=== PATIENT | male | born 1950 | race Two or more races ===

== ENCOUNTER 2016-10-18 19:26 | Emergency (ER) | payer OTHER ==
[2016-10-18 19:44] VITALS: BP 110/67; PULSE 96; TEMP 97.6; BMI 23.3
--- NOTE | 2016-10-18 19:59 | PDOC ---
History of Present Illness - General Chief Complaint: Alcohol intoxication Stated Complaint: FALL HIP INJURY Time Seen by Provider: 10/18/16 19:59 History Source: Patient, EMS Exam Limitations: Intoxication - History of Present Illness Initial Comments: 10/18/16 20:05 65-year-old male here with complain right hip pain status [place] Patient states that he had right hip replacement five weeks prior. He denies any head trauma, no blurry vision, no neck pain, no tingling, no numbness, no nausea, no vomiting, no fever, no chills , no chest pain, no dyspnea, no dysphagia, no headache, no dizziness. Patient admits to alcohol intake. Per EMS he was seen at another hospital last week with similar complaints and presentation. Patient currently intoxicated. Patient had bottle of Vodka with him which was taken away. 10/19/16 06:51 Occurred: reports: just prior to arrival Pain Location: reports: pelvis Method of Injury: Yes: fall Modifying Factors: improves with: None Loss of Consciousness: no loss of consciousness Past History - Past Medical History Allergies/Adverse Reactions: Allergies Allergy/AdvReac Type Severity Reaction Status Date / Time No Known Allergies Allergy Verified 10/18/16 19:45 Home Medications: Ambulatory Orders NK [No Known Home Medication] 10/18/16 HTN: Yes - Immunization History Immunization Up to Date: Yes - Psycho/Social/Smoking Cessation Hx Suicidal Ideation: No Smoking History: Unknown if ever smoked Have you smoked in the past 12 months: Yes Number of Cigarettes Smoked Daily: 5 Information on smoking cessation initiated: No Hx Alcohol Use: No Drug/Substance Use Hx: No Substance Use Type: Alcohol *Physical Exam - Vital Signs Last Vital Signs Temp Pulse Resp BP Pulse Ox 97.6 F 96 H 18 110/67 93 L 10/18/16 19:39 10/18/16 19:39 10/18/16 19:39 10/18/16 19:39 10/18/16 19:39 - Physical Exam General Appearance: Yes: Appropriately Dressed, Intoxicated. No: Nourished, Apparent Distress HEENT: positive: BRIDGETT, Normal ENT Inspection Neck: positive: Trachea midline, Normal Thyroid Respiratory/Chest: positive: Lungs Clear, Normal Breath Sounds. negative: Chest Tender, Respiratory Distress, Accessory Muscle Use Cardiovascular: positive: Regular Rhythm, Regular Rate, S1, S2 Gastrointestinal/Abdominal: negative: Normal Bowel Sounds, Tender, Flat, Soft, Organomegaly, Pulsatile Mass, Increased Bowel Sounds, Decreased BS, Protuberent , Distended, Guarding, Rebound, Tenderness, Hernia, Mass, Hepatomegaly, Spleenomegaly, Other Musculoskeletal: positive: Normal Inspection Extremity: positive: Normal Capillary Refill, Normal Inspection, Normal Range of Motion, Pelvis Stable. negative: Tender, Coldness, Cyanosis, Delayed Capillary Refill, Pedal Edema, Swelling, Calf Tenderness, Erythema, Inflammation Integumentary: positive: Normal Color, Dry, Warm Neurologic: positive: typist II-XII NML intact Progress Note - Progress Note Progress Note: Patient examined here in ER. Patient sleeping in bed comfortably in bed. Medical Decision Making - Medical Decision Making 10/19/16 06:54 Patient to be discharged home after period of detox/sobriety. *DC/Admit/Observation/Transfer Diagnosis at time of Disposition: Alcohol abuse Arthralgia of hip Qualifiers: Laterality: right Qualified Code(s): M25.551 - Pain in right hip Fall Qualifiers: Encounter type: initial encounter Qualified Code(s): W19.XXXA - Unspecified fall, initial encounter - Discharge Dispostion Disposition: HOME Condition at time of disposition: Stable Admit: No
== END 2016-10-19 07:08 | disposition home or self-care (01) ==
LOC: JER 19:26
DX: F10.10 Alcohol abuse, uncomplicated (principal); M25.551 Pain in right hip; Z96.641 Presence of right artificial hip joint; W18.39XA Other fall on same level, initial encounter; Y93.89 Activity, other specified; Y92.522 Railway station as the place of occurrence of the external cause; Y99.8 Other external cause status
CPT/HCPCS: 73523-TC; 99281-25

== ENCOUNTER 2016-11-30 21:57 | Emergency (ER) | payer OTHER ==
[2016-11-30 22:00] VITALS: TEMP 98.7; BMI 22.6
--- NOTE | 2016-11-30 23:58 | PDOC ---
History of Present Illness - General History Source: Patient, Old Records Exam Limitations: Intoxication - History of Present Illness Initial Comments: 12/01/16 00:17 The patient is a 66 year old male with a significant past medical history of ETOH abuse and hip surgery (07/04), who presents to the emergency department today for further evaluation of intoxication. The patient reports back pain associated with his hip surgery. HPI is limited due to patients inebriation. <Earl Dennis - Last Filed: 12/01/16 00:32> <Kiah Cruz - Last Filed: 12/01/16 22:10> - General Chief Complaint: Alcohol intoxication Stated Complaint: INTOXICATED Time Seen by Provider: 11/30/16 23:00 Past History <Earl Dennis - Last Filed: 12/01/16 00:32> - Past Medical History HTN: Yes - Immunization History Immunization Up to Date: Yes - Psycho/Social/Smoking Cessation Hx Suicidal Ideation: No Smoking History: Former smoker Have you smoked in the past 12 months: No Number of Cigarettes Smoked Daily: 5 Information on smoking cessation initiated: No Hx Alcohol Use: No Drug/Substance Use Hx: No Substance Use Type: Alcohol <Kiah Cruz - Last Filed: 12/01/16 22:10> - Past Medical History Allergies/Adverse Reactions: Allergies Allergy/AdvReac Type Severity Reaction Status Date / Time No Known Allergies Allergy Verified 11/30/16 21:57 Home Medications: Ambulatory Orders NK [No Known Home Medication] 10/18/16 Review of Systems - Review of Systems Able to Perform ROS?: Yes Comments:: 12/01/16 00:17 CONSTITUTIONAL: Absent: fever, no chills, no fatigue EYES: Absent: visual changes ENT: Absent: ear pain, no sore throat CARDIOVASCULAR: Absent: chest pain, no palpitations RESPIRATORY: Absent: cough, no SOB GI: Absent: abdominal pain, no nausea, no vomiting, no constipation, no diarrhea GENITOURINARY: Absent: dysuria, no frequency, no hematuria MUSCULOSKELETAL: Present: back pain Absent: no arthralgia, no myalgia SKIN: Absent: rash NEURO: Absent: headache <Earl Dennis - Last Filed: 12/01/16 00:32> *Physical Exam - Vital Signs Last Vital Signs Temp Pulse Resp BP Pulse Ox 98.7 F 76 14 123/81 98 11/30/16 21:58 11/30/16 21:58 11/30/16 21:58 11/30/16 21:58 11/30/16 21:58 - Physical Exam Comments: 12/01/16 00:18 GENERAL: (+)Alcohol on breath. No apparent distress. HEENT: Normocephalic, atraumatic. PERRL, EOM intact. CARDIOVASCULAR: Normal S1, S2. Regular rate and rhythm. PULMONARY: Clear to auscultation bilaterally. ABDOMEN: Soft, non-distended, non-tender. EXTREMITIES: Normal ROM in all four extremities. No gross deformities. SKIN: Warm, dry. No rash NEUROLOGICAL: No focal neurological deficits. <Earl Dennis - Last Filed: 12/01/16 00:32> - Vital Signs Last Vital Signs Temp Pulse Resp BP Pulse Ox 98.7 F 76 14 123/81 98 11/30/16 21:58 11/30/16 21:58 11/30/16 21:58 11/30/16 21:58 11/30/16 21:58 <Kiah Cruz - Last Filed: 12/01/16 22:10> ED Treatment Course - LABORATORY CBC & Chemistry Diagram: 12/01/16 01:30 12/01/16 01:30 <Kiah Cruz - Last Filed: 12/01/16 22:10> Medical Decision Making - Medical Decision Making 12/01/16 00:18 Documentation prepared by Earl Dennis, acting as biomedical engineering aide for Kiah Cruz MD. <Earl Dennis - Last Filed: 12/01/16 00:32> *DC/Admit/Observation/Transfer <Earl Dennis - Last Filed: 12/01/16 00:32> <Kiah Cruz - Last Filed: 12/01/16 22:10> Diagnosis at time of Disposition: Alcohol abuse - Discharge Dispostion Disposition: HOME Condition at time of disposition: Good
[2016-12-01] MEDS ORDERED: FOLIC ACID INJECTION - 1 MG, THIAMINE HCL 100 MG, MULTIVIT INJECTION ADULT 10 ML in SOD... IVPB ONE (00:31)
[2016-12-01 01:46] LABS: BASOPHIL 1.4 % (0-2.0); MCH 23.7 pg (25.7-33.7); MEAN CELL VOLUME 74.1 fl (80-96); MEAN PLT VOLUME 7.5 fl (7.5-11.1); NEUTROPHILS 72.6 % (42.8-82.8); PLATELET COUNT 362 K/MM3 (134-434); RDW 15.7 % (11.9-15.9); WHITE BLOOD COUNT 7.5 K/mm3 (4.0-10.0)
[2016-12-01 02:04] LABS: ALBUMIN 3.1 g/dl (3.4-5.0); ALK PHOS 73 U/L (45-117); ANION GAP 9 (8-16); BILIRUBIN,TOTAL 0.2 mg/dL (0.2-1.0); CO2 29 mmol/L (21-32); CREATININE 0.8 mg/dL (0.7-1.3); GLUCOSE,RANDOM 88 mg/dL (74-106); SGOT/AST 21 U/L (15-37); SGPT/ALT 17 U/L (12-78); TOT PROT 7.4 g/dl (6.4-8.2)
[2016-12-01] MEDS ORDERED: IBUPROFEN 600 MG TABLET (FP) PO ONE ×2 (07:12→07:26)
[2016-12-01 09:06] VITALS: BP 164/85; PULSE 90
== END 2016-12-01 08:50 | disposition home or self-care (01) ==
LOC: JER 21:57
DX: F10.220 Alcohol dependence with intoxication, uncomplicated (principal); Y90.8 Blood alcohol level of 240 mg/100 ml or more
CPT/HCPCS: 36415; 80053; 80307; 85025; 99281-25; 99284-25

== ENCOUNTER 2017-01-22 15:32 | Inpatient (IN) | payer SELFPAY ==
[2017-01-22] MEDS ORDERED: SODIUM CHLORIDE 1,000 ML IV STA (16:10)
[2017-01-22] MEDS ORDERED: HALOPERIDOL LACTATE 5 MG/ML IVPUSH ONE (16:10)
[2017-01-22] MEDS ORDERED: LORAZEPAM CARPU-JECT 2 MG/ML DISP.SYRIN IVPUSH ONE (16:10)
--- NOTE | 2017-01-22 16:52 | PDOC ---
[id number] is a 66 year old male, with a significant past medical history of ETOH abuse and hip surgery, who presents to the emergency department via ems found on the floor intoxicated complaining of generalized back pain, left shoulder, and right hip pain. The patient states he has been experiencing this pain for a while now but reports increased pain today. He states that he has not been able to obtain pain medications and has since been drinking alcohol to control his pain. The patient admits to having surgery on his right hip at [facility] in 2014. He denies chest pain, shortness of breath, headache and dizziness. He denies fever, chills, nausea, vomit, diarrhea and constipation. He denies dysuria, frequency, urgency and hematuria. Allergies: NKDA Surgical Hx: THR (right hip - 07/04/15) <Marysol Sheffield - Last Filed: 01/22/17 16:52> <Golden Zepeda - Last Filed: 02/22/17 09:31> - General Chief Complaint: Alcohol intoxication Stated Complaint: INTOX FALL Time Seen by Provider: 01/22/17 16:08 Past History <Marysol Sheffield - Last Filed: 01/22/17 16:52> - Past Medical History HTN: Yes - Immunization History Immunization Up to Date: Yes - Psycho/Social/Smoking Cessation Hx Suicidal Ideation: No Smoking History: Former smoker Have you smoked in the past 12 months: No Number of Cigarettes Smoked Daily: 5 Information on smoking cessation initiated: No Hx Alcohol Use: No Drug/Substance Use Hx: No Substance Use Type: Alcohol <Golden Zepeda - Last Filed: 02/22/17 09:31> - Past Medical History Allergies/Adverse Reactions: Allergies Allergy/AdvReac Type Severity Reaction Status Date / Time No Known Allergies Allergy Verified 01/22/17 15:40 Home Medications: Ambulatory Orders Acetaminophen [Tylenol .Regular Strength -] 325 mg PO Q6H PRN #30 tablet Folic Acid - 1 mg PO DAILY #30 tablet 02/03/17 Multivitamins [Multivit ([facility] Formulary)] 1 tab PO DAILY #30 tab 02/03/17 Oxycodone HCl [Roxicodone -] 5 mg PO Q6H PRN #7 tablet MDD 20mg 02/03/17 Review of Systems - Review of Systems Able to Perform ROS?: Yes Comments:: 01/22/17 16:52 GENERAL/CONSTITUTIONAL: No fever or chills. No weakness. HEAD, EYES, EARS, NOSE AND THROAT: No change in vision. No ear pain or discharge. No sore throat. CARDIOVASCULAR: No chest pain or shortness of breath. RESPIRATORY: No cough, wheezing, or hemoptysis. GASTROINTESTINAL: No nausea, vomiting, diarrhea or constipation. GENITOURINARY: No dysuria, frequency, or change in urination. MUSCULOSKELETAL: (+) back pain, right hip pain, left shoulder pain. No muscle swelling or pain. No neck pain. SKIN: No rash NEUROLOGIC: No headache, vertigo, loss of consciousness, or change in strength/ sensation. ENDOCRINE: No increased thirst. No abnormal weight change. HEMATOLOGIC/LYMPHATIC: No anemia, easy bleeding, or history of blood clots. ALLERGIC/IMMUNOLOGIC: No hives or skin allergy. <Marysol Sheffield - Last Filed: 01/22/17 16:52> *Physical Exam - Vital Signs Last Vital Signs Temp Pulse Resp BP Pulse Ox 97.8 F 79 18 138/72 98 01/22/17 15:40 01/22/17 15:40 01/22/17 15:40 01/22/17 15:40 01/22/17 15:40 - Physical Exam Comments: 01/22/17 16:53 GENERAL: (+) argumentative and uncooperative. Demanding immediate care. ETOH on breath. Awake, alert, and fully oriented, in no acute distress HEAD: No signs of trauma EYES: PERRLA, EOMI, sclera anicteric, conjunctiva clear ENT: Auricles normal inspection, hearing grossly normal, nares patent, oropharynx clear without exudates. Moist mucosa NECK: Normal ROM, supple, no lymphadenopathy, JVD, or masses LUNGS: Breath sounds equal, clear to auscultation bilaterally. No wheezes, and no crackles HEART: Regular rate and rhythm, normal S1 and S2, no murmurs, rubs or gallops ABDOMEN: Soft, nontender, normoactive bowel sounds. No guarding, no rebound. No masses EXTREMITIES: Normal range of motion, no edema. No clubbing or cyanosis. No cords, erythema, or tenderness NEUROLOGICAL: Cranial nerves II through XII grossly intact. Normal speech SKIN: Warm, Dry, normal turgor, no rashes or lesions noted. <Marysol Sheffield - Last Filed: 01/22/17 16:52> - Vital Signs Last Vital Signs Temp Pulse Resp BP Pulse Ox 97.8 F 79 18 138/72 98 01/22/17 15:40 01/22/17 15:40 01/22/17 15:40 01/22/17 15:40 01/22/17 15:40 <Golden Zepeda - Last Filed: 02/22/17 09:31> ED Treatment Course - LABORATORY CBC & Chemistry Diagram: 01/22/17 16:30 01/22/17 16:30 - Medications Given in the ED: ED Medications Discontinued Medications Generic Name Dose Route Start Last Admin Trade Name Freq PRN Reason Stop Dose Admin Diphenhydramine HCl 50 mg 01/22/17 16:10 01/22/17 16:46 Benadryl Injection - IVPUSH 01/22/17 16:11 50 mg ONCE ONE Administration Lorazepam 2 mg 01/22/17 16:10 01/22/17 16:39 Ativan Injection - IVPUSH 01/22/17 16:11 2 mg ONCE ONE Administration <Marysol Sheffield - Last Filed: 01/22/17 16:52> - LABORATORY CBC & Chemistry Diagram: 02/01/17 10:40 02/01/17 10:40 - RADIOLOGY Radiology Studies Ordered: Category Date Time Status SHOULDER-LEFT [RAD] Stat Radiology 01/22/17 16:30 Ordered - Medications Given in the ED: ED Medications Discontinued Medications Generic Name Dose Route Start Last Admin Trade Name Freq PRN Reason Stop Dose Admin Diphenhydramine HCl 50 mg 01/22/17 16:10 01/22/17 16:46 Benadryl Injection - IVPUSH 01/22/17 16:11 50 mg ONCE ONE Administration Lorazepam 2 mg 01/22/17 16:10 01/22/17 16:39 Ativan Injection - IVPUSH 01/22/17 16:11 2 mg ONCE ONE Administration <Golden Zepeda - Last Filed: 02/22/17 09:31> *DC/Admit/Observation/Transfer - Attestations Scribe Attestion: 01/22/17 16:54 Documentation prepared by Marysol Sheffield, acting as medical supply technician for Golden Zepeda MD <Marysol Sheffield - Last Filed: 01/22/17 16:52> - Attestations Physician Attestion: 01/22/17 16:52 I, Dr. Golden Zepeda, attest that this document has been prepared under my direction and personally reviewed by me in its entirety. I further attest, that it accurately reflects all work, treatment, procedures and medical decision -making performed by me. <Golden Zepeda - Last Filed: 02/22/17 09:31> Diagnosis at time of Disposition: Alcohol abuse Alcohol withdrawal Qualifiers: Complication of substance-induced condition: uncomplicated Qualified Code(s): F10.230 - Alcohol dependence with withdrawal, uncomplicated - Discharge Dispostion Disposition: HOME Condition at time of disposition: Improved - Prescriptions
[2017-01-22 16:56] LABS: INR 0.91 (0.82-1.09)
[2017-01-22 17:05] LABS: BASOPHIL 0.5 % (0-2.0); EOSINOPHIL 0.5 % (0-4.5); MCHC 32.9 g/dl (32.0-35.9); MEAN PLT VOLUME 7.5 fl (7.5-11.1); PLATELET COUNT 239 K/MM3 (134-434); RDW 19.6 % (11.9-15.9); WHITE BLOOD COUNT 11.6 K/mm3 (4.0-10.0)
[2017-01-22 17:09] LABS: ALBUMIN 3.4 g/dl (3.4-5.0); ANION GAP 12 (8-16); BILIRUBIN,TOTAL 0.7 mg/dL (0.2-1.0); CALCIUM 7.7 mg/dL (8.5-10.1); CO2 29 mmol/L (21-32); COCKROFT - GAULT 63.11; CREATININE 1.1 mg/dL (0.7-1.3); GLUCOSE,RANDOM 135 mg/dL (74-106); SGOT/AST 36 U/L (15-37); SGPT/ALT 21 U/L (12-78); TOT PROT 7.6 g/dl (6.4-8.2)
[2017-01-22 17:11] LABS: ALK PHOS 100 U/L (45-117)
[2017-01-23] MEDS ORDERED: LORAZEPAM CARPU-JECT 2 MG/ML DISP.SYRIN IVPUSH ONE ×3 (05:28→08:05)
--- NOTE | 2017-01-23 05:36 | PDOC ---
*Physical Exam - Vital Signs Last Vital Signs Temp Pulse Resp BP Pulse Ox 97.8 F 83 16 142/88 95 01/22/17 15:40 01/22/17 22:03 01/22/17 22:03 01/22/17 22:03 01/22/17 22:03 <MakHammad guo - Last Filed: 01/23/17 05:39> - Vital Signs Last Vital Signs Temp Pulse Resp BP Pulse Ox 98.7 F 127 H 23 115/84 91 L 01/23/17 06:15 01/23/17 06:15 01/23/17 06:15 01/23/17 06:15 01/23/17 06:15 <Eusebia Schneider - Last Filed: 01/23/17 06:47> ED Treatment Course - LABORATORY CBC & Chemistry Diagram: 01/22/17 16:30 01/22/17 16:30 - ADDITIONAL ORDERS Additional order review: Laboratory Results 01/22/17 16:30 Alcohol, Quantitative 447.8 H* 01/22/17 16:30 RBC 4.77 MCV 76.0 L MCHC 32.9 RDW 19.6 H D MPV 7.5 Neutrophils % 82.0 Lymphocytes % 11.4 D Monocytes % 5.6 Eosinophils % 0.5 Basophils % 0.5 - RADIOLOGY Radiology Studies Ordered: Category Date Time Status HEAD CT WITHOUT CONTRAST [CT] Stat CT Scan 01/23/17 05:32 Ordered CHEST X-RAY PORTABLE* [RAD] Stat Radiology 01/23/17 05:32 Ordered - Medications Given in the ED: ED Medications Discontinued Medications Generic Name Dose Route Start Last Admin Trade Name Elizabeth PRN Reason Stop Dose Admin Diphenhydramine HCl 50 mg 01/22/17 16:10 01/22/17 16:46 Benadryl Injection - IVPUSH 01/22/17 16:11 50 mg ONCE ONE Administration Haloperidol 5 mg 01/22/17 16:10 01/22/17 16:58 Haldol Injection (Fast Acting) - IVPUSH 01/22/17 16:11 5 mg ONCE ONE Administration Sodium Chloride 1,000 mls @ 1,000 mls/hr 01/22/17 16:10 01/22/17 16:46 Normal Saline - IV 01/22/17 17:09 1,000 mls/hr ASDIR STA Administration Lorazepam 2 mg 01/22/17 16:10 01/22/17 16:39 Ativan Injection - IVPUSH 01/22/17 16:11 2 mg ONCE ONE Administration <Hammad Velez - Last Filed: 01/23/17 05:39> - LABORATORY CBC & Chemistry Diagram: 01/23/17 05:44 01/23/17 05:44 - ADDITIONAL ORDERS Additional order review: Laboratory Results 01/23/17 01/23/17 01/23/17 05:44 05:34 05:34 Sodium 137 Potassium 3.7 Chloride 97 L Carbon Dioxide 24 Anion Gap 16 BUN 17 D Creatinine 0.8 D Creat Clearance w eGFR > 60 Random Glucose 91 D Calcium 8.1 L Total Bilirubin 1.3 H D AST 42 H ALT 22 Alkaline Phosphatase 98 Total Protein 7.5 Albumin 3.3 L Urine Color Ltyellow Urine Appearance Clear Urine pH 6.0 Ur Specific Zebulon 1.012 Urine Protein 2+ H Urine Glucose (UA) 1+ H Urine Ketones Trace H Urine Blood 1+ H Urine Nitrite Negative Urine Bilirubin Negative Urine Urobilinogen Negative Ur Leukocyte Esterase Negative Urine RBC <1 Urine WBC <1 Ur Epithelial Cells Rare Hyaline Casts 3 Urine Mucus Rare Opiates Screen Negative Methadone Screen Negative Barbiturate Screen Negative Phencyclidine Screen Negative Ur Amphetamines Screen Negative MDMA (Ecstasy) Screen Negative Benzodiazepines Screen Negative Cocaine Screen Negative U Marijuana (THC) Screen Negative 01/23/17 01/22/17 05:44 16:30 RBC 4.72 4.77 MCV 75.0 L 76.0 L MCHC 32.7 32.9 RDW 18.8 H 19.6 H D MPV 8.5 D 7.5 Neutrophils % Y 82.0 Lymphocytes % Y 11.4 D Monocytes % 5.6 Eosinophils % 0.5 Basophils % 0.5 - RADIOLOGY Radiograph Interpretation: 01/23/17 06:46 EXAM: CT brain without contrast Reviewed by Imaging exhibition carver: FINDINGS: Abnormal serpiginous hyperdensity is noted from the left anterior temporal lobe along the left sylvian fissure extending to the left side of the suprasellar cistern region. 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 CT angiography or MR angiography should be obtained for further evaluation. The hyperdensity is difficult to distinguish from blood but because it is tubular I believe it is vessel and not blood. CT or MR angiographic imaging could help to characterize this as well. Involutional changes. No hydrocephalus shift or herniation. No visible acute infarct. - Medications Given in the ED: ED Medications Discontinued Medications Generic Name Dose Route Start Last Admin Trade Name Freq PRN Reason Stop Dose Admin Chlordiazepoxide HCl 25 mg 01/23/17 06:12 01/23/17 06:39 Librium - PO 01/23/17 06:13 25 mg ONCE ONE Administration Diphenhydramine HCl 50 mg 01/22/17 16:10 01/22/17 16:46 Benadryl Injection - IVPUSH 01/22/17 16:11 50 mg ONCE ONE Administration Haloperidol 5 mg 01/22/17 16:10 01/22/17 16:58 Haldol Injection (Fast Acting) - IVPUSH 01/22/17 16:11 5 mg ONCE ONE Administration Sodium Chloride 1,000 mls @ 1,000 mls/hr 01/22/17 16:10 01/22/17 16:46 Normal Saline - IV 01/22/17 17:09 1,000 mls/hr ASDIR STA Administration Lorazepam 2 mg 01/22/17 16:10 01/22/17 16:39 Ativan Injection - IVPUSH 01/22/17 16:11 2 mg ONCE ONE Administration Lorazepam 1 mg 01/23/17 05:28 01/23/17 05:48 Ativan Injection - IVPUSH 01/23/17 05:29 1 mg ONCE ONE Administration Lorazepam 1 mg 01/23/17 06:12 01/23/17 06:39 Ativan Injection - IVPUSH 01/23/17 06:13 1 mg ONCE ONE Administration <Eusebia Schneider - Last Filed: 01/23/17 06:47> Medical Decision Making - Medical Decision Making 01/23/17 05:39 Dr. Velez: The scribe's documentation has been prepared under my direction and personally reviewed by me in its entirery. I confirm that the note above accurately reflects all work, treatment, procedures, and medical decision making performed by me. patient has been here for several hours. Pt unable to stand despite resting all night. Pt will be admitted to hospitalist service <Hammad Velez - Last Filed: 01/23/17 05:39> *DC/Admit/Observation/Transfer - Discharge Dispostion Admit: Yes <Hammad Velez - Last Filed: 01/23/17 05:39> <Eusebia Schneider - Last Filed: 01/23/17 06:47> Diagnosis at time of Disposition: Alcohol abuse Alcohol withdrawal Qualifiers: Complication of substance-induced condition: uncomplicated Qualified Code(s): F10.230 - Alcohol dependence with withdrawal, uncomplicated
[2017-01-23] MEDS ORDERED: FOLIC ACID INJECTION - 1 MG, THIAMINE HCL 100 MG, MULTIVIT INJECTION ADULT 10 ML in SOD... IVPB ONE (05:38)
[2017-01-23] MEDS ORDERED: LORAZEPAM CARPU-JECT 2 MG/ML DISP.SYRIN ONE ×2 (05:42→06:29)
[2017-01-23 06:04] LABS: URINE APPEARANCE CLEAR; URINE BILIRUBIN NEGATIVE (NEGATIVE); URINE COLOR LTYELLOW; URINE GLUCOSE (UA) 1+ (NEGATIVE); URINE KETONE TRACE (NEGATIVE); URINE LEUK ESTERASE NEGATIVE (NEGATIVE); URINE NITRITE NEGATIVE (NEGATIVE); URINE UROBILINOGEN NEGATIVE E.U./dl (0.2-1.0)
[2017-01-23 06:10] LABS: MCH 24.5 pg (25.7-33.7); MCHC 32.7 g/dl (32.0-35.9); MEAN PLT VOLUME 8.5 fl (7.5-11.1); PLATELET COUNT 223 K/MM3 (134-434); RDW 18.8 % (11.9-15.9); WHITE BLOOD COUNT 20.9 K/mm3 (4.0-10.0)
[2017-01-23] MEDS ORDERED: chlordiazePOXIDE HCL 25 MG CAPSULE PO ONE (06:12)
[2017-01-23 06:14] LABS: URINE BLOOD 1+ (NEGATIVE); URINE PROTEIN 2+ (NEGATIVE)
[2017-01-23 06:22] LABS: URINE MARIJUANA THC NEGATIVE ng/ml (CUTOFF=50)
[2017-01-23 06:26] LABS: URINE HYALINE CAST 3 /lpf; URINE MUCUS RARE; URINE RBC <1 /hpf (0-3); URINE WBC <1 /hpf (3-5)
[2017-01-23] MEDS ORDERED: chlordiazePOXIDE HCL 25 MG CAPSULE ONE (06:28)
[2017-01-23 06:37] LABS: ALBUMIN 3.3 g/dl (3.4-5.0); ALK PHOS 98 U/L (45-117); ANION GAP 16 (8-16); BILIRUBIN,TOTAL 1.3 mg/dL (0.2-1.0); CALCIUM 8.1 mg/dL (8.5-10.1); CO2 24 mmol/L (21-32); COCKROFT - GAULT 86.78; CREATININE 0.8 mg/dL (0.7-1.3); GLUCOSE,RANDOM 91 mg/dL (74-106); SGOT/AST 42 U/L (15-37); SGPT/ALT 22 U/L (12-78); TOT PROT 7.5 g/dl (6.4-8.2)
--- NOTE | 2017-01-23 07:14 | HP ---
CHIEF COMPLAINT: S/p Fall and alcohol intoxication PCP: HISTORY OF PRESENT ILLNESS: Patient is a poor historian and brought in s/p fall with severe intoxication. Patient is a poor historian due to his inebriation and complains of left should pain after fall. On evaluation in ED patient found to have left clavicular fracture and ETOH level of 447. No other complaints. ER course was notable for: (1)CT HEad- AV malformation (2) (3) Recent Travel:None PAST MEDICAL HISTORY:HTN and DLP PAST SURGICAL HISTORY:unknown Social History: Smoking:none Alcohol: Dependent Drugs: none Family History: Allergies No Known Allergies Allergy (Verified 01/22/17 15:40) HOME MEDICATIONS: Home Medications Medication Instructions Recorded NK [No Known Home Medication] 10/18/16 REVIEW OF SYSTEMS Unable to assess PHYSICAL EXAMINATION Vital Signs - 24 hr 01/23/17 06:15 Temperature 98.7 F Pulse Rate [ 127 H Radial] Respiratory 23 Rate Blood Pressure 115/84 [Arm] O2 Sat by Pulse 91 L Oximetry (%) GENERAL: intoxicated oriented to self only, mild acute distress. Poor hygiene HEAD: Normal with no signs of trauma. EYES: Pupils equal, round and reactive to light, extraocular movements intact, sclera anicteric, conjunctiva clear. No lid lag. EARS, NOSE, THROAT: Ears normal, nares patent, oropharynx clear without exudates. Moist mucous membranes. NECK: Normal range of motion, supple without lymphadenopathy, JVD, or masses. LUNGS: Breath sounds equal, clear to auscultation bilaterally. No wheezes, and no crackles. No accessory muscle use. HEART: Regular rate and rhythm, normal S1 and S2 without murmur, rub or gallop. ABDOMEN: Soft, nontender, not distended, normoactive bowel sounds, no guarding, no rebound, no masses. No hepatomegaly or splenomegaly. MUSCULOSKELETAL: limited range of motion left arm secondary to pain . left shoulder step off at lateral clavicle tenderness. No CVA tenderness to palpation and movement. UPPER EXTREMITIES: 2+ pulses, warm, well-perfused. No cyanosis. No clubbing. No peripheral edema. LOWER EXTREMITIES: 2+ pulses, warm, well-perfused. No calf tenderness. No peripheral edema. NEUROLOGICAL: Slurred speech. Gait Not assessed . PSYCHIATRIC: Cooperative. Good eye contact. Appropriate mood and affect. SKIN: Warm, dry, normal turgor, no rashes or lesions noted, normal capillary refill. Laboratory Results - last 24 hr 01/23/17 01/23/17 05:44 05:44 WBC 20.9 H D RBC 4.72 Hgb 11.6 L Hct 35.4 MCV 75.0 L MCHC 32.7 RDW 18.8 H Plt Count 223 MPV 8.5 D Neutrophils % Y Lymphocytes % Y Sodium 137 Potassium 3.7 Chloride 97 L Carbon Dioxide 24 Anion Gap 16 BUN 17 D Creatinine 0.8 D Creat Clearance w eGFR > 60 Random Glucose 91 D Calcium 8.1 L Total Bilirubin 1.3 H D AST 42 H ALT 22 Alkaline Phosphatase 98 Total Protein 7.5 Albumin 3.3 L ASSESSMENT/PLAN: Severe Sepsis- admit to telemetry Blood and urine culture Vancomycin and zosyn 4L NC IVF NS 2 Boluses 2L and then continue Banana bag 125cc/h then NS 150cc/h Thiamine, Folate and MV tylenol prn Low sodium diet Lactic acid, troponin ECHO Alcohol intoxication with withdrawal Librium 25mg q6h protocol and ativan 2 mg IVP prn CIWA protocol AVM malformation Neurology consult- Dr Duong Neuro checks HTN hold home meds and verify when more alert Left clavicular fracture percocet prn q6h Problem List - Problem (1) Alcohol withdrawal Code(s): F10.239 - ALCOHOL DEPENDENCE WITH WITHDRAWAL, UNSPECIFIED Qualifiers : Complication of substance-induced condition: uncomplicated Qualified Code(s): F10.230 - Alcohol dependence with withdrawal, uncomplicated (2) Fall Code(s): W19.XXXA - UNSPECIFIED FALL, INITIAL ENCOUNTER Qualifiers: Encounter type: initial encounter Qualified Code(s): W19.XXXA - Unspecified fall, initial encounter (3) Clavicular fracture Code(s): S42.009A - FRACTURE OF UNSP PART OF UNSP CLAVICLE, INIT FOR CLOS FX (4) Sepsis Code(s): A41.9 - SEPSIS, UNSPECIFIED ORGANISM Visit type - Emergency Visit Emergency Visit: Yes ED Registration Date: 01/23/17 Care time: The patient presented to the Emergency Department on the above date and was hospitalized for further evaluation of their emergent condition. - New Patient This patient is new to me today: Yes Date on this admission: 01/23/17 - Critical Care Critical Care patient: Yes Total Critical Care Time (in minutes): 120 Critical Care Statement: The care of this patient involved high complexity decision making to prevent further life threatening deterioration of the patient 's condition and/or to evalute & treat vital organ system(s) failure or risk of failure.
[2017-01-23] MEDS ORDERED: ACETAMINOPHEN 1000 MG/100 ML VIAL (NON FORMULARY) IVPB ONE (08:00)
[2017-01-23] MEDS ORDERED: SODIUM CHLORIDE 1,000 ML IV STA ×2 (08:07→09:04)
[2017-01-23] MEDS ORDERED: PIPERACILLIN/TAZOBACTAM 4.5 GM VIAL IVPB STA (08:09)
[2017-01-23] MEDS ORDERED: ONDANSETRON 4 MG/2 ML VIAL IVPB PRN (08:15)
[2017-01-23 08:46] LABS: ALLENS TEST POSITIVE; ART PUNCT SITE RIGHT RADIAL; ARTERIAL BLD GAS O2 SATURATION 91.3 % (90-98.9); ARTERIAL BLOOD GAS BASE EXCESS 0.7 meq/l (-2-2); ARTERIAL BLOOD GAS HCO3 22.8 meq/L (22-26); ARTERIAL BLOOD GAS PO2 57.8 mmHg (80-100); LPM/O2% 21%; PT. ON O2? NO; TYPE OF O2 ROOM AIR
[2017-01-23] MEDS ORDERED: SODIUM CHLORIDE 1,000 ML IV ONE (08:54)
--- NOTE | 2017-01-23 08:56 | EKG ---
Test Reason : Blood Pressure : / mmHG Vent. Rate : 127 BPM Atrial Rate : 127 BPM P-R Int : 132 ms QRS Dur : 076 ms QT Int : 300 ms P-R-T Axes : 077 -45 074 degrees QTc Int : 436 ms POOR DATA QUALITY, INTERPRETATION MAY BE ADVERSELY AFFECTED SINUS TACHYCARDIA WITH PREMATURE ATRIAL COMPLEXES WITH ABERRANT CONDUCTION LEFT ANTERIOR FASCICULAR BLOCK CANNOT RULE OUT INFERIOR INFARCT , AGE UNDETERMINED ABNORMAL ECG NO PREVIOUS ECGS AVAILABLE Confirmed by JUDI MEI MD ([id number]) on 01/23/2017 8:56:27 AM Referred By: Confirmed By:JUDI MEI MD
[2017-01-23 09:15] LABS: TROPONIN I < 0.02 ng/ml (0.00-0.05)
[2017-01-23 09:16] LABS: TROPONIN I < 0.02 ng/ml (0.00-0.05)
[2017-01-23] MEDS ORDERED: OXYCODONE/APAP 5/325MG COMBO TABLET PO PRN (09:19)
[2017-01-23] MEDS: PANTOPRAZOLE 40 MG TABLET (FP) PO SCH (10:30)
[2017-01-23] MEDS: DOCUSATE SODIUM 100 MG CAPSULE (FP) PO SCH (10:30)
[2017-01-23] MEDS: chlordiazePOXIDE HCL 25 MG CAPSULE PO SCH ×3 (11:21→23:17)
[2017-01-23 11:58] VITALS: BMI 20.7
[2017-01-23] MEDS: HEPARIN NA (PORCINE) 5,000 UNITS/ML 1ML VIAL SQ SCH ×2 (14:24→21:36)
[2017-01-23] MEDS: oxyCODONE HCL 5 MG TABLET PO PRN ×2 (14:24→21:36)
[2017-01-23] MEDS: ACETAMINOPHEN 325 MG TABLET (FP) PO PRN ×2 (14:27→21:38)
--- NOTE | 2017-01-23 16:20 | CONSULT ---
Consult Consult Specialty:: infectious diseases Reason for Consultation:: fever,leukocytosis - History of Present Illness History of Present Illness: 66 year old male, with a significant past medical history of ETOH abuse and hip surgery, admitted and brought by ems as he was found on the floor intoxicated complaining of generalized back pain, left shoulder, and right hip pain. The patient states he has been experiencing this pain for a while now but reports increased pain today. He states that he has not been able to obtain pain medications and has since been drinking alcohol to control his pain. The patient admits to having surgery on his right hip at [facility] in 2014. patient currently very lethargic and not able to answer any question he does drink 3 times a week - History Source History Provided By: Medical Record Limitations to Obtaining History: Clinical Condition - Alcohol/Substance Use Hx Alcohol Use: Yes - Smoking History Smoking history: Current every day smoker Have you smoked in the past 12 months: No Aproximately how many cigarettes per day: 5 Home Medications - Allergies Allergies/Adverse Reactions: Allergies Allergy/AdvReac Type Severity Reaction Status Date / Time No Known Allergies Allergy Verified 01/22/17 15:40 - Home Medications Home Medications: Ambulatory Orders NK [No Known Home Medication] 10/18/16 Review of Systems Unable to obtain ROS, reason: unable to obtain - Review of Systems Constitutional: reports: Fever (from charts) Physical Exam Vital Signs: Vital Signs Temperature 98 F 01/23/17 11:36 Pulse Rate 108 H 01/23/17 11:36 Respiratory Rate 25 H 01/23/17 11:36 Blood Pressure 169/102 01/23/17 11:36 O2 Sat by Pulse Oximetry (%) 98 01/23/17 11:36 Constitutional: Yes: Poor Hygeine, Thin, Other Eyes: Yes: Conjunctiva Clear Cardiovascular: Yes: Regular Rate and Rhythm Respiratory: Yes: Regular, CTA Bilaterally Gastrointestinal: Yes: Normal Bowel Sounds, Soft Musculoskeletal: Yes: WNL Extremities: Yes: WNL, Other ( left arm pain .) Integumentary: Yes: Other (dermatitis changes on right hand) Neurological: Yes: Lethargy, Other Psychiatric: Yes: Other Labs: CBC, BMP 01/23/17 05:44 01/23/17 05:44 Imaging - Results Chest X-ray: Report Reviewed, Image Reviewed X-ray: Report Reviewed, Image Reviewed Cat Scan: Report Reviewed, Image Reviewed Assessment/Plan - Problem (1) Alcohol withdrawal Code(s): F10.239 - ALCOHOL DEPENDENCE WITH WITHDRAWAL, UNSPECIFIED Qualifiers : Complication of substance-induced condition: uncomplicated Qualified Code(s): F10.230 - Alcohol dependence with withdrawal, uncomplicated (2) Fall Code(s): W19.XXXA - UNSPECIFIED FALL, INITIAL ENCOUNTER Qualifiers: Encounter type: initial encounter Qualified Code(s): W19.XXXA - Unspecified fall, initial encounter (3) Clavicular fracture Code(s): S42.009A - FRACTURE OF UNSP PART OF UNSP CLAVICLE, INIT FOR CLOS FX (4) Sepsis Code(s): A41.9 - SEPSIS, UNSPECIFIED ORGANISM lactic acidosis r/o aspiration pna plan will continue abx for now hydration monitor wbc rest as per primary await for blood and urine cx
[2017-01-23] MEDS: PIPERACILLIN/TAZOB 3.375 GM 50 ML IVPB SCH (17:48)
[2017-01-23] MEDS: morphine CARPU-JECT 2 MG/1 ML DISP.SYRIN IVPUSH PRN (17:57)
[2017-01-24] MEDS: PIPERACILLIN/TAZOB 3.375 GM 50 ML IVPB SCH ×3 (01:00→17:01)
[2017-01-24] MEDS: oxyCODONE HCL 5 MG TABLET PO PRN ×2 (05:30→23:02)
[2017-01-24] MEDS: chlordiazePOXIDE HCL 25 MG CAPSULE PO SCH ×4 (05:30→22:40)
[2017-01-24] MEDS: ACETAMINOPHEN 325 MG TABLET (FP) PO PRN ×2 (05:30→23:02)
[2017-01-24] MEDS: HEPARIN NA (PORCINE) 5,000 UNITS/ML 1ML VIAL SQ SCH ×3 (05:42→22:39)
[2017-01-24 07:44] LABS: MCH 24.7 pg (25.7-33.7); MCHC 32.1 g/dl (32.0-35.9); MEAN PLT VOLUME 8.5 fl (7.5-11.1); PLATELET COUNT 180 K/MM3 (134-434); RDW 19.1 % (11.9-15.9); WHITE BLOOD COUNT 22.3 K/mm3 (4.0-10.0)
[2017-01-24 08:15] LABS: ALK PHOS 89 U/L (45-117); ANION GAP 13 (8-16); BILIRUBIN,TOTAL 1.7 mg/dL (0.2-1.0); CO2 26 mmol/L (21-32); COCKROFT - GAULT 66.49; CREATININE 0.9 mg/dL (0.7-1.3); GLUCOSE,RANDOM 82 mg/dL (74-106); MAGNESIUM 1.5 mg/dL (1.8-2.4); PHOSPHOROUS 1.5 mg/dL (2.5-4.9); SGOT/AST 24 U/L (15-37); SGPT/ALT 18 U/L (12-78); TOT PROT 7.1 g/dl (6.4-8.2)
[2017-01-24] MEDS: chlordiazePOXIDE HCL 25 MG CAPSULE PO PRN (08:41)
--- NOTE | 2017-01-24 08:44 | PN ---
Physical Exam: SUBJECTIVE: Patient seen and examined, asleep while eating his breakfast. C/o left shoulder pain 8/10 and occasional dizziness. reports h/o hip surgery done 4 months prior. Denies chest pain, sob or palpitations. OBJECTIVE: Vital Signs Period Temp Pulse Resp BP Sys/Spicer Pulse Ox Last 24 Hr 98 F-100.5 F 97-108 18-26 141-186/89-109 96-98 GENERAL: The patient is awake, alert, and fully oriented, in no acute distress. Poor hygiene HEAD: Normal with no signs of trauma. EYES: PERRL, extraocular movements intact, sclera anicteric, arcus senilis. No ptosis. ENT: Ears normal, nares patent, oropharynx clear without exudates, moist mucous membranes. NECK: Trachea midline, full range of motion, supple. LUNGS: Breath sounds equal, clear to auscultation bilaterally, no wheezes, right lower lobe crackles, no accessory muscle use. HEART: Regular rate and rhythm, S1, S2 without murmur, rub or gallop. ABDOMEN: Soft, nontender, nondistended, normoactive bowel sounds, no guarding, no rebound, no hepatosplenomegaly, no masses. EXTREMITIES: 2+ pulses, warm, well-perfused, edema left shoulder and pain on ROM. slight tremors NEUROLOGICAL: Cranial nerves II through XII grossly intact. Normal speech, gait not observed. PSYCH: Normal mood, normal affect. SKIN: Warm, dry, normal turgor, no rashes or lesions noted Laboratory Results - last 24 hr 01/23/17 01/23/17 01/23/17 05:44 05:44 08:24 WBC RBC Hgb Hct MCV MCHC RDW Plt Count MPV Neutrophils % Lymphocytes % Puncture Site ABG pH ABG pCO2 at Pt Temp ABG pO2 at Pt Temp ABG HCO3 ABG O2 Sat (Measured) ABG O2 Content ABG Base Excess Hebert Test O2 Delivery Device Oxygen Flow Rate PEEP Sodium 137 Potassium 3.7 Chloride 97 L Carbon Dioxide 24 Anion Gap 16 BUN 17 D Creatinine 0.8 D Creat Clearance w eGFR > 60 POC Glucometer Random Glucose 91 D Lactic Acid 2.071 H* Calcium 8.1 L Phosphorus Magnesium Total Bilirubin 1.3 H D AST 42 H ALT 22 Alkaline Phosphatase 98 Creatine Kinase 354 H Troponin I < 0.02 Total Protein 7.5 Albumin 3.3 L Alcohol, Quantitative 72.2 H* 01/23/17 01/23/17 01/23/17 08:30 11:18 15:56 WBC RBC Hgb Hct MCV MCHC RDW Plt Count MPV Neutrophils % Lymphocytes % Puncture Site Right radial ABG pH 7.50 H ABG pCO2 at Pt Temp 29.2 L ABG pO2 at Pt Temp 57.8 L ABG HCO3 22.8 ABG O2 Sat (Measured) 91.3 ABG O2 Content 13.6 L ABG Base Excess 0.7 Hebert Test Positive O2 Delivery Device Room air Oxygen Flow Rate 21% PEEP 0.0 Sodium Potassium Chloride Carbon Dioxide Anion Gap BUN Creatinine Creat Clearance w eGFR POC Glucometer 90 Random Glucose Lactic Acid 1.160 Calcium Phosphorus Magnesium Total Bilirubin AST ALT Alkaline Phosphatase Creatine Kinase Troponin I Total Protein Albumin Alcohol, Quantitative 01/24/17 01/24/17 05:35 05:35 WBC 22.3 H RBC 4.72 Hgb 11.7 Hct 36.4 MCV 77.0 L MCHC 32.1 RDW 19.1 H Plt Count 180 MPV 8.5 Neutrophils % Y Lymphocytes % Y Puncture Site ABG pH ABG pCO2 at Pt Temp ABG pO2 at Pt Temp ABG HCO3 ABG O2 Sat (Measured) ABG O2 Content ABG Base Excess Hebert Test O2 Delivery Device Oxygen Flow Rate PEEP Sodium 137 Potassium 3.4 L Chloride 98 Carbon Dioxide 26 Anion Gap 13 BUN 14 Creatinine 0.9 Creat Clearance w eGFR > 60 POC Glucometer Random Glucose 82 Lactic Acid Calcium 8.0 L Phosphorus 1.5 L Magnesium 1.5 L Total Bilirubin 1.7 H D AST 24 D ALT 18 Alkaline Phosphatase 89 Creatine Kinase Troponin I Total Protein 7.1 Albumin 3.0 L Alcohol, Quantitative Active Medications Generic Name Dose Route Start Last Admin Trade Name Freq PRN Reason Stop Dose Admin Acetaminophen 325 mg 01/23/17 09:30 01/24/17 05:30 Tylenol - PO 325 mg Q6H PRN Administration PAIN 6-10 Chlordiazepoxide HCl 25 mg 01/23/17 08:15 01/24/17 08:41 Librium - PO 01/26/17 08:14 25 mg Q4H PRN Administration WITHDRAWAL(CONT SUBST) Chlordiazepoxide HCl 25 mg 01/24/17 11:00 Librium - PO 01/25/17 05:01 [id number] EMILY Docusate Sodium 100 mg 01/23/17 10:00 01/23/17 10:30 Colace - PO 100 mg DAILY EMILY Administration Heparin Sodium (Porcine) 5,000 unit 01/23/17 14:00 01/24/17 05:42 Heparin - SQ 5,000 unit TID EMILY Administration Piperacillin Sod/Tazobactam Sod 50 mls @ 100 mls/hr 01/23/17 18:00 01/24/17 01: 00 Zosyn 3.375gm Ivpb (Pre-Docked) IVPB 100 mls/hr Q8H-IV EMILY Administration Protocol Lorazepam 1 mg 01/23/17 08:23 Ativan Injection - IVPUSH Q4H PRN ANXIETY Magnesium Sulfate 2 gm 01/24/17 08:40 Magnesium Sulfate IVPB 01/24/17 08:41 ONCE ONE Morphine Sulfate 1 mg 01/23/17 08:15 01/23/17 17:57 Morphine Injection - IVPUSH 1 mg Q6H PRN Administration PAIN Ondansetron HCl 4 mg 01/23/17 08:15 Zofran Injection IVPB Q6H PRN NAUSEA Oxycodone HCl 5 mg 01/23/17 09:30 01/24/17 05:30 Roxicodone - PO 5 mg Q6H PRN Administration PAIN 6-10 Pantoprazole Sodium 40 mg 01/23/17 10:00 01/23/17 10:30 Protonix - PO 40 mg DAILY EMILY Administration Potassium Phos/Sodium Phos 1 packet 01/24/17 10:00 Phos-Nak Packet - PO BID [facility] ASSESSMENT/PLAN: Hypomagnesemia and hypophosphotemia- supplement 2 G Magnesium and 1 K-Phos BID Repeat Mg and Phos Alcohol W/d continue Folate/Thiamine and multivitamin PO AV malformation- neurology consult pending Problem List - Problems (1) Alcohol withdrawal Code(s): F10.239 - ALCOHOL DEPENDENCE WITH WITHDRAWAL, UNSPECIFIED Qualifiers : Complication of substance-induced condition: uncomplicated Qualified Code(s): F10.230 - Alcohol dependence with withdrawal, uncomplicated (2) Fall Assessment/Plan: Fall precaution. Code(s): W19.XXXA - UNSPECIFIED FALL, INITIAL ENCOUNTER Qualifiers: Encounter type: initial encounter Qualified Code(s): W19.XXXA - Unspecified fall, initial encounter (3) Clavicular fracture Assessment/Plan: Continue percocet prn for severe pain Code(s): S42.009A - FRACTURE OF UNSP PART OF UNSP CLAVICLE, INIT FOR CLOS FX (4) Sepsis Assessment/Plan: Bld and urine cultures no growth Possibly secondary to aspiration pneumonia continue Zosyn Nebs prn ID consult appreciated Code(s): A41.9 - SEPSIS, UNSPECIFIED ORGANISM (5) Electrolyte depletion Assessment/Plan: Hypomagnesemia and hypophophatemia Code(s): E87.8 - OTH DISORDERS OF ELECTROLYTE AND FLUID BALANCE, NEC Visit type - Emergency Visit Emergency Visit: Yes ED Registration Date: 01/23/17 Care time: The patient presented to the Emergency Department on the above date and was hospitalized for further evaluation of their emergent condition. - New Patient This patient is new to me today: No - Critical Care Critical Care patient: No
[2017-01-24] MEDS: PANTOPRAZOLE 40 MG TABLET (FP) PO SCH (09:00)
[2017-01-24] MEDS ORDERED: MAGNESIUM SULF 50% (8.12 MEQ/2 ML-1 GM VIAL) IVPB ONE (09:30)
[2017-01-24] MEDS ORDERED: ALBUTEROL SO4 2.5/IPRATROPIUM 0.5 INH SOL 3 ML VIAL.NEB. NEB PRN (09:50)
[2017-01-24] MEDS ORDERED: THIAMINE HCL 100 MG TABLET (FP) PO SCH (10:00)
[2017-01-24] MEDS: DOCUSATE SODIUM 100 MG CAPSULE (FP) PO SCH (12:13)
[2017-01-24] MEDS ORDERED: MAGNESIUM SULF 50% (8.12 MEQ/2 ML-1 GM VIAL) ONE (12:17)
[2017-01-24] MEDS: MULTIVITAMINS (DAILY MVI) TABLET (FP) PO SCH (12:22)
[2017-01-24] MEDS: FOLIC ACID 1 MG TABLET (FP) PO SCH (12:22)
[2017-01-24] MEDS: NAPH,MB-DB/K PH,MBDB POWDER PACKET PO SCH ×2 (12:22→22:40)
--- NOTE | 2017-01-24 13:45 | PN ---
Progress Note, Physician History of Present Illness: patient little better still lethargic able to answer questions - Current Medication List Current Medications: Active Medications Acetaminophen (Tylenol -) 325 mg PO Q6H PRN PRN Reason: PAIN 6-10 Last Admin: 01/24/17 05:30 Dose: 325 mg Albuterol/Ipratropium (Duoneb -) 1 amp NEB Q6H PRN PRN Reason: SHORTNESS OF BREATH Chlordiazepoxide HCl (Librium -) 25 mg PO Q4H PRN PRN Reason: WITHDRAWAL(CONT SUBST) Stop: 01/26/17 08:14 Last Admin: 01/24/17 08:41 Dose: 25 mg Chlordiazepoxide HCl (Librium -) 25 mg PO Q2R-[facility] EMILY Stop: 01/25/17 05:01 Last Admin: 01/24/17 12:22 Dose: 25 mg Docusate Sodium (Colace -) 100 mg PO DAILY [facility] Last Admin: 01/24/17 12:13 Dose: 100 mg Folic Acid (Folic Acid -) 1 mg PO DAILY [facility] Last Admin: 01/24/17 12:22 Dose: 1 mg Heparin Sodium (Porcine) (Heparin -) 5,000 unit SQ TID EMILY Last Admin: 01/24/17 05:42 Dose: 5,000 unit Piperacillin Sod/Tazobactam Sod (Zosyn 3.375gm Ivpb (Pre-Docked)) 50 mls @ 100 mls/hr IVPB Q8H-IV EMILY PRN Reason: Protocol Last Admin: 01/24/17 09:00 Dose: 100 mls/hr Lorazepam (Ativan Injection -) 1 mg IVPUSH Q4H PRN PRN Reason: ANXIETY Morphine Sulfate (Morphine Injection -) 1 mg IVPUSH Q6H PRN PRN Reason: PAIN Last Admin: 01/23/17 17:57 Dose: 1 mg Multivitamins/Minerals/Vitamin C (Tab-A-Vit -) 1 tab PO DAILY [facility] Last Admin: 01/24/17 12:22 Dose: 1 tab Ondansetron HCl (Zofran Injection) 4 mg IVPB Q6H PRN PRN Reason: NAUSEA Oxycodone HCl (Roxicodone -) 5 mg PO Q6H PRN PRN Reason: PAIN 6-10 Last Admin: 01/24/17 05:30 Dose: 5 mg Pantoprazole Sodium (Protonix -) 40 mg PO DAILY [facility] Last Admin: 01/24/17 09:00 Dose: 40 mg Potassium Phos/Sodium Phos (Phos-Nak Packet -) 1 packet PO BID [facility] Last Admin: 01/24/17 12:22 Dose: 1 packet Thiamine HCl (Vitamin B1 -) 100 mg PO DAILY [facility] Last Admin: 01/24/17 12:22 Dose: 100 mg - Objective Vital Signs: Vital Signs Temperature 98.0 F 01/24/17 08:30 Pulse Rate 104 H 01/24/17 08:30 Respiratory Rate 18 01/24/17 08:32 Blood Pressure 158/92 01/24/17 08:30 O2 Sat by Pulse Oximetry (%) 98 01/24/17 08:32 Constitutional: Yes: No Distress, Calm Cardiovascular: Yes: Regular Rate and Rhythm Respiratory: Yes: Regular, CTA Bilaterally, On Nasal O2 Gastrointestinal: Yes: Normal Bowel Sounds, Soft Neurological: Yes: Lethargy Psychiatric: Yes: Other Labs: CBC, BMP 01/24/17 05:35 01/24/17 05:35 INR, PTT INR 0.91 (0.82-1.09) 01/22/17 16:30 Assessment/Plan - Problem (1) Alcohol withdrawal Code(s): F10.239 - ALCOHOL DEPENDENCE WITH WITHDRAWAL, UNSPECIFIED Qualifiers : Complication of substance-induced condition: uncomplicated Qualified Code(s): F10.230 - Alcohol dependence with withdrawal, uncomplicated (2) Fall Code(s): W19.XXXA - UNSPECIFIED FALL, INITIAL ENCOUNTER Qualifiers: Encounter type: initial encounter Qualified Code(s): W19.XXXA - Unspecified fall, initial encounter (3) Clavicular fracture Code(s): S42.009A - FRACTURE OF UNSP PART OF UNSP CLAVICLE, INIT FOR CLOS FX (4) Sepsis Code(s): A41.9 - SEPSIS, UNSPECIFIED ORGANISM lactic acidosis r/o aspiration pna wbc still on the higher side patient is lehargic and trying to eat--aspiration risk high plan \ continue abx for now hydration monitor wbc rest as per primary cx report noted
--- NOTE | 2017-01-24 17:33 | CONSULT ---
Consult - text type - Consultation Consultation Note: NEUROLOGY CONSULTATION is greatly appreciated: This 66 yo RH man with h/o ETOH is s/p R hip ORIF at [facility] 4 months ago. He presented with Low back pain. Claims he has not walked well since the surgery in spite of rehab. He notes persistent and increased LBP and right leg weakness. Claims he is drinking ( Vodka and beer) to treat the pain. Now admitted after he fell and couldn't get up. Intoxicated with GZD=257 mg% !! Also WBC=20.9K with LLL infiltrate. Now on Vancomicin and Zosyn. Patient denies seizures. CT of head CTAngio (reviewed): Mod. diffuse atrophy. Complex Left frontal, perisylvian AVM. RITU: Unkempt. s/p R hip sx. C/O pain R hip with ROM. No evidence of external head trauma. Dow[place] in situ. NEURO: Still intoxicated? Dysarthric speech. O x [facility] but recalls [facility] at 3 mins. 2016. Trump. - Frontal release. CN II-XII: Conjugate gaze-directed nystagmus. Otherwise normal. Motor: No drift. Sustention tremor L>R. Normal strength including all groups Right leg. Normal Knee jerks. Absent AJ's.Toes downgoing. Coord: No FTN dystaxia Sensory: Normal Gait: Refused by patient. IMP: Mild B/L cerebral dysfunction c/w Toxic-Metabolic encephalopathy. Probably multifactorial est intoxication/ETOH withdrawal, pneumonia. Left frontal AVM. May be asymptomatic but could be contributing to R leg complaints and ataxia. R/O Lumbosacral radiculopathy. SUGGEST: Cont detox protocal, Librium, Thiamine. Consult Dr. Smith. Orthopedics consultation Re: R Hip function. Then mobilize OO bed to chair. MRI of LS spine (C-). PM&R consultation and PT as directed. Continue antibiotics, hydration Neurosurgical consultation Re: AVM but I recommend no specific Rx at this time. Would observe. Thank you very much, Elton Duong MD
[2017-01-24] MEDS: THIAMINE HCL 200 MG/2 ML VIAL IVPB SCH (18:15)
[2017-01-25] MEDS: PIPERACILLIN/TAZOB 3.375 GM 50 ML IVPB SCH ×3 (01:26→17:53)
[2017-01-25] MEDS: THIAMINE HCL 200 MG/2 ML VIAL IVPB SCH ×3 (01:47→17:53)
[2017-01-25] MEDS: morphine CARPU-JECT 2 MG/1 ML DISP.SYRIN IVPUSH PRN (02:08)
[2017-01-25] MEDS: chlordiazePOXIDE HCL 25 MG CAPSULE PO SCH ×3 (04:33→22:04)
[2017-01-25] MEDS: HEPARIN NA (PORCINE) 5,000 UNITS/ML 1ML VIAL SQ SCH ×3 (06:05→22:05)
[2017-01-25] MEDS: MULTIVITAMINS (DAILY MVI) TABLET (FP) PO SCH (09:48)
[2017-01-25] MEDS: DOCUSATE SODIUM 100 MG CAPSULE (FP) PO SCH ×2 (09:48→22:03)
[2017-01-25] MEDS: FOLIC ACID 1 MG TABLET (FP) PO SCH (09:48)
[2017-01-25] MEDS: PANTOPRAZOLE 40 MG TABLET (FP) PO SCH (09:48)
[2017-01-25] MEDS: NAPH,MB-DB/K PH,MBDB POWDER PACKET PO SCH ×2 (09:48→22:04)
[2017-01-25] MEDS: oxyCODONE HCL 5 MG TABLET PO PRN (10:27)
[2017-01-25] MEDS: ACETAMINOPHEN 325 MG TABLET (FP) PO PRN (10:27)
--- NOTE | 2017-01-25 11:54 | PN ---
Physical Exam: SUBJECTIVE: Patient seen and examined at bedside. Complaining of left shoulder pain and right hip pain. Tearful, anxious. OBJECTIVE: Vital Signs Period Temp Pulse Resp BP Sys/Spicer Pulse Ox Last 24 Hr 98.0 F-100.0 F 93-115 18-20 140-165/79-91 96 GENERAL/NEURO: The patient is awake, alert, and fully oriented. Cranial nerves II through XII grossly intact. Normal speech, gait not observed. No tremors, no asterixis. Anxious, tearful. HEAD: Normal with no signs of trauma. EYES: PERRL, extraocular movements intact, sclera anicteric, conjunctiva clear. No ptosis. LUNGS: Breath sounds equal, clear to auscultation bilaterally, no wheezes, no crackles, no accessory muscle use. HEART: Regular rate and rhythm, S1, S2 without murmur, rub or gallop. ABDOMEN: Soft, nontender, nondistended, normoactive bowel sounds, no guarding, no rebound EXTREMITIES: 2+ pulses, warm, well-perfused, no edema. Active Medications Generic Name Dose Route Start Last Admin Trade Name Freq PRN Reason Stop Dose Admin Acetaminophen 325 mg 01/23/17 09:30 01/25/17 10:27 Tylenol - PO 325 mg Q6H PRN Administration PAIN 6-10 Albuterol/Ipratropium 1 amp 01/24/17 09:50 Duoneb - NEB Q6H PRN SHORTNESS OF BREATH Chlordiazepoxide HCl 25 mg 01/23/17 08:15 01/24/17 08:41 Librium - PO 01/26/17 08:14 25 mg Q4H PRN Administration WITHDRAWAL(CONT SUBST) Docusate Sodium 100 mg 01/23/17 10:00 01/25/17 09:48 Colace - PO 100 mg DAILY EMILY Administration Folic Acid 1 mg 01/24/17 10:00 01/25/17 09:48 Folic Acid - PO 1 mg DAILY EMILY Administration Heparin Sodium (Porcine) 5,000 unit 01/23/17 14:00 01/25/17 06:05 Heparin - SQ Not Given TID EMILY Piperacillin Sod/Tazobactam Sod 50 mls @ 100 mls/hr 01/23/17 18:00 01/25/17 09: 48 Zosyn 3.375gm Ivpb (Pre-Docked) IVPB 100 mls/hr Q8H-IV [facility]ILY Administration Protocol Lorazepam 1 mg 01/23/17 08:23 Ativan Injection - IVPUSH Q4H PRN ANXIETY Morphine Sulfate 1 mg 01/23/17 08:15 01/25/17 02:08 Morphine Injection - IVPUSH 1 mg Q6H PRN Administration PAIN Multivitamins/Minerals/Vitamin C 1 tab 01/24/17 10:00 01/25/17 09:48 Tab-A-Vit - PO 1 tab DAILY EMILY Administration Ondansetron HCl 4 mg 01/23/17 08:15 Zofran Injection IVPB Q6H PRN NAUSEA Oxycodone HCl 5 mg 01/23/17 09:30 01/25/17 10:27 Roxicodone - PO 5 mg Q6H PRN Administration PAIN 6-10 Pantoprazole Sodium 40 mg 01/23/17 10:00 01/25/17 09:48 Protonix - PO 40 mg DAILY EMILY Administration Potassium Phos/Sodium Phos 1 packet 01/24/17 10:00 01/25/17 09:48 Phos-Nak Packet - PO 1 packet BID EMILY Administration Thiamine HCl 200 mg 01/24/17 18:00 01/25/17 09:48 Vitamin B1 Injection - IVPB 01/27/17 10:01 200 mg Q8H-IV EMILY Administration Thiamine HCl 100 mg 01/28/17 10:00 Vitamin B1 - PO DAILY [facility] ASSESSMENT/PLAN 66 year-old male with a PMH of polysubtance abuse, admitted for severe alcohol intoxication, left clavicular fracture, and found to have AVM. Severe alcohol intoxication Toxic-metabolic encephalopathy --alert and oriented but anxious --continue librium protocol and Ativan PRN --folic acid, thiamine Left clavicular fracture s/p fall --/ left shoulder xray: slightly displaced fracture --immobilize with sling --oxycodone PRN Sepsis secondary to likely CAP, possible aspiration pneumonia --on admission had fever to 103.4, WBC 11.6; WBC spike 22.3k --01/23 CXR: possible left retrocardiac infiltrate --01/24 CXR: progressive left base infiltrate --continue Zosyn (day #3) --CT chest ordered Left frontal AVM --incidental finding on CT head --seen and evaluated by neuro, per Dr. Duong's recommendation, will get CT surgery consult, Dr. Mccarty Right LE radiculopathy s/p left hip ORIF x 4 months at [facility] --MRI LS pending --neurosurgery consult --PT evaluation Diarrhea --very elevated WBC, concern for c.diff; stools were watery on admission but now formed --if diarrhea returns, send off c.diff Hypokalemia --Kdur BID F/E/N Fluids: PO intake adequate Electrolytes: replete as indicated Nutrition: regular diet DVT prophylaxis: subq heparin Physical therapy Dispo: continues to require inpatient care. Full Code. Visit type - Emergency Visit Emergency Visit: Yes ED Registration Date: 01/23/17 Care time: The patient presented to the Emergency Department on the above date and was hospitalized for further evaluation of their emergent condition. - New Patient This patient is new to me today: Yes Date on this admission: 01/25/17 - Critical Care Critical Care patient: No
[2017-01-25 12:53] LABS: BASOPHIL 0.4 % (0-2.0); EOSINOPHIL 2.7 % (0-4.5); MCH 24.4 pg (25.7-33.7); MCHC 31.2 g/dl (32.0-35.9); MEAN CELL VOLUME 78.3 fl (80-96); MEAN PLT VOLUME 7.9 fl (7.5-11.1); NEUTROPHILS 84.5 % (42.8-82.8); PLATELET COUNT 196 K/MM3 (134-434); RDW 19.1 % (11.9-15.9); WHITE BLOOD COUNT 11.9 K/mm3 (4.0-10.0)
[2017-01-25 13:22] LABS: ALK PHOS 82 U/L (45-117); ANION GAP 13 (8-16); CALCIUM 8.2 mg/dL (8.5-10.1); CO2 27 mmol/L (21-32); COCKROFT - GAULT 59.84; GLUCOSE,RANDOM 91 mg/dL (74-106); MAGNESIUM 1.9 mg/dL (1.8-2.4); PHOSPHOROUS 2.6 mg/dL (2.5-4.9); SGOT/AST 15 U/L (15-37); SGPT/ALT 15 U/L (12-78)
[2017-01-25] MEDS: chlordiazePOXIDE HCL 25 MG CAPSULE PO PRN (16:41)
[2017-01-25] MEDS ORDERED: chlordiazePOXIDE 5 MG CAPSULE PO SCH (17:00)
--- NOTE | 2017-01-25 17:05 | PN ---
Progress Note, Physician History of Present Illness: patient looking more better feels well - Current Medication List Current Medications: Active Medications Acetaminophen (Tylenol -) 325 mg PO Q6H PRN PRN Reason: PAIN 6-10 Last Admin: 01/25/17 10:27 Dose: 325 mg Albuterol/Ipratropium (Duoneb -) 1 amp NEB Q6H PRN PRN Reason: SHORTNESS OF BREATH Chlordiazepoxide HCl (Librium -) 25 mg PO Q4H PRN PRN Reason: WITHDRAWAL(CONT SUBST) Stop: 01/26/17 08:14 Last Admin: 01/25/17 16:41 Dose: 25 mg Chlordiazepoxide HCl (Librium -) 25 mg PO [id number] [facility] Stop: 01/26/17 11:01 Chlordiazepoxide HCl (Librium -) 15 mg PO [id number] [facility] Stop: 01/27/17 11:01 Docusate Sodium (Colace -) 100 mg PO DAILY [facility] Last Admin: 01/25/17 09:48 Dose: 100 mg Docusate Sodium (Colace -) 300 mg PO [facility] Folic Acid (Folic Acid -) 1 mg PO DAILY [facility] Last Admin: 01/25/17 09:48 Dose: 1 mg Heparin Sodium (Porcine) (Heparin -) 5,000 unit SQ TID [facility] Last Admin: 01/25/17 14:35 Dose: 5,000 unit Piperacillin Sod/Tazobactam Sod (Zosyn 3.375gm Ivpb (Pre-Docked)) 50 mls @ 100 mls/hr IVPB Q8H-IV EMILY PRN Reason: Protocol Last Admin: 01/25/17 09:48 Dose: 100 mls/hr Lorazepam (Ativan Injection -) 1 mg IVPUSH Q4H PRN PRN Reason: ANXIETY Multivitamins/Minerals/Vitamin C (Tab-A-Vit -) 1 tab PO DAILY [facility] Last Admin: 01/25/17 09:48 Dose: 1 tab Ondansetron HCl (Zofran Injection) 4 mg IVPB Q6H PRN PRN Reason: NAUSEA Oxycodone HCl (Roxicodone -) 5 mg PO Q4H PRN PRN Reason: PAIN Pantoprazole Sodium (Protonix -) 40 mg PO DAILY [facility] Last Admin: 01/25/17 09:48 Dose: 40 mg Potassium Phos/Sodium Phos (Phos-Nak Packet -) 1 packet PO BID [facility] Last Admin: 01/25/17 09:48 Dose: 1 packet Thiamine HCl (Vitamin B1 Injection -) 200 mg IVPB Q8H-IV [facility] Stop: 01/27/17 10:01 Last Admin: 01/25/17 09:48 Dose: 200 mg Thiamine HCl (Vitamin B1 -) 100 mg PO DAILY [facility] - Objective Vital Signs: Vital Signs Temperature 98.5 F 01/25/17 14:00 Pulse Rate 107 H 01/25/17 14:00 Respiratory Rate 20 01/25/17 14:00 Blood Pressure 124/75 01/25/17 14:00 O2 Sat by Pulse Oximetry (%) 96 01/25/17 09:00 Constitutional: Yes: No Distress, Calm Cardiovascular: Yes: Regular Rate and Rhythm Respiratory: Yes: Regular, Poor Air Entry, Rhonchi Gastrointestinal: Yes: Normal Bowel Sounds, Soft Musculoskeletal: Yes: WNL Extremities: Yes: WNL Neurological: Yes: Alert Psychiatric: Yes: Alert Labs: CBC, BMP 01/25/17 12:30 01/25/17 12:30 INR, PTT INR 0.91 (0.82-1.09) 01/22/17 16:30 Assessment/Plan - Problem (1) Alcohol withdrawal Code(s): F10.239 - ALCOHOL DEPENDENCE WITH WITHDRAWAL, UNSPECIFIED Qualifiers : Complication of substance-induced condition: uncomplicated Qualified Code(s): F10.230 - Alcohol dependence with withdrawal, uncomplicated (2) Fall Code(s): W19.XXXA - UNSPECIFIED FALL, INITIAL ENCOUNTER Qualifiers: Encounter type: initial encounter Qualified Code(s): W19.XXXA - Unspecified fall, initial encounter (3) Clavicular fracture Code(s): S42.009A - FRACTURE OF UNSP PART OF UNSP CLAVICLE, INIT FOR CLOS FX (4) Sepsis Code(s): A41.9 - SEPSIS, UNSPECIFIED ORGANISM lactic acidosis r/o aspiration pna wbc still on the higher side patient is lehargic and trying to eat--aspiration risk high plan \ continue abx wbc trending down hydration monitor wbc rest as per primary cx report noted will deescalate soon
[2017-01-26] MEDS: LORAZEPAM CARPU-JECT 2 MG/ML DISP.SYRIN IVPUSH PRN ×3 (00:58→15:50)
[2017-01-26] MEDS: THIAMINE HCL 200 MG/2 ML VIAL IVPB SCH ×3 (01:09→17:23)
[2017-01-26] MEDS: PIPERACILLIN/TAZOB 3.375 GM 50 ML IVPB SCH ×3 (01:36→17:24)
[2017-01-26] MEDS: chlordiazePOXIDE HCL 25 MG CAPSULE PO SCH ×4 (05:13→23:22)
[2017-01-26] MEDS: HEPARIN NA (PORCINE) 5,000 UNITS/ML 1ML VIAL SQ SCH ×3 (05:33→23:22)
[2017-01-26] MEDS ORDERED: chlordiazePOXIDE HCL 25 MG CAPSULE PO PRN (09:54)
[2017-01-26] MEDS: NAPH,MB-DB/K PH,MBDB POWDER PACKET PO SCH ×2 (10:06→23:22)
[2017-01-26] MEDS: FOLIC ACID 1 MG TABLET (FP) PO SCH (10:06)
[2017-01-26] MEDS: DOCUSATE SODIUM 100 MG CAPSULE (FP) PO SCH ×2 (10:06→23:22)
[2017-01-26] MEDS: PANTOPRAZOLE 40 MG TABLET (FP) PO SCH (10:07)
[2017-01-26] MEDS: MULTIVITAMINS (DAILY MVI) TABLET (FP) PO SCH (10:09)
--- NOTE | 2017-01-26 13:14 | PN ---
Progress Note (short form) - Note Progress Note: Subjective: The patient was seen wheeling himself around the floor in a wheelchair. He reports feeling anxious. Current Medications Generic Name Dose Route Start Last Admin Trade Name Freq PRN Reason Stop Dose Admin Acetaminophen 325 mg 01/23/17 09:30 01/25/17 10:27 Tylenol - PO 325 mg Q6H PRN Administration PAIN 6-10 Albuterol/Ipratropium 1 amp 01/24/17 09:50 Duoneb - NEB Q6H PRN SHORTNESS OF BREATH Chlordiazepoxide HCl 15 mg 01/26/17 17:00 Librium - PO 01/27/17 11:01 [id number]-[id number] EMILY Chlordiazepoxide HCl 25 mg 01/26/17 09:54 01/26/17 10:27 Librium - PO 25 mg Q6H PRN Administration WITHDRAWAL(CONT SUBST) Chlordiazepoxide HCl 25 mg 01/26/17 11:00 01/26/17 10:27 Librium - PO 01/27/17 05:01 25 mg [id number]-GUD EMILY Administration Docusate Sodium 100 mg 01/23/17 10:00 01/26/17 10:06 Colace - PO Not Given DAILY EMILY Docusate Sodium 300 mg 01/25/17 22:00 01/25/17 22:03 Colace - PO Not Given HS EMILY Folic Acid 1 mg 01/24/17 10:00 01/26/17 10:06 Folic Acid - PO 1 mg DAILY EMILY Administration Heparin Sodium (Porcine) 5,000 unit 01/23/17 14:00 01/26/17 05:33 Heparin - SQ 5,000 unit TID EMILY Administration Piperacillin Sod/Tazobactam Sod 50 mls @ 100 mls/hr 01/23/17 18:00 01/26/17 10: 07 Zosyn 3.375gm Ivpb (Pre-Docked) IVPB 100 mls/hr Q8H-IV EMILY Administration Protocol Lorazepam 1 mg 01/23/17 08:23 01/26/17 07:42 Ativan Injection - IVPUSH 1 mg Q4H PRN Administration ANXIETY Multivitamins/Minerals/Vitamin C 1 tab 01/24/17 10:00 01/26/17 10:09 Tab-A-Vit - PO 1 tab DAILY EMILY Administration Ondansetron HCl 4 mg 01/23/17 08:15 Zofran Injection IVPB Q6H PRN NAUSEA Oxycodone HCl 5 mg 01/25/17 16:05 Roxicodone - PO Q4H PRN PAIN Pantoprazole Sodium 40 mg 01/23/17 10:00 01/26/17 10:07 Protonix - PO 40 mg DAILY EMILY Administration Potassium Phos/Sodium Phos 1 packet 01/24/17 10:00 01/26/17 10:06 Phos-Nak Packet - PO 1 packet BID EMILY Administration Thiamine HCl 200 mg 01/24/17 18:00 01/26/17 10:07 Vitamin B1 Injection - IVPB 01/27/17 10:01 200 mg Q8H-IV EMILY Administration Thiamine HCl 100 mg 01/28/17 10:00 Vitamin B1 - PO DAILY EMILY Objective: Vital Signs Period Temp Pulse Resp BP Sys/Spicer Pulse Ox Last 24 Hr 97.8 F-100.2 F 94-107 18-118 124-155/60-99 94-96 Physical Exam: Patient refused CBCD WBC 11.9 K/mm3 (4.0-10.0) H D 01/25/17 12:30 RBC 4.39 M/mm3 (4.00-5.60) 01/25/17 12:30 Hgb 10.7 GM/dL (11.7-16.9) L 01/25/17 12:30 Hct 34.4 % (35.4-49) L 01/25/17 12:30 MCV 78.3 fl (80-96) L 01/25/17 12:30 MCHC 31.2 g/dl (32.0-35.9) L 01/25/17 12:30 RDW 19.1 % (11.9-15.9) H 01/25/17 12:30 Plt Count 196 K/MM3 (134-434) 01/25/17 12:30 MPV 7.9 fl (7.5-11.1) 01/25/17 12:30 CMP Sodium 138 mmol/L (136-145) 01/25/17 12:30 Potassium 3.6 mmol/L (3.5-5.1) 01/25/17 12:30 Chloride 98 mmol/L (98-107) 01/25/17 12:30 Carbon Dioxide 27 mmol/L (21-32) 01/25/17 12:30 Anion Gap 13 (8-16) 01/25/17 12:30 BUN 16 mg/dL (7-18) 01/25/17 12:30 Creatinine 1.0 mg/dL (0.7-1.3) 01/25/17 12:30 Creat Clearance w eGFR > 60 (>60) 01/25/17 12:30 Random Glucose 91 mg/dL (74-106) 01/25/17 12:30 Calcium 8.2 mg/dL (8.5-10.1) L 01/25/17 12:30 Total Bilirubin 1.0 mg/dL (0.2-1.0) D 01/25/17 12:30 AST 15 U/L (15-37) D 01/25/17 12:30 ALT 15 U/L (12-78) 01/25/17 12:30 Alkaline Phosphatase 82 U/L (45-117) 01/25/17 12:30 Total Protein 7.0 g/dl (6.4-8.2) 01/25/17 12:30 Albumin 3.0 g/dl (3.4-5.0) L 01/25/17 12:30 CARDIAC ENZYMES Creatine Kinase 354 IU/L (39-308) H 01/23/17 05:44 Troponin I < 0.02 ng/ml (0.00-0.05) 01/23/17 05:44 Microbiology 01/25/17 19:00 Stool Clostridium difficile Antigen (RIMA) - Final 01/25/17 19:00 Stool Clostridium difficile Toxin Assay - Final 01/23/17 08:24 Blood - Peripheral Venous Blood Culture - Preliminary NO GROWTH OBTAINED AFTER 72 HOURS, INCUBATION TO CONTINUE FOR 2 DAYS. 01/23/17 08:24 Blood - Peripheral Venous Blood Culture - Preliminary NO GROWTH OBTAINED AFTER 72 HOURS, INCUBATION TO CONTINUE FOR 2 DAYS. 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 Plan: 1) ID: Sepsis 2/2 CAP - Aspiration pna vs. Tb - Chest CT with bilateral pulmonary infiltrates with principle involvement of the left base. A small thick walled 1.1 cm cavity is noted within the left pulmonary apex. Mild aneurysmal dilatation of the proximal descending thoracic aorta - Tmax on admission 103.4 - WBC trending down 11.9 today - Continue Zosyn (day 4) - F/u quant gold and AFB x3 to r/o Tb - Isolation precautions - Appreciate ID consult Diarrhea - C.diff negative 2) Psych: Acute alcohol withdrawal - Continue Librium taper - Librium prn - Ativan prn - Continue folic acid - Continue thiamine - Continue multivitamin 3) Ortho: Left clavicular fracture s/p fall - Left shoulder x-ray 01/22: slightly displaced fracture in the lateral shaft of the left clavicle - Continue with sling (patient non-complaint) - F/u ortho consult 4) Neuro: AVM - As evidence on CT head - F/u neuro surgery consult - Appreciate neurology consult 5) F/E/N: - Regular diet - Monitor electrolytes 6) Prophylaxis: - Heparin 5,000u sq tid - OOB with assistance 7) Dispo: - Requires continued inpatient care CODE STATUS: FULL CODE Visit type - Emergency Visit Emergency Visit: Yes ED Registration Date: 01/23/17 Care time: The patient presented to the Emergency Department on the above date and was hospitalized for further evaluation of their emergent condition. - New Patient This patient is new to me today: Yes Date on this admission: 01/26/17 - Critical Care Critical Care patient: No
[2017-01-26] MEDS ORDERED: TUBERCULIN PPD 5 TU/0.1ML SYRINGE (IN PATIENT USE ONLY) ID ONE (15:00)
[2017-01-26] MEDS: chlordiazePOXIDE HCL 25 MG CAPSULE PO PRN (16:03)
[2017-01-26] MEDS ORDERED: chlordiazePOXIDE HCL 25 MG CAPSULE PO SCH (17:00)
--- NOTE | 2017-01-26 21:29 | PN ---
Progress Note, Physician History of Present Illness: patient looking more better feels well findings noted - Current Medication List Current Medications: Active Medications Acetaminophen (Tylenol -) 325 mg PO Q6H PRN PRN Reason: PAIN 6-10 Last Admin: 01/25/17 10:27 Dose: 325 mg Albuterol/Ipratropium (Duoneb -) 1 amp NEB Q6H PRN PRN Reason: SHORTNESS OF BREATH Chlordiazepoxide HCl (Librium -) 15 mg PO [id number] Stop: 01/28/17 05:01 Chlordiazepoxide HCl (Librium -) 25 mg PO [id number] Stop: 01/27/17 05:01 Last Admin: 01/26/17 17:23 Dose: 25 mg Chlordiazepoxide HCl (Librium -) 25 mg PO Q4H PRN PRN Reason: WITHDRAWAL(CONT SUBST) Last Admin: 01/26/17 16:03 Dose: 25 mg Docusate Sodium (Colace -) 100 mg PO DAILY [facility] Last Admin: 01/26/17 10:06 Dose: Not Given Docusate Sodium (Colace -) 300 mg PO HS [facility] Last Admin: 01/25/17 22:03 Dose: Not Given Folic Acid (Folic Acid -) 1 mg PO DAILY [facility] Last Admin: 01/26/17 10:06 Dose: 1 mg Heparin Sodium (Porcine) (Heparin -) 5,000 unit SQ TID [facility] Last Admin: 01/26/17 14:11 Dose: 5,000 unit Piperacillin Sod/Tazobactam Sod (Zosyn 3.375gm Ivpb (Pre-Docked)) 50 mls @ 100 mls/hr IVPB Q8H-IV EMILY PRN Reason: Protocol Last Admin: 01/26/17 17:24 Dose: 100 mls/hr Lorazepam (Ativan Injection -) 1 mg IVPUSH Q4H PRN PRN Reason: ANXIETY Last Admin: 01/26/17 15:50 Dose: 1 mg Multivitamins/Minerals/Vitamin C (Tab-A-Vit -) 1 tab PO DAILY [facility] Last Admin: 01/26/17 10:09 Dose: 1 tab Ondansetron HCl (Zofran Injection) 4 mg IVPB Q6H PRN PRN Reason: NAUSEA Oxycodone HCl (Roxicodone -) 5 mg PO Q4H PRN PRN Reason: PAIN Pantoprazole Sodium (Protonix -) 40 mg PO DAILY [facility] Last Admin: 01/26/17 10:07 Dose: 40 mg Potassium Phos/Sodium Phos (Phos-Nak Packet -) 1 packet PO BID [facility] Last Admin: 01/26/17 10:06 Dose: 1 packet Thiamine HCl (Vitamin B1 Injection -) 200 mg IVPB Q8H-IV EMILY Stop: 01/27/17 10:01 Last Admin: 01/26/17 17:23 Dose: 200 mg Thiamine HCl (Vitamin B1 -) 100 mg PO DAILY [facility] - Objective Vital Signs: Vital Signs Temperature 98.0 F 01/26/17 17:00 Pulse Rate 100 H 01/26/17 17:00 Respiratory Rate 18 01/26/17 17:00 Blood Pressure 150/96 01/26/17 17:00 O2 Sat by Pulse Oximetry (%) 96 01/26/17 09:00 Constitutional: Yes: Calm, Mild Distress Eyes: Yes: Conjunctiva Clear HENT: Yes: Atraumatic Cardiovascular: Yes: Regular Rate and Rhythm Respiratory: Yes: Poor Air Entry, Rhonchi (rt side), Wheezes Gastrointestinal: Yes: Normal Bowel Sounds, Soft Musculoskeletal: Yes: WNL Extremities: Yes: Other Integumentary: Yes: Rash, Other Neurological: Yes: Alert, Other Labs: CBC, BMP 01/25/17 12:30 01/25/17 12:30 INR, PTT INR 0.91 (0.82-1.09) 01/22/17 16:30 - ....Imaging Cat Scan: Report Reviewed, Image Reviewed Assessment/Plan - Problem (1) Alcohol withdrawal Code(s): F10.239 - ALCOHOL DEPENDENCE WITH WITHDRAWAL, UNSPECIFIED Qualifiers : Complication of substance-induced condition: uncomplicated Qualified Code(s): F10.230 - Alcohol dependence with withdrawal, uncomplicated (2) Fall Code(s): W19.XXXA - UNSPECIFIED FALL, INITIAL ENCOUNTER Qualifiers: Encounter type: initial encounter Qualified Code(s): W19.XXXA - Unspecified fall, initial encounter (3) Clavicular fracture Code(s): S42.009A - FRACTURE OF UNSP PART OF UNSP CLAVICLE, INIT FOR CLOS FX (4) Sepsis Code(s): A41.9 - SEPSIS, UNSPECIFIED ORGANISM lactic acidosis r/o aspiration pna wbc still on the higher side still lethargic plan \ continue abx wbc trending down in view of new ct findings now have to r/o tb d/w primary plan to send afb and quantiferon
[2017-01-27] MEDS: THIAMINE HCL 200 MG/2 ML VIAL IVPB SCH ×2 (03:28→10:44)
[2017-01-27] MEDS: PIPERACILLIN/TAZOB 3.375 GM 50 ML IVPB SCH ×3 (03:29→21:32)
[2017-01-27] MEDS: chlordiazePOXIDE HCL 25 MG CAPSULE PO SCH (06:43)
[2017-01-27] MEDS: HEPARIN NA (PORCINE) 5,000 UNITS/ML 1ML VIAL SQ SCH ×3 (06:43→21:31)
[2017-01-27 08:31] LABS: MCH 25.1 pg (25.7-33.7); MCHC 31.8 g/dl (32.0-35.9); MEAN CELL VOLUME 78.7 fl (80-96); MEAN PLT VOLUME 7.7 fl (7.5-11.1); PLATELET COUNT 310 K/MM3 (134-434); RDW 18.7 % (11.9-15.9); WHITE BLOOD COUNT 9.7 K/mm3 (4.0-10.0)
--- NOTE | 2017-01-27 08:50 | CON.ORTH ---
Consult Reason for Consultation:: left clavicle fx - Alcohol/Substance Use Hx Alcohol Use: Yes - Smoking History Smoking history: Current every day smoker Have you smoked in the past 12 months: No Aproximately how many cigarettes per day: 5 Home Medications - Allergies Allergies/Adverse Reactions: Allergies Allergy/AdvReac Type Severity Reaction Status Date / Time No Known Allergies Allergy Verified 01/22/17 15:40 - Home Medications Home Medications: Ambulatory Orders NK [No Known Home Medication] 10/18/16 Physical Exam for Ortho Vital Signs: Vital Signs Temperature 98.2 F 01/27/17 01:00 Pulse Rate 95 H 01/27/17 06:00 Respiratory Rate 20 01/27/17 06:00 Blood Pressure 154/92 01/27/17 06:00 O2 Sat by Pulse Oximetry (%) 95 01/26/17 22:00 Labs: CBC, BMP 01/27/17 06:10 01/25/17 12:30 INR, PTT INR 0.91 (0.82-1.09) 01/22/17 16:30 - Upper Extremity Shoulder: Yes: Left, Ecchymosis, Limited ROM, Pain, Swelling, Tenderness, Other (nvi) Imaging - Results X-ray: Report Reviewed, Image Reviewed Assessment/Plan 66 year old male, with a significant past medical history of ETOH abuse and hip surgery, who presents to the emergency department via ems found on the floor intoxicated complaining of left shoulder and right hip pain. Had right hip cesar. now c/o pain in left shoulder. a/p- left distal clavicle fx no surgical intervention required Pt has been non-compliant with sling gentle rom exercises pain control will follow d/w Dr. Kenney
--- NOTE | 2017-01-27 08:53 | CONS ---
PHYSICAL MEDICINE REHABILITATION CONSULTATION DATE OF CONSULTATION: 01/27/2017 HISTORY OF PRESENT ILLNESS: The patient is a 66-year-old man with past medical history of alcohol abuse and a right hip fracture status post right hip hemiarthroplasty, who was admitted after falling with intoxication and infiltrates on chest x-ray. Patient evidently fell at some point, but he is not a reliable historian, presented to the emergency room late on January 22, 2017. X-ray of the left shoulder revealed a slightly displaced left clavicular fracture. Chest x-ray showed retrocardiac infiltrate. Possible aspiration pneumonia was suspected. He underwent CT of the head due to toxic metabolic encephalopathy, which showed AV malformation. CT angiogram confirmed left AVM in the temporal, frontal lobes and possible right temporal vessel. Patient has undergone echocardiogram which was a poor-quality study, and his left ventricular systolic function was thought to be normal, but there was a mobile echodensity noted, possibly mitral valve vegetation, and a transesophageal echocardiogram has been suggested. His blood work on admission : Slight elevation of WBC, 11.6, which on January 23, increased to 20.9. He had a low sodium, 135, on admission; potassium slightly low, 3.2; BUN 24; creatinine 1.1. Last blood work on January 25, his WBCs have been improving. They were 11.9; hemoglobin stable, 10.7; platelet count 196. Chemistry showed normal sodium, 138; normal potassium of 3.6; BUN 16; creatinine 1.0. Per the nursing staff, he did get out of bed on his own, got out of his chest, and ambulated, but the patient states he does not ambulate much, does not use an assistive device, and lives in some sort of assisted with about 6 steps. Patient also found to have extreme elevation of alcohol level on admission at 447. Repeat on January 23 was 72.2. Patient was placed on Librium and generally has improved. He also underwent a CT of the chest January 25 , bilateral infiltrates, especially at the left base. Patient again is not a reliable historian, could not remember when he underwent hip surgery. He does complain of chronic back pain, and per Dr. Duong has right lower extremity radiculopathy. Per the patient, he has back pain and some discomfort in the right hip but no radiating symptoms past the knee, but again, he is not a reliable historian. REVIEW OF PAST MEDICAL AND SURGICAL HISTORY: As above. Also, history of hypertension. Again, he fractured his hip at some point, undergoing a right hip hemiarthroplasty. A history of alcohol abuse. SOCIAL HISTORY: Again, per the patient, lives in a assisted of some sort. Has about 6 steps. Premorbidly ambulated short distances without device per the patient. CURRENT FUNCTION: He has not been formally evaluated by Physical Therapy, but again, did ambulate short distance without device. REVIEW OF SYSTEMS: No current headache. No lightheadedness, dizziness, blurry vision, double vision that is new. No nausea, vomiting, difficulty swallowing, difficulty chewing. He does complain of left shoulder pain in the area of the clavicular fracture. Also, right-sided low back pain and weakness of the right leg but no numbness, tingling in the upper or lower extremities. No bowel/bladder incontinence. No fever, chills. No significant weight change. No pruritus. He does have diffuse healed lesions in his lower extremities but does not seem to know what these lesions are. PHYSICAL EXAMINATION: General: A thin, elderly man seen lying in bed, looks older than his age. HEENT: Normocephalic and atraumatic. His extraocular muscles appear intact. Neck: Supple, without any palpable spasm. Extremities: Without any pitting edema or calf tenderness. Neuromuscular: He is awake, alert. He is oriented to person and month but not place. He thought he was in a oriental orthodox and did not know the exact date. Cranial nerves 2-12 are grossly intact. Besides his left shoulder, he has good range and strength in the upper extremities, but the left shoulder is limited by pain. Because of the acute fracture, was not ranged fully. He has normal sensation to light touch in the upper and lower extremities. Good dorsiflexion and plantar flexion. At least, antigravity strength in the right hip girdle. Better strength in the left proximal lower extremity. Mild tenderness in the right lumbosacral, paraspinals , right SI area, and right gluteal musculature. Symmetric reflexes. Unable to stand or ambulate him at this time. OVERALL IMPRESSION: 1. Deficits in mobility and activities of daily living. 2. Status post fall. 3. Pneumonia, possibly aspiration pneumonia, and sepsis, improving. 4. Toxic metabolic encephalopathy. 5. History of alcohol intoxication; at risk for alcohol withdrawal. 6. History of right hip fracture status post hemiarthroplasty. 7. Left slightly displaced clavicular fracture. 8. Leukocytosis, improving. 9. Mild anemia, probably chronic. 10. Elevated risk for deep venous thrombosis. 11. Echocardiogram with possible mobile echodensity, mitral valve; recommended per the report transesophageal echocardiogram. PLAN/SUGGESTION: 1. Physical therapy bedside for balance, transfers, gait training, strengthening, and reconditioning. 2. Sling to the left upper extremity for comfort and per orthopedic recommendation. 3. Consider imaging lumbosacral spine. 4. Subcutaneous heparin for DVT prophylaxis. 5. Tylenol for pain. 6. Would limit Roxicodone. 7. IV antibiotics per Infectious Disease. 8. Patient is on folate, B1, and Ativan p.r.n., also Librium for alcohol withdrawal. 9. Probably will need some sort of inpatient rehabilitation but need to clarify his home living situation. Thank you for this referral. ELIZABETH RADER M.D. [id number] MTDD
[2017-01-27] MEDS: DOCUSATE SODIUM 100 MG CAPSULE (FP) PO SCH ×2 (10:28→21:32)
[2017-01-27] MEDS: chlordiazePOXIDE 5 MG CAPSULE PO SCH ×2 (10:42→18:48)
[2017-01-27] MEDS: PANTOPRAZOLE 40 MG TABLET (FP) PO SCH (10:42)
[2017-01-27] MEDS: NAPH,MB-DB/K PH,MBDB POWDER PACKET PO SCH ×2 (10:43→21:32)
[2017-01-27] MEDS: MULTIVITAMINS (DAILY MVI) TABLET (FP) PO SCH (10:43)
[2017-01-27] MEDS: FOLIC ACID 1 MG TABLET (FP) PO SCH (10:43)
--- NOTE | 2017-01-27 10:51 | PN ---
Progress Note (short form) - Note Progress Note: Subjective: The patient was seen at the bedside, he states he is feeling better Current Medications Generic Name Dose Route Start Last Admin Trade Name Freq PRN Reason Stop Dose Admin Acetaminophen 325 mg 01/23/17 09:30 01/25/17 10:27 Tylenol - PO 325 mg Q6H PRN Administration PAIN 6-10 Albuterol/Ipratropium 1 amp 01/24/17 09:50 Duoneb - NEB Q6H PRN SHORTNESS OF BREATH Chlordiazepoxide HCl 15 mg 01/27/17 11:00 01/27/17 10:42 Librium - PO 01/28/17 05:01 15 mg [id number]-CKE EMILY Administration Chlordiazepoxide HCl 25 mg 01/26/17 15:44 01/26/17 16:03 Librium - PO 25 mg Q4H PRN Administration WITHDRAWAL(CONT SUBST) Docusate Sodium 100 mg 01/23/17 10:00 01/27/17 10:28 Colace - PO Not Given DAILY EMILY Docusate Sodium 300 mg 01/25/17 22:00 01/26/17 23:22 Colace - PO 300 mg HS EMILY Administration Folic Acid 1 mg 01/24/17 10:00 01/27/17 10:43 Folic Acid - PO 1 mg DAILY EMILY Administration Heparin Sodium (Porcine) 5,000 unit 01/23/17 14:00 01/27/17 06:43 Heparin - SQ 5,000 unit TID EMILY Administration Piperacillin Sod/Tazobactam Sod 50 mls @ 100 mls/hr 01/23/17 18:00 01/27/17 10: 48 Zosyn 3.375gm Ivpb (Pre-Docked) IVPB 100 mls/hr Q8H-IV EMILY Administration Protocol Lorazepam 1 mg 01/23/17 08:23 01/26/17 15:50 Ativan Injection - IVPUSH 1 mg Q4H PRN Administration ANXIETY Multivitamins/Minerals/Vitamin C 1 tab 01/24/17 10:00 01/27/17 10:43 Tab-A-Vit - PO 1 tab DAILY EMILY Administration Ondansetron HCl 4 mg 01/23/17 08:15 Zofran Injection IVPB Q6H PRN NAUSEA Oxycodone HCl 5 mg 01/25/17 16:05 Roxicodone - PO Q4H PRN PAIN Pantoprazole Sodium 40 mg 01/23/17 10:00 01/27/17 10:42 Protonix - PO 40 mg DAILY EMILY Administration Potassium Phos/Sodium Phos 1 packet 01/24/17 10:00 01/27/17 10:43 Phos-Nak Packet - PO 1 packet BID EMILY Administration Thiamine HCl 100 mg 01/28/17 10:00 Vitamin B1 - PO DAILY EMILY Objective: Vital Signs Period Temp Pulse Resp BP Sys/Spicer Pulse Ox Last 24 Hr 98.0 F-98.2 F 94-100 18-20 150-154/92-96 95 Physical Exam: Patient refused CBCD WBC 9.7 K/mm3 (4.0-10.0) 01/27/17 06:10 RBC 4.29 M/mm3 (4.00-5.60) 01/27/17 06:10 Hgb 10.7 GM/dL (11.7-16.9) L 01/27/17 06:10 Hct 33.7 % (35.4-49) L 01/27/17 06:10 MCV 78.7 fl (80-96) L 01/27/17 06:10 MCHC 31.8 g/dl (32.0-35.9) L 01/27/17 06:10 RDW 18.7 % (11.9-15.9) H 01/27/17 06:10 Plt Count 310 K/MM3 (134-434) D 01/27/17 06:10 MPV 7.7 fl (7.5-11.1) 01/27/17 06:10 CMP Sodium 138 mmol/L (136-145) 01/25/17 12:30 Potassium 3.6 mmol/L (3.5-5.1) 01/25/17 12:30 Chloride 98 mmol/L (98-107) 01/25/17 12:30 Carbon Dioxide 27 mmol/L (21-32) 01/25/17 12:30 Anion Gap 13 (8-16) 01/25/17 12:30 BUN 16 mg/dL (7-18) 01/25/17 12:30 Creatinine 1.0 mg/dL (0.7-1.3) 01/25/17 12:30 Creat Clearance w eGFR > 60 (>60) 01/25/17 12:30 Random Glucose 91 mg/dL (74-106) 01/25/17 12:30 Calcium 8.2 mg/dL (8.5-10.1) L 01/25/17 12:30 Total Bilirubin 1.0 mg/dL (0.2-1.0) D 01/25/17 12:30 AST 15 U/L (15-37) D 01/25/17 12:30 ALT 15 U/L (12-78) 01/25/17 12:30 Alkaline Phosphatase 82 U/L (45-117) 01/25/17 12:30 Total Protein 7.0 g/dl (6.4-8.2) 01/25/17 12:30 Albumin 3.0 g/dl (3.4-5.0) L 01/25/17 12:30 CARDIAC ENZYMES Creatine Kinase 354 IU/L (39-308) H 01/23/17 05:44 Troponin I < 0.02 ng/ml (0.00-0.05) 01/23/17 05:44 Microbiology 01/23/17 08:24 Blood - Peripheral Venous Blood Culture - Preliminary NO GROWTH OBTAINED AFTER 96 HOURS, INCUBATION TO CONTINUE FOR 1 DAYS. 01/23/17 08:24 Blood - Peripheral Venous Blood Culture - Preliminary NO GROWTH OBTAINED AFTER 96 HOURS, INCUBATION TO CONTINUE FOR 1 DAYS. 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 Plan: 1) ID: Sepsis 2/2 CAP - Aspiration pna vs. Tb - Chest CT with bilateral pulmonary infiltrates with principle involvement of the left base. A small thick walled 1.1 cm cavity is noted within the left pulmonary apex. Mild aneurysmal dilatation of the proximal descending thoracic aorta - Tmax on admission 103.4 - WBC wnl - Continue Zosyn (day 4) - F/u quant gold and AFB x3 to r/o Tb - Isolation precautions - Appreciate ID consult Diarrhea - C.diff negative 2) Psych: Acute alcohol withdrawal - Continue Librium taper: complete tomorrow - Librium prn - Ativan prn - Continue folic acid - Continue thiamine - Continue multivitamin 3) Ortho: Left clavicular fracture s/p fall - Left shoulder x-ray 01/22: slightly displaced fracture in the lateral shaft of the left clavicle - Continue with sling (patient non-complaint) - Gentle ROM with PT - Appreciate ortho consult 4) Neuro: AVM - As evidence on CT head - F/u neuro surgery consult - Appreciate neurology consult 5) F/E/N: - Regular diet - Monitor electrolytes 6) Prophylaxis: - Heparin 5,000u sq tid - OOB with assistance 7) Dispo: - Requires continued inpatient care CODE STATUS: FULL CODE Visit type - Emergency Visit Emergency Visit: Yes ED Registration Date: 01/23/17 Care time: The patient presented to the Emergency Department on the above date and was hospitalized for further evaluation of their emergent condition. - New Patient This patient is new to me today: No - Critical Care Critical Care patient: No
[2017-01-27] MEDS: oxyCODONE HCL 5 MG TABLET PO PRN (10:58)
[2017-01-27] MEDS ORDERED: chlordiazePOXIDE 5 MG CAPSULE PO SCH (17:00)
--- NOTE | 2017-01-27 17:37 | PN ---
Progress Note, Physician History of Present Illness: still lethargic ortho note noted for left clavicular fracture patient still not able to comprhend completely - Current Medication List Current Medications: Active Medications Acetaminophen (Tylenol -) 325 mg PO Q6H PRN PRN Reason: PAIN 6-10 Last Admin: 01/25/17 10:27 Dose: 325 mg Albuterol/Ipratropium (Duoneb -) 1 amp NEB Q6H PRN PRN Reason: SHORTNESS OF BREATH Chlordiazepoxide HCl (Librium -) 15 mg PO [id number] EMILY Stop: 01/28/17 05:01 Last Admin: 01/27/17 10:42 Dose: 15 mg Chlordiazepoxide HCl (Librium -) 25 mg PO Q4H PRN PRN Reason: WITHDRAWAL(CONT SUBST) Last Admin: 01/26/17 16:03 Dose: 25 mg Docusate Sodium (Colace -) 100 mg PO DAILY EMILY Last Admin: 01/27/17 10:28 Dose: Not Given Docusate Sodium (Colace -) 300 mg PO HS EMILY Last Admin: 01/26/17 23:22 Dose: 300 mg Folic Acid (Folic Acid -) 1 mg PO DAILY EMILY Last Admin: 01/27/17 10:43 Dose: 1 mg Heparin Sodium (Porcine) (Heparin -) 5,000 unit SQ TID EMILY Last Admin: 01/27/17 14:17 Dose: Not Given Piperacillin Sod/Tazobactam Sod (Zosyn 3.375gm Ivpb (Pre-Docked)) 50 mls @ 100 mls/hr IVPB Q8H-IV EMILY PRN Reason: Protocol Last Admin: 01/27/17 10:48 Dose: 100 mls/hr Lorazepam (Ativan Injection -) 1 mg IVPUSH Q4H PRN PRN Reason: ANXIETY Last Admin: 01/26/17 15:50 Dose: 1 mg Multivitamins/Minerals/Vitamin C (Tab-A-Vit -) 1 tab PO DAILY EMILY Last Admin: 01/27/17 10:43 Dose: 1 tab Ondansetron HCl (Zofran Injection) 4 mg IVPB Q6H PRN PRN Reason: NAUSEA Oxycodone HCl (Roxicodone -) 5 mg PO Q4H PRN PRN Reason: PAIN Last Admin: 01/27/17 10:58 Dose: 5 mg Pantoprazole Sodium (Protonix -) 40 mg PO DAILY [facility] Last Admin: 01/27/17 10:42 Dose: 40 mg Potassium Phos/Sodium Phos (Phos-Nak Packet -) 1 packet PO BID [facility] Last Admin: 01/27/17 10:43 Dose: 1 packet Thiamine HCl (Vitamin B1 -) 100 mg PO DAILY [facility] - Objective Vital Signs: Vital Signs Temperature 98.7 F 01/27/17 13:46 Pulse Rate 111 H 01/27/17 13:46 Respiratory Rate 20 01/27/17 13:46 Blood Pressure 120/79 01/27/17 13:46 O2 Sat by Pulse Oximetry (%) 95 01/26/17 22:00 Constitutional: Yes: No Distress, Calm Cardiovascular: Yes: Regular Rate and Rhythm Respiratory: Yes: Poor Air Entry, Rhonchi Gastrointestinal: Yes: Normal Bowel Sounds, Soft Musculoskeletal: Yes: WNL Extremities: Yes: WNL Neurological: Yes: Alert, Lethargy Psychiatric: Yes: Alert Labs: CBC, BMP 01/27/17 06:10 01/25/17 12:30 INR, PTT INR 0.91 (0.82-1.09) 01/22/17 16:30 Assessment/Plan - Problem (1) Alcohol withdrawal Code(s): F10.239 - ALCOHOL DEPENDENCE WITH WITHDRAWAL, UNSPECIFIED Qualifiers : Complication of substance-induced condition: uncomplicated Qualified Code(s): F10.230 - Alcohol dependence with withdrawal, uncomplicated (2) Fall Code(s): W19.XXXA - UNSPECIFIED FALL, INITIAL ENCOUNTER Qualifiers: Encounter type: initial encounter Qualified Code(s): W19.XXXA - Unspecified fall, initial encounter (3) Clavicular fracture Code(s): S42.009A - FRACTURE OF UNSP PART OF UNSP CLAVICLE, INIT FOR CLOS FX (4) Sepsis Code(s): A41.9 - SEPSIS, UNSPECIFIED ORGANISM lactic acidosis r/o aspiration pna wbc normal still lethargic plan \ continue abx wbc normal await all results await afb results if no sputum get induced sputum
[2017-01-28] MEDS: PIPERACILLIN/TAZOB 3.375 GM 50 ML IVPB SCH ×3 (04:30→17:34)
[2017-01-28] MEDS: chlordiazePOXIDE 5 MG CAPSULE PO SCH ×2 (06:24→06:33)
[2017-01-28] MEDS: HEPARIN NA (PORCINE) 5,000 UNITS/ML 1ML VIAL SQ SCH ×3 (06:27→21:13)
--- NOTE | 2017-01-28 09:44 | PN ---
Progress Note (short form) - Note Progress Note: Subjective: The patient was seen at the bedside, he reports no complaints at this time He is understanding of this need for isolation stating "they are trying to figure out if I have Tb" Sputum sample at the bedside Current Medications Generic Name Dose Route Start Last Admin Trade Name Freq PRN Reason Stop Dose Admin Acetaminophen 325 mg 01/23/17 09:30 01/25/17 10:27 Tylenol - PO 325 mg Q6H PRN Administration PAIN 6-10 Albuterol/Ipratropium 1 amp 01/24/17 09:50 Duoneb - NEB Q6H PRN SHORTNESS OF BREATH Chlordiazepoxide HCl 25 mg 01/26/17 15:44 01/26/17 16:03 Librium - PO 25 mg Q4H PRN Administration WITHDRAWAL(CONT SUBST) Docusate Sodium 100 mg 01/23/17 10:00 01/27/17 10:28 Colace - PO Not Given DAILY EMILY Docusate Sodium 300 mg 01/25/17 22:00 01/27/17 21:32 Colace - PO 300 mg HS EMILY Administration Folic Acid 1 mg 01/24/17 10:00 01/27/17 10:43 Folic Acid - PO 1 mg DAILY EMILY Administration Heparin Sodium (Porcine) 5,000 unit 01/23/17 14:00 01/28/17 06:27 Heparin - SQ 5,000 unit TID EMILY Administration Piperacillin Sod/Tazobactam Sod 50 mls @ 100 mls/hr 01/23/17 18:00 01/28/17 04: 30 Zosyn 3.375gm Ivpb (Pre-Docked) IVPB 100 mls/hr Q8H-IV EMILY Administration Protocol Lorazepam 1 mg 01/23/17 08:23 01/26/17 15:50 Ativan Injection - IVPUSH 1 mg Q4H PRN Administration ANXIETY Multivitamins/Minerals/Vitamin C 1 tab 01/24/17 10:00 01/27/17 10:43 Tab-A-Vit - PO 1 tab DAILY EMLIY Administration Ondansetron HCl 4 mg 01/23/17 08:15 Zofran Injection IVPB Q6H PRN NAUSEA Oxycodone HCl 5 mg 01/25/17 16:05 01/27/17 10:58 Roxicodone - PO 5 mg Q4H PRN Administration PAIN Pantoprazole Sodium 40 mg 01/23/17 10:00 01/27/17 10:42 Protonix - PO 40 mg DAILY EMILY Administration Potassium Phos/Sodium Phos 1 packet 01/24/17 10:00 01/27/17 21:32 Phos-Nak Packet - PO 1 packet BID EMILY Administration Thiamine HCl 100 mg 01/28/17 10:00 Vitamin B1 - PO DAILY EMILY Objective: Vital Signs Period Temp Pulse Resp BP Sys/Spicer Pulse Ox Last 24 Hr 97.8 F-98.9 F 92-111 18-20 115-155/68-86 91-96 Physical Exam: Patient refused No astrixis, no tongue fasiculations CBCD WBC 9.7 K/mm3 (4.0-10.0) 01/27/17 06:10 RBC 4.29 M/mm3 (4.00-5.60) 01/27/17 06:10 Hgb 10.7 GM/dL (11.7-16.9) L 01/27/17 06:10 Hct 33.7 % (35.4-49) L 01/27/17 06:10 MCV 78.7 fl (80-96) L 01/27/17 06:10 MCHC 31.8 g/dl (32.0-35.9) L 01/27/17 06:10 RDW 18.7 % (11.9-15.9) H 01/27/17 06:10 Plt Count 310 K/MM3 (134-434) D 01/27/17 06:10 MPV 7.7 fl (7.5-11.1) 01/27/17 06:10 CMP Sodium 138 mmol/L (136-145) 01/25/17 12:30 Potassium 3.6 mmol/L (3.5-5.1) 01/25/17 12:30 Chloride 98 mmol/L (98-107) 01/25/17 12:30 Carbon Dioxide 27 mmol/L (21-32) 01/25/17 12:30 Anion Gap 13 (8-16) 01/25/17 12:30 BUN 16 mg/dL (7-18) 01/25/17 12:30 Creatinine 1.0 mg/dL (0.7-1.3) 01/25/17 12:30 Creat Clearance w eGFR > 60 (>60) 01/25/17 12:30 Random Glucose 91 mg/dL (74-106) 01/25/17 12:30 Calcium 8.2 mg/dL (8.5-10.1) L 01/25/17 12:30 Total Bilirubin 1.0 mg/dL (0.2-1.0) D 01/25/17 12:30 AST 15 U/L (15-37) D 01/25/17 12:30 ALT 15 U/L (12-78) 01/25/17 12:30 Alkaline Phosphatase 82 U/L (45-117) 01/25/17 12:30 Total Protein 7.0 g/dl (6.4-8.2) 01/25/17 12:30 Albumin 3.0 g/dl (3.4-5.0) L 01/25/17 12:30 CARDIAC ENZYMES Creatine Kinase 354 IU/L (39-308) H 01/23/17 05:44 Troponin I < 0.02 ng/ml (0.00-0.05) 01/23/17 05:44 Microbiology 01/23/17 10:40 Nasopharyngeal Swab Respiratory Virus Panel - Preliminary 01/23/17 08:24 Blood - Peripheral Venous Blood Culture - Final NO GROWTH AFTER 5 DAYS INCUBATION 01/23/17 08:24 Blood - Peripheral Venous Blood Culture - Final NO GROWTH AFTER 5 DAYS INCUBATION 01/26/17 15:30 Blood - Peripheral Venous TB Test (QFT) (RIMA) - Preliminary 01/25/17 19:00 Stool Clostridium difficile Antigen (RIMA) - Final 01/25/17 19:00 Stool Clostridium difficile Toxin Assay - Final 01/23/17 08:24 Urine - Urine - Catheterized Urine Culture - Final NO GROWTH OBTAINED 01/23/17 10:40 Nasopharyngeal Swab Influenza Types A,B Antigen (RIMA) - Final 01/23/17 10:40 Nasopharyngeal Swab - Final Assessment: This is a 66 year old male with PMHx of polysubstance abuse, who presented to the ED with severe alcohol intoxication, left clavicaular fracture and 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 Plan: 1) ID: Sepsis 2/2 CAP - Aspiration pna vs. Tb - Ruling out Tb, f/u quant gold, f/u AFB x3 - Chest CT with bilateral pulmonary infiltrates with principle involvement of the left base. A small thick walled 1.1 cm cavity is noted within the left pulmonary apex. Mild aneurysmal dilatation of the proximal descending thoracic aorta - Continue Zosyn (01/23- ) - Isolation precautions - Appreciate ID consult Diarrhea - C.diff negative - Resolved 2) Psych: Acute alcohol withdrawal - Librium taper completed - Librium prn - Ativan prn - Continue folic acid - Continue thiamine - Continue multivitamin 3) Ortho: Left clavicular fracture s/p fall - Left shoulder x-ray 01/22: slightly displaced fracture in the lateral shaft of the left clavicle - Continue with sling (patient non-complaint) - Gentle ROM with PT - Appreciate ortho consult 4) Neuro: AVM - As evidence on CT head - Spoke to Dr. Mccarty who states will not come to [facility] to see the patient and states he reviewed the chart and that there is no indication for surgical intervention at this time - Appreciate neurology consult 5) F/E/N: - Regular diet - Monitor electrolytes 6) Prophylaxis: - Heparin 5,000u sq tid - OOB with assistance 7) Dispo: - Requires continued inpatient care CODE STATUS: FULL CODE Visit type - Emergency Visit Emergency Visit: Yes ED Registration Date: 01/23/17 Care time: The patient presented to the Emergency Department on the above date and was hospitalized for further evaluation of their emergent condition. - New Patient This patient is new to me today: No - Critical Care Critical Care patient: No
[2017-01-28] MEDS: THIAMINE HCL 100 MG TABLET (FP) PO SCH (10:39)
[2017-01-28] MEDS: PANTOPRAZOLE 40 MG TABLET (FP) PO SCH (10:39)
[2017-01-28] MEDS: MULTIVITAMINS (DAILY MVI) TABLET (FP) PO SCH (10:39)
[2017-01-28] MEDS: FOLIC ACID 1 MG TABLET (FP) PO SCH (10:40)
[2017-01-28] MEDS: DOCUSATE SODIUM 100 MG CAPSULE (FP) PO SCH ×2 (10:40→21:13)
[2017-01-28] MEDS: NAPH,MB-DB/K PH,MBDB POWDER PACKET PO SCH ×2 (10:40→21:13)
--- NOTE | 2017-01-28 13:23 | PN ---
Progress Note, Physician History of Present Illness: still lethargic no issues more awake and alert - Current Medication List Current Medications: Active Medications Acetaminophen (Tylenol -) 325 mg PO Q6H PRN PRN Reason: PAIN 6-10 Last Admin: 01/25/17 10:27 Dose: 325 mg Albuterol/Ipratropium (Duoneb -) 1 amp NEB Q6H PRN PRN Reason: SHORTNESS OF BREATH Chlordiazepoxide HCl (Librium -) 25 mg PO Q4H PRN PRN Reason: WITHDRAWAL(CONT SUBST) Last Admin: 01/26/17 16:03 Dose: 25 mg Docusate Sodium (Colace -) 100 mg PO DAILY [facility] Last Admin: 01/28/17 10:40 Dose: 100 mg Docusate Sodium (Colace -) 300 mg PO HS [facility] Last Admin: 01/27/17 21:32 Dose: 300 mg Folic Acid (Folic Acid -) 1 mg PO DAILY [facility] Last Admin: 01/28/17 10:40 Dose: 1 mg Heparin Sodium (Porcine) (Heparin -) 5,000 unit SQ TID [facility] Last Admin: 01/28/17 06:27 Dose: 5,000 unit Piperacillin Sod/Tazobactam Sod (Zosyn 3.375gm Ivpb (Pre-Docked)) 50 mls @ 100 mls/hr IVPB Q8H-IV EMILY PRN Reason: Protocol Last Admin: 01/28/17 10:39 Dose: 100 mls/hr Multivitamins/Minerals/Vitamin C (Tab-A-Vit -) 1 tab PO DAILY [facility] Last Admin: 01/28/17 10:39 Dose: 1 tab Ondansetron HCl (Zofran Injection) 4 mg IVPB Q6H PRN PRN Reason: NAUSEA Oxycodone HCl (Roxicodone -) 5 mg PO Q4H PRN PRN Reason: PAIN Last Admin: 01/27/17 10:58 Dose: 5 mg Pantoprazole Sodium (Protonix -) 40 mg PO DAILY [facility] Last Admin: 01/28/17 10:39 Dose: 40 mg Potassium Phos/Sodium Phos (Phos-Nak Packet -) 1 packet PO BID [facility] Last Admin: 01/28/17 10:40 Dose: 1 packet Thiamine HCl (Vitamin B1 -) 100 mg PO DAILY [facility] Last Admin: 01/28/17 10:39 Dose: 100 mg - Objective Vital Signs: Vital Signs Temperature 98.0 F 01/28/17 10:00 Pulse Rate 101 H 01/28/17 10:00 Respiratory Rate 22 01/28/17 10:00 Blood Pressure 115/69 01/28/17 10:00 O2 Sat by Pulse Oximetry (%) 94 L 01/28/17 09:52 Constitutional: Yes: No Distress, Calm Cardiovascular: Yes: Regular Rate and Rhythm Respiratory: Yes: Regular, Poor Air Entry, Rhonchi Gastrointestinal: Yes: Normal Bowel Sounds, Soft Musculoskeletal: Yes: WNL Extremities: Yes: WNL Neurological: Yes: Alert, Other Labs: CBC, BMP 01/27/17 06:10 01/25/17 12:30 INR, PTT INR 0.91 (0.82-1.09) 01/22/17 16:30 Assessment/Plan - Problem (1) Alcohol withdrawal Code(s): F10.239 - ALCOHOL DEPENDENCE WITH WITHDRAWAL, UNSPECIFIED Qualifiers : Complication of substance-induced condition: uncomplicated Qualified Code(s): F10.230 - Alcohol dependence with withdrawal, uncomplicated (2) Fall Code(s): W19.XXXA - UNSPECIFIED FALL, INITIAL ENCOUNTER Qualifiers: Encounter type: initial encounter Qualified Code(s): W19.XXXA - Unspecified fall, initial encounter (3) Clavicular fracture Code(s): S42.009A - FRACTURE OF UNSP PART OF UNSP CLAVICLE, INIT FOR CLOS FX (4) Sepsis Code(s): A41.9 - SEPSIS, UNSPECIFIED ORGANISM lactic acidosis r/o aspiration pna wbc normal plan will stop abx tomorrow wbc normal await all results await afb results i
[2017-01-28] MEDS: oxyCODONE HCL 5 MG TABLET PO PRN (14:17)
[2017-01-28] MEDS: ACETAMINOPHEN 325 MG TABLET (FP) PO PRN ×2 (14:22→22:05)
[2017-01-28] MEDS: chlordiazePOXIDE HCL 25 MG CAPSULE PO PRN (15:49)
[2017-01-28] MEDS ORDERED: oxyCODONE HCL 5 MG TABLET PO ONE (21:20)
[2017-01-29] MEDS: PIPERACILLIN/TAZOB 3.375 GM 50 ML IVPB SCH ×2 (01:49→09:35)
[2017-01-29] MEDS: HEPARIN NA (PORCINE) 5,000 UNITS/ML 1ML VIAL SQ SCH ×3 (05:48→22:28)
[2017-01-29] MEDS ORDERED: oxyCODONE HCL 5 MG TABLET PO ONE (05:51)
[2017-01-29] MEDS: ACETAMINOPHEN 325 MG TABLET (FP) PO PRN ×3 (06:07→20:16)
[2017-01-29 08:08] LABS: MCH 25.7 pg (25.7-33.7); MCHC 32.7 g/dl (32.0-35.9); MEAN CELL VOLUME 78.7 fl (80-96); MEAN PLT VOLUME 7.6 fl (7.5-11.1); PLATELET COUNT 423 K/MM3 (134-434); RDW 19.4 % (11.9-15.9); WHITE BLOOD COUNT 10.9 K/mm3 (4.0-10.0)
--- NOTE | 2017-01-29 08:21 | PN ---
Physical Exam: SUBJECTIVE: Patient seen and examined. Loose, productive cough. OBJECTIVE: Vital Signs Period Temp Pulse Resp BP Sys/Spicer Pulse Ox Last 24 Hr 98.0 F-99 F 84-106 18-22 110-151/68-96 94-97 GENERAL: The patient is awake, alert, and fully oriented, in no acute distress. HEAD: Normal with no signs of trauma. EYES: PERRL, extraocular movements intact, sclera anicteric, conjunctiva clear. No ptosis. LUNGS: Breath sounds equal, clear to auscultation bilaterally, no wheezes, no crackles, no accessory muscle use. HEART: Regular rate and rhythm, S1, S2 without murmur, rub or gallop. ABDOMEN: Soft, nontender, nondistended, normoactive bowel sounds, no guarding, no rebound, no hepatosplenomegaly, no masses. EXTREMITIES: 2+ pulses, warm, well-perfused, no edema. NEUROLOGICAL: Cranial nerves II through XII grossly intact. Normal speech, gait not observed. Laboratory Results - last 24 hr 01/29/17 01/29/17 07:00 07:00 WBC 10.9 H RBC 3.90 L Hgb 10.0 L Hct 30.7 L MCV 78.7 L MCHC 32.7 RDW 19.4 H Plt Count 423 D MPV 7.6 Sodium 141 Potassium 3.9 Chloride 106 Carbon Dioxide 27 Anion Gap 8 BUN 23 H D Creatinine 1.0 Creat Clearance w eGFR > 60 Random Glucose 81 Calcium 8.1 L Total Bilirubin 0.3 D AST 12 L ALT 13 Alkaline Phosphatase 64 D Total Protein 6.3 L Albumin 2.5 L Active Medications Generic Name Dose Route Start Last Admin Trade Name Freq PRN Reason Stop Dose Admin Acetaminophen 325 mg 01/23/17 09:30 01/29/17 06:07 Tylenol - PO 325 mg Q6H PRN Administration PAIN 6-10 Albuterol/Ipratropium 1 amp 01/24/17 09:50 Duoneb - NEB Q6H PRN SHORTNESS OF BREATH Chlordiazepoxide HCl 25 mg 01/26/17 15:44 01/28/17 15:49 Librium - PO 25 mg Q4H PRN Administration WITHDRAWAL(CONT SUBST) Docusate Sodium 100 mg 01/23/17 10:00 01/28/17 10:40 Colace - PO 100 mg DAILY EMILY Administration Docusate Sodium 300 mg 01/25/17 22:00 01/28/17 21:13 Colace - PO 300 mg HS EMILY Administration Folic Acid 1 mg 01/24/17 10:00 01/28/17 10:40 Folic Acid - PO 1 mg DAILY EMILY Administration Heparin Sodium (Porcine) 5,000 unit 01/23/17 14:00 01/29/17 05:48 Heparin - SQ 5,000 unit TID EMILY Administration Piperacillin Sod/Tazobactam Sod 50 mls @ 100 mls/hr 01/23/17 18:00 01/29/17 01: 49 Zosyn 3.375gm Ivpb (Pre-Docked) IVPB 100 mls/hr Q8H-IV EMILY Administration Protocol Multivitamins/Minerals/Vitamin C 1 tab 01/24/17 10:00 01/28/17 10:39 Tab-A-Vit - PO 1 tab DAILY EMILY Administration Ondansetron HCl 4 mg 01/23/17 08:15 Zofran Injection IVPB Q6H PRN NAUSEA Pantoprazole Sodium 40 mg 01/23/17 10:00 01/28/17 10:39 Protonix - PO 40 mg DAILY EMILY Administration Potassium Phos/Sodium Phos 1 packet 01/24/17 10:00 01/28/17 21:13 Phos-Nak Packet - PO 1 packet BID EMILY Administration Thiamine HCl 100 mg 01/28/17 10:00 01/28/17 10:39 Vitamin B1 - PO 100 mg DAILY EMILY Administration ASSESSMENT/PLAN: 66 year-old male with a PMH of polysubtance abuse, admitted for severe alcohol intoxication, left clavicular fracture, and found to have AVM. Sepsis likely secondary to pneumonia r/o Tuberculosis --01/25 CT chest: bilateral pulmonary infiltrates and a 1.1cm thick-walled cavity in left apex --two AFBs collected and sent; third to be collected tomorrow --TB gold pending --continue Zosyn (day #7) Severe alcohol intoxication, resolved Toxic-metabolic encephalopathy, resolved --librium protocol complete --continue folic acid, thiamine Left clavicular fracture s/p fall --01/22 left shoulder xray: slightly displaced fracture --immobilize with sling --oxycodone PRN Left frontal AVM --incidental finding on CT head --seen and evaluated by neuro --[facility] Octavio spoke to neurosurgeon Dr. Mccarty who states will NOT come to [facility] to see the patient and states he reviewed the chart and that there is no indication for surgical intervention at this time Right LE radiculopathy s/p left hip ORIF x [address] [facility] --MRI LS shows nerve root impingement right L4 nerve root --will need outpatient followup Diarrhea, resolved --c.diff negative Hypokalemia --Kdur BID F/E/N Fluids: PO intake adequate Electrolytes: replete as indicated Nutrition: regular diet DVT prophylaxis: subq heparin Physical therapy Dispo: continues to require inpatient care. Full Code. Visit type - Emergency Visit Emergency Visit: Yes ED Registration Date: 01/23/17 Care time: The patient presented to the Emergency Department on the above date and was hospitalized for further evaluation of their emergent condition. - New Patient This patient is new to me today: No - Critical Care Critical Care patient: No
[2017-01-29 08:30] LABS: ALBUMIN 2.5 g/dl (3.4-5.0); ANION GAP 8 (8-16); CALCIUM 8.1 mg/dL (8.5-10.1); CO2 27 mmol/L (21-32); COCKROFT - GAULT 59.84; GLUCOSE,RANDOM 81 mg/dL (74-106); SGOT/AST 12 U/L (15-37); SGPT/ALT 13 U/L (12-78)
[2017-01-29 08:32] LABS: ALK PHOS 64 U/L (45-117); BILIRUBIN,TOTAL 0.3 mg/dL (0.2-1.0); TOT PROT 6.3 g/dl (6.4-8.2)
[2017-01-29] MEDS: DOCUSATE SODIUM 100 MG CAPSULE (FP) PO SCH ×2 (09:34→22:27)
[2017-01-29] MEDS: MULTIVITAMINS (DAILY MVI) TABLET (FP) PO SCH (09:34)
[2017-01-29] MEDS: PANTOPRAZOLE 40 MG TABLET (FP) PO SCH (09:34)
[2017-01-29] MEDS: FOLIC ACID 1 MG TABLET (FP) PO SCH (09:35)
[2017-01-29] MEDS: THIAMINE HCL 100 MG TABLET (FP) PO SCH (09:35)
[2017-01-29] MEDS: NAPH,MB-DB/K PH,MBDB POWDER PACKET PO SCH ×2 (09:35→22:28)
[2017-01-29] MEDS: oxyCODONE HCL 5 MG TABLET PO PRN ×2 (13:39→20:16)
--- NOTE | 2017-01-29 14:42 | PN ---
Progress Note, Physician History of Present Illness: continues to be lethargic calm in no distress looks like he is improving more awake - Current Medication List Current Medications: Active Medications Acetaminophen (Tylenol -) 325 mg PO Q6H PRN PRN Reason: PAIN 6-10 Last Admin: 01/29/17 13:39 Dose: 325 mg Docusate Sodium (Colace -) 100 mg PO DAILY [facility] Last Admin: 01/29/17 09:34 Dose: 100 mg Docusate Sodium (Colace -) 300 mg PO HS [facility] Last Admin: 01/28/17 21:13 Dose: 300 mg Folic Acid (Folic Acid -) 1 mg PO DAILY [facility] Last Admin: 01/29/17 09:35 Dose: 1 mg Heparin Sodium (Porcine) (Heparin -) 5,000 unit SQ TID [facility] Last Admin: 01/29/17 13:38 Dose: 5,000 unit Multivitamins/Minerals/Vitamin C (Tab-A-Vit -) 1 tab PO DAILY [facility] Last Admin: 01/29/17 09:34 Dose: 1 tab Oxycodone HCl (Roxicodone -) 5 mg PO Q6H PRN PRN Reason: PAIN Last Admin: 01/29/17 13:39 Dose: 5 mg Pantoprazole Sodium (Protonix -) 40 mg PO DAILY [facility] Last Admin: 01/29/17 09:34 Dose: 40 mg Potassium Phos/Sodium Phos (Phos-Nak Packet -) 1 packet PO BID [facility] Last Admin: 01/29/17 09:35 Dose: 1 packet Thiamine HCl (Vitamin B1 -) 100 mg PO DAILY [facility] Last Admin: 01/29/17 09:35 Dose: 100 mg - Objective Vital Signs: Vital Signs Temperature 98.9 F 01/29/17 14:31 Pulse Rate 94 H 01/29/17 14:31 Respiratory Rate 20 01/29/17 08:00 Blood Pressure 150/90 01/29/17 14:31 O2 Sat by Pulse Oximetry (%) 96 01/29/17 08:00 Constitutional: Yes: No Distress, Calm Cardiovascular: Yes: Regular Rate and Rhythm Respiratory: Yes: Regular, CTA Bilaterally Gastrointestinal: Yes: Normal Bowel Sounds, Soft Musculoskeletal: Yes: WNL Extremities: Yes: WNL Integumentary: Yes: WNL Neurological: Yes: Alert Psychiatric: Yes: Alert Labs: CBC, BMP 01/29/17 07:00 01/29/17 07:00 INR, PTT INR 0.91 (0.82-1.09) 01/22/17 16:30 Assessment/Plan - Problem (1) Alcohol withdrawal Code(s): F10.239 - ALCOHOL DEPENDENCE WITH WITHDRAWAL, UNSPECIFIED Qualifiers : Complication of substance-induced condition: uncomplicated Qualified Code(s): F10.230 - Alcohol dependence with withdrawal, uncomplicated (2) Fall Code(s): W19.XXXA - UNSPECIFIED FALL, INITIAL ENCOUNTER Qualifiers: Encounter type: initial encounter Qualified Code(s): W19.XXXA - Unspecified fall, initial encounter (3) Clavicular fracture Code(s): S42.009A - FRACTURE OF UNSP PART OF UNSP CLAVICLE, INIT FOR CLOS FX (4) Sepsis Code(s): A41.9 - SEPSIS, UNSPECIFIED ORGANISM lactic acidosis r/o aspiration pna wbc normal plan stopped abx will monitor off of abx await all results await afb results await quantiferon result
[2017-01-30] MEDS: oxyCODONE HCL 5 MG TABLET PO PRN ×3 (04:10→21:58)
[2017-01-30] MEDS: ACETAMINOPHEN 325 MG TABLET (FP) PO PRN ×3 (04:10→21:59)
[2017-01-30] MEDS: HEPARIN NA (PORCINE) 5,000 UNITS/ML 1ML VIAL SQ SCH ×3 (06:13→22:00)
[2017-01-30] MEDS: MULTIVITAMINS (DAILY MVI) TABLET (FP) PO SCH (10:53)
[2017-01-30] MEDS: THIAMINE HCL 100 MG TABLET (FP) PO SCH (10:53)
[2017-01-30] MEDS: NAPH,MB-DB/K PH,MBDB POWDER PACKET PO SCH ×2 (10:53→22:00)
[2017-01-30] MEDS: PANTOPRAZOLE 40 MG TABLET (FP) PO SCH (10:53)
[2017-01-30] MEDS: FOLIC ACID 1 MG TABLET (FP) PO SCH (10:53)
[2017-01-30] MEDS: DOCUSATE SODIUM 100 MG CAPSULE (FP) PO SCH ×2 (10:53→22:00)
--- NOTE | 2017-01-30 11:05 | PN ---
Progress Note, Physician History of Present Illness: better more awake alert - Current Medication List Current Medications: Active Medications Acetaminophen (Tylenol -) 325 mg PO Q6H PRN PRN Reason: PAIN 6-10 Last Admin: 01/30/17 04:10 Dose: 325 mg Docusate Sodium (Colace -) 100 mg PO DAILY [facility] Last Admin: 01/30/17 10:53 Dose: 100 mg Docusate Sodium (Colace -) 300 mg PO HS [facility] Last Admin: 01/29/17 22:27 Dose: 300 mg Folic Acid (Folic Acid -) 1 mg PO DAILY [facility] Last Admin: 01/30/17 10:53 Dose: 1 mg Heparin Sodium (Porcine) (Heparin -) 5,000 unit SQ TID [facility] Last Admin: 01/30/17 06:13 Dose: 5,000 unit Multivitamins/Minerals/Vitamin C (Tab-A-Vit -) 1 tab PO DAILY [facility] Last Admin: 01/30/17 10:53 Dose: 1 tab Oxycodone HCl (Roxicodone -) 5 mg PO Q6H PRN PRN Reason: PAIN Last Admin: 01/30/17 04:10 Dose: 5 mg Pantoprazole Sodium (Protonix -) 40 mg PO DAILY [facility] Last Admin: 01/30/17 10:53 Dose: 40 mg Potassium Phos/Sodium Phos (Phos-Nak Packet -) 1 packet PO BID [facility] Last Admin: 01/30/17 10:53 Dose: 1 packet Thiamine HCl (Vitamin B1 -) 100 mg PO DAILY [facility] Last Admin: 01/30/17 10:53 Dose: 100 mg - Objective Vital Signs: Vital Signs Temperature 99.0 F 01/30/17 06:00 Pulse Rate 93 H 01/30/17 06:00 Respiratory Rate 20 01/30/17 06:00 Blood Pressure 149/83 01/30/17 06:00 O2 Sat by Pulse Oximetry (%) 96 01/29/17 22:00 Constitutional: Yes: Calm Cardiovascular: Yes: Regular Rate and Rhythm Respiratory: Yes: Regular, Poor Air Entry, Rhonchi Musculoskeletal: Yes: WNL Extremities: Yes: WNL Neurological: Yes: Alert Psychiatric: Yes: Alert, Other Labs: CBC, BMP 01/29/17 07:00 01/29/17 07:00 INR, PTT INR 0.91 (0.82-1.09) 01/22/17 16:30 Assessment/Plan - Problem (1) Alcohol withdrawal Code(s): F10.239 - ALCOHOL DEPENDENCE WITH WITHDRAWAL, UNSPECIFIED Qualifiers : Complication of substance-induced condition: uncomplicated Qualified Code(s): F10.230 - Alcohol dependence with withdrawal, uncomplicated (2) Fall Code(s): W19.XXXA - UNSPECIFIED FALL, INITIAL ENCOUNTER Qualifiers: Encounter type: initial encounter Qualified Code(s): W19.XXXA - Unspecified fall, initial encounter (3) Clavicular fracture Code(s): S42.009A - FRACTURE OF UNSP PART OF UNSP CLAVICLE, INIT FOR CLOS FX (4) Sepsis Code(s): A41.9 - SEPSIS, UNSPECIFIED ORGANISM lactic acidosis r/o aspiration pna wbc normal plan stable off of abx await all other results continue nutrition
--- NOTE | 2017-01-30 15:13 | PN ---
Physical Exam: SUBJECTIVE: Patient seen and examined. "I feel better every day." OBJECTIVE: Vital Signs Period Temp Pulse Resp BP Sys/Spicer Pulse Ox Last 24 Hr 98.3 F-99.0 F 86-100 20-20 140-153/80-93 96 GENERAL: The patient is awake, alert, and fully oriented, in no acute distress. HEAD: Normal with no signs of trauma. EYES: PERRL, extraocular movements intact, sclera anicteric, conjunctiva clear. No ptosis. LUNGS: Breath sounds equal, clear to auscultation bilaterally, no wheezes, no crackles, no accessory muscle use. Mild cough. HEART: Regular rate and rhythm, S1, S2 without murmur, rub or gallop. ABDOMEN: Soft, nontender, nondistended, normoactive bowel sounds, no guarding, no rebound, no hepatosplenomegaly, no masses. EXTREMITIES: 2+ pulses, warm, well-perfused, no edema. NEUROLOGICAL: Cranial nerves II through XII grossly intact. Normal speech, gait not observed. Active Medications Generic Name Dose Route Start Last Admin Trade Name Freq PRN Reason Stop Dose Admin Acetaminophen 325 mg 01/23/17 09:30 01/30/17 13:47 Tylenol - PO 325 mg Q6H PRN Administration PAIN 6-10 Docusate Sodium 100 mg 01/23/17 10:00 01/30/17 10:53 Colace - PO 100 mg DAILY EMILY Administration Docusate Sodium 300 mg 01/25/17 22:00 01/29/17 22:27 Colace - PO 300 mg HS EMILY Administration Folic Acid 1 mg 01/24/17 10:00 01/30/17 10:53 Folic Acid - PO 1 mg DAILY EMILY Administration Heparin Sodium (Porcine) 5,000 unit 01/23/17 14:00 01/30/17 14:23 Heparin - SQ 5,000 unit TID EMILY Administration Multivitamins/Minerals/Vitamin C 1 tab 01/24/17 10:00 01/30/17 10:53 Tab-A-Vit - PO 1 tab DAILY EMILY Administration Oxycodone HCl 5 mg 01/29/17 12:51 01/30/17 13:48 Roxicodone - PO 5 mg Q6H PRN Administration PAIN Pantoprazole Sodium 40 mg 01/23/17 10:00 01/30/17 10:53 Protonix - PO 40 mg DAILY EMILY Administration Potassium Phos/Sodium Phos 1 packet 01/24/17 10:00 01/30/17 10:53 Phos-Nak Packet - PO 1 packet BID EMILY Administration Thiamine HCl 100 mg 01/28/17 10:00 01/30/17 10:53 Vitamin B1 - PO 100 mg DAILY EMILY Administration ASSESSMENT/PLAN: 66 year-old male with a PMH of polysubtance abuse, admitted for severe alcohol intoxication, left clavicular fracture, and found to have AVM. Sepsis likely secondary to pneumonia r/o Tuberculosis --01/25 CT chest: bilateral pulmonary infiltrates and a 1.1cm thick-walled cavity in left apex --three AFBs collected and sent; one negative, two pending results --TB gold pending --Zoysn 7-day course complete Severe alcohol intoxication, resolved Toxic-metabolic encephalopathy, resolved --librium protocol complete --continue folic acid, thiamine Left clavicular fracture s/p fall --01/22 left shoulder xray: slightly displaced fracture --immobilize with sling --oxycodone PRN Left frontal AVM --incidental finding on CT head --seen and evaluated by neuro --[employer] Priyankaoe spoke to neurosurgeon Dr. Mccarty who states will NOT come to [facility] to see the patient and states he reviewed the chart and that there is no indication for surgical intervention at this time Right LE radiculopathy s/p left hip ORIF x 4 months at [facility] --MRI LS shows nerve root impingement right L4 nerve root --will need outpatient followup Diarrhea, resolved --c.diff negative Hypokalemia --Kdur BID F/E/N Fluids: PO intake adequate Electrolytes: replete as indicated Nutrition: regular diet DVT prophylaxis: subq heparin Physical therapy Dispo: continues to require inpatient care. Full Code. Visit type - Emergency Visit Emergency Visit: Yes ED Registration Date: 01/23/17 Care time: The patient presented to the Emergency Department on the above date and was hospitalized for further evaluation of their emergent condition. - New Patient This patient is new to me today: No - Critical Care Critical Care patient: No
[2017-01-31] MEDS: ACETAMINOPHEN 325 MG TABLET (FP) PO PRN ×3 (06:03→20:16)
[2017-01-31] MEDS: oxyCODONE HCL 5 MG TABLET PO PRN ×3 (06:03→20:17)
[2017-01-31] MEDS: HEPARIN NA (PORCINE) 5,000 UNITS/ML 1ML VIAL SQ SCH ×3 (06:04→21:54)
[2017-01-31] MEDS: FOLIC ACID 1 MG TABLET (FP) PO SCH (09:17)
[2017-01-31] MEDS: MULTIVITAMINS (DAILY MVI) TABLET (FP) PO SCH (09:17)
[2017-01-31] MEDS: NAPH,MB-DB/K PH,MBDB POWDER PACKET PO SCH ×2 (09:17→21:54)
[2017-01-31] MEDS: PANTOPRAZOLE 40 MG TABLET (FP) PO SCH (09:17)
[2017-01-31] MEDS: THIAMINE HCL 100 MG TABLET (FP) PO SCH (09:17)
[2017-01-31] MEDS: DOCUSATE SODIUM 100 MG CAPSULE (FP) PO SCH ×2 (09:17→21:54)
--- NOTE | 2017-01-31 13:20 | PN ---
Progress Note, Physician History of Present Illness: better more awake alert walking around no issues breathing much better - Current Medication List Current Medications: Active Medications Acetaminophen (Tylenol -) 325 mg PO Q6H PRN PRN Reason: PAIN 6-10 Last Admin: 01/31/17 13:10 Dose: 325 mg Docusate Sodium (Colace -) 100 mg PO DAILY [facility] Last Admin: 01/31/17 09:17 Dose: 100 mg Docusate Sodium (Colace -) 300 mg PO HS [facility] Last Admin: 01/30/17 22:00 Dose: 300 mg Folic Acid (Folic Acid -) 1 mg PO DAILY [facility] Last Admin: 01/31/17 09:17 Dose: 1 mg Heparin Sodium (Porcine) (Heparin -) 5,000 unit SQ TID [facility] Last Admin: 01/31/17 13:10 Dose: 5,000 unit Multivitamins/Minerals/Vitamin C (Tab-A-Vit -) 1 tab PO DAILY [facility] Last Admin: 01/31/17 09:17 Dose: 1 tab Oxycodone HCl (Roxicodone -) 5 mg PO Q6H PRN PRN Reason: PAIN Last Admin: 01/31/17 13:10 Dose: 5 mg Pantoprazole Sodium (Protonix -) 40 mg PO DAILY [facility] Last Admin: 01/31/17 09:17 Dose: 40 mg Potassium Phos/Sodium Phos (Phos-Nak Packet -) 1 packet PO BID [facility] Last Admin: 01/31/17 09:17 Dose: 1 packet Thiamine HCl (Vitamin B1 -) 100 mg PO DAILY [facility] Last Admin: 01/31/17 09:17 Dose: 100 mg - Objective Vital Signs: Vital Signs Temperature 98.7 F 01/31/17 10:00 Pulse Rate 93 H 01/31/17 10:00 Respiratory Rate 16 01/31/17 10:00 Blood Pressure 148/84 01/31/17 10:00 O2 Sat by Pulse Oximetry (%) 96 01/29/17 22:00 Constitutional: Yes: No Distress Cardiovascular: Yes: Regular Rate and Rhythm Respiratory: Yes: Regular, Rhonchi Gastrointestinal: Yes: Normal Bowel Sounds, Soft Musculoskeletal: Yes: WNL Extremities: Yes: WNL Neurological: Yes: Alert, Oriented Psychiatric: Yes: Alert Labs: CBC, BMP 01/29/17 07:00 01/29/17 07:00 INR, PTT INR 0.91 (0.82-1.09) 01/22/17 16:30 Assessment/Plan - Problem (1) Alcohol withdrawal Code(s): F10.239 - ALCOHOL DEPENDENCE WITH WITHDRAWAL, UNSPECIFIED Qualifiers : Complication of substance-induced condition: uncomplicated Qualified Code(s): F10.230 - Alcohol dependence with withdrawal, uncomplicated (2) Fall Code(s): W19.XXXA - UNSPECIFIED FALL, INITIAL ENCOUNTER Qualifiers: Encounter type: initial encounter Qualified Code(s): W19.XXXA - Unspecified fall, initial encounter (3) Clavicular fracture Code(s): S42.009A - FRACTURE OF UNSP PART OF UNSP CLAVICLE, INIT FOR CLOS FX (4) Sepsis Code(s): A41.9 - SEPSIS, UNSPECIFIED ORGANISM lactic acidosis r/o aspiration pna wbc normal plan stable off of abx await all other results continue nutrition support await afb results await quanti test result
--- NOTE | 2017-01-31 13:52 | PN ---
Physical Exam: SUBJECTIVE: Patient seen and examined. States he is SOB with rest and having continuous aching 9/10 pain in his left shoulder. Not wearing sling. OBJECTIVE: Vital Signs Period Temp Pulse Resp BP Sys/Spicer Pulse Ox Last 24 Hr 98.2 F-98.7 F 92-100 16-20 142-154/84-93 GENERAL: The patient is awake, alert, and fully oriented, in no acute distress. HEAD: Normal with no signs of trauma. EYES: PERRL, extraocular movements intact, sclera anicteric, conjunctiva clear. No ptosis. ENT: Ears normal, nares patent, oropharynx clear without exudates, moist mucous membranes. NECK: Trachea midline, full range of motion, supple. LUNGS: Breath sounds equal, clear to auscultation bilaterally, no wheezes, no crackles, no accessory muscle use, + loose, wet cough HEART: Regular rate and rhythm, S1, S2 without murmur, rub or gallop. ABDOMEN: Soft, nontender, nondistended, normoactive bowel sounds, no guarding, no rebound, no hepatosplenomegaly, no masses. EXTREMITIES: 2+ pulses, warm, well-perfused, no edema. NEUROLOGICAL: Cranial nerves II through XII grossly intact. Normal speech, gait not observed. PSYCH: Normal mood, normal affect. Active Medications Generic Name Dose Route Start Last Admin Trade Name Freq PRN Reason Stop Dose Admin Acetaminophen 325 mg 01/23/17 09:30 01/31/17 13:10 Tylenol - PO 325 mg Q6H PRN Administration PAIN 6-10 Docusate Sodium 100 mg 01/23/17 10:00 01/31/17 09:17 Colace - PO 100 mg DAILY EMILY Administration Docusate Sodium 300 mg 01/25/17 22:00 01/30/17 22:00 Colace - PO 300 mg HS EMILY Administration Folic Acid 1 mg 01/24/17 10:00 01/31/17 09:17 Folic Acid - PO 1 mg DAILY EMILY Administration Heparin Sodium (Porcine) 5,000 unit 01/23/17 14:00 01/31/17 13:10 Heparin - SQ 5,000 unit TID EMILY Administration Multivitamins/Minerals/Vitamin C 1 tab 01/24/17 10:00 01/31/17 09:17 Tab-A-Vit - PO 1 tab DAILY EMILY Administration Oxycodone HCl 5 mg 01/29/17 12:51 01/31/17 13:10 Roxicodone - PO 5 mg Q6H PRN Administration PAIN Pantoprazole Sodium 40 mg 01/23/17 10:00 01/31/17 09:17 Protonix - PO 40 mg DAILY EMILY Administration Potassium Phos/Sodium Phos 1 packet 01/24/17 10:00 01/31/17 09:17 Phos-Nak Packet - PO 1 packet BID EMILY Administration Thiamine HCl 100 mg 01/28/17 10:00 01/31/17 09:17 Vitamin B1 - PO 100 mg DAILY EMILY Administration ASSESSMENT/PLAN: 66 year-old male with PMH alcohol abuse and right hip ORIF ~ 4 months ago admitted for sepsis, toxic metabolic encephalopathy, and left clavicular fracture s/p fall from intoxication. 1. Sepsis likely secondary to PNA R/O Tuberculosis - Now r/o TB secondary to cavitary lesion on CT 01/25 - Afebrile; mild leukocytosis (peak 20.9k) - Finished 7-day course of Zosyn, observe off antibiotics - AFB cultures x 2 neg, third pending, TB quant gold neg 2. Acute Intoxication, Toxic Metabolic Encephalopathy - resolved - Continue MVI, Thiamine, Folic Acid, PhosNak 3. Left Clavicular Fracture - seen and evaluated by ortho today; needs to wear his sling which he refuses - Oxycodone PRN pain 4. Right Lower Extremity Radiculopathy - MRI 01/27 shows nerve root impingement at L4 - F/u outpatient 6. AVM - Incidental finding on CT head, stable - no neurosurgical intervention 7. DVT Prophylaxis - Heparin 5,000 units SQ TID - PT eval; OOB with assistance F/E/N Fluids: PO intake adequate Electrolytes: monitor and replace as needed Nutrition: sodium-controlled diet Dispo: Still requiring inpatient care. FULL CODE Visit type - Emergency Visit Emergency Visit: Yes ED Registration Date: 01/23/17 Care time: The patient presented to the Emergency Department on the above date and was hospitalized for further evaluation of their emergent condition. - New Patient This patient is new to me today: No - Critical Care Critical Care patient: No
--- NOTE | 2017-01-31 15:12 | PN ---
Progress Note (short form) - Note Progress Note: Pt doing the same, no change. Left clavicle fracture. Rec Sling Light ROM exercises ice PRN No heavy activities
[2017-02-01] MEDS: ACETAMINOPHEN 325 MG TABLET (FP) PO PRN ×3 (03:01→21:09)
[2017-02-01] MEDS: oxyCODONE HCL 5 MG TABLET PO PRN ×3 (03:02→21:08)
[2017-02-01] MEDS: HEPARIN NA (PORCINE) 5,000 UNITS/ML 1ML VIAL SQ SCH ×3 (06:58→21:11)
[2017-02-01] MEDS: NAPH,MB-DB/K PH,MBDB POWDER PACKET PO SCH ×2 (10:35→21:11)
[2017-02-01] MEDS: FOLIC ACID 1 MG TABLET (FP) PO SCH (10:35)
[2017-02-01] MEDS: PANTOPRAZOLE 40 MG TABLET (FP) PO SCH (10:35)
[2017-02-01] MEDS: MULTIVITAMINS (DAILY MVI) TABLET (FP) PO SCH (10:35)
[2017-02-01] MEDS: THIAMINE HCL 100 MG TABLET (FP) PO SCH (10:35)
[2017-02-01] MEDS: DOCUSATE SODIUM 100 MG CAPSULE (FP) PO SCH ×2 (10:35→21:10)
[2017-02-01 10:52] LABS: BASOPHIL 1.9 % (0-2.0); EOSINOPHIL 4.4 % (0-4.5); MCH 24.9 pg (25.7-33.7); MCHC 31.5 g/dl (32.0-35.9); MEAN CELL VOLUME 78.9 fl (80-96); MEAN PLT VOLUME 7.1 fl (7.5-11.1); NEUTROPHILS 64.9 % (42.8-82.8); PLATELET COUNT 601 K/MM3 (134-434); RDW 19.5 % (11.9-15.9); WHITE BLOOD COUNT 8.7 K/mm3 (4.0-10.0)
[2017-02-01 11:19] LABS: ALK PHOS 75 U/L (45-117); ANION GAP 9 (8-16); BILIRUBIN,TOTAL 0.2 mg/dL (0.2-1.0); CALCIUM 8.9 mg/dL (8.5-10.1); CO2 29 mmol/L (21-32); COCKROFT - GAULT 59.51; GLUCOSE,RANDOM 68 mg/dL (74-106); SGOT/AST 14 U/L (15-37); SGPT/ALT 17 U/L (12-78); TOT PROT 7.2 g/dl (6.4-8.2)
--- NOTE | 2017-02-01 13:25 | PN ---
Physical Exam: SUBJECTIVE: Patient seen and examined OBJECTIVE: Vital Signs Period Temp Pulse Resp BP Sys/Spicer Pulse Ox Last 24 Hr 98 F-98.7 F 85-98 20-20 150-159/80-100 GENERAL: The patient is awake, alert, and fully oriented, in no acute distress. HEAD: Normal with no signs of trauma. EYES: PERRL, extraocular movements intact, sclera anicteric, conjunctiva clear. No ptosis. LUNGS: Breath sounds equal, clear to auscultation bilaterally, no wheezes, no crackles, no accessory muscle use. HEART: Regular rate and rhythm, S1, S2 without murmur, rub or gallop. ABDOMEN: Soft, nontender, nondistended, normoactive bowel sounds, no guarding, no rebound, no hepatosplenomegaly, no masses. EXTREMITIES: 2+ pulses, warm, well-perfused, no edema. NEUROLOGICAL: Cranial nerves II through XII grossly intact. Normal speech, gait not observed. PSYCH: Normal mood, normal affect. Laboratory Results - last 24 hr 02/01/17 02/01/17 10:40 10:40 WBC 8.7 RBC 4.19 Hgb 10.4 L Hct 33.1 L MCV 78.9 L MCHC 31.5 L RDW 19.5 H Plt Count 601 H D MPV 7.1 L Neutrophils % 64.9 D Lymphocytes % 17.6 D Monocytes % 11.2 H D Eosinophils % 4.4 Basophils % 1.9 D Sodium 139 Potassium 4.3 Chloride 101 Carbon Dioxide 29 Anion Gap 9 BUN 21 H Creatinine 1.0 Creat Clearance w eGFR > 60 Random Glucose 68 L Calcium 8.9 Magnesium 2.0 Total Bilirubin 0.2 D AST 14 L ALT 17 D Alkaline Phosphatase 75 Total Protein 7.2 Albumin 3.0 L Active Medications Generic Name Dose Route Start Last Admin Trade Name Freq PRN Reason Stop Dose Admin Acetaminophen 325 mg 01/23/17 09:30 02/01/17 03:01 Tylenol - PO 325 mg Q6H PRN Administration PAIN 6-10 Docusate Sodium 100 mg 01/23/17 10:00 02/01/17 10:35 Colace - PO 100 mg DAILY EMILY Administration Docusate Sodium 300 mg 01/25/17 22:00 01/31/17 21:54 Colace - PO 300 mg HS EMILY Administration Folic Acid 1 mg 01/24/17 10:00 02/01/17 10:35 Folic Acid - PO 1 mg DAILY EMILY Administration Heparin Sodium (Porcine) 5,000 unit 01/23/17 14:00 02/01/17 06:58 Heparin - SQ 5,000 unit TID EMILY Administration Multivitamins/Minerals/Vitamin C 1 tab 01/24/17 10:00 02/01/17 10:35 Tab-A-Vit - PO 1 tab DAILY EMILY Administration Oxycodone HCl 5 mg 01/29/17 12:51 02/01/17 03:02 Roxicodone - PO 5 mg Q6H PRN Administration PAIN Pantoprazole Sodium 40 mg 01/23/17 10:00 02/01/17 10:35 Protonix - PO 40 mg DAILY EMILY Administration Potassium Phos/Sodium Phos 1 packet 01/24/17 10:00 02/01/17 10:35 Phos-Nak Packet - PO 1 packet BID EMILY Administration Thiamine HCl 100 mg 01/28/17 10:00 02/01/17 10:35 Vitamin B1 - PO 100 mg DAILY EMILY Administration ASSESSMENT/PLAN: 66 year-old male with PMH alcohol abuse and right hip ORIF ~ 4 months ago admitted for sepsis, toxic metabolic encephalopathy, and left clavicular fracture s/p fall from intoxication. 1. Sepsis likely secondary to PNA R/O Tuberculosis - Now r/o TB secondary to cavitary lesion on CT 01/25 - Afebrile; leukocytosis resolved - Finished 7-day course of Zosyn, observe off antibiotics - AFB smears neg x 1, 2 pending; TB quant gold neg 2. Acute Intoxication, Toxic Metabolic Encephalopathy - resolved - Continue MVI, Thiamine, Folic Acid, PhosNak 3. Left Clavicular Fracture - seen and evaluated by ortho; needs to wear his sling which he refuses - Oxycodone PRN pain 4. Right Lower Extremity Radiculopathy - MRI 01/27 shows nerve root impingement at L4 - F/u outpatient 6. AVM - Incidental finding on CT head, stable - no neurosurgical intervention 7. DVT Prophylaxis - Heparin 5,000 units SQ TID - PT eval; OOB with assistance F/E/N Fluids: PO intake adequate Electrolytes: monitor and replace as needed Nutrition: sodium-controlled diet Dispo: Waiting for final AFB results. Discharge planning. FULL CODE Visit type - Emergency Visit Emergency Visit: Yes ED Registration Date: 01/23/17 Care time: The patient presented to the Emergency Department on the above date and was hospitalized for further evaluation of their emergent condition. - New Patient This patient is new to me today: No - Critical Care Critical Care patient: No
--- NOTE | 2017-02-01 14:41 | PN ---
Progress Note, Physician History of Present Illness: patient comfortable no complaints - Current Medication List Current Medications: Active Medications Acetaminophen (Tylenol -) 325 mg PO Q6H PRN PRN Reason: PAIN 6-10 Last Admin: 02/01/17 03:01 Dose: 325 mg Docusate Sodium (Colace -) 100 mg PO DAILY [facility] Last Admin: 02/01/17 10:35 Dose: 100 mg Docusate Sodium (Colace -) 300 mg PO HS [facility] Last Admin: 01/31/17 21:54 Dose: 300 mg Folic Acid (Folic Acid -) 1 mg PO DAILY [facility] Last Admin: 02/01/17 10:35 Dose: 1 mg Heparin Sodium (Porcine) (Heparin -) 5,000 unit SQ TID [facility] Last Admin: 02/01/17 06:58 Dose: 5,000 unit Multivitamins/Minerals/Vitamin C (Tab-A-Vit -) 1 tab PO DAILY [facility] Last Admin: 02/01/17 10:35 Dose: 1 tab Oxycodone HCl (Roxicodone -) 5 mg PO Q6H PRN PRN Reason: PAIN Last Admin: 02/01/17 03:02 Dose: 5 mg Pantoprazole Sodium (Protonix -) 40 mg PO DAILY [facility] Last Admin: 02/01/17 10:35 Dose: 40 mg Potassium Phos/Sodium Phos (Phos-Nak Packet -) 1 packet PO BID [facility] Last Admin: 02/01/17 10:35 Dose: 1 packet Thiamine HCl (Vitamin B1 -) 100 mg PO DAILY [facility] Last Admin: 02/01/17 10:35 Dose: 100 mg - Objective Vital Signs: Vital Signs Temperature 98 F 02/01/17 06:01 Pulse Rate 88 02/01/17 10:00 Respiratory Rate 20 02/01/17 10:00 Blood Pressure 146/74 02/01/17 10:00 O2 Sat by Pulse Oximetry (%) 96 01/29/17 22:00 Constitutional: Yes: No Distress, Calm Cardiovascular: Yes: Regular Rate and Rhythm Respiratory: Yes: Regular, Rhonchi Gastrointestinal: Yes: Normal Bowel Sounds, Soft Musculoskeletal: Yes: WNL Extremities: Yes: WNL Neurological: Yes: Alert, Oriented Psychiatric: Yes: Alert Labs: CBC, BMP 02/01/17 10:40 02/01/17 10:40 INR, PTT INR 0.91 (0.82-1.09) 01/22/17 16:30 Assessment/Plan - Problem (1) Alcohol withdrawal Code(s): F10.239 - ALCOHOL DEPENDENCE WITH WITHDRAWAL, UNSPECIFIED Qualifiers : Complication of substance-induced condition: uncomplicated Qualified Code(s): F10.230 - Alcohol dependence with withdrawal, uncomplicated (2) Fall Code(s): W19.XXXA - UNSPECIFIED FALL, INITIAL ENCOUNTER Qualifiers: Encounter type: initial encounter Qualified Code(s): W19.XXXA - Unspecified fall, initial encounter (3) Clavicular fracture Code(s): S42.009A - FRACTURE OF UNSP PART OF UNSP CLAVICLE, INIT FOR CLOS FX (4) Sepsis Code(s): A41.9 - SEPSIS, UNSPECIFIED ORGANISM lactic acidosis r/o aspiration pna wbc normal plan stable off of abx await finalization of afb results
[2017-02-02] MEDS: HEPARIN NA (PORCINE) 5,000 UNITS/ML 1ML VIAL SQ SCH ×3 (05:46→21:30)
[2017-02-02] MEDS: PANTOPRAZOLE 40 MG TABLET (FP) PO SCH (09:06)
[2017-02-02] MEDS: THIAMINE HCL 100 MG TABLET (FP) PO SCH (09:06)
[2017-02-02] MEDS: MULTIVITAMINS (DAILY MVI) TABLET (FP) PO SCH (09:06)
[2017-02-02] MEDS: DOCUSATE SODIUM 100 MG CAPSULE (FP) PO SCH ×2 (09:07→21:30)
[2017-02-02] MEDS: NAPH,MB-DB/K PH,MBDB POWDER PACKET PO SCH ×2 (09:07→21:31)
[2017-02-02] MEDS: FOLIC ACID 1 MG TABLET (FP) PO SCH (09:07)
[2017-02-02] MEDS: oxyCODONE HCL 5 MG TABLET PO PRN (12:11)
[2017-02-02] MEDS: ACETAMINOPHEN 325 MG TABLET (FP) PO PRN ×2 (12:12→20:01)
--- NOTE | 2017-02-02 16:58 | PN ---
Progress Note (short form) - Note Progress Note: Subjective: The patient was seen at the bedside, he reports feeling good. He is anxious to leave. Awaiting final AFB report x2 Current Medications Generic Name Dose Route Start Last Admin Trade Name Freq PRN Reason Stop Dose Admin Acetaminophen 325 mg 01/23/17 09:30 02/02/17 12:12 Tylenol - PO 325 mg Q6H PRN Administration PAIN 6-10 Docusate Sodium 100 mg 01/23/17 10:00 02/02/17 09:07 Colace - PO 100 mg DAILY EMILY Administration Docusate Sodium 300 mg 01/25/17 22:00 02/01/17 21:10 Colace - PO 300 mg HS EMILY Administration Folic Acid 1 mg 01/24/17 10:00 02/02/17 09:07 Folic Acid - PO 1 mg DAILY EMILY Administration Heparin Sodium (Porcine) 5,000 unit 01/23/17 14:00 02/02/17 13:53 Heparin - SQ 5,000 unit TID EMILY Administration Multivitamins/Minerals/Vitamin C 1 tab 01/24/17 10:00 02/02/17 09:06 Tab-A-Vit - PO 1 tab DAILY EMILY Administration Oxycodone HCl 5 mg 01/29/17 12:51 02/02/17 12:11 Roxicodone - PO 5 mg Q6H PRN Administration PAIN Pantoprazole Sodium 40 mg 01/23/17 10:00 02/02/17 09:06 Protonix - PO 40 mg DAILY EMILY Administration Potassium Phos/Sodium Phos 1 packet 01/24/17 10:00 02/02/17 09:07 Phos-Nak Packet - PO 1 packet BID EMILY Administration Thiamine HCl 100 mg 01/28/17 10:00 02/02/17 09:06 Vitamin B1 - PO 100 mg DAILY EMILY Administration Objective: Vital Signs Period Temp Pulse Resp BP Sys/Spicer Pulse Ox Last 24 Hr 97.7 F-98.6 F 80-88 17-20 146-153/70-90 97 Physical Exam: General: NAD, A&Ox3 HEENT: No tongue fasiculations Lungs: CTA bilaterally Heart: RRR, S1S2 Abd: Soft, non-tender, non-distended. Normoactive bowel sounds Ext: Warm, well-perfused. 2+ DP/PT bilaterally CBCD WBC 8.7 K/mm3 (4.0-10.0) 02/01/17 10:40 RBC 4.19 M/mm3 (4.00-5.60) 02/01/17 10:40 Hgb 10.4 GM/dL (11.7-16.9) L 02/01/17 10:40 Hct 33.1 % (35.4-49) L 02/01/17 10:40 MCV 78.9 fl (80-96) L 02/01/17 10:40 MCHC 31.5 g/dl (32.0-35.9) L 02/01/17 10:40 RDW 19.5 % (11.9-15.9) H 02/01/17 10:40 Plt Count 601 K/MM3 (134-434) H D 02/01/17 10:40 MPV 7.1 fl (7.5-11.1) L 02/01/17 10:40 CMP Sodium 139 mmol/L (136-145) 02/01/17 10:40 Potassium 4.3 mmol/L (3.5-5.1) 02/01/17 10:40 Chloride 101 mmol/L (98-107) 02/01/17 10:40 Carbon Dioxide 29 mmol/L (21-32) 02/01/17 10:40 Anion Gap 9 (8-16) 02/01/17 10:40 BUN 21 mg/dL (7-18) H 02/01/17 10:40 Creatinine 1.0 mg/dL (0.7-1.3) 02/01/17 10:40 Creat Clearance w eGFR > 60 (>60) 02/01/17 10:40 Random Glucose 68 mg/dL (74-106) L 02/01/17 10:40 Calcium 8.9 mg/dL (8.5-10.1) 02/01/17 10:40 Total Bilirubin 0.2 mg/dL (0.2-1.0) D 02/01/17 10:40 AST 14 U/L (15-37) L 02/01/17 10:40 ALT 17 U/L (12-78) D 02/01/17 10:40 Alkaline Phosphatase 75 U/L (45-117) 02/01/17 10:40 Total Protein 7.2 g/dl (6.4-8.2) 02/01/17 10:40 Albumin 3.0 g/dl (3.4-5.0) L 02/01/17 10:40 CARDIAC ENZYMES Creatine Kinase 354 IU/L (39-308) H 01/23/17 05:44 Troponin I < 0.02 ng/ml (0.00-0.05) 01/23/17 05:44 Microbiology 01/29/17 06:00 Sputum - Expectorated AFB Smear Concentration - Preliminary 01/29/17 06:00 Sputum - Expectorated Mycobacterial Culture - Preliminary 01/30/17 14:30 Sputum - Expectorated Direct Acid Fast Bacilli Smear - Preliminary 01/26/17 15:30 Blood - Peripheral Venous TB Test (QFT) (RIMA) - Final 01/28/17 10:00 Sputum - Expectorated AFB Smear Concentration - Final 01/28/17 10:00 Sputum - Expectorated Direct Acid Fast Bacilli Smear - Final 01/28/17 10:00 Sputum - Expectorated Mycobacterial Culture - Preliminary 01/23/17 10:40 Nasopharyngeal Swab Respiratory Virus Panel - Final 01/23/17 08:24 Blood - Peripheral Venous Blood Culture - Final NO GROWTH AFTER 5 DAYS INCUBATION 01/23/17 08:24 Blood - Peripheral Venous Blood Culture - Final NO GROWTH AFTER 5 DAYS INCUBATION 01/25/17 19:00 Stool Clostridium difficile Antigen (RIMA) - Final 01/25/17 19:00 Stool Clostridium difficile Toxin Assay - Final 01/23/17 08:24 Urine - Urine - Catheterized Urine Culture - Final NO GROWTH OBTAINED 01/23/17 10:40 Nasopharyngeal Swab Influenza Types A,B Antigen (RIMA) - Final 01/23/17 10:40 Nasopharyngeal Swab - Final Assessment: This is a 66 year old male with PMHx of polysubstance abuse, who presented to the ED with severe alcohol intoxication, left clavicaular fracture and 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 Plan: 1) ID: Sepsis 2/2 CAP - Aspiration pna vs. Tb - Chest CT with bilateral pulmonary infiltrates with principle involvement of the left base. A small thick walled 1.1 cm cavity is noted within the left pulmonary apex. Mild aneurysmal dilatation of the proximal descending thoracic aorta - AFB x1 negative, f/u 2nd and 3rd - Quant Gold negative - Completed course of Zosyn - Isolation precautions - Appreciate ID consult Diarrhea - C.diff negative - Resolved 2) Psych: Acute alcohol withdrawal - Librium taper completed - Librium prn - Ativan prn - Continue folic acid - Continue thiamine - Continue multivitamin 3) Ortho: Left clavicular fracture s/p fall - Left shoulder x-ray 01/22: slightly displaced fracture in the lateral shaft of the left clavicle - Continue with sling (patient non-complaint) - Gentle ROM with PT - Appreciate ortho consult 4) Neuro: AVM - As evidence on CT head - Spoke to Dr. Mccarty who states will not come to [facility] to see the patient and states he reviewed the chart and that there is no indication for surgical intervention at this time - Appreciate neurology consult 5) F/E/N: - Regular diet - Monitor electrolytes 6) Prophylaxis: - Heparin 5,000u sq tid - OOB with assistance 7) Dispo: - Requires continued inpatient care CODE STATUS: FULL CODE Visit type - Emergency Visit Emergency Visit: Yes ED Registration Date: 01/23/17 Care time: The patient presented to the Emergency Department on the above date and was hospitalized for further evaluation of their emergent condition. - New Patient This patient is new to me today: No - Critical Care Critical Care patient: No
--- NOTE | 2017-02-02 18:03 | PN ---
Progress Note, Physician History of Present Illness: stable back to baseline wants to go home - Current Medication List Current Medications: Active Medications Acetaminophen (Tylenol -) 325 mg PO Q6H PRN PRN Reason: PAIN 6-10 Last Admin: 02/02/17 12:12 Dose: 325 mg Docusate Sodium (Colace -) 100 mg PO DAILY [facility] Last Admin: 02/02/17 09:07 Dose: 100 mg Docusate Sodium (Colace -) 300 mg PO HS [facility] Last Admin: 02/01/17 21:10 Dose: 300 mg Folic Acid (Folic Acid -) 1 mg PO DAILY [facility] Last Admin: 02/02/17 09:07 Dose: 1 mg Heparin Sodium (Porcine) (Heparin -) 5,000 unit SQ TID [facility] Last Admin: 02/02/17 13:53 Dose: 5,000 unit Multivitamins/Minerals/Vitamin C (Tab-A-Vit -) 1 tab PO DAILY [facility] Last Admin: 02/02/17 09:06 Dose: 1 tab Pantoprazole Sodium (Protonix -) 40 mg PO DAILY [facility] Last Admin: 02/02/17 09:06 Dose: 40 mg Potassium Phos/Sodium Phos (Phos-Nak Packet -) 1 packet PO BID [facility] Last Admin: 02/02/17 09:07 Dose: 1 packet Thiamine HCl (Vitamin B1 -) 100 mg PO DAILY [facility] Last Admin: 02/02/17 09:06 Dose: 100 mg - Objective Vital Signs: Vital Signs Temperature 97.8 F 02/02/17 14:00 Pulse Rate 87 02/02/17 14:00 Respiratory Rate 17 02/02/17 14:00 Blood Pressure 148/88 02/02/17 10:00 O2 Sat by Pulse Oximetry (%) 97 02/02/17 09:00 Constitutional: Yes: No Distress, Calm Neck: Yes: Supple Respiratory: Yes: Regular, Rhonchi Gastrointestinal: Yes: Normal Bowel Sounds, Soft Musculoskeletal: Yes: WNL Extremities: Yes: WNL Neurological: Yes: Alert, Oriented Psychiatric: Yes: Alert Labs: CBC, BMP 02/01/17 10:40 02/01/17 10:40 INR, PTT INR 0.91 (0.82-1.09) 01/22/17 16:30 Assessment/Plan - Problem (1) Alcohol withdrawal Code(s): F10.239 - ALCOHOL DEPENDENCE WITH WITHDRAWAL, UNSPECIFIED Qualifiers : Complication of substance-induced condition: uncomplicated Qualified Code(s): F10.230 - Alcohol dependence with withdrawal, uncomplicated (2) Fall Code(s): W19.XXXA - UNSPECIFIED FALL, INITIAL ENCOUNTER Qualifiers: Encounter type: initial encounter Qualified Code(s): W19.XXXA - Unspecified fall, initial encounter (3) Clavicular fracture Code(s): S42.009A - FRACTURE OF UNSP PART OF UNSP CLAVICLE, INIT FOR CLOS FX (4) Sepsis Code(s): A41.9 - SEPSIS, UNSPECIFIED ORGANISM lactic acidosis r/o aspiration pna wbc normal plan stable off of abx await finalization of afb results rest continue monitoring the patient
[2017-02-02] MEDS ORDERED: oxyCODONE HCL 5 MG TABLET PO ONE (20:00)
[2017-02-02] MEDS ORDERED: oxyCODONE HCL 5 MG TABLET PO PRN (21:28)
[2017-02-03 00:01] VITALS: TEMP 98.2
[2017-02-03] MEDS: HEPARIN NA (PORCINE) 5,000 UNITS/ML 1ML VIAL SQ SCH (06:05)
--- NOTE | 2017-02-03 09:15 | DS ---
[id number] Rate 20 02/03/17 05:58 Blood Pressure 154/87 02/03/17 05:58 O2 Sat by Pulse Oximetry (%) 97 02/02/17 21:00 Findings/Remarks: Physical Exam: General: NAD, A&Ox3 HEENT: No tongue fasiculations Lungs: CTA bilaterally Heart: RRR, S1S2 Abd: Soft, non-tender, non-distended. Normoactive bowel sounds Ext: Warm, well-perfused. 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 Plan: 1) ID: Sepsis 2/2 CAP - Aspiration pna vs. Tb - Chest CT with bilateral pulmonary infiltrates with principle involvement of the left base. A small thick walled 1.1 cm cavity is noted within the left pulmonary apex. 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 Mccarty who states will not come to [facility] to see the patient and states he reviewed the chart and that there is no indication for surgical intervention at this time - Appreciate neurology consult The patient was discharged and instructed to follow-up with pcp, neurology, neurosurgery, and ortho within 1 week Please return to the ED with new, persistent, or worsening symptoms. This discharge took 45 minutes to complete. Condition: Improved - Instructions Diet, Activity, Other Instructions: Please return to the ED with new, persistent, or worsening symptoms. Please follow-up with providers as indicated. Referrals: Tramaine Mccarty MD [Staff Physician] - (Please follow-up with neurosurgery within 1 week for further management of your AVM) Elton Duong MD [Staff Physician] - (Please follow-up with neurology within 1 week for further management of your AVM) Carlos Manuel Barton MD [Staff Physician] - (Please follow-up with primary care provider within 1 week. ) Beto Kenney MD [Staff Physician] - (Please follow-up with orthopedics within 2-3 days for further management of your left clavicular fracture) Disposition: HOME - Home Medications Comprehensive Discharge Medication List: Ambulatory Orders Acetaminophen [Tylenol .Regular Strength -] 325 mg PO Q6H PRN #30 tablet Folic Acid - 1 mg PO DAILY #30 tablet 02/03/17 Multivitamins [Multivit ([facility] Formulary)] 1 tab PO DAILY #30 tab 02/03/17 Oxycodone HCl [Roxicodone -] 5 mg PO Q6H PRN #7 tablet MDD 20mg 02/03/17 This patient is new to me today: No Emergency Visit: Yes ED Registration Date: 01/23/17 Care time: The patient presented to the Emergency Department on the above date and was hospitalized for further evaluation of their emergent condition. Critical Care patient: No - Discharge Referral Referred to [facility] Med [facility].C.: No
[2017-02-03] MEDS: ACETAMINOPHEN 325 MG TABLET (FP) PO PRN (09:28)
[2017-02-03] MEDS: THIAMINE HCL 100 MG TABLET (FP) PO SCH (09:34)
[2017-02-03] MEDS: PANTOPRAZOLE 40 MG TABLET (FP) PO SCH (09:34)
[2017-02-03] MEDS: DOCUSATE SODIUM 100 MG CAPSULE (FP) PO SCH (09:34)
[2017-02-03] MEDS: FOLIC ACID 1 MG TABLET (FP) PO SCH (09:34)
[2017-02-03] MEDS: MULTIVITAMINS (DAILY MVI) TABLET (FP) PO SCH (09:34)
[2017-02-03 11:05] VITALS: BP 150/70; PULSE 98
== END 2017-02-03 13:04 | disposition home or self-care (01) | DRG 720 ==
LOC: JER 15:32 → JERBED 01-23 05:36 → UNDOADMIN 01-23 06:22 → J4W 01-23 13:15 → J6S 01-28 21:33
PROVIDERS: ADMIT Internal Medicine; ATTEND Registered Nurse
PROC: HZ2ZZZZ Detoxification Services for Substance Abuse Treatment (ICD-10-PCS; principal; 2017-01-23)
DX: A41.9 Sepsis, unspecified organism (principal); J69.0 Pneumonitis due to inhalation of food and vomit; G92 Toxic encephalopathy; F10.230 Alcohol dependence with withdrawal, uncomplicated; S42.022A Displaced fracture of shaft of left clavicle, initial encounter for closed fracture; F19.10 Other psychoactive substance abuse, uncomplicated; E83.42 Hypomagnesemia; E83.39 Other disorders of phosphorus metabolism; E87.2 Acidosis; M54.17 Radiculopathy, lumbosacral region; E87.6 Hypokalemia; R19.7 Diarrhea, unspecified; W18.39XA Other fall on same level, initial encounter; Y93.89 Activity, other specified; Y92.89 Other specified places as the place of occurrence of the external cause; Q27.39 Arteriovenous malformation, other site; Z87.891 Personal history of nicotine dependence
CPT/HCPCS: 36415; 36600; 70450-TC; 70496-TC; 71010-TC; 71250-TC; 72148-TC; 73030-TC-LT; 80053; 80307; 81003; 81015; 82550; 82553; 82803; 83605; 83735; 84100; 84484; 85025; 85027; 85610; 86480; 87040; 87086; 87116; 87206; 87254; 87324; 87449; 87804; 93005; 93010; 93306-TC; 97116-GP; 97161-GP; 99285-25; J1644

== ENCOUNTER 2017-02-05 21:54 | Emergency (ER) | payer SELFPAY ==
[2017-02-05] MEDS ORDERED: ACETAMINOPHEN 325 MG TABLET (FP) PO ONE (22:27)
[2017-02-05] MEDS ORDERED: OXYCODONE/APAP 5/325MG COMBO TABLET PO ONE (22:27)
--- NOTE | 2017-02-05 22:27 | PDOC ---
History of Present Illness <Deondre Duggan - Last Filed: 02/06/17 02:35> - General History Source: Patient Exam Limitations: No Limitations, Intoxication - History of Present Illness Initial Comments: 02/06/17 02:38 The patient is a 66 year old male with significant past medical history of hypertension and etoh abuse who presents to the ED BIBA for intoxication. Patient reports he injured his left arm last week and now has pain. States he was unable to receive his medications. Patient is currently intoxicated. The patient denies fever, chills, cough, SOB, chest pain, and palpitations. The patient denies abdominal pain, nausea, vomiting, and diarrhea. <Eusebia Schneider - Last Filed: 02/06/17 02:39> - General Stated Complaint: Alcohol intoxication Past History - Past Medical History HTN: Yes - Surgical History Orthopedic Surgery: Yes (HIP SURGERY) - Immunization History Immunization Up to Date: Yes - Psycho/Social/Smoking Cessation Hx Suicidal Ideation: No Smoking History: Current every day smoker Have you smoked in the past 12 months: No Number of Cigarettes Smoked Daily: 5 Hx Alcohol Use: Yes Drug/Substance Use Hx: Yes Substance Use Type: Alcohol Hx Substance Use Treatment: Yes (OUTPT) <Deondre Duggan - Last Filed: 02/06/17 02:35> <Eusebia Schneider - Last Filed: 02/06/17 02:39> - Past Medical History Allergies/Adverse Reactions: Allergies Allergy/AdvReac Type Severity Reaction Status Date / Time No Known Allergies Allergy Verified 02/05/17 22:55 Home Medications: Ambulatory Orders Acetaminophen [Tylenol .Regular Strength -] 325 mg PO Q6H PRN #30 tablet Folic Acid - 1 mg PO DAILY #30 tablet 02/03/17 Multivitamins [Multivit ([facility] Formulary)] 1 tab PO DAILY #30 tab 02/03/17 Oxycodone HCl [Roxicodone -] 5 mg PO Q6H PRN #7 tablet MDD 20mg 02/03/17 Review of Systems - Review of Systems Able to Perform ROS?: Yes Comments:: 02/06/17 02:38 GENERAL/CONSTITUTIONAL: No fever or chills. No weakness. HEAD, EYES, EARS, NOSE AND THROAT: No change in vision. No ear pain or discharge. No sore throat. CARDIOVASCULAR: No chest pain or shortness of breath. RESPIRATORY: No cough, wheezing, or hemoptysis. GASTROINTESTINAL: No nausea, vomiting, diarrhea or constipation. GENITOURINARY: No dysuria, frequency, or change in urination. MUSCULOSKELETAL: +left arm pain No joint or muscle swelling. No neck or back pain. SKIN: No rash NEUROLOGIC: No headache, vertigo, loss of consciousness, or change in strength/ sensation. ENDOCRINE: No increased thirst. No abnormal weight change. HEMATOLOGIC/LYMPHATIC: No anemia, easy bleeding, or history of blood clots. ALLERGIC/IMMUNOLOGIC: No hives or skin allergy. <Eusebia Schneider - Last Filed: 02/06/17 02:39> *Physical Exam - Vital Signs Last Vital Signs Temp Pulse Resp BP Pulse Ox 98.1 F 87 14 119/79 94 L 02/05/17 22:55 02/05/17 22:55 02/05/17 22:55 02/05/17 22:55 02/05/17 22:55 - Physical Exam Comments: 02/06/17 02:38 GENERAL: +AOB. Malodorous, unkempt. Awake, alert, and fully oriented, in no acute distress HEAD: No signs of trauma EYES: PERRLA, EOMI, sclera anicteric, conjunctiva clear ENT: Auricles normal inspection, hearing grossly normal, nares patent, oropharynx clear without exudates. Moist mucosa NECK: Normal ROM, supple, no lymphadenopathy, JVD, or masses LUNGS: Breath sounds equal, clear to auscultation bilaterally. No wheezes, and no crackles HEART: Regular rate and rhythm, normal S1 and S2, no murmurs, rubs or gallops ABDOMEN: Soft, nontender, normoactive bowel sounds. No guarding, no rebound. No masses EXTREMITIES: Normal range of motion, no edema. No clubbing or cyanosis. No cords or erythema. Left arm tenderness. NEUROLOGICAL: Cranial nerves II through XII grossly intact. Normal speech, normal gait SKIN: Warm, Dry, normal turgor, no rashes or lesions noted. <Eusebia Schneider - Last Filed: 02/06/17 02:39> ED Treatment Course - Medications Given in the ED: ED Medications Discontinued Medications Generic Name Dose Route Start Last Admin Trade Name Freq PRN Reason Stop Dose Admin Acetaminophen 650 mg 02/05/17 22:27 02/05/17 23:06 Tylenol - PO 02/05/17 22:28 650 mg ONCE ONE Administration Oxycodone/Acetaminophen 1 combo 02/05/17 22:27 02/05/17 23:06 Percocet 5/325 - PO 02/05/17 22:28 1 combo ONCE ONE Administration <Eusebia Schneider - Last Filed: 02/06/17 02:39> Medical Decision Making - Medical Decision Making 02/06/17 02:32 This is a 66yo m with recent injury of LEFT arm; he is brought to the ED for public intoxication and alleges pain of the shoulder. He has been given analgesia and is now walking around the ED without any indication of intoxication, asking "where my sandwich at already?" He is now discharged. I have encouraged the patient to refrain from excessive alcohol use. <Deondre Duggan - Last Filed: 02/06/17 02:35> *DC/Admit/Observation/Transfer - Attestations Physician Attestion: 02/06/17 02:35 I, Dr. Deondre Duggan MD, attest that this document has been prepared under my direction and personally reviewed by me in its entirety. I further attest, that it accurately reflects all work, treatment, procedures and medical decision -making performed by me. <Deondre Duggan - Last Filed: 02/06/17 02:35> - Attestations Scribe Attestion: 02/06/17 02:39 Documentation prepared by Eusebia Schneider, acting as medical coding instructor for Deondre Duggan MD, MD <Eusebia Schneider - Last Filed: 02/06/17 02:39> Diagnosis at time of Disposition: Alcohol intoxication Qualifiers: Complication of substance-induced condition: uncomplicated Qualified Code(s): F10.120 - Alcohol abuse with intoxication, uncomplicated Shoulder pain Qualifiers: Laterality: unspecified laterality Chronicity: chronic Qualified Code(s): M25.519 - Pain in unspecified shoulder - Patient Instructions Additional Instructions: Please follow up with your PMD within the next 48 hours. Please curtail the use of alcohol.
[2017-02-05 22:57] VITALS: BP 119/79; PULSE 87; TEMP 98.1; BMI 23.3
== END 2017-02-06 03:51 | disposition home or self-care (01) ==
LOC: JER 21:54
DX: F10.120 Alcohol abuse with intoxication, uncomplicated (principal); M25.512 Pain in left shoulder
CPT/HCPCS: 99281-25

== ENCOUNTER 2018-04-15 22:17 | Emergency (ER) | payer OTHER ==
--- NOTE | 2018-04-15 22:48 | PDOC ---
History of Present Illness - General Stated Complaint: FALL/INTOX Time Seen by Provider: 04/15/18 22:28 History Source: Patient, EMS Exam Limitations: Intoxication - History of Present Illness Initial Comments: 04/15/18 22:43 67-year-old male past medical history of chronic alcoholism, ORIF of the right shoulder presents emergency Department with right shoulder pain status post trip and fall. Patient states was walking on a sidewalk with a cane when his cane hit some uneven pavement causing him to lose his balance and fall onto his right shoulder continuing to strike the back of his head. He denies LOC. Patient admits to having multiple alcohol drinks tonight but does not remember how many. Patient denies fevers, chills, loss of consciousness, blurry vision, headaches, nausea, vomiting. Past History - Past Medical History Allergies/Adverse Reactions: Allergies Allergy/AdvReac Type Severity Reaction Status Date / Time No Known Allergies Allergy Verified 04/15/18 23:37 Home Medications: Ambulatory Orders Acetaminophen [Tylenol .Regular Strength -] 325 mg PO Q6H PRN #30 tablet Folic Acid - 1 mg PO DAILY #30 tablet 02/03/17 Multivitamins [Multivit ([facility] Formulary)] 1 tab PO DAILY #30 tab 02/03/17 Amlodipine Besylate 10 mg PO DAILY 03/22/18 Gabapentin [Neurontin] 100 mg PO TID 03/22/18 Metoprolol Tartrate 25 mg PO BID 03/22/18 Polyvinyl Alcohol [Artificial Tears] 1 drop OD BID 03/22/18 CVA: No COPD: No Dementia: No Diabetes: No GI Disorders: No Disorders: No HTN: Yes Hypercholesterolemia: No Liver Disease: No Seizures: No Thyroid Disease: No - Surgical History Abdominal Surgery: No Appendectomy: No Cardiac Surgery: No Cholecystectomy: No Lung Surgery: No Neurologic Surgery: No Orthopedic Surgery: Yes (HIP SURGERY) - Immunization History Immunization Up to Date: Yes - Suicide/Smoking/Psychosocial Hx Smoking History: Current every day smoker Have you smoked in the past 12 months: No Number of Cigarettes Smoked Daily: 20 Hx Alcohol Use: No Drug/Substance Use Hx: No Substance Use Type: Alcohol Hx Substance Use Treatment: Yes (OUTPT) Review of Systems - Review of Systems Able to Perform ROS?: Yes Is the patient limited Bahamian proficient: No Constitutional: Yes: See HPI HEENTM: Yes: See HPI Respiratory: No: Symptoms reported Cardiac (ROS): No: Symptoms Reported ABD/GI: No: Symptoms Reported : No: Symptoms Reported Musculoskeletal: Yes: See HPI Integumentary: No: Symptoms Reported Neurological: No: Symptoms reported Endocrine: No: Symptoms Reported *Physical Exam - Physical Exam General Appearance: Yes: Appropriately Dressed. No: Apparent Distress HEENT: positive: Normal ENT Inspection, Other (No bony deformities of the skull noted. No septal hematomas. No hemotympanum present) Neck: positive: Trachea midline, Supple. negative: Tender Respiratory/Chest: positive: Lungs Clear, Normal Breath Sounds. negative: Respiratory Distress, Accessory Muscle Use Cardiovascular: positive: Regular Rhythm, Regular Rate. negative: Murmur Gastrointestinal/Abdominal: positive: Normal Bowel Sounds, Soft. negative: Tender Musculoskeletal: positive: Normal Inspection. negative: Vertebral Tenderness Extremity: positive: Normal Inspection Integumentary: positive: Normal Color, Dry, Warm Neurologic: positive: Alert, Normal Response ED Treatment Course - RADIOLOGY Radiology Studies Ordered: Category Date Time Status CERVICAL SPINE CT W/O CONTR [CT] Stat CT Scan 04/15/18 22:[address] WITHOUT CONTRAST [CT] Stat CT Scan 04/15/18 22:41 Ordered SHOULDER-RIGHT [RAD] Stat Radiology 04/15/18 22:41 Ordered Medical Decision Making - Medical Decision Making 04/15/18 22:45 A/P: 67-year-old male with right shoulder pain status post trip and fall 2+ radial pulses noted bilaterally Decreased active range of motion of right shoulder. 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 After alcohol ingestion tonight he is unreliable therefore I will perform CAT scans of his head and neck to rule out ICH and or fractures. I will perform x-ray of the right shoulder to rule out any fractures or disruption of previous surgical devices. 04/16/18 00:07 Right shoulder x-rays read by me: No acute fracture dislocation is noted. Surgical plate with screws presents. No disruption of implanted surgical device. 04/16/18 01:[address] as read by imaging crowd controller: Mild chronic microvascular ischemic changes. The study is otherwise unremarkable. No calvarial, facial or skull basal fractures imaged on the current exam. No intracranial hemorrhages or brain parenchymal contusion injuries. CT of the cervical spine as read by imaging crowd controller: There are no cervical spine fractures or dislocations. There is no evidence of prevertebral soft tissue swelling. The bones exhibit diffuse osteopenia. The craniocervical junction appears normal. The vertebral body height and alignments are well-maintained. There is straightening of the cervical spine. The epiphyseal joints appear normal. Chronic advanced into her vertebral osteochondrosis is noted at the C4-C5, C5-6 , C6-7 and C7-T1 levels. Given radiographic examination, I will monitor the patient until he achieved clinical sobriety prior to discharge. 04/16/18 05:54 Patient was easily arousable. No slurred speech noted. Patient is in no 3. Patient is able to ambulate with cane without difficulty. I will discharge the patient home as he has achieved clinical sobriety. *DC/Admit/Observation/Transfer Diagnosis at time of Disposition: Alcohol abuse Shoulder pain Qualifiers: Chronicity: acute Laterality: right Qualified Code(s): M25.511 - Pain in right shoulder - Discharge Dispostion Disposition: HOME Condition at time of disposition: Fair Decision to Admit order: No - Referrals - Patient Instructions Printed Discharge Instructions: How to Prevent Falls Additional Instructions: Take Tylenol or Motrin as needed for pain. Follow manufacture's instructions for appropriate dosage. Avoid alcohol. Drink plenty of nonalcoholic fluids. Eat a well-balanced diet. Return to the emergency room for any concerns. - Post Discharge Activity
[2018-04-15 23:36] VITALS: BP 136/81; PULSE 94; TEMP 98; BMI 24.8
[2018-04-15] MEDS ORDERED: ACETAMINOPHEN 500 MG TABLET (FP) PO ONE (23:43)
[2018-04-15] MEDS ORDERED: ACETAMINOPHEN 325 MG TABLET (FP) ONE (23:49)
--- NOTE | 2018-04-16 08:58 | PDOC ---
Patient Follow-up (Call Back) - Post ED Follow - Up Condition at time of discharge: Fair Disposition at time of original discharge: HOME Reason for Call Back: Radiology (Call received from Dr. Kincaid regarding pt shoulder x-ray. Possible new fracture superimposed over the old fracture. Left message for patient to call back the Ed to inform of results.)
== END 2018-04-16 05:59 | disposition home or self-care (01) ==
LOC: JER 22:17
DX: S49.81XA Other specified injuries of right shoulder and upper arm, initial encounter (principal); F10.10 Alcohol abuse, uncomplicated; R26.89 Other abnormalities of gait and mobility; Z99.89 Dependence on other enabling machines and devices; W18.39XA Other fall on same level, initial encounter; Y93.01 Activity, walking, marching and hiking; Y92.480 Sidewalk as the place of occurrence of the external cause; Y99.8 Other external cause status
CPT/HCPCS: 70450-TC; 72125-TC; 73030-TC-RT-FY; 99281-25

== ENCOUNTER 2018-07-01 19:17 | Emergency (ER) | payer OTHER ==
[2018-07-01 19:23] VITALS: BP 129/79; PULSE 100; BMI 24.9
[2018-07-01] MEDS ORDERED: ACETAMINOPHEN 325 MG TABLET (FP) PO ONE (19:44)
--- NOTE | 2018-07-01 19:44 | PDOC ---
History of Present Illness - General Chief Complaint: Alcohol intoxication Stated Complaint: FALL Time Seen by Provider: 07/01/18 19:29 History Source: Patient Exam Limitations: No Limitations - History of Present Illness Initial Comments: 07/01/18 19:50 HISTORY OF PRESENT ILLNESS: This is a 67-year-old male past medical history of multiple orthopedic surgeries in October 2017, chronic EtOH abuse who presents emergency Department with headache status post fall. Patient states she was walking today with his cane when he place down on a grate which is slipped causing him to fall down striking the back of his head on the ground. He denies loss of consciousness. Patient reports a pint of vodka ingestion earlier today which is his usual amount of alcohol. Currently he denies blurry vision, chest pain, shortness of breath, abdominal pain, nausea, vomiting. No recent travel or sick contacts. PAST MEDICAL HISTORY: chronic EtOH SURGICAL HISTORY: multiple ortho surgeries 11/05 ALLERGIES: No known drug allergies REVIEW OF SYSTEMS- unreliable due to EtOH ingestion General/Constitutional: Denies fever or chills. Denies weakness, weight change. HEENT: Denies change in vision. Denies ear pain or discharge. Denies sore throat. Cardiovascular: Denies chest pain or shortness of breath. Respiratory: Denies cough, wheezing, or hemoptysis. Gastrointestinal: Denies nausea, vomiting, diarrhea or constipation. Denies rectal bleeding. Genitourinary: Denies dysuria, frequency, or change in urination. Musculoskeletal: Denies joint or muscle swelling or pain. Denies neck or back pain. Skin and breasts: Denies rash or easy bruising. Neurologic: Occipital headache. Denies vertigo, loss of consciousness, or loss of sensation. Psychiatric: Denies depression or anxiety. Endocrine: Denies increased thirst. Denies abnormal weight change. Hematologic/Lymphatic: Denies anemia, easy bleeding, or history of blood clots. Allergic/Immunologic: Denies hives or skin allergy. Denies latex allergy. PHYSICAL EXAM General Appearance: Well-appearing, appropriately dressed. No apparent distress , no intoxication. HEENT: EOMI, PERRLA, normal ENT inspection, normal voice, TMs normal, pharynx normal. No conjunctival pallor. No photophobia, scleral icterus. Neck: Supple. Trachea midline. No tenderness, rigidity, carotid bruit, stridor , lymphadenopathy, or thyromegaly. Respiratory/Chest: Lungs CTAB. No shortness of breath, chest tenderness, respiratory distress, accessory muscle use. No crackles, rales, rhonchi, stridor , wheezing, dullness Cardiovascular: RRR. S1, S2. No JVD, murmur, bradycardia, tachycardia. Vascular Pulses: Dorsalis-Pedis (R): 2+, Dorsalis-Pedis (L): 2+ Gastrointestinal/Abdominal: Normal bowel sounds. Abdomen soft, non-distended. No tenderness or rebound tenderness. No organomegaly, pulsatile mass, guarding, hernia, hepatomegaly, splenomegaly. Lymphatic: No adenopathy, tenderness. Musculoskeletal/Extremities: Normal inspection. FROM of all extremities, normal capillary refill. Pelvis Stable. No CVA tenderness. No tenderness to extremities, pedal edema, swelling, erythema or deformity. Integumentary: Appropriate color, dry, warm. 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 Fully oriented, alert. Appropriate mood/affect. Motor strength 5/5. No appreciable EOM palsy, facial droop or sensory deficit. Past History - Past Medical History Allergies/Adverse Reactions: Allergies Allergy/AdvReac Type Severity Reaction Status Date / Time No Known Allergies Allergy Verified 07/01/18 19:23 Home Medications: Ambulatory Orders Amlodipine Besylate [Norvasc -] 10 mg PO DAILY #30 tablet 06/28/18 Gabapentin [Neurontin -] 100 mg PO TID #90 capsule 06/28/18 Metoprolol Tartrate [Lopressor -] 25 mg PO BID #60 tablet 06/28/18 CVA: No COPD: No DVT: No Dementia: No Diabetes: No GI Disorders: No Disorders: No HTN: Yes Hypercholesterolemia: Yes Liver Disease: No Seizures: No Thyroid Disease: No - Surgical History Abdominal Surgery: No Appendectomy: No Cardiac Surgery: No Cholecystectomy: No Lung Surgery: No Neurologic Surgery: No Orthopedic Surgery: Yes (HIP SURGERY) - Immunization History Immunization Up to Date: Yes - Suicide/Smoking/Psychosocial Hx Smoking History: Current some day smoker Have you smoked in the past 12 months: Yes Number of Cigarettes Smoked Daily: 20 Information on smoking cessation initiated: No 'Breaking Loose' booklet given: 06/21/18 Hx Alcohol Use: Yes Drug/Substance Use Hx: No Substance Use Type: Alcohol Hx Substance Use Treatment: Yes (OUTPT) *Physical Exam - Vital Signs Last Vital Signs Temp Pulse Resp BP Pulse Ox 100 H 18 129/79 96 07/01/18 19:19 07/01/18 19:19 07/01/18 19:19 07/01/18 19:19 Medical Decision Making - Medical Decision Making 07/01/18 19:58 A/P: 67-year-old male with chronic alcohol abuse who today for evaluation of headache status post fall and alcohol intoxication PERRLA EOMI Cranial nerves II through XII grossly intact Finger to nose testing is within normal limits Lungs clear to auscultation bilaterally Abdomen soft nontender nondistended Review of old records reveals normal liver function testing. I Will give the patient Tylenol 650 mg orally now for his headache. As patient is 67 years old and has a history of chronic EtOH abuse I will obtain a head CT to rule out intracranial pathology. If CAT scan is normal I will observe the patient until he reaches clinical sobriety. 07/01/18 20:59 CT of the head as read by Dr. Brothers: No CT evidence of acute intracranial pathology. There has been no definite interval change in comparison to prior CT studies including 06/21/2018 and 01/23/2017. Right inferior frontal cortical/subcortical encephalomalacia laterally as on prior studies which may be the basis of chronic infarction versus previous injury. 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 07/02/18 00:25 Patient has not achieved clinical sobriety at this time. 07/02/18 04:13 Patient has achieved clinical sobriety. I will discharge the patient home. *DC/Admit/Observation/Transfer Diagnosis at time of Disposition: Alcohol intoxication Qualifiers: Complication of substance-induced condition: uncomplicated Qualified Code(s): F10.920 - Alcohol use, unspecified with intoxication, uncomplicated - Discharge Dispostion Disposition: HOME Condition at time of disposition: Stable Decision to Admit order: No - Referrals - Patient Instructions Printed Discharge Instructions: DI for Alcohol Abuse Additional Instructions: Do not drink alcohol. Drink plenty of nonalcoholic fluids. Eat a well-balanced diet. Should you change your mind on rehabilitation go to [address] [place] [address] for detox. Return to the emergency department for any concerns. - Post Discharge Activity
[2018-07-01] MEDS ORDERED: THIAMINE HCL 100 MG TABLET (FP) PO ONE (19:53)
[2018-07-01] MEDS ORDERED: MULTIVITAMINS (DAILY MVI) TABLET (FP) PO ONE (19:53)
[2018-07-01] MEDS ORDERED: FOLIC ACID 1 MG TABLET (FP) PO ONE (19:53)
[2018-07-01] MEDS ORDERED: ACETAMINOPHEN 325 MG TABLET (FP) ONE (19:54)
[2018-07-01] MEDS ORDERED: FOLIC ACID 1 MG TABLET (FP) ONE (20:01)
== END 2018-07-02 04:47 | disposition home or self-care (01) ==
LOC: JER 19:17
DX: S09.8XXA Other specified injuries of head, initial encounter (principal); W18.39XA Other fall on same level, initial encounter; Y93.01 Activity, walking, marching and hiking; Y92.480 Sidewalk as the place of occurrence of the external cause; Y99.8 Other external cause status; F10.120 Alcohol abuse with intoxication, uncomplicated; Y90.9 Presence of alcohol in blood, level not specified; I10 Essential (primary) hypertension; F17.210 Nicotine dependence, cigarettes, uncomplicated; R26.89 Other abnormalities of gait and mobility; Z99.89 Dependence on other enabling machines and devices
CPT/HCPCS: 70450-TC; 99282-25

== ENCOUNTER 2018-07-12 20:33 | Emergency (ER) | payer OTHER ==
--- NOTE | 2018-07-12 20:49 | PDOC ---
History of Present Illness - General Stated Complaint: FALL Time Seen by Provider: 07/12/18 20:49 Past History - Past Medical History Allergies/Adverse Reactions: Allergies Allergy/AdvReac Type Severity Reaction Status Date / Time No Known Allergies Allergy Verified 07/01/18 19:23 Home Medications: Ambulatory Orders Amlodipine Besylate [Norvasc -] 10 mg PO DAILY #30 tablet 06/28/18 Gabapentin [Neurontin -] 100 mg PO TID #90 capsule 06/28/18 Metoprolol Tartrate [Lopressor -] 25 mg PO BID #60 tablet 06/28/18 CVA: No COPD: No DVT: No Dementia: No Diabetes: No GI Disorders: No Disorders: No HTN: Yes Hypercholesterolemia: Yes Liver Disease: No Seizures: No Thyroid Disease: No - Surgical History Abdominal Surgery: No Appendectomy: No Cardiac Surgery: No Cholecystectomy: No Lung Surgery: No Neurologic Surgery: No Orthopedic Surgery: Yes (HIP SURGERY) - Immunization History Immunization Up to Date: Yes - Suicide/Smoking/Psychosocial Hx Smoking History: Current some day smoker Have you smoked in the past 12 months: Yes Number of Cigarettes Smoked Daily: 20 'Breaking Loose' booklet given: 06/21/18 Hx Alcohol Use: Yes Drug/Substance Use Hx: No Substance Use Type: Alcohol Hx Substance Use Treatment: Yes (OUTPT)
--- NOTE | 2018-07-12 20:51 | PDOC ---
Attending Attestation - HPI HPI: 07/12/18 20:53 The patient is a 67 year old male, with a significant past medical history of alcohol abuse, who presents to the emergency department s/p slip and fall this evening. He reportedly hit the back of his head but denies LOC. He reports pain to the back of his head. He reports new onset of increased chronic back pain since his fall. He denies any other complaints of pain. He reportedly drank two beers today. The patient denies chest pain, shortness of breath, and dizziness. The patient denies fever, chills, nausea, vomit, diarrhea and constipation. The patient denies dysuria, frequency, urgency and hematuria. Allergies: NKDA Past surgical history: multiple orthopedic surgeries - Physicial Exam PE: 07/12/18 21:00 GENERAL: (+) ETOH on breath. Awake, alert, and fully oriented, in no acute distress HEAD: No signs of trauma EYES: PERRLA, EOMI, sclera anicteric, conjunctiva clear ENT: Auricles normal inspection, hearing grossly normal, nares patent, oropharynx clear without exudates. Moist mucosa NECK: Normal ROM, supple, no lymphadenopathy, JVD, or masses LUNGS: Breath sounds equal, clear to auscultation bilaterally. No wheezes, and no crackles HEART: Regular rate and rhythm, normal S1 and S2, no murmurs, rubs or gallops ABDOMEN: Soft, nontender, normoactive bowel sounds. No guarding, no rebound. No masses EXTREMITIES: Normal range of motion, no edema. No clubbing or cyanosis. No cords, erythema, or tenderness MUSCULOSKELETAL: (+)right paraspinal lumbar muscle tenderness with a spasm NEUROLOGICAL: Cranial nerves II through XII grossly intact. Normal speech, gait not tested due to intoxication SKIN: Warm, Dry, normal turgor, no rashes or lesions noted. - Medical Decision Making 07/12/18 20:53 Documentation prepared by Marysol Sheffield, acting as medical claims assistant for Itzel Patel MD, <Marysol Sheffield - Last Filed: 07/12/18 21:00> - Resident Resident Name: Lam Olivier - ED Attending Attestation I have performed the following: I have examined & evaluated the patient, The case was reviewed & discussed with the resident, I agree w/resident's findings & plan, Exceptions are as noted - Medical Decision Making Pt presents intoxicated, no significant findings on exam, however, he is alcoholic and reports head trauma and back pain. Will obtain CTH. <Itzel Patel - Last Filed: 07/12/18 22:26>
[2018-07-12] MEDS ORDERED: FOLIC ACID 1 MG TABLET (FP) PO ONE (20:57)
[2018-07-12] MEDS ORDERED: THIAMINE HCL 100 MG TABLET (FP) PO ONE (20:57)
[2018-07-12] MEDS ORDERED: KETOROLAC TROMETHAMINE 30 MG/1 ML VIAL IM ONE (21:00)
--- NOTE | 2018-07-12 21:01 | PDOC ---
History of Present Illness - General Chief Complaint: Alcohol intoxication Stated Complaint: FALL Time Seen by Provider: 07/12/18 20:49 - History of Present Illness Initial Comments: The patient is a 67M w/ Hx of chronic back pain, BLE and R shoulder 'plating', who presents s/p fall from standing with +LOC. The patient states that he was ambulating w/ his cane outside, slipped on a wet surface, and fell backwards hitting his head. The patient endorses occipital HERRERA and low back pain the is different from his chronic back pain. The patient denies recent fevers, illness, changes in vision, chest pain, SOB, N /V/C/D, dysuria, or acute changes in sensation 07/12/18 22:17 Past History - Past Medical History Allergies/Adverse Reactions: Allergies Allergy/AdvReac Type Severity Reaction Status Date / Time No Known Allergies Allergy Verified 07/12/18 20:50 Home Medications: Ambulatory Orders Amlodipine Besylate [Norvasc -] 10 mg PO DAILY #30 tablet 06/28/18 Gabapentin [Neurontin -] 100 mg PO TID #90 capsule 06/28/18 Metoprolol Tartrate [Lopressor -] 25 mg PO BID #60 tablet 06/28/18 CVA: No COPD: No DVT: No Dementia: No Diabetes: No GI Disorders: No Disorders: No HTN: Yes Hypercholesterolemia: Yes Liver Disease: No Seizures: No Thyroid Disease: No - Surgical History Abdominal Surgery: No Appendectomy: No Cardiac Surgery: No Cholecystectomy: No Lung Surgery: No Neurologic Surgery: No Orthopedic Surgery: Yes (HIP SURGERY) - Immunization History Immunization Up to Date: Yes - Suicide/Smoking/Psychosocial Hx Smoking History: Current every day smoker Have you smoked in the past 12 months: Yes Number of Cigarettes Smoked Daily: 10 Information on smoking cessation initiated: No 'Breaking Loose' booklet given: 06/21/18 Hx Alcohol Use: Yes (VODKA, BEER) Drug/Substance Use Hx: No Substance Use Type: Alcohol Hx Substance Use Treatment: Yes (OUTPT) Review of Systems - Review of Systems Able to Perform ROS?: Yes Comments:: GENERAL/CONSTITUTIONAL: No fever or chills. No weakness HEAD, EYES, EARS, NOSE AND THROAT: No change in vision. No ear pain or discharge. No sore throat CARDIOVASCULAR: No chest pain or shortness of breath RESPIRATORY: No cough, wheezing, or hemoptysis GASTROINTESTINAL: No nausea, vomiting, diarrhea or constipation GENITOURINARY: No dysuria, frequency, or change in urination MUSCULOSKELETAL: Endorses chronic back pain and chronic polyarthritis SKIN: No rash NEUROLOGIC: No vertigo, loss of consciousness, or change in strength/sensation HEMATOLOGIC/LYMPHATIC: No anemia, easy bleeding, or history of blood clots 07/12/18 22:19 Is the patient limited Korean proficient: No *Physical Exam - Vital Signs Last Vital Signs Temp Pulse Resp BP Pulse Ox 98 F 94 H 18 151/97 100 07/12/18 20:47 07/12/18 20:47 07/12/18 20:47 07/12/18 20:47 07/12/18 20:47 - Physical Exam Comments: GENERAL: Awake, alert, ortiented to person, place, and situation, not oriented to time, in no acute distress HEAD: No abrasion, hematoma or laceration. TTP over L occiput EYES: PERRL, EOMI, sclera anicteric, conjunctiva clear ENT: Hearing grossly normal, nares patent, oropharynx clear without exudates NECK: Normal ROM, supple, no lymphadenopathy LUNGS: No distress, speaks full sentences, clear to auscultation bilaterally HEART: Regular rate and rhythm, normal S1 and S2, no murmurs appreciated, peripheral pulses normal and equal bilaterally ABDOMEN: Soft, nontender, normoactive bowel sounds. No guarding, no rebound EXTREMITIES: Generalized TTP over FRANK/BLL extremities to even light touch despite patient with full AROM without obvious pain or limitation while in bed. Strength 5/5 in FRANK/BLL NEUROLOGICAL: Cranial nerves II through XII grossly intact. Slurred speech. Follows 2 step commands. Conversation re-directable. SKIN: Warm, Dry 07/12/18 22:19 ED Treatment Course - LABORATORY CBC & Chemistry Diagram: 07/12/18 21:20 07/12/18 21:20 Medical Decision Making - Medical Decision Making The patient is a 67M w/ Hx of chronic back pain, BLE and R shoulder 'plating', who presents s/p fall from standing with +LOC. ED Course Patient initially with slurred speech and unsteady gait CT head 07/12/18 21:01 CT head w/o acute bleed Patient following two step commands, speaking coherently, and ambulating stably in the ED Dispo: Home w/ PCP f/u 07/13/18 06:02 *DC/Admit/Observation/Transfer Diagnosis at time of Disposition: Alcohol intoxication Qualifiers: Complication of substance-induced condition: with unspecified complication Qualified Code(s): F10.929 - Alcohol use, unspecified with intoxication, unspecified Fall from standing Qualifiers: Encounter type: initial encounter Qualified Code(s): W19.XXXA - Unspecified fall, initial encounter - Discharge Dispostion Condition at time of disposition: Stable Decision to Admit order: No - Referrals Referrals: [facility] [place] [facility] [place] [Provider Group] - Patient Instructions Printed Discharge Instructions: DI for Alcohol Abuse, DI for Acute Pain -- Adult Additional Instructions: You were seen in the Emergency Department today for evaluation after fall from standing. Please review the handouts provided at discharge. Please follow up w/ your primary care physician within the next 1-3 days. Return to the Emergency Department if you develops fevers, worsening headaches, nausea/vomiting, changes in sensation, dizziness, increased lethargy, or any new/concerning symptoms. - Post Discharge Activity
[2018-07-12 21:04] VITALS: BP 151/97; PULSE 94; TEMP 98; BMI 23.3
[2018-07-12] MEDS ORDERED: FOLIC ACID 1 MG TABLET (FP) ONE (21:07)
[2018-07-12] MEDS ORDERED: KETOROLAC TROMETHAMINE 30 MG/1 ML VIAL ONE (21:07)
[2018-07-12 21:27] LABS: HEMATOCRIT 33.2 % (35.4-49); MCH 25.6 pg (25.7-33.7); MCHC 33.1 g/dl (32.0-35.9); MEAN CELL VOLUME 77.2 fl (80-96); MEAN PLT VOLUME 7.5 fl (7.5-11.1); PLATELET COUNT 262 K/MM3 (134-434); WHITE BLOOD COUNT 4.8 K/mm3 (4.0-10.0)
[2018-07-12 22:08] LABS: ALBUMIN 3.7 g/dl (3.4-5.0); ALK PHOS 74 U/L (45-117); ANION GAP 10 MMOL/L (8-16); BILIRUBIN,TOTAL 0.5 mg/dL (0.2-1); BLOOD UREA NITROGEN 17 mg/dL (7-18); CALCIUM 8.4 mg/dL (8.5-10.1); CHLORIDE 108 mmol/L (98-107); CO2 24 mmol/L (21-32); CREATININE 0.9 mg/dL (0.55-1.3); GLUCOSE,RANDOM 72 mg/dL (74-106); LIPASE 297 U/L (73-393); POTASSIUM 3.9 mmol/L (3.5-5.1); SGOT/AST 27 U/L (15-37); SGPT/ALT 25 U/L (13-61); SODIUM 141 mmol/L (136-145); TOT PROT 7.4 g/dl (6.4-8.2)
== END 2018-07-13 06:19 | disposition home or self-care (01) ==
LOC: JER 20:33
PROC: 3E0233Z Introduction of Anti-inflammatory into Muscle, Percutaneous Approach (ICD-10-PCS; principal; 2018-07-12)
DX: F17.210 Nicotine dependence, cigarettes, uncomplicated (principal); I10 Essential (primary) hypertension; E78.00 Pure hypercholesterolemia, unspecified
CPT/HCPCS: 36415; 70450-TC; 71045-TC-FY; 80053; 83690; 84484; 85027; 96372; 99283-25

== ENCOUNTER 2018-07-17 17:01 | Inpatient (IN) | payer OTHER ==
--- NOTE | 2018-07-17 17:49 | PDOC ---
Attending Attestation - Medical Decision Making 07/17/18 21:03 I received pt on signout. We are awaiting him to wake up and sober up a bit. Head CT normal: Patient Name: JANN HERRERA THIS IS A PRELIMINARY REPORT FROM [facility] DATE OF SERVICE: 2018-07-17 19:18:34 IMAGES: 138 EXAM: HEAD CT WITHOUT CONTRAST HISTORY: Headache COMPARISON: Head CT 06/21/18 FINDINGS: There is no intra-or extra-axial hemorrhage or collection. Area of encephalomalacia in the inferior right frontal lobe is again noted compatible with an old infarct No mass lesion or midline shift. There is stable mild cortical atrophy. The ventricles are normal in size, symmetric and midline in position Normal burgess-white matter differentiation. Areas of low attenuation in the periventricular white matter are again noted and compatible with chronic microvascular ischemic changes. The calvarium is intact. The visualized paranasal sinuses and mastoid air cells are clear. Individualized dose optimization techniques were used for this CT. THIS DOCUMENT HAS BEEN ELECTRONICALLY SIGNED 07/17/18 22:03Pt is aleeping comfortably and he wants to go to detox. I am unable to get in touch with them. 07/17/18 22:18 Pt will go to [facility] 07/17/18 22:44 [employer] [employer] at [facility] alcohol detox accepted the patient. <Jaquelin Almanzar - Last Filed: 07/17/18 22:44> - Resident Resident Name: Jake Puente - ED Attending Attestation I have performed the following: I have examined & evaluated the patient, The case was reviewed & discussed with the resident, I agree w/resident's findings & plan, Exceptions are as noted - HPI HPI: 07/17/18 17:49 Mr Herrera is a 67 yo M with a h/o alcohol abuse, HTN, non compliant with ALL medications Pt reports that he fell while intoxicated - no preceding chest pain, shortness of breath, palpitations Pt slipped on the metal grate in the street No LOC, No Amnesia He reports having a headache from the back of his head to the Left voodoo He also reports left knee pain, no limitations in range of motion Denies fevers, chills, chest pain Denies nausea, vomiting,diarrhea 07/17/18 18:28 - Physicial Exam PE: 07/17/18 18:30 Pt is malodorous, discheveled He is awake and alert Answers all questions appropriately No tongue fasciculation RRR CTA no abd tenderness Moves all extremities normally, no tremor 07/17/18 18:33 - Medical Decision Making 07/17/18 18:32 Pt presents to the ER intoxicated s/p mechanical fall Will do CT head Xray knee Tylenol for pain ReAssess for sobriety Pt signed out to Dr Almanzar <Patsy Euceda - Last Filed: 07/19/18 08:50>
[2018-07-17 18:03] VITALS: BMI 23.3
--- NOTE | 2018-07-17 18:06 | PDOC ---
History of Present Illness <Jaquelin Almanzar - Last Filed: 07/17/18 22:45> - History of Present Illness Initial Comments: 07/17/18 18:00 67M w/ Hx of chronic back pain, etoh abuse, BLE and R shoulder 'plating', recent visit (5 days ago) to our ED for fall from standing with +LOC w/ etoh intoxication, presents again s/p fall from standing with +LOC w/ etoh intoxication. The patient states that he was ambulating w/ his cane outside and slipped and fell backwards hitting his head. The patient endorses occipital HERRERA that radiates to temples and b/l leg pain and blurry vision and numbness/ tingling in toes b/l The patient denies recent fevers, illness, chest pain, SOB, diaphoresis, hallucinations, tremors, palpitations, N/V/C/D, dysuria, incontinence, or acute changes in sensation last drink was 4 hr ago <Jake Puente - Last Filed: 07/17/18 23:02> - General Chief Complaint: Alcohol intoxication Stated Complaint: INTOX Time Seen by Provider: 07/17/18 17:48 Past History <Jaquelin Almanzar - Last Filed: 07/17/18 22:45> - Past Medical History CVA: No COPD: No DVT: No Dementia: No Diabetes: No GI Disorders: No Disorders: No HTN: Yes Hypercholesterolemia: Yes Liver Disease: No Seizures: No Thyroid Disease: No - Surgical History Abdominal Surgery: No Appendectomy: No Cardiac Surgery: No Cholecystectomy: No Lung Surgery: No Neurologic Surgery: No Orthopedic Surgery: Yes (HIP SURGERY) - Immunization History Immunization Up to Date: Yes - Suicide/Smoking/Psychosocial Hx Smoking History: Current every day smoker Have you smoked in the past 12 months: Yes Number of Cigarettes Smoked Daily: 10 'Breaking Loose' booklet given: 06/21/18 Hx Alcohol Use: Yes (VODKA, BEER) Drug/Substance Use Hx: No Substance Use Type: Alcohol Hx Substance Use Treatment: Yes (OUTPT) <Jake Puente - Last Filed: 07/17/18 23:02> - Past Medical History Allergies/Adverse Reactions: Allergies Allergy/AdvReac Type Severity Reaction Status Date / Time No Known Allergies Allergy Verified 07/17/18 18:08 Home Medications: Ambulatory Orders NK [No Known Home Medication] 07/17/18 Review of Systems - Review of Systems Constitutional: Yes: See HPI HEENTM: Yes: See HPI Respiratory: Yes: See HPI Cardiac (ROS): Yes: See HPI ABD/GI: Yes: See HPI : Yes: See HPI Musculoskeletal: Yes: See HPI Integumentary: Yes: See HPI Neurological: Yes: See HPI Endocrine: Yes: See HPI Hematologic/Lymphatic: Yes: See HPI <Jake Puente - Last Filed: 07/17/18 23:02> *Physical Exam - Vital Signs Last Vital Signs Temp Pulse Resp BP Pulse Ox 97.2 F L 100 H 16 124/79 100 07/17/18 17:01 07/17/18 17:01 07/17/18 17:01 07/17/18 17:01 07/17/18 17:01 <Jaquelin Almanzar - Last Filed: 07/17/18 22:45> - Physical Exam Comments: 07/17/18 18:06 ENERAL: AOx3 in no acute distress HEAD: No abrasion, hematoma or laceration. TTP over occiput EYES: PERRL, EOMI, sclera anicteric, conjunctival injection ENT: Hearing grossly normal, nares patent, oropharynx clear without exudates NECK: Normal ROM, supple, no lymphadenopathy LUNGS: No distress, speaks full sentences, clear to auscultation bilaterally HEART: Regular rate and rhythm, normal S1 and S2, no murmurs appreciated, peripheral pulses normal and equal bilaterally ABDOMEN: Soft, diffuse tenderness, exam exaggerated, normoactive bowel sounds. No guarding, no rebound EXTREMITIES: Generalized TTP over BLL extremities to even light touch despite patient with full AROM without obvious pain or limitation while in bed. Strength 5/5 in FRANK/BLL NEUROLOGICAL: Cranial nerves II through XII grossly intact. Slurred speech. Follows 2 step commands. Conversation re-directable. SKIN: Warm, Dry, no bruising or abrasions noted <Jake Puente - Last Filed: 07/17/18 23:02> ED Treatment Course - Medications Given in the ED: ED Medications Discontinued Medications Generic Name Dose Route Start Last Admin Trade Name Freq PRN Reason Stop Dose Admin Acetaminophen 650 mg 07/17/18 19:06 07/17/18 19:50 Tylenol - PO 07/17/18 19:07 650 mg ONCE ONE Administration <Jaquelin Almanzar - Last Filed: 07/17/18 22:45> - RADIOLOGY Radiology Studies Ordered: Category Date Time Status HEAD CT WITHOUT CONTRAST [CT] Stat CT Scan 07/17/18 17:43 Ordered LEG TIB/FIB-RIGHT [RAD] Stat Radiology 07/17/18 17:59 Ordered <Jake Puente - Last Filed: 07/17/18 23:02> Medical Decision Making - Medical Decision Making 07/17/18 18:09 67M w/ Hx of chronic back pain, etoh abuse, BLE and R shoulder 'plating', recent visit (5 days ago) to our ED for fall from standing with +LOC w/ etoh intoxication, presents again s/p fall from standing with +LOC w/ etoh intoxication (last drink 4 hours ago) recent lab work from previous visit was normal Will monitor CT head to r/o bleed RLE xr to r/o fracture tylenol for pain 07/17/18 22:[address] shows no acute pathology Pt is sleeping comfortably and he wants to go to detox. will try to get in touch w/ [facility] 07/17/18 23:01 SIEVE MAKER at [facility] alcohol detox accepted the patient <KwameJake - Last Filed: 07/17/18 23:02> *DC/Admit/Observation/Transfer <Jaquelin Almanzar - Last Filed: 07/17/18 22:45> <Jake Puente - Last Filed: 07/17/18 23:02> Diagnosis at time of Disposition: Alcohol abuse - Discharge Dispostion Disposition: HOME Condition at time of disposition: Improved - Patient Instructions Printed Discharge Instructions: DI for Alcohol Abuse Additional Instructions: you came to ER for a fall while intoxicated with alcohol your CT of the head was normal and showed no bleed. You requested to go to a detox center. We will transfer you to [facility] If you experience any tremors, palpitations, sweating, shortness of breath, chest pain ,nausea, vomitting, limb weakness or numbness please let the staff at [facility] know
[2018-07-17] MEDS ORDERED: ACETAMINOPHEN 325 MG TABLET (FP) PO ONE (19:06)
[2018-07-17] MEDS ORDERED: ACETAMINOPHEN 325 MG TABLET (FP) ONE (19:46)
[2018-07-18] MEDS ORDERED: MAGNESIUM CITRATE 300 ML BOTTLE PO PRN (04:50)
[2018-07-18] MEDS ORDERED: NICOTINE POLACRILEX 2 MG GUM BC PRN (04:50)
[2018-07-18] MEDS ORDERED: guaiFENesin/D-METHORPHAN HB 10 ML UNIT-DOSE CUPS PO PRN (04:50)
[2018-07-18] MEDS ORDERED: LOPERAMIDE HCL 2 MG CAPSULE PO PRN (04:50)
[2018-07-18] MEDS ORDERED: chlordiazePOXIDE HCL 25 MG CAPSULE PO PRN (04:50)
[2018-07-18] MEDS ORDERED: MAG HYDROX/AL HYDROX/SIMETH 30 ML UNIT-DOSE CUP PO PRN (04:50)
[2018-07-18] MEDS ORDERED: MAGNESIUM HYDROX 2400MG/30ML ORAL SUSPENSION 30 ML CUP PO PRN (04:50)
[2018-07-18] MEDS ORDERED: P-EPHED 60MG/TRIPROLIDI 2.5MG TABLET PO PRN (04:50)
[2018-07-18] MEDS ORDERED: MENTHOL/PHENOL 1 EACH UD MM PRN (04:50)
[2018-07-18] MEDS: chlordiazePOXIDE HCL 25 MG CAPSULE PO SCH ×4 (05:31→22:37)
[2018-07-18] MEDS: ACETAMINOPHEN 325 MG TABLET (FP) PO PRN ×3 (10:52→22:41)
--- NOTE | 2018-07-18 11:18 | PN ---
Becky Progress Note Note: Patient was not seen he was transferred to [facility] due to nosebleeds, increased heart rate and extremities tremors
--- NOTE | 2018-07-18 12:16 | PN ---
S CIWA - CIWA Score Nausea/Vomitin-No Nausea/No Vomiting Muscle Tremors: 4-Moderate,w/Arms Extend Anxiety: 4-Mod. Anxious/Guarded Agitation: 4-Moderately Restless Paroxysmal Sweats: 3 Orientation: 0-Oriented Tacttile Disturbances: 0-None Auditory Disturbances: 0-None Visual Disturbances: 0-None Headache: 3-Moderate CIWA-Ar Total Score: 18 BHS Progress Note (SOAP) Subjective: Tremor, headache, sweating, interrupted sleep; patient c/o nosebleed started this morning, never had nose bleed in his life. Patient reports headache 05/28 and this is the worse headache he ever experienced. Patient with pmhx of HTN ( nc with medication) and he reports chronic nicotine dependence (cigarettes). Objective: 07/18/18 12:10 Last Vital Signs Temp Pulse Resp BP Pulse Ox 96.3 F L 132 H 20 180/89 H 94 L 07/18/18 11:06 07/18/18 11:06 07/18/18 11:07/18/18 11:06 07/17/18 23:32 PE: HEENT: AT/NC, PERRL, EOMI, right nare with bright red blood (moderate amount of blood on towel, patient's hospital gown, on linen and in garbage), no pharyngeal erythema or blood in mouth. Patient noted to be spitting up bright red blood in garbage (small amount) Resp: lungs ctab/l, no added breath sounds CV: s1s2+, apical rate 140 bpm Skin: warm to touch, dry Neuro: A/A/Ox3, in nad, ambulatory (gait unsteady) Labs from 07/12/18 noted: CBC and CMP UA on 06/20/18: abnormal (proteinuria, glycosuria and microscopic hematuria) Assessment: 07/18/18 12:20 Withdrawal symptoms Noted with Epistaxis, headache and tachycardia Plan: ETOH dependence with withdrawal symptoms: had librium 50mg PO at 05:30 this morning, continue to monitor for withdrawal symptoms and continue detox protocol as tolerated Epistaxis: pressure applied, bleeding decreased, patient instructed to apply pressure prn and to notify staff Headache: tylenol prn Tachycardia: could be related partially to withdrawal, monitor EKG (unable to do at this time as patient uncooperative S/P fall post alcohol intoxication as per MD note from Willa Carrera on : ct scan brain without contrast negative on 07/17/18 Patient to be transferred to [facility] ER STAT for further evaluation. Report given to Otoniel Altman MD.
[2018-07-18] MEDS: NICOTINE 14 MG/24 HOURS TOPICAL PATCH TD SCH (12:41)
[2018-07-18] MEDS: PRENATAL VITAMINS W/ FOLIC ACID TABLET (FP) PO SCH (12:41)
[2018-07-18] MEDS ORDERED: MELATONIN 5 MG TABLETS PO PRN (22:00)
[2018-07-18] MEDS: THIAMINE HCL 100 MG TABLET (FP) PO SCH (22:37)
--- NOTE | 2018-07-19 06:09 | EKG ---
Test Reason : Blood Pressure : / mmHG Vent. Rate : 096 BPM Atrial Rate : 096 BPM P-R Int : 148 ms QRS Dur : 080 ms QT Int : 354 ms P-R-T Axes : 027 -35 061 degrees QTc Int : 447 ms NORMAL SINUS RHYTHM LEFT AXIS DEVIATION ABNORMAL ECG WHEN COMPARED WITH ECG OF 12-JUL-2018 21:29, NO SIGNIFICANT CHANGE WAS FOUND Confirmed by JUANA DURBIN MD ([id number]) on 07/19/2018 6:09:03 AM Referred By: Confirmed By:JUANA DURBIN MD
[2018-07-19] MEDS: chlordiazePOXIDE HCL 25 MG CAPSULE PO SCH ×4 (06:23→22:05)
[2018-07-19] MEDS: ACETAMINOPHEN 325 MG TABLET (FP) PO PRN ×2 (09:16→20:05)
[2018-07-19] MEDS: PRENATAL VITAMINS W/ FOLIC ACID TABLET (FP) PO SCH (10:30)
[2018-07-19] MEDS: NICOTINE 14 MG/24 HOURS TOPICAL PATCH TD SCH (10:31)
--- NOTE | 2018-07-19 13:01 | PN ---
S CIWA - CIWA Score Nausea/Vomitin Muscle Tremors: 3 Anxiety: 3 Agitation: 2 Paroxysmal Sweats: 2 Orientation: 0-Oriented Tacttile Disturbances: 0-None Auditory Disturbances: 0-None Visual Disturbances: 0-None Headache: 1-Very Mild CIWA-Ar Total Score: 13 BHS Progress Note (SOAP) Subjective: Tremor, chills, diarrhea; denies nosebleed or spitting up blood. Patient was sent to [facility] ER yesterday for evaluation due to epistaxis, headache and spitting up blood. He presently denies any bleeding since he returned from ER yesterday. Objective: 07/19/18 13:01 Last Vital Signs Temp Pulse Resp BP Pulse Ox 97.9 F 104 H 19 118/83 94 L 07/19/18 09:46 07/19/18 09:46 07/19/18 09:46 07/19/18 09:46 07/17/18 23:32 Labs reviewed from 07/16/18: bun 27, abnormal UA Assessment: 07/19/18 13:05 Withdrawal sx Noted with azotemia and abnormal UA Plan: Continue detox Azotemia: encouraged PO water hydration Abnormal UA: repeat UA
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
[2018-07-19] MEDS: IBUPROFEN 400 MG TABLET (FP) PO PRN (16:22)
[2018-07-19 18:54] LABS: URINE APPEARANCE CLEAR; URINE BILIRUBIN NEGATIVE (<2.0 mg/dL); URINE COLOR LTYELLOW; URINE GLUCOSE (UA) NEGATIVE (NEGATIVE); URINE KETONE NEGATIVE (NEGATIVE); URINE LEUK ESTERASE NEGATIVE (NEGATIVE); URINE NITRITE NEGATIVE (NEGATIVE); URINE PROTEIN NEGATIVE (NEGATIVE); URINE UROBILINOGEN NEGATIVE mg/dL (0.2-1.0)
[2018-07-19] MEDS: THIAMINE HCL 100 MG TABLET (FP) PO SCH (22:05)
[2018-07-20] MEDS: ACETAMINOPHEN 325 MG TABLET (FP) PO PRN ×4 (02:35→19:02)
[2018-07-20] MEDS: chlordiazePOXIDE 5 MG CAPSULE PO SCH ×4 (06:58→22:06)
--- NOTE | 2018-07-20 07:25 | PN ---
[facility] Progress Note (SOAP) Subjective: ASKED TO SEE CLIENT FOR OVERNIGHT NOSE BLEED. CLIENT REPORTS 2 EPISODES OF NOSE BLEEDS SINCE YESTERDAY WITH MODERATE AMOUNT OF BLOOD CLOTS FROM THE RIGHT NOSTRIL. HE DENIES HX/O NOSE BLEEDS OR PICKING HIS NOSE.HE REPORTS ASSOCIATED DIZZINESS, SOB, HEADACHE AND PALPITATIONS. DENIES C.P. FEVER CHILLS. Objective: 07/20/18 07:21 SEEN LYING IN BED NAD A/O X3 HEENT: CRUSTED DRY BLOOD NOTED TO UPPER LIP NOSTRILS. RIGHT NOSTRIL WITH SWOLLEN /LARGE TURBINATES UNABLE TO VISUALIZE. LEFT NOSTRIL PATENT NO INJURIES OR ACTIVE BLEED. CV- REG/IRREG P-78 LUNGS- CTAB NO WHEEZING/RONCHI EXTREMITIES- SLIGHT TREMOR Vital Signs - 8 hr 07/20/18 07/20/18 03:30 06:11 Temperature 97.4 F L Pulse Rate 46 L Respiratory 18 18 Rate Blood Pressure 150/82 Laboratory Tests 07/19/18 15:30 Urine Color Ltyellow Urine Appearance Clear Urine pH 7.0 Ur Specific [place] 1.010 Urine Protein Negative Urine Glucose (UA) Negative Urine Ketones Negative Urine Blood Negative Urine Nitrite Negative Urine Bilirubin Negative Urine Urobilinogen Negative Ur Leukocyte Esterase Negative H/H- 10.9/33.8 EKG - SINUS RHYTHM WITH PREMATURE ATRIAL COMPLEXES- HR 93 PREVIOUS EKG NSR/LEFT AXIS DEVIATION/SEPTAL INFARCT AGE DETERMINED CLIENT WAS EVALUATED IN E.D. 1 DAY AGO FOR SAME COMPLAINTS SEE BELOW ED Treatment Course Medical Decision Making - Medical Decision Making 07/18/18 13:53 Pt seen by me in our ER yesterday for etoh intoxication and +LOC w/ fall, now sent from [facility] to our ER for possible withdrawl sxs and excessive epistaxis. Pt experiencing HERRERA, lightheadedness, tremors, tachycardia (130), hypertensive (180/90) and epistaxis. Pt received librium 50 mg at 5:30am yesterday CT head was neg. Vitals have improved to 100s and 150/90 Will monitor for withdrawal sxs and w/u potential causes of bleed and diarrhea ( melana?) -CBC, CMP, mag, lipase, PT/INR -IVF NS bolus -EKG -IV pepcid -FOBT 07/18/18 14:34 FOBT collected and sent no obvious bleeding noted in rectal vault 07/18/18 14:55 pt reassessed, abd is soft and NT, pt requesting PO. FOBT pos labs unremarkable for acute bleed, H/H stable, PT/INR nl lipase nl EKG NSR w/ no ST, T wave changes Will see if pt tolerates PO and dc back to [facility] pt can f/u w/ PCP and GI outpt 07/18/18 15:05 pt is tolerating PO, stable, and will be transferred to [facility]. *DC/Admit/Observation/Transfer Diagnosis at time of Disposition: Epistaxis Alcohol withdrawal Qualifiers: Complication of substance-induced condition: uncomplicated Qualified Code(s): F10.230 - Alcohol dependence with withdrawal, uncomplicated - Discharge Dispostion Disposition: HOME Condition at time of disposition: Improved Decision to Admit order: No - Referrals - Patient Instructions Printed Discharge Instructions: DI for Delirium Tremens, Drug and Alcohol Withdrawal, DI for Drug or Alcohol Withdrawal, Gastrointestinal Bleeding Additional Instructions: You were sent to the ER from [facility] for alcohol withdrawal and nose bleed. We gave you fluids and antacids which helped your symptoms. Your blood levels (hemoglobin) showed no significant changes since your last visit. You were found to have some blood in your stool and your bilirubin levels were somewhat elevated. Please follow up with your primary care physician or/and a GI doctor within 1 week. We will send you back now to [facility] to complete detox If you experience tremors, palpitations, chest pain, shortness of breath, fevers , worsening diarrhea, abdominal pain, hallucinations, severe sweating, worsening headache, please come back to the ER - 07/20/18 07:32 07/20/18 07:48 Assessment: 07/20/18 07:31 WITHDRAWAL SX'S EPISTAXIS PALPITATIONS Plan: EKG CASE D/W DR. ANDRE STEINER/[facility] WILL CONT TO MONITOR CLINICALLY MAY NEED TO TRANSFER TO [facility] FOR FURTHER EVAL BY ENT IF EPISTAXIS REPEATS/CONT C/W DETOX FALL SAFETY PRECAUTION
[2018-07-20] MEDS: IBUPROFEN 400 MG TABLET (FP) PO PRN (07:42)
[2018-07-20] MEDS: PRENATAL VITAMINS W/ FOLIC ACID TABLET (FP) PO SCH (10:25)
[2018-07-20] MEDS: NICOTINE 14 MG/24 HOURS TOPICAL PATCH TD SCH (10:26)
--- NOTE | 2018-07-20 11:06 | EKG ---
Test Reason : Blood Pressure : / mmHG Vent. Rate : 093 BPM Atrial Rate : 093 BPM P-R Int : 134 ms QRS Dur : 084 ms QT Int : 358 ms P-R-T Axes : 034 -30 040 degrees QTc Int : 445 ms POOR DATA QUALITY, INTERPRETATION MAY BE ADVERSELY AFFECTED NORMAL SINUS RHYTHM WITH SINUS ARRHYTHMIA LEFT AXIS DEVIATION SEPTAL INFARCT , AGE UNDETERMINED ABNORMAL ECG WHEN COMPARED WITH ECG OF 18-JUL-2018 13:25, NO SIGNIFICANT CHANGE WAS FOUND Confirmed by Chaitanya Burns MD ([id number]) on 07/20/2018 11:06:16 AM Referred By: Confirmed By:Chaitanya Burns MD
--- NOTE | 2018-07-20 12:42 | PN ---
[facility] Progress Note (SOAP) Subjective: Chills, headache (7/10 pain scale), interrupted sleep Objective: 07/20/18 12:40 Last Vital Signs Temp Pulse Resp BP Pulse Ox 95.9 F L 93 H 18 120/79 94 L 07/20/18 09:25 07/20/18 09:25 07/20/18 09:25 07/20/18 09:25 07/17/18 23:32 Laboratory Tests 07/19/18 15:30 Urine Color Ltyellow Urine Appearance Clear Urine pH 7.0 Ur Specific [place] 1.010 Urine Protein Negative Urine Glucose (UA) Negative Urine Ketones Negative Urine Blood Negative Urine Nitrite Negative Urine Bilirubin Negative Urine Urobilinogen Negative Ur Leukocyte Esterase Negative CBC, CMP, UA noted Assessment: 07/20/18 12:41 Withdrawal sxs Plan: Continue detox
[2018-07-20] MEDS: THIAMINE HCL 100 MG TABLET (FP) PO SCH (22:06)
[2018-07-21] MEDS: chlordiazePOXIDE HCL 10 MG CAPSULE PO SCH ×2 (05:37→10:26)
[2018-07-21 09:06] VITALS: BP 148/99; PULSE 94; TEMP 97.8
--- NOTE | 2018-07-21 10:05 | DS ---
[facility] Detox Discharge Summary Admission Date: 07/18/18 Discharge Date: 07/21/18 - History Present History: Alcohol Dependence Additional Comments: Patient noted with HTN. He denies any h/o HTN. Patient educated on low sodium diet, started on norvasc 5mg PO daily, first dose today, eRx sent (patient made aware). Patient instructed to F/U with his PCP in 1 week and for referral to ENT due to intermittent epistaxis; patient verbalized understanding. - Physical Exam Results Vital Signs: Vital Signs Temperature 97.8 F 07/21/18 09:05 Pulse Rate 94 H 07/21/18 09:05 Respiratory Rate 18 07/21/18 09:05 Blood Pressure 148/99 07/21/18 09:05 O2 Sat by Pulse Oximetry (%) 94 L 07/17/18 23:32 Withdrawal sxs Laboratory Tests 07/19/18 15:30 Urine Color Ltyellow Urine Appearance Clear Urine pH 7.0 Ur Specific [place] 1.010 Urine Protein Negative Urine Glucose (UA) Negative Urine Ketones Negative Urine Blood Negative Urine Nitrite Negative Urine Bilirubin Negative Urine Urobilinogen Negative Ur Leukocyte Esterase Negative Labs reviewed - Treatment Hospital Course: Detox Protocol Followed, Detoxed Safely, Responded well, Discharged Condition Good - Medication Discharge Medications: Ambulatory Orders Amlodipine Besylate [Norvasc -] 5 mg PO DAILY #30 tablet 07/21/18 - Diagnosis (1) Headache Current Visit: Yes Status: Acute (2) Tachycardia Current Visit: Yes Status: Resolved (3) Alcohol dependence with uncomplicated withdrawal Current Visit: Yes Status: Acute (4) HTN (hypertension) Current Visit: Yes Status: Chronic (5) Azotemia Current Visit: Yes Status: Acute (6) Abnormal finding on urinalysis Current Visit: Yes Status: Resolved - AMA Did Patient Leave Against Medical Advice: No (F/U with your PCP in 1 week and for ENT referral due to epistaxis)
[2018-07-21] MEDS: PRENATAL VITAMINS W/ FOLIC ACID TABLET (FP) PO SCH (10:26)
[2018-07-21] MEDS: NICOTINE 14 MG/24 HOURS TOPICAL PATCH TD SCH (10:26)
[2018-07-21] MEDS ORDERED: amLODIPine BESYLATE 5 MG TABLET (FP) PO SCH (10:40)
[2018-07-21] MEDS: ACETAMINOPHEN 325 MG TABLET (FP) PO PRN (11:08)
== END 2018-07-21 12:26 | disposition home or self-care (01) | DRG 897 ==
LOC: JER 17:01 → Y3N 07-18 02:33
PROC: HZ2ZZZZ Detoxification Services for Substance Abuse Treatment (ICD-10-PCS; principal; 2018-07-18)
DX: F10.230 Alcohol dependence with withdrawal, uncomplicated (principal); F17.210 Nicotine dependence, cigarettes, uncomplicated; I10 Essential (primary) hypertension; R00.0 Tachycardia, unspecified; R51 Headache; R79.89 Other specified abnormal findings of blood chemistry; R82.90 Unspecified abnormal findings in urine; R04.0 Epistaxis
CPT/HCPCS: 36415; 70450-TC; 73590-TC-RT-FY; 80053; 81003; 82272; 83690; 83735; 85025; 85610; 93005; 93010; 99282-25; 99283-25; J7030

== ENCOUNTER 2018-07-18 12:14 | Emergency (ER) | payer OTHER ==
[2018-07-18 12:29] VITALS: BMI 23.3
[2018-07-18] MEDS ORDERED: SODIUM CHLORIDE 1,000 ML IV STA (12:54)
--- NOTE | 2018-07-18 12:56 | PDOC ---
Attending Attestation - Resident Resident Name: Jake Puente - ED Attending Attestation I have performed the following: I have examined & evaluated the patient, The case was reviewed & discussed with the resident, I agree w/resident's findings & plan, Exceptions are as noted - HPI HPI: 07/18/18 13:02 67y M hx of chronic back pain, etoh abuse, recent ED visit for head injury, had a negative CT and was d/c to [facility] for management of pt noted he had a bloody nose this morning for approx 1 hr but stopped spontnaeusly. he was alittle shaky so was sent to the ED for evaluation. Pt was given librium earlier today and was noted to be tachy/hypertensive to 130 with sbp 180. on exam pt abd slightly diffuse tenderness no active epistaxis, dried blood near nares card: rrr, no mrg pulm: cta bl atremulous will ck basic labs tor /o abnormal inr (due to etoh abuse), anemia will observe for withdrawal symptoms, currently atremulous, benzos prn - Physicial Exam PE: 07/19/18 09:32 see above - Medical Decision Making 07/18/18 15:45 pt atremulous, normal vitals, no signs of active withdrawal labs reviewed will d/c back to [facility] to continue his detox ent fu as outpatient
[2018-07-18] MEDS ORDERED: FAMOTIDINE 20 MG/50 ML IVPB 20 MG in PREMIX 50 IVPB ONE (13:25)
--- NOTE | 2018-07-18 13:29 | PDOC ---
History of Present Illness - General Chief Complaint: Lightheaded Stated Complaint: NOSEBLEED Time Seen by Provider: 07/18/18 12:33 - History of Present Illness Initial Comments: 07/18/18 13:19 Pt was seen by me in our ER yesterday for etoh intoxication and +LOC w/ fall. CT head was neg and pt was transferred to [facility] detox. Pt says at [facility] he noticed bleeding from his R nostril. bleeding lasted for 2 hours and was stopped w/ pressure. Pt also endorses frontal HERRERA, lightheadedness, chills, diarrhea (dark brown stools, has had in the past) and tremors. (last drink 24 hrs ago). Denies fever, cp, sob, n/v, numbness, tingling, palpitations, trauma to nose. Pt was given librium 50 mg at 5:30am Past History - Past Medical History Allergies/Adverse Reactions: Allergies Allergy/AdvReac Type Severity Reaction Status Date / Time No Known Allergies Allergy Verified 07/17/18 18:08 Home Medications: Ambulatory Orders NK [No Known Home Medication] 07/17/18 Asthma: No CVA: No COPD: No DVT: No Dementia: No Diabetes: No GI Disorders: No Disorders: No HTN: Yes Hypercholesterolemia: Yes Liver Disease: No Seizures: No Thyroid Disease: No - Surgical History Abdominal Surgery: No Appendectomy: No Cardiac Surgery: No Cholecystectomy: No Lung Surgery: No Neurologic Surgery: No Orthopedic Surgery: Yes (HIP SURGERY) - Reproductive History Testicular Surgery: No - Immunization History Immunization Up to Date: Yes - Suicide/Smoking/Psychosocial Hx Smoking History: Current every day smoker Have you smoked in the past 12 months: Yes Number of Cigarettes Smoked Daily: 4 Information on smoking cessation initiated: No 'Breaking Loose' booklet given: 06/21/18 Hx Alcohol Use: No Drug/Substance Use Hx: No Substance Use Type: Alcohol Hx Substance Use Treatment: Yes (OUTPT) Review of Systems - Review of Systems Constitutional: Yes: See HPI HEENTM: Yes: See HPI Respiratory: Yes: See HPI Cardiac (ROS): Yes: See HPI ABD/GI: Yes: See HPI : Yes: See HPI Musculoskeletal: Yes: See HPI Integumentary: Yes: See HPI Neurological: Yes: See HPI Endocrine: Yes: See HPI Hematologic/Lymphatic: Yes: See HPI *Physical Exam - Vital Signs Last Vital Signs Temp Pulse Resp BP Pulse Ox 98.7 F 105 H 20 154/94 97 07/18/18 12:26 07/18/18 12:07/18/18 12:07/18/18 12:07/18/18 12:26 - Physical Exam Comments: 07/18/18 13:30 GENERAL: AOx3 in no acute distress HEAD: No abrasion, hematoma or laceration. EYES: PERRL, EOMI, sclera anicteric, conjunctival injection ENT: Hearing grossly normal, dried blood at R nostril, no active bleeding, oropharynx clear without exudates NECK: Normal ROM, supple, no lymphadenopathy LUNGS: No distress, speaks full sentences, mildd crackles b/l HEART: tachycardia. normal rhythm, normal S1 and S2, no murmurs appreciated, peripheral pulses normal and equal bilaterally ABDOMEN: Soft, TTP LLQ and epigastrum, normoactive bowel sounds. no rebound EXTREMITIES: Generalized TTP over BLL extremities to even light touch despite patient with full AROM without obvious pain or limitation while in bed. Strength 5/5 in FRANK/BLL NEUROLOGICAL: Cranial nerves II through XII grossly intact. Slurred speech. Follows 2 step commands. Conversation re-directable. SKIN: Warm, Dry ED Treatment Course - LABORATORY CBC & Chemistry Diagram: 07/18/18 13:34 07/18/18 13:34 Medical Decision Making - Medical Decision Making 07/18/18 13:53 Pt seen by me in our ER yesterday for etoh intoxication and +LOC w/ fall, now sent from [facility] to our ER for possible withdrawl sxs and excessive epistaxis. Pt experiencing HERRERA, lightheadedness, tremors, tachycardia (130), hypertensive (180/90) and epistaxis. Pt received librium 50 mg at 5:30am yesterday CT head was neg. Vitals have improved to 100s and 150/90 Will monitor for withdrawal sxs and w/u potential causes of bleed and diarrhea ( melana?) -CBC, CMP, mag, lipase, PT/INR -IVF NS bolus -EKG -IV pepcid -FOBT 07/18/18 14:34 FOBT collected and sent no obvious bleeding noted in rectal vault 07/18/18 14:55 pt reassessed, abd is soft and NT, pt requesting PO. FOBT pos labs unremarkable for acute bleed, H/H stable, PT/INR nl lipase nl EKG NSR w/ no ST, T wave changes Will see if pt tolerates PO and dc back to [facility] pt can f/u w/ PCP and GI outpt 07/18/18 15:05 pt is tolerating PO, stable, and will be transferred to [facility]. *DC/Admit/Observation/Transfer Diagnosis at time of Disposition: Epistaxis Alcohol withdrawal Qualifiers: Complication of substance-induced condition: uncomplicated Qualified Code(s): F10.230 - Alcohol dependence with withdrawal, uncomplicated - Discharge Dispostion Disposition: HOME Condition at time of disposition: Improved Decision to Admit order: No - Referrals - Patient Instructions Printed Discharge Instructions: DI for Delirium Tremens, Drug and Alcohol Withdrawal, DI for Drug or Alcohol Withdrawal, Gastrointestinal Bleeding Additional Instructions: You were sent to the ER from [facility] for alcohol withdrawal and nose bleed. We gave you fluids and antacids which helped your symptoms. Your blood levels (hemoglobin) showed no significant changes since your last visit. You were found to have some blood in your stool and your bilirubin levels were somewhat elevated. Please follow up with your primary care physician or/and a GI doctor within 1 week. We will send you back now to [facility] to complete detox If you experience tremors, palpitations, chest pain, shortness of breath, fevers , worsening diarrhea, abdominal pain, hallucinations, severe sweating, worsening headache, please come back to the ER - Post Discharge Activity
[2018-07-18] MEDS ORDERED: FAMOTIDINE 20 MG/50 ML IVPB 20 MG/50 ML MG IVPB ONE (13:38)
[2018-07-18 13:39] LABS: BASO % 0.7 % (0-2.0); EOS % 0.6 % (0-4.5); HEMATOCRIT 33.8 % (35.4-49); HEMOGLOBIN 10.9 GM/dL (11.7-16.9); LYMPH % 25.3 % (8-40); MCH 24.7 pg (25.7-33.7); MCHC 32.1 g/dl (32.0-35.9); MEAN PLT VOLUME 8.1 fl (7.5-11.1); MONO % 4.6 % (3.8-10.2); NEUT % 68.8 % (42.8-82.8); PLATELET COUNT 176 K/MM3 (134-434); RBC 4.39 M/mm3 (4.00-5.60); RDW 18.1 % (11.9-15.9); WHITE BLOOD COUNT 8.8 K/mm3 (4.0-10.0)
[2018-07-18 13:51] LABS: INR 0.94 (0.83-1.09); PROTHROMBIN TIME (PATIENT) 11.1 SEC (9.7-13.0)
[2018-07-18 14:22] LABS: ALBUMIN 3.5 g/dl (3.4-5.0); ALK PHOS 74 U/L (45-117); ANION GAP 9 MMOL/L (8-16); BLOOD UREA NITROGEN 27 mg/dL (7-18); CALCIUM 8.4 mg/dL (8.5-10.1); CHLORIDE 98 mmol/L (98-107); CO2 26 mmol/L (21-32); CREATININE 0.9 mg/dL (0.55-1.3); GLUCOSE,RANDOM 81 mg/dL (74-106); LIPASE 163 U/L (73-393); MAGNESIUM 1.6 mg/dL (1.8-2.4); POTASSIUM 4.8 mmol/L (3.5-5.1); SGOT/AST 92 U/L (15-37); SGPT/ALT 50 U/L (13-61); SODIUM 133 mmol/L (136-145); TOT PROT 7.2 g/dl (6.4-8.2)
[2018-07-18 15:15] VITALS: BP 164/100; PULSE 89; TEMP 98.1
[2018-07-18] MEDS ORDERED: LOPERAMIDE HCL 2 MG CAPSULE PO ONE (16:47)
[2018-07-18] MEDS ORDERED: LOPERAMIDE HCL 2 MG CAPSULE ONE (16:54)
== END 2018-07-18 17:23 | disposition home or self-care (01) ==
LOC: JER 12:14
DX: F10.230 Alcohol dependence with withdrawal, uncomplicated (principal); R04.0 Epistaxis; I10 Essential (primary) hypertension; R19.7 Diarrhea, unspecified; Z91.81 History of falling
CPT/HCPCS: 36415; 80053; 82272; 83690; 83735; 85025; 85610; 99283-25; J7030

== ENCOUNTER 2018-08-02 19:15 | Emergency (ER) | payer OTHER ==
--- NOTE | 2018-08-02 20:00 | PDOC ---
Rapid Medical Evaluation Chief Complaint: Alcohol intoxication Time Seen by Provider: 08/02/18 19:59 Medical Evaluation: Allergies Allergy/AdvReac Type Severity Reaction Status Date / Time No Known Allergies Allergy Verified 07/17/18 18:08 08/02/18 19:59 I have performed a brief in person evaluation of this patient. The patient presents with a chief complaint of: ETOH Pertinent PE: Skin: Clear Lungs: Clear Heart: RRR MS: Moves all extremities without difficulty. Neuro: Alert and oriented Psych: Appropriate affect The patient will proceed to: pt will go to the main ED for further evaluation. Discharge Disposition - Diagnosis Alcohol intoxication Qualifiers: Complication of substance-induced condition: uncomplicated Qualified Code(s): F10.920 - Alcohol use, unspecified with intoxication, uncomplicated - Referrals - Patient Instructions - Post Discharge Activity
[2018-08-02 20:01] VITALS: BP 102/52; PULSE 74; TEMP 98.1; BMI 28.2
== END 2018-08-02 21:30 | disposition left against medical advice (07) ==
LOC: JER 19:15
DX: Z53.21 Procedure and treatment not carried out due to patient leaving prior to being seen by health care provider (principal)
CPT/HCPCS: 99281-25

== ENCOUNTER 2018-08-04 21:27 | Inpatient (IN) | payer OTHER ==
[2018-08-04 21:32] VITALS: BMI 23.3
--- NOTE | 2018-08-04 21:32 | PDOC ---
Rapid Medical Evaluation Time Seen by Provider: 08/04/18 21:29 Medical Evaluation: Allergies Allergy/AdvReac Type Severity Reaction Status Date / Time No Known Allergies Allergy Verified 08/02/18 20:03 08/04/18 21:29 Pt c/o: brought in by ems for dizziness and woke up on the floor, bystanders called ems pt on brief exam: intoxicated, vss Pt ordered for: cardiac w/u Pt to proceed to the ED Discharge Disposition - Diagnosis Dizziness - Referrals - Patient Instructions - Post Discharge Activity
--- NOTE | 2018-08-04 22:22 | PDOC ---
Attending Attestation - Resident Resident Name: Wilder Miranda - ED Attending Attestation I have performed the following: I have examined & evaluated the patient, The case was reviewed & discussed with the resident, I agree w/resident's findings & plan, Exceptions are as noted - HPI HPI: 08/05/18 08:50 Mr Herrera is a 67 yo M w/ pmhx of HTN, COPD, alcohol dependence presented today with complaints of a syncopal episode. He is s/p fall on the sidewalk, struck the back of his head, no LOC No vision changes, chest pain, sob, vomiting, abd pain. - Physicial Exam PE: 08/05/18 08:52 GENERAL: AAOx3. NAD. Resting comfortably. Discheveled HEENT: AT/NC. EOMI. LY. Dry mucus membranes. LUNGS: Bibasilar crackles. Symmetric chest rise. No accessory muscle use. HEART: Normal S1, S2. No murmurs noted. ABDOMEN: Soft, ND. L sided abdominal tenderness to deep palpation. +BS in all 4 Q's. No masses or bruits noted. MUSCULOSKELETAL: No pedal edema. 5/5 muscle strength in b/l u/l extremities. NEUROLOGICAL: Normal speech. CN II-XII intact. - Medical Decision Making 08/05/18 08:53 Laboratory Tests 08/04/18 08/05/18 08/05/18 23:33 01:06 01:06 WBC 6.9 Hgb 9.7 L Hct 30.0 L Plt Count 367 D BUN Creatinine Creatine Kinase 96 Troponin I < 0.02 Urine Blood Negative Urine Nitrite Negative Ur Leukocyte Esterase Negative 08/05/18 01:06 WBC Hgb Hct Plt Count BUN 19 H Creatinine 1.1 Creatine Kinase Troponin I Urine Blood Urine Nitrite Ur Leukocyte Esterase EKG: Sinus rhythm, rate of 85 bpm, left axis deviation, no ST elevations or depressions, T waves upright. Will plan to place on observation to hospitalist
--- NOTE | 2018-08-04 22:32 | PDOC ---
History of Present Illness - General Chief Complaint: Syncope/Near Syncope Stated Complaint: INTOX Time Seen by Provider: 08/04/18 21:29 - History of Present Illness Initial Comments: 08/04/18 22:30 67 yo M with h/o HTN, COPD, nicotine, and Etoh dependence BIBA with syncope. Patient reports standing in street and feeling lightheaded at around 8 PM this evening. He reports falling onto BL knees and then onto his hands, rolling over onto the pavement and hitting the back of his head. Reports LOC for 15 minutes. Now with posterior, dull HERRERA. No alleviators. Has not ambulated following event. Witnessed by pedestrians on streets, who endorsed to patient LOC, and absent convulsive status. Patient in normal state of health prior to syncopal event. + chronic cough, non productive. Patient denies vision change, tinnitus, hearing loss, palpitations, N/V, F,C, CP , orthopnea, SOB, urinary complaints, abdominal pain, diarrhea, constipation, weakness, sensory changes. PMHx: as noted above ROS: as noted SHx: Tobacco use 1 ppd for 40 years. Denies IVDA Allergies: NKDA Past History - Past Medical History Allergies/Adverse Reactions: Allergies Allergy/AdvReac Type Severity Reaction Status Date / Time No Known Allergies Allergy Verified 08/04/18 21:32 Home Medications: Ambulatory Orders Amlodipine Besylate [Norvasc -] 5 mg PO DAILY #30 tablet 07/21/18 Asthma: No CVA: No COPD: No DVT: No Dementia: No Diabetes: No GI Disorders: No Disorders: No HTN: Yes Hypercholesterolemia: Yes Liver Disease: No Seizures: No Thyroid Disease: No - Surgical History Abdominal Surgery: No Appendectomy: No Cardiac Surgery: No Cholecystectomy: No Lung Surgery: No Neurologic Surgery: No Orthopedic Surgery: Yes (HIP SURGERY) - Reproductive History Testicular Surgery: No - Immunization History Immunization Up to Date: Yes - Suicide/Smoking/Psychosocial Hx Smoking History: Unknown if ever smoked Have you smoked in the past 12 months: Yes Number of Cigarettes Smoked Daily: 4 'Breaking Loose' booklet given: 06/21/18 Hx Alcohol Use: No Drug/Substance Use Hx: No Substance Use Type: Alcohol Hx Substance Use Treatment: Yes (OUTPT) Review of Systems - Review of Systems Comments:: 08/04/18 22:30 GENERAL/CONSTITUTIONAL: No fever or chills. No weakness. HEAD, EYES, EARS, NOSE AND THROAT: No change in vision. No ear pain or discharge. No sore throat. CARDIOVASCULAR: No chest pain or shortness of breath RESPIRATORY: No cough, wheezing, or hemoptysis. GASTROINTESTINAL: No nausea, vomiting, diarrhea or constipation. GENITOURINARY: No dysuria, frequency, or change in urination. MUSCULOSKELETAL: No joint or muscle swelling or pain. No neck or back pain. SKIN: No rash NEUROLOGIC: + Lightheadedness. No headache, vertigo, loss of consciousness, or change in strength/sensation. ENDOCRINE: No increased thirst. No abnormal weight change HEMATOLOGIC/LYMPHATIC: No anemia, easy bleeding, or history of blood clots. ALLERGIC/IMMUNOLOGIC: No hives or skin allergy. *Physical Exam - Vital Signs Last Vital Signs Temp Pulse Resp BP Pulse Ox 98.0 F 86 18 154/79 94 L 08/04/18 21:31 08/04/18 21:31 08/04/18 21:31 08/04/18 21:31 08/04/18 21:31 - Physical Exam Comments: 08/04/18 22:30 GENERAL: Awake, alert, and fully oriented, in no acute distress HEAD: No signs of trauma, normocephalic, atraumatic EYES: PERRLA, EOMI, sclera anicteric, conjunctiva clear ENT: Auricles normal inspection, hearing grossly normal, nares patent, oropharynx clear without exudates. Moist mucosa NECK: Normal ROM, supple, no lymphadenopathy, JVD, or masses LUNGS: No distress, speaks full sentences, clear to auscultation bilaterally HEART: Regular rate and rhythm, normal S1 and S2, no murmurs, rubs or gallops, peripheral pulses normal and equal bilaterally. ABDOMEN: Soft, nontender, normoactive bowel sounds. No guarding, no rebound. No masses EXTREMITIES : Normal inspection, Normal range of motion, no edema. No clubbing or cyanosis. NEUROLOGICAL: Cranial nerves II through XII grossly intact. Normal speech, no focal sensorimotor deficits. Neg dysmetria on FTN. SKIN: Warm, Dry, normal turgor, no rashes or lesions noted Heart Score/ECG Review - History History: Slightly suspicious - Age Age: >/= 65 - Risk Factors Risk Factors Heart Score: Yes Hx Hypertension, Yes Hx Diabetes, Yes Smoking History, Yes Positive family hx of cardiac disease Based on the list above the patient has:: >/=3 risk factors or Hx atherosclerotic disease - Troponin Troponin: </= normal limit ED Treatment Course - LABORATORY CBC & Chemistry Diagram: 08/05/18 01:06 08/05/18 01:06 Medical Decision Making - Medical Decision Making 08/04/18 22:31 67 yo M with h/o HTN, and Etoh dependence BIBA with syncope. VSS, AF. Phsyical exam unremarkable. CTH r/o hemmohage, hematoma, fracture. No evidence maxillofacial trauma, or basilar skull frx. C-SPINE NEG NEXUS CRITERIA. Will attempt to identify hypoglycemia, hypovolemia, VBI/TIA, cardiac dysarrythmias, electrolyte abnml, metabolic or toxic derangements, acid-base disturbances, infection ED Course: CBC, CMP, MG Cardiac Pr. EKG, CXR, CTH 08/05/18 01:07 EKG: NSR with nml interval duration and axis.+LAD. Absent acute MONTRELL, STD. 08/05/18 01:49 CBC: Unremarkable 08/05/18 02:27 CMP: Unremarkable Trop: Neg 08/05/18 02:34 CTH: No acute pathology 08/05/18 02:39 Plan to admit tele. 08/05/18 02:53 Admitted to [facility]. *DC/Admit/Observation/Transfer Diagnosis at time of Disposition: Dizziness, Syncope and collapse - Discharge Dispostion Condition at time of disposition: Stable Decision to Admit order: Yes - Referrals - Patient Instructions Printed Discharge Instructions: DI for Syncope in Adults (Fainting) Additional Instructions: Please return to the emergency department with any new or worsening symptoms or concerns. Please follow up with your primary care physician within 72 hours. - Post Discharge Activity - Attestations Physician Attestion: 08/04/18 22:31 I attest to the information provided in this note.
[2018-08-04] MEDS ORDERED: ACETAMINOPHEN 325 MG TABLET (FP) PO ONE (23:41)
[2018-08-04 23:55] LABS: URINE APPEARANCE CLEAR; URINE BILIRUBIN NEGATIVE (<2.0 mg/dL); URINE COLOR STRAW; URINE GLUCOSE (UA) NEGATIVE (NEGATIVE); URINE KETONE NEGATIVE (NEGATIVE); URINE LEUK ESTERASE NEGATIVE (NEGATIVE); URINE NITRITE NEGATIVE (NEGATIVE); URINE PROTEIN NEGATIVE (NEGATIVE); URINE UROBILINOGEN NEGATIVE mg/dL (0.2-1.0)
[2018-08-05] MEDS ORDERED: ACETAMINOPHEN 325 MG TABLET (FP) ONE (00:08)
[2018-08-05 01:36] LABS: HEMOGLOBIN 9.7 GM/dL (11.7-16.9); MCH 25.5 pg (25.7-33.7); MEAN CELL VOLUME 78.8 fl (80-96); RBC 3.81 M/mm3 (4.00-5.60); WHITE BLOOD COUNT 6.9 K/mm3 (4.0-10.0)
[2018-08-05 01:37] LABS: EOS % 0.7 % (0-4.5); LYMPH % 22.7 % (8-40); MCHC 32.4 g/dl (32.0-35.9); MEAN PLT VOLUME 7.8 fl (7.5-11.1); NEUT % 68.6 % (42.8-82.8); PLATELET COUNT 367 K/MM3 (134-434); RDW 18.1 % (11.9-15.9)
[2018-08-05 01:46] LABS: INR 0.93 (0.83-1.09)
[2018-08-05 01:55] LABS: ALK PHOS 81 U/L (45-117); ANION GAP 12 MMOL/L (8-16); BILIRUBIN,TOTAL 0.3 mg/dL (0.2-1); BLOOD UREA NITROGEN 19 mg/dL (7-18); CALCIUM 8.4 mg/dL (8.5-10.1); CHLORIDE 103 mmol/L (98-107); CO2 25 mmol/L (21-32); CREATININE 1.1 mg/dL (0.55-1.3); GLUCOSE,RANDOM 129 mg/dL (74-106); POTASSIUM 3.6 mmol/L (3.5-5.1); SGOT/AST 24 U/L (15-37); SGPT/ALT 23 U/L (13-61); SODIUM 141 mmol/L (136-145)
[2018-08-05 01:57] LABS: MAGNESIUM 1.6 mg/dL (1.8-2.4)
[2018-08-05] MEDS ORDERED: LORazepam 2 MG/ML SDV VIAL IVPUSH PRN (06:44)
[2018-08-05] MEDS ORDERED: FOLIC ACID INJECTION - 1 MG, THIAMINE HCL 100 MG, MULTIVIT INJECTION ADULT 10 ML in SOD... IVPB ONE (07:00)
--- NOTE | 2018-08-05 07:06 | PN ---
Teaching Attending Note Name of Resident: Sravanthi Rodarte ATTENDING PHYSICIAN STATEMENT I saw and evaluated the patient. Chart, data, imaging reviewed. I reviewed the resident's note and discussed the case with the resident. I agree with the resident's findings and plan as documented. SUBJECTIVE: 67 yo M with h/o HTN, COPD, nicotine, and Etoh dependence BIBA with syncope. Patient reports standing in street and feeling lightheaded and tripping, subsequently hitting head against ground. Fall was witnessed by bystanders. No seizure like activity noted. Head CT performed and showed no acute insults. No chest pain or shortness of breath. Patient with etoh abuse- says he drinks half a pint of liquor a day. OBJECTIVE: Last Vital Signs Temp Pulse Resp BP Pulse Ox 98.0 F 86 18 154/79 94 L 08/04/18 21:31 08/04/18 21:31 08/04/18 21:31 08/04/18 21:31 08/04/18 21:31 general- nad, nontoxic appearing, disheveled heent- atraumatic, no bruising or bleeding noted neck -supple cv - s1+s2+rrr chest - bibasilar crackles abd-soft, nt ext- no tremor noted Abnormal Lab Results 08/04/18 08/05/18 08/05/18 23:33 01:06 01:06 RBC 3.81 L Hgb 9.7 L Hct 30.0 L MCV 78.8 L MCH 25.5 L RDW 18.1 H BUN Random Glucose Calcium Magnesium 1.6 L Albumin Ur Specific [place] 1.008 L 08/05/18 01:06 RBC Hgb Hct MCV MCH RDW BUN 19 H Random Glucose 129 H Calcium 8.4 L Magnesium Albumin 3.0 L Ur Specific [place] Chest CT, cxr, head CT reviewed. EKG reviewed- NSR, no acute ischemic changes ASSESSMENT AND PLAN: 67yo man s/p mechanical fall vs syncopal episode. May have been orthostatic hypotension vs vasovagal vs mechanical fall related to intoxication. Head CT neg for acute bleed. Patient had transthoracic echo performed in 2016 which showed normal AV. -tele-obs -trend troponin -bed rest -fall precautions -check orthostatics #Etoh abuse -CIWA protocol -librium -ativan prn if withdrawal -thiamine, folate, IV fluid hydration -supplement Mg -etoh abuse cessation counseling -heparin sc for dvt ppx
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
[2018-08-05] MEDS ORDERED: MAGNESIUM OXIDE 400 MG TABLET (FP) PO ONE (09:18)
--- NOTE | 2018-08-05 09:21 | EKG ---
Test Reason : Blood Pressure : / mmHG Vent. Rate : 085 BPM Atrial Rate : 085 BPM P-R Int : 146 ms QRS Dur : 088 ms QT Int : 378 ms P-R-T Axes : 037 -39 063 degrees QTc Int : 449 ms NORMAL SINUS RHYTHM LEFT AXIS DEVIATION ANTERIOR INFARCT (CITED ON OR BEFORE 20-JUL-2018) ABNORMAL ECG WHEN COMPARED WITH ECG OF 20-JUL-2018 07:30, QUESTIONABLE CHANGE IN INITIAL FORCES OF SEPTAL LEADS Confirmed by OLIVERIO SOTO MD ([id number]) on 08/05/2018 9:21:05 AM Referred By: Confirmed By:OLIVERIO SOTO MD
[2018-08-05] MEDS: SODIUM CHLORIDE 1,000 ML IV SCH (10:11)
[2018-08-05] MEDS: amLODIPine BESYLATE 5 MG TABLET (FP) PO SCH (10:12)
[2018-08-05] MEDS ORDERED: amLODIPine BESYLATE 5 MG TABLET (FP) ONE (11:13)
[2018-08-05] MEDS ORDERED: MAGNESIUM OXIDE 400 MG TABLET (FP) ONE (11:13)
--- NOTE | 2018-08-05 11:20 | PN ---
Progress Note (short form) - Note Progress Note: Patient admitted after midnight; is new to me this AM. S: In summation the patient is here for syncope. Denies seizure activity, denies LOC (tells me this morning he didn't hit his head but he was intoxicated at the time of presentation). Denies SOB, CP. Admits to weeks of faintness and dizziness when he goes from sitting/lying to standing. Lives in a [facility], varried nutritional status, and daily EtOH consumption. Furthermore, he Denies stereotyped vertiginous sx. He has been having nosebleeds through the night and he has one this morning. No further dizziness, etc. No cardiac or neuro complaints. I did pack his R-nostril (the one that has been bleeding for some time) with a rhino rocket (appeared to be anterior bleed) O: VSS, no issues reported on tele, labs reviewed, 2017 echo reviewed, imaging reviewed NAD, AAO, nosebleed witnessed RRR, S1,2 no mgr Clear lungs with sym exp NT ND +BS Anxious affect, normal mood, appropriate behavior CN2-12 grossly intact, moves all 4 limbs, no changes in sensorium. Trachea midline, no JVD A/P: 1) Syncopal episode -Ddx most suspicious for ETOH related, especially when combined wiht his nosebleed that has been going on several days. No further sx. No high degree AV blocks. CTA negative and furthermore had a low WELLS score to begin with. Able to be DCd from this standpoint 2) Nosebleed -Given the exam appeared to be an anterior R-nostril bleed. Packed and deferring ppx abx, etc. to ENT. I called Dr. Salinas's practice for consult. Given his fall, will obtain a maxilofacial CT to ensue no underlying facial bony trauma. Likely DC once cleared by ENT 3) EtOH abuse -On CIWA protocol; no s/s WD at this juncture. Monitor and counseled to stop drinking. 4) Lung Nodule -Anterior RUL; 3mm unchanged from 2017. Followup outpatient. FENA NS@50 Monitor and replace PRN Regular diet As tolerated Visit type - Emergency Visit Emergency Visit: No - New Patient This patient is new to me today: Yes Date on this admission: 08/05/18 - Critical Care Critical Care patient: No
[2018-08-05 11:34] LABS: HEMATOCRIT 30.3 % (35.4-49); HEMOGLOBIN 9.6 GM/dL (11.7-16.9); MCH 24.8 pg (25.7-33.7); MCHC 31.6 g/dl (32.0-35.9); MEAN CELL VOLUME 78.6 fl (80-96); MEAN PLT VOLUME 7.9 fl (7.5-11.1); PLATELET COUNT 347 K/MM3 (134-434); RBC 3.86 M/mm3 (4.00-5.60); RDW 17.8 % (11.9-15.9)
[2018-08-05 11:46] LABS: ANION GAP 7 MMOL/L (8-16); BLOOD UREA NITROGEN 19 mg/dL (7-18); CALCIUM 8.5 mg/dL (8.5-10.1); CHLORIDE 101 mmol/L (98-107); CO2 27 mmol/L (21-32); CREATININE 0.7 mg/dL (0.55-1.3); GLUCOSE,RANDOM 74 mg/dL (74-106); POTASSIUM 4.1 mmol/L (3.5-5.1); SODIUM 135 mmol/L (136-145)
[2018-08-05] MEDS ORDERED: cloNIDine HCL 0.1 MG TABLET PO ONE ×2 (17:00→22:15)
[2018-08-05] MEDS: ACETAMINOPHEN 500 MG TABLET (FP) PO PRN (17:28)
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
[2018-08-05 18:55] LABS: COCAINE, UR NEGATIVE ng/ml (CUTOFF=300); METHADONE, UR NEGATIVE ng/ml (CUTOFF=300); OPIATES, URI NEGATIVE ng/ml (CUTOFF=300); PHENCYCLIDINE,URINE NEGATIVE ng/ml (CUTOFF=25); URINE AMPHETAMINES NEGATIVE ng/ml (CUTOFF=500); URINE BARBITURATES NEGATIVE ng/ml (CUTOFF=200)
[2018-08-05 19:07] LABS: URINE BENZODIAZEPINES POSITIVE ng/ml (CUTOFF=200)
[2018-08-06] MEDS ORDERED: LABETALOL HCL 5 MG/1 ML (100MG/20 ML VIAL) IVPUSH ONE (00:30)
[2018-08-06] MEDS: ACETAMINOPHEN 500 MG TABLET (FP) PO PRN ×3 (01:08→17:10)
[2018-08-06 07:13] LABS: BASO % 0.8 % (0-2.0); EOS % 0.7 % (0-4.5); HEMATOCRIT 31.7 % (35.4-49); HEMOGLOBIN 10.1 GM/dL (11.7-16.9); LYMPH % 13.1 % (8-40); MCHC 31.8 g/dl (32.0-35.9); MEAN CELL VOLUME 78.8 fl (80-96); MEAN PLT VOLUME 7.8 fl (7.5-11.1); MONO % 9.4 % (3.8-10.2); PLATELET COUNT 314 K/MM3 (134-434); RBC 4.03 M/mm3 (4.00-5.60); RDW 17.9 % (11.9-15.9)
[2018-08-06 07:50] LABS: ANION GAP 11 MMOL/L (8-16); BLOOD UREA NITROGEN 14 mg/dL (7-18); CALCIUM 8.6 mg/dL (8.5-10.1); CHLORIDE 98 mmol/L (98-107); CO2 26 mmol/L (21-32); CREATININE 0.8 mg/dL (0.55-1.3); GLUCOSE,RANDOM 77 mg/dL (74-106); MAGNESIUM 1.7 mg/dL (1.8-2.4); POTASSIUM 3.4 mmol/L (3.5-5.1); SODIUM 135 mmol/L (136-145)
[2018-08-06] MEDS: amLODIPine BESYLATE 5 MG TABLET (FP) PO SCH (09:00)
[2018-08-06] MEDS: SODIUM CHLORIDE 1,000 ML IV SCH (09:05)
--- NOTE | 2018-08-06 16:25 | PN ---
Physical Exam: SUBJECTIVE: Patient seen and examined. He feels weak. He thinks he still has epistaxis from the right side. OBJECTIVE: Vital Signs Period Temp Pulse Resp BP Sys/Spicer Pulse Ox Last 24 Hr 97.8 F-98.2 F 95-107 16-20 130-176/94-124 94-94 GENERAL: The patient is awake, alert, and fully oriented, in no acute distress. HEENT: Packing in right nostril. No blood noted in pharynx. LUNGS: Breath sounds equal, clear to auscultation bilaterally, no wheezes, no crackles, no accessory muscle use. HEART: Regular rate and rhythm, S1, S2 without murmur, rub or gallop. ABDOMEN: Soft, nontender, nondistended, normoactive bowel sounds, no guarding, no rebound, no hepatosplenomegaly, no masses. EXTREMITIES: 2+ pulses, warm, well-perfused, no edema. Laboratory Results - last 24 hr 08/05/18 08/06/18 08/06/18 17:31 00:50 05:55 WBC 10.0 RBC 4.03 Hgb 10.1 L Hct 31.7 L MCV 78.8 L MCH 25.0 L MCHC 31.8 L RDW 17.9 H Plt Count 314 MPV 7.8 Absolute Neuts (auto) 7.6 Neutrophils % 76.0 Lymphocytes % 13.1 D Monocytes % 9.4 Eosinophils % 0.7 Basophils % 0.8 Nucleated RBC % 0 Sodium Potassium Chloride Carbon Dioxide Anion Gap BUN Creatinine Creat Clearance w eGFR Random Glucose Calcium Magnesium Opiates Screen Negative Methadone Screen Negative Barbiturate Screen Negative Phencyclidine Screen Negative Ur Amphetamines Screen Negative MDMA (Ecstasy) Screen Negative Benzodiazepines Screen Positive A* Cocaine Screen Negative U Marijuana (THC) Screen Negative Alcohol, Quantitative < 3.0 08/06/18 05:55 WBC RBC Hgb Hct MCV MCH MCHC RDW Plt Count MPV Absolute Neuts (auto) Neutrophils % Lymphocytes % Monocytes % Eosinophils % Basophils % Nucleated RBC % Sodium 135 L Potassium 3.4 L Chloride 98 Carbon Dioxide 26 Anion Gap 11 BUN 14 Creatinine 0.8 Creat Clearance w eGFR > 60 Random Glucose 77 Calcium 8.6 Magnesium 1.7 L Opiates Screen Methadone Screen Barbiturate Screen Phencyclidine Screen Ur Amphetamines Screen MDMA (Ecstasy) Screen Benzodiazepines Screen Cocaine Screen U Marijuana (THC) Screen Alcohol, Quantitative Active Medications Generic Name Dose Route Start Last Admin Trade Name Freq PRN Reason Stop Dose Admin Acetaminophen 1,000 mg 08/05/18 16:28 08/06/18 09:00 Tylenol - PO 1,000 mg Q8H PRN Administration PAIN LEVEL 8-10 Amlodipine Besylate 5 mg 08/05/18 10:00 08/06/18 09:00 Norvasc - PO 5 mg DAILY EMILY Administration Sodium Chloride 1,000 mls @ 50 mls/hr 08/05/18 07:00 08/06/18 09:05 Normal Saline - IV 50 mls/hr ASDIR EMILY Administration Lorazepam 2 mg 08/05/18 06:44 08/06/18 02:57 Ativan Injection - IVPUSH 2 mg Q4H PRN Administration ANXIETY ASSESSMENT/PLAN: 1. Syncope - No arrhythmias on tele - Likely vasovagal from dehydration - BUN/creatinine improving - Continue IV fluid - Check orthostatics 2. Epistaxis - No evidence of continued bleeding - Hemoglobin stable - Right nostril packed - Start Amoxicillin prophylactically - Follow up with ENT next week 3. HTN - Increase Norvasc - Was on Lopressor in past - can restart if BP not improved with increased Norvasc 4. Continuous alcohol dependence - No signs of withdrawal 5. RUL lung nodule - Outpatient follow up 6. Anemia, microcytic - Hemoglobin stable - Check iron studies 7. Hypokalemia - Replete potassium 8. Hypomagnesemia - Supplement magnesium 9. Hyperlipidemia 10. Disposition - Expect discharge tomorrow Visit type - Emergency Visit Emergency Visit: Yes ED Registration Date: 08/05/18 Care time: The patient presented to the Emergency Department on the above date and was hospitalized for further evaluation of their emergent condition. - New Patient This patient is new to me today: Yes Date on this admission: 08/06/18 - Critical Care Critical Care patient: No - Discharge Referral Referred to [facility] Med P.C.: No
[2018-08-06] MEDS ORDERED: amLODIPine BESYLATE 5 MG TABLET (FP) PO ONE (16:44)
[2018-08-06] MEDS ORDERED: MAGNESIUM OXIDE 400 MG TABLET (FP) PO ONE (18:25)
[2018-08-06] MEDS ORDERED: POTASSIUM CHLORIDE TABS 20 MEQ TABLET.ER (FP) PO ONE (18:25)
[2018-08-06] MEDS ORDERED: PT OWN MED DRAWER 7, Y5N ONE (21:12)
[2018-08-06] MEDS: AMOXICILLIN 500 MG CAPSULE (FP) PO SCH (21:14)
[2018-08-07] MEDS: ACETAMINOPHEN 500 MG TABLET (FP) PO PRN ×3 (00:54→16:33)
[2018-08-07] MEDS: SODIUM CHLORIDE 1,000 ML IV SCH (06:44)
[2018-08-07 08:14] LABS: ANION GAP 7 MMOL/L (8-16); BLOOD UREA NITROGEN 14 mg/dL (7-18); CALCIUM 8.6 mg/dL (8.5-10.1); CHLORIDE 103 mmol/L (98-107); CO2 25 mmol/L (21-32); CREATININE 0.9 mg/dL (0.55-1.3); GLUCOSE,RANDOM 84 mg/dL (74-106); MAGNESIUM 1.8 mg/dL (1.8-2.4); PHOSPHOROUS 2.9 mg/dL (2.5-4.9); POTASSIUM 4.2 mmol/L (3.5-5.1); SODIUM 136 mmol/L (136-145)
[2018-08-07 08:29] LABS: HEMATOCRIT 32.7 % (35.4-49); HEMOGLOBIN 10.6 GM/dL (11.7-16.9); MCH 25.8 pg (25.7-33.7); MCHC 32.4 g/dl (32.0-35.9); MEAN PLT VOLUME 8.2 fl (7.5-11.1); PLATELET COUNT 340 K/MM3 (134-434); RBC 4.11 M/mm3 (4.00-5.60); RDW 17.8 % (11.9-15.9); WHITE BLOOD COUNT 8.9 K/mm3 (4.0-10.0)
[2018-08-07] MEDS: amLODIPine BESYLATE 10 MG TABLET (FP) PO SCH (09:03)
[2018-08-07] MEDS: AMOXICILLIN 500 MG CAPSULE (FP) PO SCH (09:03)
[2018-08-07 09:44] LABS: MEAN CELL VOLUME 79.5 fl (80-96)
--- NOTE | 2018-08-07 13:16 | PN ---
Physical Exam: SUBJECTIVE: Patient seen and examined at bed side this morning. Complaining of dizziness and abdominal pain. Abdominal pain is located diffusely, non radiation 5/10 in intensity, cramping in nature. Denies chest pain, sob, cough, palpitation, headache, tingling, numbness or any focal neurological deficits. OBJECTIVE: Vital Signs Period Temp Pulse Resp BP Sys/Spicer Pulse Ox Last 24 Hr 97.9 F-99.0 F 92-113 16-20 126-160/80-106 94-97 GENERAL: Middle aged male, lying comfortably in bed, patient is awake, alert, and fully oriented, in no acute distress. HEAD: Normal with no signs of trauma. EYES: EOM intact, no pallor or icterus. ENT: Ears normal, moist mucous membranes. NECK: Supple. LUNGS: B/L Breath sounds equal, clear to auscultation bilaterally, no wheezes, no crackles, no accessory muscle use. HEART: Regular rate and rhythm, S1, S2 without murmur. ABDOMEN: Soft, tender to palpation diffusely, no organomegaly. EXTREMITIES: 2+ pulses, warm, well-perfused, no edema. NEUROLOGICAL: No facial droop. Cranial nerves II through XII grossly intact. Normal speech, gait not observed. PSYCH: Normal mood, normal affect. SKIN: Warm, dry, normal turgor, no rashes or lesions noted Laboratory Results - last 24 hr 08/07/18 08/07/18 06:30 06:30 WBC 8.9 RBC 4.11 Hgb 10.6 L Hct 32.7 L MCV 79.5 L MCH 25.8 MCHC 32.4 RDW 17.8 H Plt Count 340 MPV 8.2 Sodium 136 Potassium 4.2 Chloride 103 Carbon Dioxide 25 Anion Gap 7 L BUN 14 Creatinine 0.9 Creat Clearance w eGFR > 60 Random Glucose 84 Calcium 8.6 Phosphorus 2.9 Magnesium 1.8 Ferritin 101.3 Active Medications Generic Name Dose Route Start Last Admin Trade Name Freq PRN Reason Stop Dose Admin Acetaminophen 1,000 mg 08/05/18 16:28 08/07/18 09:03 Tylenol - PO 1,000 mg Q8H PRN Administration PAIN LEVEL 8-10 Amlodipine Besylate 10 mg 08/07/18 10:00 08/07/18 09:03 Norvasc - PO 10 mg DAILY EMILY Administration Amoxicillin 500 mg 10/19/18 22:00 08/07/18 09:03 Amoxicillin - PO 500 mg BID EMILY Administration Sodium Chloride 1,000 mls @ 50 mls/hr 08/05/18 07:00 08/07/18 06:44 Normal Saline - IV Not Given ASDIR EMILY ASSESSMENT/PLAN: Patient is a 67 year old Male with PMHx of HTN, COPD, alcohol dependence presented s/p fall after alcohol intoxication. # Dizziness likely secondary to orthostatic hypotension Orthostatics Positive, repeat orthostatics in the evening Fall precaution # Abdominal tenderness Has a h/o colitis. Abdominal CT with contrast ordered. # Epistaxis-improved ENT consult appreciated, continue Amoxicillin 500mg PO BID and f/up with ENT upon discharge. H/H stable. # Hypertension- has orthostatic hypotension Continue Amlodipine 10mg PO Daily # Continuous alcohol dependence No signs of withdrawal # RUL lung nodule Outpatient follow up # Microcytic Anemia H/H 10.6/32.7 Iron studies pending Needs outpatient colonoscopy. Last admission, couldn't complete colonoscopy due to inadequate bowel prep # FEN Not on IV fluids, can tolerate PO Electrolytes WNL Sodium controlled diet # Prophylaxis For DVT: Heparin 5000 IU sq TID For GI: Not indicated # Code Status: Full Code # Dispo: Admitted in Tele. Plan was to discharge today but due to orthostatics and abdominal tenderness, d/c on hold. Illness, Investigation and Plan of care explained to the patient. He verbalized understanding. Case discussed with Dr. Barron Visit type - Emergency Visit Emergency Visit: Yes ED Registration Date: 08/07/18 Care time: The patient presented to the Emergency Department on the above date and was hospitalized for further evaluation of their emergent condition. - New Patient This patient is new to me today: Yes Date on this admission: 08/09/18 - Critical Care Critical Care patient: No - Discharge Referral Referred to [facility] Med P.C.: No
[2018-08-07] MEDS ORDERED: SODIUM CHLORIDE 1,000 ML IV SCH (16:15)
--- NOTE | 2018-08-07 16:15 | PN ---
Teaching Attending Note Name of Resident: Jagruti Newell ATTENDING PHYSICIAN STATEMENT I saw and evaluated the patient. I reviewed the resident's note and discussed the case with the resident. I agree with the resident's findings and plan as documented. SUBJECTIVE: Patient complains of abdominal pain and diarrhea. He also reports dizziness when he stands. He removed the packing from his right nostril yesterday. There has been no epistaxis. OBJECTIVE: Vital Signs Period Temp Pulse Resp BP Sys/Spicer Pulse Ox Last 24 Hr 97.9 F-99.0 F 92-113 16-20 126-160/80-106 94-97 HEART: S1S2, RRR LUNGS: Clear ABDOMEN: Soft, non-distended, (+) LLQ/suprapubic tenderness, normal BS EXTREMITIES: No edema Laboratory Results - last 24 hr 08/07/18 08/07/18 06:30 06:30 WBC 8.9 RBC 4.11 Hgb 10.6 L Hct 32.7 L MCV 79.5 L MCH 25.8 MCHC 32.4 RDW 17.8 H Plt Count 340 MPV 8.2 Sodium 136 Potassium 4.2 Chloride 103 Carbon Dioxide 25 Anion Gap 7 L BUN 14 Creatinine 0.9 Creat Clearance w eGFR > 60 Random Glucose 84 Calcium 8.6 Phosphorus 2.9 Magnesium 1.8 Ferritin 101.3 Current Medications Generic Name Dose Route Start Last Admin Trade Name Freq PRN Reason Stop Dose Admin Acetaminophen 1,000 mg 08/05/18 16:28 08/07/18 09:03 Tylenol - PO 1,000 mg Q8H PRN Administration PAIN LEVEL 8-10 Amlodipine Besylate 10 mg 08/07/18 10:00 08/07/18 09:03 Norvasc - PO 10 mg DAILY EMILY Administration Amoxicillin 500 mg 08/06/18 22:00 08/07/18 09:03 Amoxicillin - PO 500 mg BID EMILY Administration Heparin Sodium (Porcine) 5,000 unit 08/07/18 14:00 Heparin - SQ TID EMILY Sodium Chloride 1,000 mls @ 50 mls/hr 08/05/18 07:00 08/07/18 06:44 Normal Saline - IV Not Given ASDIR EMILY ASSESSMENT AND PLAN: This is a 67 year old man with a history of HTN, hyperlipidemia, alcohol abuse who presented to the ED after he felt lightheaded followed by a fall with loss of consciousness. 1. Syncope - No arrhythmias on tele - Likely vasovagal from dehydration - Patient feels dizzy when he stands and has mild orthostasis - Increase IV fluid - Continue to monitor orthostatics 2. Epistaxis - No evidence of bleeding - Hemoglobin stable - Can discontinue amoxicillin as patient has removed packing - Follow up with ENT next week 3. Possible acute colitis, acute diverticulitis - CT shows mild circumferential thickening of the distal left colon and sigmoid colon with scattered diverticula - CT 03/2018 showed diffuse mucosal thickening throughout the colon sparing the sigmoid and rectum - CT 06/2018 showed marked thickening and irregularity of the colon, predominantly involving right and transverse colon - Colonoscopy was attempted 06/2018 but prep was poor - Symptoms improved with Rocephin and Flagyl in 06/2018 and patient has not followed up - Patient is afebrile, has normal WBC, and is tolerating PO - will change amoxicillin to Augmentin 4. HTN - Continue Norvasc 5. Continuous alcohol dependence - No signs of withdrawal 6. RUL lung nodule - Outpatient follow up 7. Anemia, microcytic - Hemoglobin is stable - Ferritin is normal. Iron, TIBC, iron sat pending 8. Hypokalemia - Improved 9. Hypomagnesemia - Continue to supplement magnesium 10. Hyperlipidemia
[2018-08-07] MEDS ORDERED: MAGNESIUM OXIDE 400 MG TABLET (FP) PO ONE (16:16)
[2018-08-07] MEDS: HEPARIN NA (PORCINE) 5,000 UNITS/ML 1ML VIAL SQ SCH ×2 (16:28→21:47)
[2018-08-07] MEDS: AMOX TR/POT CLAV 875MG/125MG TABLETS (FP) PO SCH (17:16)
[2018-08-08] MEDS: ACETAMINOPHEN 500 MG TABLET (FP) PO PRN ×3 (00:50→17:54)
[2018-08-08] MEDS: HEPARIN NA (PORCINE) 5,000 UNITS/ML 1ML VIAL SQ SCH ×3 (05:13→21:33)
[2018-08-08 07:17] LABS: BASO % 1.2 % (0-2.0); EOS % 3.4 % (0-4.5); HEMATOCRIT 30.5 % (35.4-49); HEMOGLOBIN 9.6 GM/dL (11.7-16.9); LYMPH % 14.4 % (8-40); MCHC 31.4 g/dl (32.0-35.9); MEAN CELL VOLUME 79.6 fl (80-96); MEAN PLT VOLUME 7.7 fl (7.5-11.1); MONO % 10.9 % (3.8-10.2); NEUT % 70.1 % (42.8-82.8); PLATELET COUNT 278 K/MM3 (134-434); RBC 3.83 M/mm3 (4.00-5.60); RDW 17.8 % (11.9-15.9); WHITE BLOOD COUNT 6.9 K/mm3 (4.0-10.0)
[2018-08-08 07:54] LABS: ANION GAP 7 MMOL/L (8-16); BLOOD UREA NITROGEN 14 mg/dL (7-18); CALCIUM 8.7 mg/dL (8.5-10.1); CHLORIDE 99 mmol/L (98-107); CO2 27 mmol/L (21-32); GLUCOSE,RANDOM 79 mg/dL (74-106); POTASSIUM 4.4 mmol/L (3.5-5.1); SODIUM 133 mmol/L (136-145)
[2018-08-08 08:06] LABS: SERUM IRON SATURATION 12 % (15-55); TOTAL IRON BINDING CAPACITY 267 ug/dL (250-450); UIBC 234 ug/dL (111-343)
--- NOTE | 2018-08-08 09:46 | PN ---
Physical Exam: SUBJECTIVE: Patient seen and examined. Nursing reports nosebleed at 5am today. Patient seen in afternoon, states he blew his nose and there was blood. He has a piece of tissue in his right nare which he does not allow to be removed. He refuses replacement of the rhinorocket he self dc'd yesterday because it is " too painful." States he had diarrhea for a week prior to this admission. Denies recent antibiotic use and recent travel. Lives in a correction so assume sick contacts. Two diarrheal movements yesterday, none last night, two today: liquid but with some small bits of formed stool. OBJECTIVE: Vital Signs Period Temp Pulse Resp BP Sys/Spicer Pulse Ox Last 24 Hr 98.1 F-98.8 F 84-104 18-20 138-154/78-90 95-97 GENERAL/NERUO: A&Ox3, normal speech, steady gait HEART: S1S2, RRR LUNGS: CTA ABDOMEN: Soft, non-distended, mild diffuse tenderness EXTREMITIES: 2+ pulses, warm, well-perfused, no edema Laboratory Results - last 24 hr 08/07/18 08/07/18 08/08/18 06:30 06:30 06:00 WBC 6.9 RBC 3.83 L Hgb 9.6 L Hct 30.5 L MCV 79.5 L 79.6 L MCH 25.0 L MCHC 31.4 L RDW 17.8 H Plt Count 278 MPV 7.7 Absolute Neuts (auto) 4.8 Neutrophils % 70.1 Lymphocytes % 14.4 Monocytes % 10.9 H Eosinophils % 3.4 D Basophils % 1.2 Nucleated RBC % 0 Sodium Potassium Chloride Carbon Dioxide Anion Gap BUN Creatinine Creat Clearance w eGFR Random Glucose Calcium Magnesium Iron 33 L TIBC 267 Iron Saturation 12 L 08/08/18 06:00 WBC RBC Hgb Hct MCV MCH MCHC RDW Plt Count MPV Absolute Neuts (auto) Neutrophils % Lymphocytes % Monocytes % Eosinophils % Basophils % Nucleated RBC % Sodium 133 L Potassium 4.4 Chloride 99 Carbon Dioxide 27 Anion Gap 7 L BUN 14 Creatinine 1.0 Creat Clearance w eGFR > 60 Random Glucose 79 Calcium 8.7 Magnesium 2.0 Iron TIBC Iron Saturation Active Medications Generic Name Dose Route Start Last Admin Trade Name Freq PRN Reason Stop Dose Admin Acetaminophen 1,000 mg 08/05/18 16:28 08/08/18 00:50 Tylenol - PO 1,000 mg Q8H PRN Administration PAIN LEVEL 8-10 Amlodipine Besylate 10 mg 08/07/18 10:00 08/07/18 09:03 Norvasc - PO 10 mg DAILY EMILY Administration Amoxicillin/Clavulanate Potassium 1 tab 08/07/18 17:30 08/07/18 17:16 Augmentin - 875mg Tablet PO 1 tab BID@0800,1730 EMILY Administration Heparin Sodium (Porcine) 5,000 unit 08/07/18 14:00 08/08/18 05:13 Heparin - SQ Not Given TID [facility] Sodium Chloride 1,000 mls @ 75 mls/hr 08/07/18 16:15 08/07/18 16:32 Normal Saline - IV 75 mls/hr ASDIR EMILY Administration ASSESSMENT/PLAN: 67 year-old male with a PMH significant for HTN, HLD, and long history of alcohol abuse who presented to the ED after he felt lightheaded followed by a fall with loss of consciousness. 1. Syncope - No arrhythmias on tele - Likely vasovagal from dehydration - continue IV fluids 2. Epistaxis - two minor, self-limiting episodes in past 12 hours - refuses replacement of rhino rocket - h/h stable - continue augmentin for now - Follow up with ENT as outpatient 3. Possible c.diff colitis --has had diarrhea for a week prior to admission, lives in a correction --08/07 C.diff: antigen (+), toxin (-); previous c.diff testing in 01/2017 and 03/2018 were negative for both antigen and toxin - CT shows mild circumferential thickening of the distal left colon and sigmoid colon with scattered diverticula - CT 03/2018 showed diffuse mucosal thickening throughout the colon sparing the sigmoid and rectum - CT 06/2018 showed marked thickening and irregularity of the colon, predominantly involving right and transverse colon - Colonoscopy was attempted 06/2018 but prep was poor; symptoms improved with ceftriaxone and metronidazole in 06/2018 and patient did not follow up - Patient is afebrile, has normal WBC, and is tolerating PO --start PO flagyl 4. Hypertension - Continue Norvasc 5. Continuous alcohol dependence - last drink 3 weeks ago, no signs of withdrawal 6. RUL lung nodule - Outpatient follow up 7. Anemia, microcytic - Hemoglobin is stable - Ferritin is normal. Iron, TIBC, iron sat pending 8. Hypokalemia -resolved 9. Hypomagnesemia --resolved 10. Hyperlipidemia --not on statin therapy FEN Fluids: PO intake adequate Electrolytes: replete as indicated Nutrition: low sodium DVT prophylaxis: subq heparin Dispo: continues to require inpatient care. Full code. Visit type - Emergency Visit Emergency Visit: Yes ED Registration Date: 08/07/18 Care time: The patient presented to the Emergency Department on the above date and was hospitalized for further evaluation of their emergent condition. - New Patient This patient is new to me today: Yes Date on this admission: 08/08/18 - Critical Care Critical Care patient: No
[2018-08-08] MEDS: AMOX TR/POT CLAV 875MG/125MG TABLETS (FP) PO SCH ×2 (09:59→17:54)
[2018-08-08] MEDS: amLODIPine BESYLATE 10 MG TABLET (FP) PO SCH (10:12)
[2018-08-08] MEDS: metoPROLOL SUCCINATE 25 MG TAB.SR.24H (FP) PO SCH (10:12)
[2018-08-08] MEDS: metroNIDAZOLE 250 MG TABLET PO SCH ×2 (16:36→21:26)
[2018-08-08] MEDS ORDERED: VANCOMYCIN 250 MG/5 ML ORAL SOLUTION PO SCH (18:00)
[2018-08-09] MEDS: ACETAMINOPHEN 500 MG TABLET (FP) PO PRN ×3 (01:35→16:17)
[2018-08-09] MEDS: HEPARIN NA (PORCINE) 5,000 UNITS/ML 1ML VIAL SQ SCH ×3 (05:25→21:06)
[2018-08-09] MEDS: metroNIDAZOLE 250 MG TABLET PO SCH ×3 (05:28→21:06)
[2018-08-09 07:44] LABS: BASO % 1.4 % (0-2.0); EOS % 3.6 % (0-4.5); HEMATOCRIT 30.4 % (35.4-49); HEMOGLOBIN 9.8 GM/dL (11.7-16.9); LYMPH % 13.9 % (8-40); MCH 25.6 pg (25.7-33.7); MCHC 32.4 g/dl (32.0-35.9); MEAN CELL VOLUME 79.1 fl (80-96); MEAN PLT VOLUME 7.8 fl (7.5-11.1); MONO % 10.7 % (3.8-10.2); NEUT % 70.4 % (42.8-82.8); PLATELET COUNT 287 K/MM3 (134-434); RBC 3.84 M/mm3 (4.00-5.60); RDW 17.7 % (11.9-15.9); WHITE BLOOD COUNT 6.7 K/mm3 (4.0-10.0)
[2018-08-09 08:14] LABS: ALBUMIN 3.4 g/dl (3.4-5.0); ALK PHOS 73 U/L (45-117); ANION GAP 7 MMOL/L (8-16); BILIRUBIN,TOTAL 0.5 mg/dL (0.2-1); BLOOD UREA NITROGEN 14 mg/dL (7-18); CALCIUM 8.6 mg/dL (8.5-10.1); CHLORIDE 102 mmol/L (98-107); CO2 25 mmol/L (21-32); CREATININE 0.9 mg/dL (0.55-1.3); GLUCOSE,RANDOM 80 mg/dL (74-106); MAGNESIUM 2.2 mg/dL (1.8-2.4); SGOT/AST 25 U/L (15-37); SGPT/ALT 20 U/L (13-61); SODIUM 134 mmol/L (136-145); TOT PROT 7.3 g/dl (6.4-8.2)
[2018-08-09] MEDS: AMOX TR/POT CLAV 875MG/125MG TABLETS (FP) PO SCH ×2 (08:14→17:41)
[2018-08-09] MEDS: metoPROLOL SUCCINATE 25 MG TAB.SR.24H (FP) PO SCH (09:42)
[2018-08-09] MEDS: amLODIPine BESYLATE 10 MG TABLET (FP) PO SCH (09:42)
--- NOTE | 2018-08-09 21:27 | PN ---
Physical Exam: SUBJECTIVE: Patient seen and examined. Diarrhea has resolved, has had BMs with formed stools. OBJECTIVE: Vital Signs Period Temp Pulse Resp BP Sys/Spicer Pulse Ox Last 24 Hr 97.6 F-98.3 F 87-106 18-20 120-158/78-96 96-100 GENERAL/NERUO: A&Ox3, normal speech, steady gait HEART: S1S2, RRR LUNGS: CTA ABDOMEN: Soft, non-distended, mild diffuse tenderness EXTREMITIES: 2+ pulses, warm, well-perfused, no edema Laboratory Results - last 24 hr 08/09/18 08/09/18 08/09/18 06:25 06:25 08:30 WBC 6.7 RBC 3.84 L Hgb 9.8 L Hct 30.4 L MCV 79.1 L MCH 25.6 L MCHC 32.4 RDW 17.7 H Plt Count 287 MPV 7.8 Absolute Neuts (auto) 4.7 Neutrophils % 70.4 Lymphocytes % 13.9 Monocytes % 10.7 H Eosinophils % 3.6 Basophils % 1.4 Nucleated RBC % 0 Sodium 134 L Potassium 4.0 Chloride 102 Carbon Dioxide 25 Anion Gap 7 L BUN 14 Creatinine 0.9 Creat Clearance w eGFR > 60 Random Glucose 80 Calcium 8.6 Magnesium 2.2 Total Bilirubin 0.5 AST 25 ALT 20 Alkaline Phosphatase 73 Total Protein 7.3 Albumin 3.4 Stool Occult Blood Negative Active Medications Generic Name Dose Route Start Last Admin Trade Name Freq PRN Reason Stop Dose Admin Acetaminophen 1,000 mg 08/05/18 16:28 08/09/18 16:17 Tylenol - PO 1,000 mg Q8H PRN Administration PAIN LEVEL 8-10 Amlodipine Besylate 10 mg 08/07/18 10:00 08/09/18 09:42 Norvasc - PO 10 mg DAILY EMILY Administration Amoxicillin/Clavulanate Potassium 1 tab 08/07/18 17:30 08/09/18 17:41 Augmentin - 875mg Tablet PO 1 tab BID@0800,1730 [facility] Administration Heparin Sodium (Porcine) 5,000 unit 08/07/18 14:00 08/09/18 21:06 Heparin - SQ Not Given TID [facility] Metoprolol Succinate 25 mg 08/08/18 10:00 08/09/18 09:42 Toprol Xl - PO 25 mg DAILY EMILY Administration Metronidazole 500 mg 08/08/18 15:45 08/09/18 21:06 Flagyl - PO 500 mg TID EMILY Administration ASSESSMENT/PLAN 67 year-old male with a PMH significant for HTN, HLD, and long history of alcohol abuse who presented to the ED after he felt lightheaded followed by a fall with loss of consciousness. 1. Syncope - no further episodes - no events on telemetry 2. Epistaxis - two minor, self-limiting episodes in past 36 hours - refuses replacement of rhino rocket - h/h stable - continue augmentin for now - Follow up with ENT as outpatient 3. Possible c.diff colitis --has had diarrhea for a week prior to admission, lives in a correction --08/07 C.diff: antigen (+), toxin (-); previous c.diff testing in 01/2017 and 03/2018 were negative for both antigen and toxin - CT shows mild circumferential thickening of the distal left colon and sigmoid colon with scattered diverticula - CT 03/2018 showed diffuse mucosal thickening throughout the colon sparing the sigmoid and rectum - CT 06/2018 showed marked thickening and irregularity of the colon, predominantly involving right and transverse colon - Colonoscopy was attempted 06/2018 but prep was poor; symptoms improved with ceftriaxone and metronidazole in 06/2018 and patient did not follow up - Patient is afebrile, has normal WBC, and is tolerating PO --continue PO flagyl 4. Hypertension - Continue Norvasc 5. Continuous alcohol dependence -no signs of withdrawal 6. RUL lung nodule - Outpatient follow up 7. Iron deficiency anemia - Hemoglobin is stable - Iron and Iron saturation is low - start iron supplementation 8. Hyperlipidemia --not on statin therapy FEN Fluids: PO intake adequate Electrolytes: replete as indicated Nutrition: low sodium DVT prophylaxis: subq heparin Dispo: continues to require inpatient care. Full code. Visit type - Emergency Visit Emergency Visit: Yes ED Registration Date: 08/07/18 Care time: The patient presented to the Emergency Department on the above date and was hospitalized for further evaluation of their emergent condition. - New Patient This patient is new to me today: No - Critical Care Critical Care patient: No
[2018-08-10] MEDS: ACETAMINOPHEN 500 MG TABLET (FP) PO PRN ×2 (00:09→08:49)
[2018-08-10] MEDS: metroNIDAZOLE 250 MG TABLET PO SCH (06:05)
[2018-08-10] MEDS: HEPARIN NA (PORCINE) 5,000 UNITS/ML 1ML VIAL SQ SCH (06:05)
--- NOTE | 2018-08-10 07:51 | DS ---
Physical Exam: SUBJECTIVE: Patient seen and examined OBJECTIVE: Patient seen and examined. Diarrhea has resolved, has had BMs with formed stools. Vital Signs Period Temp Pulse Resp BP Sys/Spicer Pulse Ox Last 24 Hr 97.4 F-98.3 F 71-106 18-20 120-158/78-97 96-100 PHYSICAL EXAM GENERAL/NERUO: A&Ox3, normal speech, steady gait HEART: S1S2, RRR LUNGS: CTA ABDOMEN: Soft, non-distended, mild diffuse tenderness EXTREMITIES: 2+ pulses, warm, well-perfused, no edema LABS Laboratory Results - last 24 hr 08/09/18 08/09/18 06:25 08:30 Sodium 134 L Potassium 4.0 Chloride 102 Carbon Dioxide 25 Anion Gap 7 L BUN 14 Creatinine 0.9 Creat Clearance w eGFR > 60 Random Glucose 80 Calcium 8.6 Magnesium 2.2 Total Bilirubin 0.5 AST 25 ALT 20 Alkaline Phosphatase 73 Total Protein 7.3 Albumin 3.4 Stool Occult Blood Negative HOSPITAL COURSE: Date of Admission:08/07/18 Date of Discharge: 08/10/18 67 year-old male with a PMH significant for HTN, HLD, and long history of alcohol abuse who presented to the ED after he felt lightheaded followed by a fall with loss of consciousness. 1. Syncope - no further episodes - no events on telemetry 2. Epistaxis - two minor, self-limiting episodes in past 48 hours - pulled out rhinorocket 2 days ago and refused replacement - h/h remained stable 3. Possible c.diff colitis --08/07 C.diff: antigen (+), toxin (-); previous c.diff testing in 01/2017 and 03/2018 were negative for both antigen and toxin --afebrile with no leukocytosis during hospital stay --treated with PO flagyl, discharged on augmentin 4. Hypertension - Continued Norvasc 5. Continuous alcohol dependence -no signs of withdrawal 6. RUL lung nodule - Outpatient follow up 7. Iron deficiency anemia - Hemoglobin is stable - Iron and Iron saturation is low - started iron supplementation 8. Hyperlipidemia --not on statin therapy Minutes to complete discharge: 35 Discharge Summary Reason For Visit: SYNCOPE AND COLLAPSE Current Active Problems Dizziness (Acute) Syncope and collapse (Acute) Condition: Improved - Instructions Diet, Activity, Other Instructions: Three prescriptions have been sent to your pharmacy. One is for augmentin ( antibiotic), one is for iron supplements, and one is for amlodipine which is for your blood pressure. Take these medications as directed. We recommend you start to seek regular medical care with a primary care provider. Contact information for Dr. De Guzman at the [facility] is enclosed in this discharge packet. You can call them for an appointment. Return to the emergency department with any new or worsening symptoms or concerns. Referrals: Edmundo De Guzman MD [Staff Physician] - 1 Week Disposition: HOME - Home Medications Comprehensive Discharge Medication List: Ambulatory Orders Amlodipine Besylate [Norvasc -] 5 mg PO DAILY #30 tablet 08/10/18 Amox-Tr/K Cl [Augmentin 875-125mg Tablet -] 1 tab PO BID@0800,1730 #4 tablet Ferrous Sulfate [Feosol] 325 mg PO BID #60 ud 08/10/18 This patient is new to me today: No Emergency Visit: Yes ED Registration Date: 08/07/18 Care time: The patient presented to the Emergency Department on the above date and was hospitalized for further evaluation of their emergent condition. Critical Care patient: No - Discharge Referral Referred to [facility] No
[2018-08-10] MEDS: AMOX TR/POT CLAV 875MG/125MG TABLETS (FP) PO SCH (08:55)
[2018-08-10] MEDS: metoPROLOL SUCCINATE 25 MG TAB.SR.24H (FP) PO SCH (09:39)
[2018-08-10] MEDS: amLODIPine BESYLATE 10 MG TABLET (FP) PO SCH (09:39)
[2018-08-10] MEDS ORDERED: FERROUS SO4 325 MG TABLET (FP) PO SCH (10:00)
[2018-08-10 11:37] VITALS: BP 139/93; PULSE 92; TEMP 98
== END 2018-08-10 13:19 | disposition home or self-care (01) | DRG 372 ==
LOC: JER 21:27 → JERBED 08-05 02:38 → J4S 08-05 15:38 → OBSVTOIN 08-07 11:17
PROVIDERS: ADMIT Internal Medicine; ATTEND Nurse Practitioner Acute Care
PROC: 09JK8ZZ Inspection of Nasal Mucosa and Soft Tissue, Via Natural or Artificial Opening Endoscopic (ICD-10-PCS; principal; 2018-08-05)
PROC: 2Y41X5Z Packing of Nasal Region using Packing Material (ICD-10-PCS; 2018-08-05)
DX: A04.72 Enterocolitis due to Clostridium difficile, not specified as recurrent (principal); K57.92 Diverticulitis of intestine, part unspecified, without perforation or abscess without bleeding; F10.220 Alcohol dependence with intoxication, uncomplicated; I95.1 Orthostatic hypotension; I10 Essential (primary) hypertension; J44.9 Chronic obstructive pulmonary disease, unspecified; E83.42 Hypomagnesemia; R91.1 Solitary pulmonary nodule; R04.0 Epistaxis; D50.9 Iron deficiency anemia, unspecified; E87.6 Hypokalemia; E78.5 Hyperlipidemia, unspecified
CPT/HCPCS: 36415; 70450-TC; 71046-TC-FY; 71275-TC; 74177-TC; 80048; 80053; 80307; 81003; 82272; 82550; 82728; 83540; 83550; 83735; 84100; 84484; 85025; 85027; 85610; 87177; 87209; 87324; 87449; 93005; 93010; 99283-25; G0378; J0735; J1644; J7030

== ENCOUNTER 2018-08-31 20:47 | Emergency (ER) | payer OTHER ==
--- NOTE | 2018-08-31 21:12 | PDOC ---
History of Present Illness - General Chief Complaint: Injury Stated Complaint: INTOX/FALL Time Seen by Provider: 08/31/18 21:12 - History of Present Illness Initial Comments: 08/31/18 23:52 67 year old undomiciled male h/o HTN, COPD, nicotine, and Etoh dependence c/o fall backwards hit the back of head c/o b/l lower leg pain. denies trauma or injury to legs. reports that he has rods in both of his legs and causes chronic pain. patient is with slurred speech and alcohol on breath. 09/01/18 00:03 Past History - Past Medical History Allergies/Adverse Reactions: Allergies Allergy/AdvReac Type Severity Reaction Status Date / Time No Known Allergies Allergy Verified 08/31/18 21:16 Home Medications: Ambulatory Orders Amlodipine Besylate [Norvasc -] 5 mg PO DAILY #30 tablet 08/10/18 Asthma: No CVA: No COPD: No DVT: No Dementia: No Diabetes: Yes GI Disorders: No Disorders: No HTN: Yes Hypercholesterolemia: Yes Liver Disease: No Seizures: No Thyroid Disease: No - Surgical History Abdominal Surgery: No Appendectomy: No Cardiac Surgery: No Cholecystectomy: No Lung Surgery: No Neurologic Surgery: No Orthopedic Surgery: Yes (HIP SURGERY) - Reproductive History Testicular Surgery: No - Immunization History Immunization Up to Date: Yes - Suicide/Smoking/Psychosocial Hx Smoking History: Unknown if ever smoked Have you smoked in the past 12 months: Yes Number of Cigarettes Smoked Daily: 4 'Breaking Loose' booklet given: 06/21/18 Hx Alcohol Use: No Drug/Substance Use Hx: No Substance Use Type: None Hx Substance Use Treatment: No Review of Systems - Review of Systems Able to Perform ROS?: Yes Is the patient limited Frisian proficient: No Constitutional: No: Symptoms Reported, See HPI, Chills, Diaphoresis, Fever, Loss of Appetite, Malaise, Night Sweats, Weakness, Weight Stable, Unintentional Wgt. Loss, Unexplained wgt Loss, Other Musculoskeletal: Yes: Joint Pain (leg pain) *Physical Exam - Vital Signs 09/01/18 00:04 Last Vital Signs Temp Pulse Resp BP Pulse Ox 98.1 F 77 18 141/78 98 08/31/18 20:50 08/31/18 20:50 08/31/18 20:50 08/31/18 20:50 08/31/18 20:50 - Physical Exam General Appearance: Yes: Disheveled, Alcohol on Breath HEENT: positive: Other (normocephalic) Integumentary: positive: Normal Color, Dry, Warm Neurologic: positive: Alert, Other (slurred speech, alcohol on breath) Medical Decision Making - Medical Decision Making 09/01/18 00:04 A: ETOH intoxication; head injury P: ct head: negative. chronic findings noted. will await sobriety 09/01/18 05:37 patient is now awake. patient walked to the bathroom without assistance. will d/ c home *DC/Admit/Observation/Transfer Diagnosis at time of Disposition: Alcohol abuse Head injury Qualifiers: Encounter type: initial encounter Qualified Code(s): S09.90XA - Unspecified injury of head, initial encounter - Discharge Dispostion Disposition: HOME Condition at time of disposition: Improved - Referrals - Patient Instructions Printed Discharge Instructions: DI for Alcohol Abuse Additional Instructions: avoid drinking alcohol - Post Discharge Activity
[2018-08-31 21:19] VITALS: BMI 22.7
--- NOTE | 2018-08-31 21:43 | PDOC ---
*Physical Exam - Vital Signs Last Vital Signs Temp Pulse Resp BP Pulse Ox 98.1 F 77 18 141/78 98 08/31/18 20:50 08/31/18 20:50 08/31/18 20:50 08/31/18 20:50 08/31/18 20:50 Medical Decision Making - Medical Decision Making 08/31/18 21:43 Mr Herrera is a 67 yo M who presents to the ER via EMS intoxicated Pt states that he fell and struck he head He is in general a difficult historian on account of his intoxication 08/31/18 23:56 Pt is intoxicated and very malodorous He awakens with verbal stimulation but is incoherent He is pending CT of the head Pt seen by Midlevel Provider under my direct supervision Pt interviewed and examined Ancillary studies reviewed I agree with plan as outlined by Midlevel Provider *DC/Admit/Observation/Transfer - Discharge Dispostion Condition at time of disposition: Fair - Referrals - Patient Instructions - Post Discharge Activity
[2018-09-01 05:53] VITALS: BP 131/76; PULSE 76; TEMP 98.8
== END 2018-09-01 06:40 | disposition home or self-care (01) ==
LOC: JER 20:47
DX: S09.8XXA Other specified injuries of head, initial encounter (principal); F10.220 Alcohol dependence with intoxication, uncomplicated; W01.10XA Fall on same level from slipping, tripping and stumbling with subsequent striking against unspecified object, initial encounter; Y93.89 Activity, other specified; Y92.89 Other specified places as the place of occurrence of the external cause; Y99.8 Other external cause status; I10 Essential (primary) hypertension; J44.9 Chronic obstructive pulmonary disease, unspecified; E78.00 Pure hypercholesterolemia, unspecified; E11.9 Type 2 diabetes mellitus without complications; F17.210 Nicotine dependence, cigarettes, uncomplicated
CPT/HCPCS: 70450-TC; 99281-25

== ENCOUNTER 2018-09-27 21:01 | Emergency (ER) | payer OTHER ==
[2018-09-27 21:09] VITALS: TEMP 98.6; BMI 32.3
--- NOTE | 2018-09-27 21:11 | PDOC ---
Rapid Medical Evaluation Chief Complaint: Alcohol intoxication Time Seen by Provider: 09/27/18 21:06 Medical Evaluation: Allergies Allergy/AdvReac Type Severity Reaction Status Date / Time No Known Allergies Allergy Verified 08/31/18 21:16 09/27/18 21:08 I have performed a brief in-person evaluation of this patient. The patient presents with a chief complaint of: head injury s/p fall in setting of ETOH use tonight. H/o ETOH abuse w/ numerous ER visits for same, undomiciled , HTN, COPD Pertinent physical exam findings:appears intoxicated, alert and cursing at staff in waiting room I have ordered the following:CT head The patient will proceed to the ED for further evaluation Discharge Disposition - Diagnosis Head injury Qualifiers: Encounter type: initial encounter Qualified Code(s): S09.90XA - Unspecified injury of head, initial encounter Alcohol intoxication Qualifiers: Complication of substance-induced condition: uncomplicated Qualified Code(s): F10.920 - Alcohol use, unspecified with intoxication, uncomplicated - Referrals - Patient Instructions - Post Discharge Activity
--- NOTE | 2018-09-27 22:47 | PDOC ---
History of Present Illness - General Chief Complaint: Alcohol intoxication Stated Complaint: Alcohol intoxication/FOOT PAIN Time Seen by Provider: 09/27/18 21:06 - History of Present Illness Initial Comments: Torey Herrera is a 67yo man with a PMH of COPD, HTN and alcohol abuse who presents following a mechanical call while intoxicated this evening. He reports that he tripped while walking, and he states that he hit the back of his head and feels "dizzy." He reports neck pain as well. Mr Herrera denies any other symptoms currently. Past History - Past Medical History Allergies/Adverse Reactions: Allergies Allergy/AdvReac Type Severity Reaction Status Date / Time No Known Allergies Allergy Verified 09/27/18 21:09 Home Medications: Ambulatory Orders Amlodipine Besylate [Norvasc -] 5 mg PO DAILY #30 tablet 08/10/18 Asthma: No CVA: No COPD: No DVT: No Dementia: No Diabetes: Yes GI Disorders: No Disorders: No HTN: Yes Hypercholesterolemia: Yes Liver Disease: No Seizures: No Thyroid Disease: No - Surgical History Abdominal Surgery: No Appendectomy: No Cardiac Surgery: No Cholecystectomy: No Lung Surgery: No Neurologic Surgery: No Orthopedic Surgery: Yes (HIP SURGERY) - Reproductive History Testicular Surgery: No - Immunization History Immunization Up to Date: Yes - Suicide/Smoking/Psychosocial Hx Smoking History: Current some day smoker Have you smoked in the past 12 months: Yes Number of Cigarettes Smoked Daily: 3 Information on smoking cessation initiated: No 'Breaking Loose' booklet given: 06/21/18 Hx Alcohol Use: Yes Drug/Substance Use Hx: No Substance Use Type: None Hx Substance Use Treatment: No Review of Systems - Review of Systems Comments:: 09/27/18 22:51 Could not obtain due to intoxication *Physical Exam - Vital Signs Last Vital Signs Temp Pulse Resp BP Pulse Ox 98.6 F 63 17 147/69 100 09/27/18 21:06 09/27/18 21:06 09/27/18 21:06 09/27/18 21:06 09/27/18 21:06 - Physical Exam Comments: General: Intoxicated, malodorous, no acute distress HEENT: PERRL, EOMI, MMM. Refused exam of neck Cards: RRR Pulm: Comfortable on room air Abd: Soft, nontender, nondistended Ext: Atraumatic. ROM intact. Dry, scaling skin on b/l hands Vasc: Extremities WWP Neuro: Alert, CN grossly intact, slurred speech, motor grossly intact and symmetric Psych: Mood appropriate to situation Moderate Sedation - Procedure Monitoring Vital Signs: Procedure Monitoring Vital Signs Temperature 98.6 F 09/27/18 21:06 Pulse Rate 63 09/27/18 21:06 Respiratory Rate 17 09/27/18 21:06 Blood Pressure 147/69 09/27/18 21:06 O2 Sat by Pulse Oximetry (%) 100 09/27/18 21:06 ED Treatment Course - RADIOLOGY Radiology Studies Ordered: Category Date Time Status CERVICAL SPINE CT W/O CONTR [CT] Stat CT Scan 09/27/18 21:31 Ordered Medical Decision Making - Medical Decision Making 09/27/18 22:48 Torey Herrera is a 67yo man with a PMH of COPD, HTN and alcohol abuse who presents following a mechanical call while intoxicated this evening. He endorses head trauma and neck pain. - CT head and c-spine to r/o injury - Pt now sleeping comfortably - Monitor in ED until safe for discharge 09/28/18 01:30 - Pt continues to sleep comfortably - CT's completed. C-spine w/o abnormalies. Head scan reviewed, no pathology noted, but read pending 09/28/18 05:53 - Patient now awake. Observed walking with cane. No longer slurring speech - Plan to d/c home Discussed with Dr Wheat. Sun Hobson PGY1 *DC/Admit/Observation/Transfer Diagnosis at time of Disposition: Head injury Qualifiers: Encounter type: initial encounter Qualified Code(s): S09.90XA - Unspecified injury of head, initial encounter Alcohol intoxication Qualifiers: Complication of substance-induced condition: uncomplicated Qualified Code(s): F10.920 - Alcohol use, unspecified with intoxication, uncomplicated - Discharge Dispostion Disposition: HOME Condition at time of disposition: Stable Decision to Admit order: No - Referrals - Patient Instructions Printed Discharge Instructions: DI for Alcohol Abuse Additional Instructions: Discharge Instructions: You were seen in the emergency department for alcohol intoxication and a head injury. You had a CT scan showing that there is no serious injury to your head or neck. It is strongly recommended that you seek rehab or detox for your alcohol use. Do not drink more than two drinks per day. A drink is 1.5oz of liquor (one shot) , 5oz wine (one regular wine glass) or 12oz been (one regular can). Follow Up: Follow up with your primary doctor within the next week. Recommend that [facility] go to [facility] for rehab or detox Seek immediate medical care for any medical emergency including shortness of breath, chest pain, or sudden neurological changes. - Post Discharge Activity
--- NOTE | 2018-09-27 22:56 | PDOC ---
Attending Attestation - HPI HPI: 09/27/18 23:26 The patient is a 67 year old male, with a significant past medical history of HTN, COPD, nicotine, and Etoh dependence, who presents to the emergency department s/p fall with alcohol intoxication. Patient is well-known to the department and notes he fell. He is unaware if he hit his head or lossed consciousness. History limited due to intoxicated state. Allergies: NKDA Past surgical history: multiple orthopedic surgeries. Social History: Tobacco use 1 ppd for 40 years. Alcohol abuse. Homeless. - Physicial Exam PE: 09/27/18 23:26 Intoxicated, sleeping; +malodorous, disheveled neck supple. lungs clear, RRR, abdomen soft nontender. THOMAS x4. No peripheral edema. normal color for ethnicity , WWP. <Jeremy Bo - Last Filed: 09/27/18 23:25> - Resident Resident Name: Sun Hobson - ED Attending Attestation I have performed the following: I have examined & evaluated the patient, The case was reviewed & discussed with the resident, I agree w/resident's findings & plan - Medical Decision Making 09/27/18 22:56 I, Estela Wheat MD, attest that this document has been prepared under my direction and personally reviewed by me in its entirety. I further attest, that it accurately reflects all work, treatment, procedures and medical decision -making performed by me. see HPI for details. VS wnl. DDx. alcohol intoxication, alcohol withdrawal. drug intoxication, head injury/ SDH/ICH, c spine injury CT head_neg for injuries/bleed CT C spine_neg for fx, degenerative disc disease present no utox indicated, as pt with clear history of cannibis use and will not warp changer. pt monitored closely in the ED x 8 hours, sobriety hold. remained comfortable, no acute events, VS remain stable. at time of discharge, clinically improved, sober, speech clear, gait stable. no acute neuro changes, normal mental status. no evidence of SI or HI or psychosis. discharge in stable condition. offered detox and resources for ETOH abuse. prompt follow up encouraged. 09/28/18 05:54 09/28/18 05:55 <Estela Wheat - Last Filed: 09/28/18 05:55> Attestations - Attestations 09/27/18 23:26 Documentation prepared by Jeremy Bo, acting as emergency medical services coordinator for Estela Wheat MD. <Jeremy Bo - Last Filed: 09/27/18 23:25>
[2018-09-28 00:01] VITALS: BP 129/83; PULSE 104
== END 2018-09-28 06:18 | disposition home or self-care (01) ==
LOC: JER 21:01
DX: S09.90XA Unspecified injury of head, initial encounter (principal); F10.920 Alcohol use, unspecified with intoxication, uncomplicated; J44.9 Chronic obstructive pulmonary disease, unspecified; I10 Essential (primary) hypertension; W18.39XA Other fall on same level, initial encounter; Y93.89 Activity, other specified; Y92.89 Other specified places as the place of occurrence of the external cause
CPT/HCPCS: 70450-TC; 72125-TC; 99282-25

== ENCOUNTER 2018-11-13 15:08 | Inpatient (IN) | payer OTHER ==
--- NOTE | 2018-11-13 16:06 | PDOC ---
History of Present Illness - General Chief Complaint: Cold Symptoms Stated Complaint: FALL/CHEST PAIN Time Seen by Provider: 11/13/18 15:40 - History of Present Illness Initial Comments: 11/13/18 16:14 68 yo M with h/o Etoh dependence, COPD, HTN who p/w syncopal event. Patient reports he was walking in street, felt rapid heart rate, lightheaded, and lost consciousness for unknown amount of time. Denies h/o similar presentation. Reports 1 week of SOB, Roman. Patient now with left sided chest discomfort/ tightness, aggravated with movement. + dry non productive cough, and wheezing. Does not recall hitting head. Patient denies HERRERA, vision change, orthopnea, PND, leg pain/leg swelling, N/V, F, C, urinary complaints, abdominal pain, diarrhea, constipation, lightheadedness , weakness, sensory changes. PMHx: as noted above. Denies ACS/IN, stent placement, CABG, DVT/PE, stress testing. ROS: as noted SHx: Tobacco use 1ppd, Daily Etoh. Denies IVDA Allergies: NKDA Past History - Past Medical History Allergies/Adverse Reactions: Allergies Allergy/AdvReac Type Severity Reaction Status Date / Time No Known Allergies Allergy Verified 09/27/18 21:09 Home Medications: Ambulatory Orders Amlodipine Besylate [Norvasc -] 5 mg PO DAILY #30 tablet 08/10/18 Asthma: No CVA: No COPD: No DVT: No Dementia: No Diabetes: Yes GI Disorders: No Disorders: No HTN: Yes Hypercholesterolemia: Yes Liver Disease: No Seizures: No Thyroid Disease: No - Surgical History Abdominal Surgery: No Appendectomy: No Cardiac Surgery: No Cholecystectomy: No Lung Surgery: No Neurologic Surgery: No Orthopedic Surgery: Yes (HIP SURGERY) - Reproductive History Testicular Surgery: No - Immunization History Immunization Up to Date: Yes - Suicide/Smoking/Psychosocial Hx Smoking History: Current every day smoker Have you smoked in the past 12 months: Yes Number of Cigarettes Smoked Daily: 2 Information on smoking cessation initiated: No 'Breaking Loose' booklet given: 06/21/18 Hx Alcohol Use: Yes Drug/Substance Use Hx: No Substance Use Type: None Hx Substance Use Treatment: No Review of Systems - Review of Systems Comments:: 11/13/18 16:29 GENERAL/CONSTITUTIONAL: No fever or chills. No weakness. HEAD, EYES, EARS, NOSE AND THROAT: No change in vision. No ear pain or discharge. No sore throat. CARDIOVASCULAR: No chest pain or shortness of breath RESPIRATORY: No cough, wheezing, or hemoptysis. GASTROINTESTINAL: No nausea, vomiting, diarrhea or constipation. GENITOURINARY: No dysuria, frequency, or change in urination. MUSCULOSKELETAL: No joint or muscle swelling or pain. No neck or back pain. SKIN: No rash NEUROLOGIC: + Lightheadedness. No headache, vertigo, or change in strength/ sensation. ENDOCRINE: No increased thirst. No abnormal weight change HEMATOLOGIC/LYMPHATIC: No anemia, easy bleeding, or history of blood clots. ALLERGIC/IMMUNOLOGIC: No hives or skin allergy. *Physical Exam - Vital Signs Last Vital Signs Temp Pulse Resp BP Pulse Ox 97.4 F L 76 22 H 134/88 98 11/13/18 15:14 11/13/18 15:14 11/13/18 15:14 11/13/18 15:14 11/13/18 15:14 - Physical Exam Comments: 11/13/18 16:28 GENERAL: Awake, alert, and fully oriented, in no acute distress HEAD: No signs of trauma, normocephalic, atraumatic EYES: PERRLA, EOMI, sclera anicteric, conjunctiva clear ENT: Neg postaruicular, periorbital ecchymosis. Auricles normal inspection, hearing grossly normal, nares patent, oropharynx clear without exudates. Moist mucosa NECK: Normal ROM, supple, no lymphadenopathy, JVD, or masses LUNGS: Diminished lung sounds BL lung bases, Diffuse exp rhonci. No distress, speaks full sentences. HEART: Regular rate and rhythm, normal S1 and S2, no murmurs, rubs or gallops, peripheral pulses normal and equal bilaterally. ABDOMEN: Soft, nontender, normoactive bowel sounds. No guarding, no rebound. No masses EXTREMITIES : Normal inspection, Normal range of motion, no edema. No clubbing or cyanosis. NEUROLOGICAL: Cranial nerves II through XII grossly intact. Normal speech, normal gait, no focal sensorimotor deficits. Nml JOSE, HTS. Neg dysmetria FTN. SKIN: Warm, Dry, normal turgor, no rashes or lesions noted Moderate Sedation - Procedure Monitoring Vital Signs: Procedure Monitoring Vital Signs Temperature 97.4 F L 11/13/18 15:14 Pulse Rate 76 11/13/18 15:14 Respiratory Rate 22 H 11/13/18 15:14 Blood Pressure 134/88 11/13/18 15:14 O2 Sat by Pulse Oximetry (%) 98 11/13/18 15:14 Heart Score/ECG Review - History History: Slightly suspicious - Electrocardiogram EKG: Non specific repolarization disturbance - Age Age: >/= 65 - Risk Factors Risk Factors Heart Score: Yes Hx Hypercholesterolemia, Yes Hx Hypertension, Yes Hx Diabetes, Yes Smoking History, Yes Positive family hx of cardiac disease Based on the list above the patient has:: >/=3 risk factors or Hx atherosclerotic disease - Troponin Troponin: </= normal limit - Score Heart Score - Total: 5 ED Treatment Course - LABORATORY CBC & Chemistry Diagram: 11/13/18 16:33 11/13/18 16:33 Medical Decision Making - Medical Decision Making 11/13/18 16:25 68 yo M with h/o Etoh dependence, COPD, HTN who p/w syncopal event. Vitals wnl, AF, A&Ox3, GCS 15. No evidence of basilar skull fracture. C-SPINE Neg per nexus. CTH r/o skull fracture hemorrhage, hematoma. ACS/IN r/o. R/o PNA. Low risk PE based on Weils criteria. Will asses for cardiac dysarrtyhmia, hypoglycemia, electrolyte abnml, metabolic derangements, acid-base disturbances , infection. ED Course: Nitro, NS, Ranitidine, Carafate, Duonebs 11/13/18 16:30 EKG: NSR with absent MONTRELL, STD. Q wave V3,V4. Nml interval duration, axis, R wave progression. 11/13/18 17:17 WBC: 10.7 Trop: Neg Etoh: 234 BNP: 2644 CXR: Unremarkable Bedside Cardiac/pulm U/S: No pericardial or pleural effusion. 11/13/18 18:02 Patient endorsed to [facility]. Admitted to Dr. Faith. *DC/Admit/Observation/Transfer Diagnosis at time of Disposition: Chest pain at rest, Shortness of breath - Discharge Dispostion Condition at time of disposition: Stable Decision to Admit order: Yes - Referrals - Patient Instructions - Post Discharge Activity
[2018-11-13] MEDS ORDERED: ASPIRIN 81 MG CHEWABLE TABLETS PO ONE (16:13)
[2018-11-13] MEDS ORDERED: predniSONE 20 MG TABLET (UD) PO ONE (16:13)
[2018-11-13] MEDS ORDERED: ALBUTEROL SO4 2.5/IPRATROPIUM 0.5 INH SOL 3 ML VIAL.NEB. NEB ONE ×3 (16:13→16:21)
[2018-11-13] MEDS ORDERED: predniSONE 20 MG TABLET (UD) ONE (16:21)
--- NOTE | 2018-11-13 16:36 | PDOC ---
Attending Attestation - HPI HPI: 11/13/18 16:53 The patient is a 68 year old male with past medical history significant to HTN, COPD, alcohol dependence presents to the emergency department s/p a syncopal episode. The patient states he was walking when an acute onset of rapid heart rate and lightheadedness presented, followed by a syncopal episode. The patient reports associated symptoms of L. sided chest pain, wheezing and a week hx of SOB and HEATH. The patient reports a chronic history of dry, nonproductive cough. Denies alcohol use today. Denies cardiac stents or recent stress test. Allergies: NKDA Social history: tobacco use, alcohol use. No drug use reported. Surgical history: Chris in B/l legs, R hip sx, R shoulder sx PCP: None reported. <Amanda Quigley - Last Filed: 11/13/18 16:53> - Resident Resident Name: Wilder Miranda - ED Attending Attestation I have performed the following: I have examined & evaluated the patient, The case was reviewed & discussed with the resident, I agree w/resident's findings & plan, Exceptions are as noted - Physicial Exam PE: 11/13/18 16:48 awake alert head atraumatic. lungs with bilaterally crackles at bases. heart rrr no mrg abd soft nd nt. ext wwp bilt nonpitting edema. neuro alert oriented x 3. skin warm and dry. - Medical Decision Making 11/13/18 17:30 focused ED TTE , indication sob, syncope four views of heart obtained ( parasternal long, and short, apical and subxiphoid) no pericardial effusion. hyperdynamic. no rv dilation or strain. bilat lungs scanned four views ( bilat ant lung flannery and lung bases) normal lung sliding. a line predominant bilaterally no pleural effusions. impression: normal contractility, no pericardial effusion, lungs a line predominant no edema or pleural effusions. 11/13/18 18:09 11/13/18 18:29 pt with intox, cxr wtih nodularity to rib vs old fx, plan lateral view. labs otherwise unremarkable. will admit for syncope. dw dr newton will admit to telemtry. <Alison Sandoval - Last Filed: 11/13/18 18:29> - Medical Decision Making 11/14/18 04:30 Patient Name: JANN SÁNCHEZ THIS IS A PRELIMINARY REPORT FROM [facility] DATE OF SERVICE: 2018-11-14 02:26:45 IMAGES: 1055 EXAM: CTA HEAD Large AVM left in anterior portion of left Sylvian fissure and in frontal lobe, corresponding to region of calcifications seen on 11/13/[address] Arterial feeder vessel probably arises from a left MCA branch. Main nidus of vessels measures approximately 3.8 x 2.6 x 2.9 cm. Large draining vein up to 9 mm diameter eventually communicates with straight sinus and also drains across midline into middle cranial fossa and right cavernous sinus region. No obvious acute hemorrhage, but exam limited by noncontrast technique. Small chronic infarct right frontal lobe. Age-related involutional changes and chronic small vessel ischemic changes. Mucoperiosteal thickening paranasal sinuses. Mastoid air cells clear <Jaquelin Almanzar - Last Filed: 11/14/18 04:30> Heart Score/ECG Review #1 General ECG Interpretation: Sinus Rhythm, Normal Rate (80), Normal Intervals, No acute ischemic changes Compared to previous ECG there are: No significant change (comparison 08/05/18 q wave III< AVF) <Alison Sandoval - Last Filed: 11/13/18 18:29>
[2018-11-13 16:39] LABS: BASO % 0.8 % (0-2.0); EOS % 3.2 % (0-4.5); HEMATOCRIT 34.8 % (35.4-49); HEMOGLOBIN 11.7 GM/dL (11.7-16.9); LYMPH % 10.2 % (8-40); MCH 25.4 pg (25.7-33.7); MCHC 33.7 g/dl (32.0-35.9); MEAN CELL VOLUME 75.6 fl (80-96); MEAN PLT VOLUME 7.4 fl (7.5-11.1); MONO % 8.4 % (3.8-10.2); NEUT % 77.4 % (42.8-82.8); PLATELET COUNT 257 K/MM3 (134-434); RDW 15.8 % (11.9-15.9); WHITE BLOOD COUNT 10.7 K/mm3 (4.0-10.0)
[2018-11-13] MEDS ORDERED: ASPIRIN 81 MG CHEWABLE TABLETS ONE (16:39)
[2018-11-13] MEDS ORDERED: NITROGLYCERIN SUBLINGUAL 1/150 0.4 MG TAB SL ONE (16:40)
[2018-11-13 17:03] LABS: ALBUMIN 3.6 g/dl (3.4-5.0); ALK PHOS 70 U/L (45-117); ANION GAP 7 MMOL/L (8-16); BILIRUBIN,TOTAL 0.4 mg/dL (0.2-1); BLOOD UREA NITROGEN 22 mg/dL (7-18); CALCIUM 8.1 mg/dL (8.5-10.1); CHLORIDE 100 mmol/L (98-107); CO2 27 mmol/L (21-32); CREATININE 1.1 mg/dL (0.55-1.3); GLUCOSE,RANDOM 87 mg/dL (74-106); SGOT/AST 29 U/L (15-37); SGPT/ALT 25 U/L (13-61); SODIUM 134 mmol/L (136-145); TOT PROT 7.1 g/dl (6.4-8.2)
[2018-11-13 17:05] LABS: INR 0.95 (0.83-1.09); PROTHROMBIN TIME (PATIENT) 11.2 SEC (9.7-13.0)
[2018-11-13] MEDS ORDERED: SUCRALFATE 1 GM TABLET (FP) PO ONE (17:16)
[2018-11-13] MEDS ORDERED: FAMOTIDINE 20 MG/50 ML IVPB 20 MG/50 ML MG IVPB ONE ×2 (17:16→17:50)
[2018-11-13] MEDS ORDERED: SODIUM CHLORIDE 1,000 ML IV STA (17:19)
[2018-11-13] MEDS ORDERED: SUCRALFATE 1 GM TABLET (FP) ONE (17:49)
[2018-11-13] MEDS ORDERED: NITROGLYCERIN SUBLINGUAL 1/150 0.4 MG TAB ONE (19:13)
[2018-11-13] MEDS ORDERED: ALBUTEROL SO4 0.083% IH SOL 2.5 MG/3 ML VIAL.NEB. NEB PRN (19:23)
--- NOTE | 2018-11-13 19:28 | HP ---
CHIEF COMPLAINT:dizziness, chest pressure, PCP: HISTORY OF PRESENT ILLNESS: Torey Herrera is a 68 yo M with h/o Etoh dependence, COPD, HTN who p/w syncopal event. patient reports that he was walking outside, felt dizzy and tripped over crack on street and fell. pt also c/o SOB on exertion, and left sided chest pressure for 1 1/2 months, productive cough with yellow phlem. pt current smoker but has cut down to 3 cigarettes/ day. pt denies drinking alcohol today, last drink 3-4 weeks ago. ER course was notable for: (1)BNP 2644 (2)Alcohol 234 (3)Trop 0.02 Recent Travel: PAST MEDICAL HISTORY:HTN, COPD, ETOH dependence PAST SURGICAL HISTORY:Chris in B/l legs, R hip sx, R shoulder sx Social History: Smoking:current smoker Alcohol:current use of alcohol Drugs: denies Family History: Allergies No Known Allergies Allergy (Verified 09/27/18 21:09) HOME MEDICATIONS: Home Medications Medication Instructions Recorded Amlodipine Besylate [Norvasc -] 5 mg PO DAILY #30 tablet 08/10/18 REVIEW OF SYSTEMS CONSTITUTIONAL: Absent: fever, chills, diaphoresis, generalized weakness, malaise, loss of appetite, weight change HEENT: Absent: rhinorrhea, nasal congestion, throat pain, throat swelling, difficulty swallowing, mouth swelling, ear pain, eye pain, visual changes CARDIOVASCULAR: +Chest pain, dizziness, Absent: palpitations, irregular heart rate, lightheadedness, peripheral edema RESPIRATORY: +SOB on exertion, productive cough with yellow phlem, Absent: orthopnea, wheezing, stridor, hemoptysis GASTROINTESTINAL: Absent: abdominal pain, abdominal distension, nausea, vomiting, diarrhea, constipation, melena, hematochezia GENITOURINARY: Absent: dysuria, frequency, urgency, hesitancy, hematuria, flank pain, genital pain MUSCULOSKELETAL: Absent: myalgia, arthralgia, joint swelling, back pain, neck pain SKIN: Absent: rash, itching, pallor HEMATOLOGIC/IMMUNOLOGIC: Absent: easy bleeding, easy bruising, lymphadenopathy, frequent infections ENDOCRINE: Absent: unexplained weight gain, unexplained weight loss, heat intolerance, cold intolerance NEUROLOGIC: Absent: headache, focal weakness or paresthesias, dizziness, unsteady gait, seizure, mental status changes, bladder or bowel incontinence PSYCHIATRIC: Absent: anxiety, depression, suicidal or homicidal ideation, hallucinations. PHYSICAL EXAMINATION Vital Signs - 24 hr 11/13/18 11/13/18 11/13/18 15:14 16:43 17:57 Temperature 97.4 F L Pulse Rate 76 Pulse Rate [ 85 88 Apical] Respiratory 22 H 20 20 Rate Blood Pressure 134/88 Blood Pressure 126/78 122/75 [Right Arm] O2 Sat by Pulse 98 94 L 95 Oximetry (%) GENERAL: Awake, alert, and fully oriented, in no acute distress. HEAD: Normal with no signs of trauma. EYES: Pupils equal, round and reactive to light, extraocular movements intact, sclera anicteric, conjunctiva clear. No lid lag. EARS, NOSE, THROAT: Ears normal, nares patent, oropharynx clear without exudates. Moist mucous membranes. NECK: Normal range of motion, supple without lymphadenopathy, JVD, or masses. LUNGS: +rhonchi, wheezing bilaterally, No accessory muscle use. HEART: Regular rate and rhythm, normal S1 and S2 without murmur, rub or gallop. ABDOMEN: Soft, nontender, not distended, normoactive bowel sounds, no guarding, no rebound, no masses. No hepatomegaly or splenomegaly. MUSCULOSKELETAL: Normal range of motion at all joints. No bony deformities or tenderness. No CVA tenderness. UPPER EXTREMITIES: 2+ pulses, warm, well-perfused. No cyanosis. No clubbing. No peripheral edema. LOWER EXTREMITIES: 2+ pulses, warm, well-perfused. No calf tenderness. b/l non- pitting edema. NEUROLOGICAL: Cranial nerves II-XII intact. Normal speech. Normal gait. PSYCHIATRIC: Cooperative. Good eye contact. Appropriate mood and affect. SKIN: Warm, dry, normal turgor, no rashes or lesions noted, normal capillary refill. Laboratory Results - last 24 hr 11/13/18 11/13/18 11/13/18 16:33 16:33 16:33 WBC 10.7 H RBC 4.60 Hgb 11.7 Hct 34.8 L MCV 75.6 L MCH 25.4 L MCHC 33.7 RDW 15.8 D Plt Count 257 MPV 7.4 L Absolute Neuts (auto) 8.3 H Neutrophils % 77.4 Lymphocytes % 10.2 D Monocytes % 8.4 Eosinophils % 3.2 Basophils % 0.8 Nucleated RBC % 0 PT with INR INR Sodium 134 L Potassium 4.0 Chloride 100 Carbon Dioxide 27 Anion Gap 7 L BUN 22 H Creatinine 1.1 Creat Clearance w eGFR > 60 Random Glucose 87 Calcium 8.1 L Total Bilirubin 0.4 AST 29 ALT 25 Alkaline Phosphatase 70 Creatine Kinase 168 Creatine Kinase Index 0.5 CK-MB (CK-2) < 1.0 Troponin I < 0.02 B-Natriuretic Peptide 2644.0 H Total Protein 7.1 Albumin 3.6 Alcohol, Quantitative 234.5 H 11/13/18 16:33 WBC RBC Hgb Hct MCV MCH MCHC RDW Plt Count MPV Absolute Neuts (auto) Neutrophils % Lymphocytes % Monocytes % Eosinophils % Basophils % Nucleated RBC % PT with INR 11.20 INR 0.95 Sodium Potassium Chloride Carbon Dioxide Anion Gap BUN Creatinine Creat Clearance w eGFR Random Glucose Calcium Total Bilirubin AST ALT Alkaline Phosphatase Creatine Kinase Creatine Kinase Index CK-MB (CK-2) Troponin I B-Natriuretic Peptide Total Protein Albumin Alcohol, Quantitative ASSESSMENT/PLAN: Torey Herrera is a 68 yo M with h/o Etoh dependence, COPD, HTN admitted under observation Admitting Diagnosis Syncope Chest pain Chronic problems HTN COPD A//P: #Syncope #Chest pain -admit to tele -serial trops, first neg -cardio consult -Echo ordered for AM -CT head pending report -given asa, -lipid panel in am #Elevated BNP, no prior hx of CHF -repeat in AM -echo ordered #ETOH dependence -alcohol 234.5 -monitor for withdrawl -librium prn -drug utox pending #HTN -pt has not taken med, norvasc for 3 months -will restart #COPD -not on meds -oxygen PRN -duonebs prn FEN: IV hydration monitor electrolytes Cardiac diet Visit type - Emergency Visit Emergency Visit: Yes ED Registration Date: 11/13/18 Care time: The patient presented to the Emergency Department on the above date and was hospitalized for further evaluation of their emergent condition. - New Patient This patient is new to me today: Yes Date on this admission: 11/13/18 - Critical Care Critical Care patient: No
[2018-11-13] MEDS ORDERED: chlordiazePOXIDE HCL 25 MG CAPSULE PO PRN (19:38)
[2018-11-13 19:47] LABS: URINE APPEARANCE SLCLOUDY; URINE BILIRUBIN NEGATIVE (<2.0 mg/dL); URINE COLOR YELLOW; URINE GLUCOSE (UA) NEGATIVE (NEGATIVE); URINE KETONE NEGATIVE (NEGATIVE); URINE LEUK ESTERASE 2+ (NEGATIVE); URINE NITRITE NEGATIVE (NEGATIVE); URINE PROTEIN 1+ (NEGATIVE); URINE UROBILINOGEN NEGATIVE mg/dL (0.2-1.0)
[2018-11-13 19:48] LABS: COCAINE, UR NEGATIVE ng/ml (CUTOFF=300); METHADONE, UR NEGATIVE ng/ml (CUTOFF=300); OPIATES, URI NEGATIVE ng/ml (CUTOFF=300); PHENCYCLIDINE,URINE NEGATIVE ng/ml (CUTOFF=25); URINE AMPHETAMINES NEGATIVE ng/ml (CUTOFF=500); URINE BARBITURATES NEGATIVE ng/ml (CUTOFF=200); URINE BENZODIAZEPINES NEGATIVE ng/ml (CUTOFF=200)
[2018-11-13 19:49] LABS: EPI CELLS RARE /HPF (FEW); URINE HYALINE CAST 12 /lpf; URINE MUCUS RARE
[2018-11-13] MEDS ORDERED: HEPARIN NA (PORCINE) 5,000 UNITS/ML 1ML VIAL SQ SCH (22:00)
[2018-11-14] MEDS: ACETAMINOPHEN 325 MG TABLET (FP) PO PRN ×4 (01:33→20:09)
[2018-11-14] MEDS ORDERED: ACETAMINOPHEN 325 MG TABLET (FP) ONE ×4 (01:33→20:05)
[2018-11-14 06:28] LABS: BASO % 0.3 % (0-2.0); HEMATOCRIT 32.6 % (35.4-49); HEMOGLOBIN 10.9 GM/dL (11.7-16.9); LYMPH % 5.4 % (8-40); MCHC 33.5 g/dl (32.0-35.9); MEAN CELL VOLUME 74.6 fl (80-96); MEAN PLT VOLUME 8.2 fl (7.5-11.1); MONO % 4.9 % (3.8-10.2); NEUT % 89.4 % (42.8-82.8); PLATELET COUNT 273 K/MM3 (134-434); RBC 4.37 M/mm3 (4.00-5.60); RDW 15.9 % (11.9-15.9); WHITE BLOOD COUNT 8.1 K/mm3 (4.0-10.0)
[2018-11-14 07:00] LABS: ALBUMIN 3.4 g/dl (3.4-5.0); ALK PHOS 65 U/L (45-117); ANION GAP 6 MMOL/L (8-16); BILIRUBIN,TOTAL 0.4 mg/dL (0.2-1); BLOOD UREA NITROGEN 19 mg/dL (7-18); CHLORIDE 103 mmol/L (98-107); CO2 28 mmol/L (21-32); GLUCOSE,RANDOM 124 mg/dL (74-106); MAGNESIUM 2.1 mg/dL (1.8-2.4); POTASSIUM 4.3 mmol/L (3.5-5.1); SGOT/AST 16 U/L (15-37); SGPT/ALT 22 U/L (13-61); SODIUM 137 mmol/L (136-145); TOT PROT 6.8 g/dl (6.4-8.2)
[2018-11-14 07:04] LABS: N-TERMINAL BNP 1421.6 pg/ml (5-125)
[2018-11-14] MEDS ORDERED: amLODIPine BESYLATE 5 MG TABLET (FP) ONE (08:24)
[2018-11-14] MEDS ORDERED: ALBUTEROL SO4 0.083% IH SOL 2.5 MG/3 ML VIAL.NEB. NEB ONE (08:28)
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
[2018-11-14] MEDS ORDERED: predniSONE 20 MG TABLET (UD) PO ONE (08:45)
[2018-11-14] MEDS: amLODIPine BESYLATE 5 MG TABLET (FP) PO SCH (09:44)
[2018-11-14] MEDS: MUPIROCIN 2% TOPICAL OINTMENT FOR DECOLONIZATION NS SCH (09:45)
--- NOTE | 2018-11-14 10:25 | PN ---
Progress Note (short form) - Note Progress Note: NEUROSURGERY CONSULT DICTATED Pt is a poor historian. Pt s/p syncopal episode, minimal H/A, no N/V, no visual changes, no speech issues, + dizziness and lightheadedness LH male with h/o Etoh dependence, COPD, HTN, B LE fx s/p ORIF and cerebral contusion. Patient reports he was walking in street, felt rapid heart rate, lightheaded, and lost consciousness. Denies h/o similar presentation. Reports 1 week of SOB, Roman. C/o left sided chest discomfort/tightness, aggravated with movement. + dry non productive cough, and wheezing. No F/C. Had Had CT last July and August. 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
[2018-11-14] MEDS ORDERED: levETIRAcetam 500 MG/5 ML INJECTION VIAL IVPB ONE ×2 (10:32→14:33)
--- NOTE | 2018-11-14 11:15 | EKG ---
Test Reason : Blood Pressure : / mmHG Vent. Rate : 080 BPM Atrial Rate : 080 BPM P-R Int : 136 ms QRS Dur : 092 ms QT Int : 400 ms P-R-T Axes : 024 -48 060 degrees QTc Int : 461 ms NORMAL SINUS RHYTHM LEFT ANTERIOR FASCICULAR BLOCK SEPTAL INFARCT (CITED ON OR BEFORE 20-JUL-2018) ABNORMAL ECG Confirmed by JUDI MEI MD ([id number]) on 11/14/2018 11:14:56 AM Referred By: Confirmed By:JUDI MEI MD
--- NOTE | 2018-11-14 11:19 | CONS ---
DATE OF CONSULTATION: 11/14/2018 CHIEF COMPLAINT: Dizziness with syncopal episode, likely seizure. HISTORY OF PRESENT ILLNESS: The patient is a 68-year-old left-handed male with a history of EtOH dependence, COPD, and hypertension, who had complained of intermittent dizziness in the past. Yesterday, he was walking in the street and felt a rapid heart rate and lightheadedness and lost consciousness. He does not recall how long he lost consciousness. He has no significant headache at this time. He does report a 1-week history of dyspnea, dyspnea on exertion, and left-sided chest discomfort and tightness. This is worse with movement. He also had a dry, nonproductive cough, but no fever or chills. He also has wheezing. He has been a 1-viub-x-day smoker for the past 50 years. He also drinks alcohol almost daily, about 1/2 pint of vodka a day. PAST MEDICAL HISTORY: Significant for: 1. Hypertension. 2. EtOH dependence. 3. COPD. CURRENT MEDICATIONS: Albuterol; Norvasc; Librium; and Tylenol. There are no known drug allergies. FAMILY HISTORY: Noncontributory. SOCIAL HISTORY: He is retired, does not work. He lives alone. He smokes a pack a day and drinks alcohol every other day, by his report. REVIEW OF SYSTEMS: Otherwise negative for major constitutional, head, neck, cardiovascular, pulmonary, gastrointestinal, genitourinary, endocrinological, neurological, and psychological problems. The patient had had multiple CT scans done at this institution alone over the past 2 years. He does not recall why he had these CT scan done. PHYSICAL EXAMINATION: Vital Signs: Temperature is 98.2, blood pressure is 152/95 with a pulse rate of 81, O2 saturation is 95% on room air. HEENT: Normocephalic, atraumatic, anicteric. Neck: Supple with no lymphadenopathy, no carotid bruit. Coronary: Regular rhythm. Lungs: Bilateral wheezes. Abdomen: Benign. Extremities: No signs of DVT. Distal pulses are 1+. Neurologic: He is awake, alert, and oriented x3. Cranial nerve examination is intact II through XII. Motor examination shows 4+/5/5 strength in bilateral upper and lower extremities. Sensory examination is intact to light touch, except for decreased distal upper and lower extremity vibratory sensation. Deep tendon reflexes are hyporeflexic throughout. There is no pathologic long track sign. LABORATORY EXAMINATION: White blood cell count of 8.1, hemoglobin is 10.9 and hematocrit is 32.6, platelet count 273,000. INR is 0.95. BUN is 19, creatinine is 1.0, sodium is 137. Troponin was less than 0.[address] scan of the head demonstrated right orbital frontal encephalomalacia, likely related to potential prior right-sided head trauma. There is calcification in the left inferolateral frontal lobe near the anterior Sylvian fissure. There is mild to moderate cerebral atrophy. CT of the head demonstrated a 2 x 2.5 x 3 cm left inferolateral frontal AVM with a dominant feeder from the left M2 segment. There is a small amount of subarachnoid hemorrhage, as noted earlier, in the anterior Sylvian fissure. IMPRESSION: 1. 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 2. Hypertension. 3. Chronic obstructive pulmonary disease/chronic heavy smoking. 4. History of prior trauma of bilateral lower extremities with open reduction/internal fixation. RECOMMENDATIONS: The patient presents with a syncopal episode. This is most likely related to the left frontal AVM, which has likely caused a seizure. It is common for an AVM to cause seizure activity. Additionally, there is evidence of associated subarachnoid hemorrhage at this time. This is, therefore, considered a symptomatic AVM. The risk of re-hemorrhage is approximately 8% per year for the first 2 years, then it will revert back to the natural history of 4% per year hemorrhage. Given the fact that he had hemorrhage and he is symptomatic, the AVM should be considered for treatment after the patient's cardiac and pulmonary statuses have been stabilized. Anticoagulation should be avoided, if at all possible. The treatment choices would include possible open microsurgery for AVM excision, endovascular treatment, or Gamma Knife stereotactic radiosurgery. It could also include a combination of the above 3 treatment modalities. We will defer treatment until the cardiac and pulmonary statuses have been stabilized. The above was discussed with the patient's admitting team. The patient is also made aware of the above. All questions were answered at the bedside. The patient was urged strongly to quit smoking and drinking. In the meanwhile, he will be put on Keppra one 1 g load and then 500 mg b.i.d. BECKA YARBROUGH M.D. [id number] MTDD
[2018-11-14 12:07] LABS: LIPASE 576 U/L (73-393)
--- NOTE | 2018-11-14 15:08 | CON.NEURO ---
Consult Consult Specialty:: NEUROLOGY-MARIBEL PARSON - History of Present Illness History of Present Illness: 68 yo M with h/o Etoh dependence, COPD, HTN who p/w syncopal event. Patient reports he was walking in street, felt rapid heart rate, lightheaded, and lost consciousness for unknown amount of time. Denies h/o similar presentation. Reports 1 week of SOB, Roman. Patient now with left sided chest discomfort/ tightness, aggravated with movement. + dry non productive cough, and wheezing. Does not recall hitting head. Patient denies HERRERA, vision change, orthopnea, PND, leg pain/leg swelling, N/V, F, C, urinary complaints, abdominal pain, diarrhea, constipation, lightheadedness , weakness, sensory changes. PMHx: as noted above. Denies ACS/PA, stent placement, CABG, DVT/PE, stress testing. ROS: as noted SHx: Tobacco use 1ppd, Daily Etoh. 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 - Past Medical History Cardio/Vascular: Yes: HTN Pulmonary: Yes: COPD - Alcohol/Substance Use Hx Alcohol Use: Yes - Smoking History Smoking history: Current every day smoker Have you smoked in the past 12 months: Yes Aproximately how many cigarettes per day: 2 Home Medications - Allergies Allergies/Adverse Reactions: Allergies Allergy/AdvReac Type Severity Reaction Status Date / Time No Known Allergies Allergy Verified 09/27/18 21:09 - Home Medications Home Medications: Ambulatory Orders NK [No Known Home Medication] 11/13/18 Physical Exam-Neuro Vital Signs: Vital Signs Temperature 98.2 F 11/14/18 07:21 Pulse Rate 96 H 11/14/18 11:00 Respiratory Rate 18 11/14/18 11:00 Blood Pressure 154/92 11/14/18 11:00 O2 Sat by Pulse Oximetry (%) 96 11/14/18 11:00 Labs: CBC, BMP 11/14/18 05:00 11/14/18 05:00 INR, PTT INR 0.95 (0.83-1.09) 11/13/18 16:33 - Neuro Exam Level Of Consciousness: Yes: Alert, Oriented to Person, Oriented to Place, Oriented to Time Eyes: Yes: PERRL Speech: WNL Dominant Hand: Right Mini Mental Exam: Logorrheic otherwise nl Cranial Nerves II-XII Intact: No (slight diminished right NLF?? old) DTR's: 0 Left Achilles, 0 Right Achilles, 1+ Left Bicep, 1+ Right Bicep, 1+ Left Tricep, 1+ Right Tricep, 1+ Left Brachioradialis, 1+ Right Brachioradialis Motor Strength: 4/5: Left Arm, Right Arm (has difficulty elevating arms due to' rods in arms"), 5/5: Left Leg, Right Leg Gait: Deferred Imaging - Results Other: Report Reviewed (CTA- L lateral-inf frontal [id number] mm AVM with feeders off L MCA mostly (prelim)) Assessment/Plan Pt. with syncope, likely cardiogenic and CT head-new L anterior Sylvian SAH?? blood in perisulcal brain,CTA- L lateral-inf frontal [id number] mm AVM with feeders off L MCA mostly (prelim). Would cont. Keppra at 750mg po bid, management of AVM as outpt./as per n/s. Thank you, Pat Thibodeaux MD
[2018-11-14] MEDS ORDERED: METOPROLOL TARTRATE 5 MG/5 ML VIAL ONE (15:41)
[2018-11-14] MEDS ORDERED: METOPROLOL TARTRATE 25 MG TABLET (FP) ONE (15:41)
--- NOTE | 2018-11-14 15:42 | CON.PULM ---
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 No: Asthma, O2 Dependent, Previously Intubated Gastrointestinal: No: GI Bleed Renal/: No: Renal Failure Heme/Onc: No: Anemia Infectious Disease: No: AIDS Psych: Yes: Addictions Musculoskeletal: No: Bursitis Rheumatology: No: Fibromyalgia Endocrine: No: Diabetes Mellitus - Past Surgical History Additional Surgical History: MULTIPLE ORTHOPEDIC SURGERIES - Alcohol/Substance Use Hx Alcohol Use: Yes - Smoking History Smoking history: Current every day smoker Have you smoked in the past 12 months: Yes Aproximately how many cigarettes per day: 4 - Social History Usual Living Arrangement: Intermediate ADL: Independent Place of : [facility] History of Recent Travel: No Home Medications - Allergies Allergies/Adverse Reactions: Allergies Allergy/AdvReac Type Severity Reaction Status Date / Time No Known Allergies Allergy Verified 09/27/18 21:09 - Home Medications Home Medications: Ambulatory Orders NK [No Known Home Medication] 11/13/18 Family Disease History - Family Disease History Family History: Unable to Obtain Review of Systems - Review of Systems Constitutional: reports: Lethargy. denies: Fever Eyes: reports: Blurred Vision. denies: Blind Spots HENT: denies: Difficult Swallowing Neck: denies: Decreased ROM Cardiovascular: reports: Chest Pain, Palpitations, Shortness of Breath Respiratory: reports: Cough, Exercise Intolerance, SOB, SOB on Exertion. denies : Hemoptysis, Wheezing Gastrointestinal: denies: Abdominal Pain Genitourinary: denies: Burning Breasts: reports: No Symptoms Reported Musculoskeletal: reports: No Symptoms Integumentary: reports: No Symptoms Physical Exam Vital Sings: Vital Signs Temperature 98.2 F 11/14/18 07:21 Pulse Rate 96 H 11/14/18 11:00 Respiratory Rate 18 11/14/18 11:00 Blood Pressure 154/92 11/14/18 11:00 O2 Sat by Pulse Oximetry (%) 96 11/14/18 11:00 Constitutional: Yes: Anxious Eyes: Yes: EOM Intact HENT: Yes: Normocephalic Neck: Yes: Trachea Midline Cardiovascular: Yes: Tachycardia, Pulse Irregular, S1, S2 Respiratory: Yes: Diminished, Rhonchi (RIGHT BASE) Gastrointestinal: Yes: Soft Edema: No Neurological: Yes: Alert Psychiatric: Yes: Alert Labs: CBC, BMP 11/14/18 05:00 11/14/18 05:00 REST REVIEWED Imaging - Results Chest X-ray: Report Reviewed, Image Reviewed EKG: Report Reviewed Problem List - Problems (1) Atrial fibrillation with rapid ventricular response Code(s): I48.91 - UNSPECIFIED ATRIAL FIBRILLATION (2) Alcohol abuse Code(s): F10.10 - ALCOHOL ABUSE, UNCOMPLICATED (3) Fall Code(s): W19.XXXA - UNSPECIFIED FALL, INITIAL ENCOUNTER Qualifiers: Encounter type: initial encounter Qualified Code(s): W19.XXXA - Unspecified fall, initial encounter (4) Head injury Code(s): S09.90XA - UNSPECIFIED INJURY OF HEAD, INITIAL ENCOUNTER Qualifiers: Encounter type: initial encounter Qualified Code(s): S09.90XA - Unspecified injury of head, initial encounter (5) Nicotine dependence Code(s): F17.200 - NICOTINE DEPENDENCE, UNSPECIFIED, UNCOMPLICATED (6) Tachycardia Code(s): R00.0 - TACHYCARDIA, UNSPECIFIED (7) COPD (chronic obstructive pulmonary disease) Code(s): J44.9 - CHRONIC OBSTRUCTIVE PULMONARY DISEASE, UNSPECIFIED Assessment/Plan AF WITH RAPID VENTRICULAR RESPONSE LIKELY CAUSED LIGHT-HEADEDNESS AND SUBSEQUENT FALL AVM WITH SUBARACHNOID HEMORRHAGE OUTLINED BY NEURO-SURG UNDERLYING COPD DUE TO CIGARETTE SMOKING H/O HTN V2-V3 Q-S SEEMS TO HAVE BEEN PRESENT ON PREVIOUS EKG'S PATIENT COMPLAINING OF VAGUE PAINS LEFT ANTERIOR CHEST RATE CONTROL PER CARDIOLOGY ECHO WOULD CYCLE TROPS WILL NEED EITHER CATH OR NUCLEAR STRESS TO R/O UNDERLYING CAD WILL REPEAT CT CHEST WITH CONTRAST TO R/O PE O2 SUPPLEMENTATION AND EVENTUAL PRE/POST AMB O2 SAT PRIOR TO DISCHARGE ATROVENT VIA NEB ALONG WITH ICS/LABA OUTPATIENT PFT'S WILL FOLLOW THANK YOU Stephanie MATHEWS MD
[2018-11-14] MEDS ORDERED: METOPROLOL TARTRATE 5 MG/5 ML VIAL IVPUSH ONE (16:02)
--- NOTE | 2018-11-14 16:08 | CON.CARD ---
Consult Consult Specialty:: Cardiology - History of Present Illness Chief Complaint: syncope History of Present Illness: 68 [facility] with prior ho ETOH abuse, ho cranial AVMs was admitted after syncope. Pt is feeling few days of chest pressure and palpitations. While walking, felt chest pressure then fell to the ground. He does not think he passed out until hitting the floor. He hit his head then lost consciousness. CT showed a small SAH. Initial ECG showed NSR. Later on he was found to be in rapid Afib with recurrence of his palpitations symptoms but no chest pain. There is no known history of CAD. 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 No: Asthma, O2 Dependent, Previously Intubated Gastrointestinal: No: GI Bleed Renal/: No: Renal Failure Infectious Disease: No: AIDS Psych: Yes: Addictions Musculoskeletal: No: Bursitis Rheumatology: No: Fibromyalgia Endocrine: No: Diabetes Mellitus - Past Surgical History Additional Surgical History: MULTIPLE ORTHOPEDIC SURGERIES - Alcohol/Substance Use Hx Alcohol Use: Yes - Smoking History Smoking history: Current every day smoker Have you smoked in the past 12 months: Yes Aproximately how many cigarettes per day: 4 - Social History Usual Living Arrangement: Senior Living ADL: Independent History of Recent Travel: No Home Medications - Allergies Allergies/Adverse Reactions: Allergies Allergy/AdvReac Type Severity Reaction Status Date / Time No Known Allergies Allergy Verified 09/27/18 21:09 - Home Medications Home Medications: Ambulatory Orders NK [No Known Home Medication] 11/13/18 Review of Systems - Review of Systems Constitutional: reports: No Symptoms Eyes: reports: No Symptoms Neck: reports: No Symptoms Cardiovascular: reports: Chest Pain, Palpitations, Shortness of Breath Respiratory: reports: Exercise Intolerance Gastrointestinal: reports: No Symptoms Genitourinary: reports: No Symptoms Breasts: reports: No Symptoms Reported Vital Signs: Vital Signs Temperature 98.1 F 11/14/18 15:45 Pulse Rate 146 H 11/14/18 15:45 Respiratory Rate 18 11/14/18 15:45 Blood Pressure 136/100 11/14/18 15:45 O2 Sat by Pulse Oximetry (%) 98 11/14/18 15:45 Constitutional: Yes: Well Nourished, No Distress, Calm Eyes: Yes: Conjunctiva Clear, EOM Intact HENT: Yes: Atraumatic, Normocephalic Neck: Yes: Supple, Trachea Midline Respiratory: Yes: Regular, Rhonchi, Wheezes Gastrointestinal: Yes: Normal Bowel Sounds, Soft Cardiovascular: Yes: Tachycardia. No: Gallop, Rub JVD: No Carotid Bruit: No Heart Sounds: Yes: S1, S2 Murmur: No: Systolic Murmur, Diastolic Murmur Edema: No - Other Data Labs, Other Data: CBC, BMP 11/14/18 05:00 11/14/18 05:00 INR, PTT INR 0.95 (0.83-1.09) 11/13/18 16:33 Troponin, BNP 11/13/18 11/13/18 11/14/18 16:33 19:39 05:00 Troponin I < 0.02 < 0.02 B-Natriuretic Peptide 2644.0 H 1421.6 H 11/14/18 11:06 Troponin I < 0.02 B-Natriuretic Peptide Troponin, BNP 11/13/18 11/13/18 11/14/18 16:33 19:39 05:00 Troponin I < 0.02 < 0.02 B-Natriuretic Peptide 2644.0 H 1421.6 H 11/14/18 11:06 Troponin I < 0.02 B-Natriuretic Peptide Rapid Afib HR 130 BPM. No ischemic changes. Imaging - Results Chest X-ray: Report Reviewed Problem List - Problems (1) Atrial fibrillation with rapid ventricular response Code(s): I48.91 - UNSPECIFIED ATRIAL FIBRILLATION (2) Chest pain at rest Code(s): R07.9 - CHEST PAIN, UNSPECIFIED (3) Syncope and collapse Code(s): R55 - SYNCOPE AND COLLAPSE Assessment/Plan 68 M with recent palpitations and admitted after syncope. History suggests weakness and chest pain/palpitaitons followed by LOC after he his his head. He has AVMs and after falling hit his head sustained small SAH New onset of rapid Afib. fall and symptoms likely due to rapid AF. * Given Metoprolol IV 5mg. * Start Metoprolol 25mg BID and uptitrate as tolerated. * Check TFT * Echo * Cannot get AC due to SAH/AVM. * Telemetry.
[2018-11-14] MEDS ORDERED: METOPROLOL TARTRATE 5 MG/5 ML VIAL IVPUSH PRN (17:27)
[2018-11-14] MEDS: methylPREDNISolone NA SUCC 40 MG/1 ML VIAL IVPUSH SCH ×2 (18:32→19:14)
[2018-11-14] MEDS: IPRATROPIUM BR 0.02% 0.5 MG/2.5 ML VIAL.NEB. NEB SCH ×2 (18:32→20:09)
[2018-11-14] MEDS ORDERED: IPRATROPIUM BR 0.02% 0.5 MG/2.5 ML VIAL.NEB. NEB ONE ×2 (18:35→20:05)
[2018-11-14] MEDS ORDERED: methylPREDNISolone NA SUCC 40 MG/1 ML VIAL ONE (18:35)
[2018-11-14] MEDS: levETIRAcetam 500 MG/5 ML INJECTION VIAL IVPB SCH (22:00)
[2018-11-14] MEDS ORDERED: CHLORHEXIDINE GLUCONATE 4% CLEANSER FOR DECOLONIZATION TP SCH (22:00)
[2018-11-14] MEDS: METOPROLOL TARTRATE 25 MG TABLET (FP) PO SCH (22:02)
[2018-11-14] MEDS: BUDESONIDE/FORMETEROL FUMARATE 80/4.5 mcg INHALER IH SCH (22:32)
[2018-11-14 23:38] VITALS: BMI 22.6
[2018-11-15] MEDS: methylPREDNISolone NA SUCC 40 MG/1 ML VIAL IVPUSH SCH ×4 (02:08→20:04)
[2018-11-15] MEDS: ACETAMINOPHEN 325 MG TABLET (FP) PO PRN ×3 (02:13→20:08)
[2018-11-15] MEDS: IPRATROPIUM BR 0.02% 0.5 MG/2.5 ML VIAL.NEB. NEB SCH ×4 (07:20→20:52)
--- NOTE | 2018-11-15 08:50 | PN ---
Progress Note (short form) - Note Progress Note: NEUROSURGERY No /A, N/C, Sz + coughs and chest discomfort PE: Tmax 98.3, 153/84, VSS HEENT- NC/AT; Neck- supple; Cor- RR; Lungs- wheezing B; Abd- benign; Ext- no sign of DVT A/A/Ox3 CN- intact II-XII; Motor- 4+-5 B UE/LE without drift; Sensation- intact LT; DTR - 1+; toes downgoing Troponin- negative CT Head (c/w 07/2018 and 08/2018 scans)- R orbital-frontal hypodensity c/w chronic encephalomalacia; L inferior/lateral frontal anterior Sylvian calcifications; new L anterior Sylvian SAH CTA- L lateral-inf frontal [id number] mm AVM with feeders off L MCA M2 branches mostly 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
[2018-11-15] MEDS: METOPROLOL TARTRATE 25 MG TABLET (FP) PO SCH ×2 (08:56→21:50)
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
[2018-11-15] MEDS: amLODIPine BESYLATE 5 MG TABLET (FP) PO SCH (10:08)
[2018-11-15] MEDS: PANTOPRAZOLE 40 MG TABLET (FP) PO SCH (10:09)
[2018-11-15 10:30] LABS: BASO % 0.1 % (0-2.0); HEMATOCRIT 33.6 % (35.4-49); HEMOGLOBIN 11.1 GM/dL (11.7-16.9); LYMPH % 3.7 % (8-40); MCH 24.8 pg (25.7-33.7); MEAN CELL VOLUME 75.1 fl (80-96); MEAN PLT VOLUME 8.2 fl (7.5-11.1); MONO % 3.9 % (3.8-10.2); NEUT % 92.3 % (42.8-82.8); PLATELET COUNT 312 K/MM3 (134-434); RBC 4.48 M/mm3 (4.00-5.60); RDW 15.7 % (11.9-15.9); WHITE BLOOD COUNT 13.1 K/mm3 (4.0-10.0)
[2018-11-15] MEDS: levETIRAcetam 500 MG/5 ML INJECTION VIAL IVPB SCH ×2 (10:44→21:45)
[2018-11-15] MEDS: BUDESONIDE/FORMETEROL FUMARATE 80/4.5 mcg INHALER IH SCH ×2 (10:44→21:45)
--- NOTE | 2018-11-15 10:45 | EKG ---
Test Reason : Blood Pressure : / mmHG Vent. Rate : 085 BPM Atrial Rate : 085 BPM P-R Int : 136 ms QRS Dur : 092 ms QT Int : 418 ms P-R-T Axes : 000 -30 035 degrees QTc Int : 497 ms SINUS RHYTHM WITH FREQUENT PREMATURE VENTRICULAR COMPLEXES AND PREMATURE ATRIAL COMPLEXES LEFT AXIS DEVIATION PROLONGED QT ABNORMAL ECG WHEN COMPARED WITH ECG OF 14-NOV-2018 15:40, SINUS RHYTHM HAS REPLACED ATRIAL FIBRILLATION VENT. RATE HAS DECREASED BY 44 BPM Confirmed by ADONIS JONES MD ([id number]) on 11/15/2018 10:45:17 AM Referred By: Confirmed By:ADONIS JONES MD
--- NOTE | 2018-11-15 10:49 | EKG ---
Test Reason : Blood Pressure : / mmHG Vent. Rate : 129 BPM Atrial Rate : 120 BPM P-R Int : 000 ms QRS Dur : 078 ms QT Int : 264 ms P-R-T Axes : 000 -40 058 degrees QTc Int : 386 ms ATRIAL FIBRILLATION WITH RAPID VENTRICULAR RESPONSE LEFT AXIS DEVIATION SEPTAL INFARCT (CITED ON OR BEFORE 20-JUL-2018) ABNORMAL ECG WHEN COMPARED WITH ECG OF 14-NOV-2018 13:28, ATRIAL FIBRILLATION HAS REPLACED SINUS RHYTHM VENT. RATE HAS INCREASED Confirmed by ADONIS JONES MD ([id number]) on 11/15/2018 10:49:32 AM Referred By: Confirmed By:ADONIS JONES MD
--- NOTE | 2018-11-15 10:58 | EKG ---
Test Reason : Blood Pressure : / mmHG Vent. Rate : 091 BPM Atrial Rate : 091 BPM P-R Int : 148 ms QRS Dur : 082 ms QT Int : 358 ms P-R-T Axes : 015 -30 056 degrees QTc Int : 440 ms NORMAL SINUS RHYTHM LEFT AXIS DEVIATION SEPTAL INFARCT (CITED ON OR BEFORE 20-JUL-2018) ABNORMAL ECG WHEN COMPARED WITH ECG OF 13-NOV-2018 16:28, NO SIGNIFICANT CHANGE WAS FOUND Confirmed by KAREN PARSON, ADONIS ([id number]) on 11/15/2018 10:57:58 AM Referred By: Confirmed By:ADONIS JONES MD
[2018-11-15 11:18] LABS: ALBUMIN 3.4 g/dl (3.4-5.0); ALK PHOS 60 U/L (45-117); ANION GAP 11 MMOL/L (8-16); BILIRUBIN,TOTAL 0.4 mg/dL (0.2-1); BLOOD UREA NITROGEN 23 mg/dL (7-18); CALCIUM 8.8 mg/dL (8.5-10.1); CHLORIDE 99 mmol/L (98-107); CO2 27 mmol/L (21-32); CREATININE 1.1 mg/dL (0.55-1.3); GLUCOSE,RANDOM 175 mg/dL (74-106); MAGNESIUM 1.8 mg/dL (1.8-2.4); SGOT/AST 7 U/L (15-37); SGPT/ALT 18 U/L (13-61); SODIUM 137 mmol/L (136-145); TOT PROT 6.8 g/dl (6.4-8.2)
[2018-11-15] MEDS ORDERED: oxyCODONE HCL 5 MG TABLET PO ONE (11:34)
--- NOTE | 2018-11-15 12:00 | ECHO ---
Name: JANN SÁNCHEZ Exam:Adult Echocardiogram Study Date: 11/15/2018 08:36 AM Age: 68 yrs Reason For Study: SOB Height: 66 in Weight: 145 lb BSA: 1.7 m2 MMode/2D Measurements & Calculations IVSd: 1.3 cm Ao root diam: 2.8 cm LVIDd: 4.2 cm LA dimension: 3.6 cm LVIDs: 2.9 cm LVPWd: 1.1 cm EDV(Teich): 79.9 ml LAV (MOD-bp): 56.0 ml ESV(Teich): 32.2 ml Doppler Measurements & Calculations MV E max randy: 66.0 cm/sec TR max randy: 276.9 cm/sec MV A max randy: 64.0 cm/sec TR max P.7 mmHg MV E/A: 1.0 MV dec time: 0.20 sec Med Peak E' Randy: 8.5 cm/sec PI Vmax: 84.2 cm/sec Med E/e': 7.8 Lat Peak E' Randy: 10.3 cm/sec Lat E/e': 6.4 Procedure A complete two-dimensional transthoracic echocardiogram was performed (2D, M-mode, Doppler and color flow Doppler). Left Ventricle The left ventricle is normal in size. Left ventricular systolic function is normal. Ejection Fraction = 60- 65%. No regional wall motion abnormalities noted. Right Ventricle The right ventricle is normal size. The right ventricular systolic function is normal. Atria The left atrial size is normal. LA volume index is 32 ml/m2. Right atrial size is normal. Mitral Valve The mitral valve is normal in structure and function. There is no mitral regurgitation noted. Tricuspid Valve The tricuspid valve is normal in structure and function. No tricuspid regurgitation. Aortic Valve The aortic valve is normal in structure and function. No aortic regurgitation is present. Pulmonic Valve The pulmonic valve is not well visualized. Great Vessels The aortic root is normal size. Pericardium/Pleura There is no pericardial effusion. Interpretation Summary The left ventricle is normal in size. Left ventricular systolic function is normal. No regional wall motion abnormalities noted. Ejection Fraction = 60-65%. The right ventricular systolic function is normal. The left atrial size is normal. Right atrial size is normal. No significant valvular regurgitations There is no pericardial effusion. Previous study is not available for comparison Sang H Camille, MD 11/15/2018 11:59 AM
--- NOTE | 2018-11-15 12:18 | PN ---
Progress Note, Physician - Current Medication List Current Medications: Active Medications Acetaminophen (Tylenol -) 650 mg PO Q6H PRN PRN Reason: PAIN LEVEL 1 - 3 Last Admin: 11/15/18 08:56 Dose: 650 mg Albuterol Sulfate (Ventolin 0.083% Nebulizer Soln -) 1 amp NEB Q6H PRN PRN Reason: SHORT OF BREATH/WHEEZING Amlodipine Besylate (Norvasc -) 5 mg PO DAILY [facility] Last Admin: 11/15/18 10:08 Dose: 5 mg Budesonide/Formoterol Fumarate (Symbicort 80/4.5mcg -) 2 puff IH BID [facility] Last Admin: 11/14/18 22:32 Dose: 2 puff Chlordiazepoxide HCl (Librium -) 25 mg PO Q6H PRN PRN Reason: WITHDRAWAL(CONT SUBST) Chlorhexidine Gluconate (Hibiclens For Decolonization -) 1 applic TP HS [facility] Ipratropium [place] (Atrovent 0.02% Nebulizer -) 1 amp NEB RQID [facility] Last Admin: 11/15/18 11:15 Dose: 1 amp Levetiracetam (Keppra Injection -) 500 mg IVPB BID [facility] Last Admin: 11/14/18 22:00 Dose: 500 mg Methylprednisolone Sodium Succinate (Solu-Medrol -) 20 mg IVPUSH Q8H-IV [facility] Last Admin: 11/15/18 08:57 Dose: 20 mg Metoprolol Tartrate (Lopressor -) 25 mg PO BID [facility] Last Admin: 11/15/18 08:56 Dose: 25 mg Metoprolol Tartrate (Lopressor Injection -) 5 mg IVPUSH Q4H PRN PRN Reason: TACHYCARDIA Mupirocin (Bactroban Ointment (For Decolonization) -) 1 applic NS BID [facility] Stop: 11/19/18 09:59 Last Admin: 11/14/18 09:45 Dose: Not Given Pantoprazole Sodium (Protonix -) 40 mg PO DAILY [facility] Last Admin: 11/15/18 10:09 Dose: 40 mg - Objective Vital Signs: Vital Signs Temperature 98.2 F 11/15/18 09:00 Pulse Rate 91 H 11/15/18 09:00 Respiratory Rate 20 11/15/18 09:00 Blood Pressure 130/65 11/15/18 09:00 O2 Sat by Pulse Oximetry (%) 99 11/14/18 20:01 Labs: CBC, BMP 11/15/18 09:31 11/15/18 09:31 INR, PTT INR 0.95 (0.83-1.09) 11/13/18 16:33 Assessment/Plan Problem List - Problems (1) Atrial fibrillation with rapid ventricular response Code(s): I48.91 - UNSPECIFIED ATRIAL FIBRILLATION (2) Alcohol abuse Code(s): F10.10 - ALCOHOL ABUSE, UNCOMPLICATED (3) Fall Code(s): W19.XXXA - UNSPECIFIED FALL, INITIAL ENCOUNTER Qualifiers: Encounter type: initial encounter Qualified Code(s): W19.XXXA - Unspecified fall, initial encounter (4) Head injury Code(s): S09.90XA - UNSPECIFIED INJURY OF HEAD, INITIAL ENCOUNTER Qualifiers: Encounter type: initial encounter Qualified Code(s): S09.90XA - Unspecified injury of head, initial encounter (5) Nicotine dependence Code(s): F17.200 - NICOTINE DEPENDENCE, UNSPECIFIED, UNCOMPLICATED (6) Tachycardia Code(s): R00.0 - TACHYCARDIA, UNSPECIFIED (7) COPD (chronic obstructive pulmonary disease) Code(s): J44.9 - CHRONIC OBSTRUCTIVE PULMONARY DISEASE, UNSPECIFIED Assessment/Plan DYSPNEA AF WITH RVR AVM WITH SUBARACHNOID HEMORRHAGE COPD HTN CP SMOKER PLAN RATE CONTROL PER CARDIOLOGY ECHO CARDIOLOGY W/U IN PROGRESS CT CHEST WITH CONTRAST TO R/O PE O2 SUPPLEMENTATION AND EVENTUAL PRE/POST AMB O2 SAT PRIOR TO DISCHARGE ATROVENT VIA NEB ALONG WITH ICS/LABA OUTPATIENT PFT'S SMOKING CESSATION COUNSELED DR BLANCO
[2018-11-15 12:39] LABS: ANISOCYTOSIS 1+; MACROCYTOSIS 0; PLATELET ESTIMATE NORMAL; TARGET CELLS 2+
--- NOTE | 2018-11-15 15:25 | PN ---
Progress Note, Physician History of Present Illness: seen and examined today in nad. still feeling chest tightness. no overnight events. - Current Medication List Current Medications: Active Medications Acetaminophen (Tylenol -) 650 mg PO Q6H PRN PRN Reason: PAIN LEVEL 1 - 3 Last Admin: 11/15/18 08:56 Dose: 650 mg Albuterol Sulfate (Ventolin 0.083% Nebulizer Soln -) 1 amp NEB Q6H PRN PRN Reason: SHORT OF BREATH/WHEEZING Amlodipine Besylate (Norvasc -) [address] [facility] Last Admin: 11/15/18 10:08 Dose: 5 mg Budesonide/Formoterol Fumarate (Symbicort 80/4.5mcg -) [address] [facility] Last Admin: 11/14/18 22:32 Dose: 2 puff Ipratropium [place] (Atrovent 0.02% Nebulizer -) [address] [facility] Last Admin: 11/15/18 11:15 Dose: 1 amp Levetiracetam (Keppra Injection -) [address] [facility] Last Admin: 11/14/18 22:00 Dose: 500 mg Methylprednisolone Sodium Succinate (Solu-Medrol -) 20 mg IVPUSH Q8H-IV [facility] Last Admin: 11/15/18 08:57 Dose: 20 mg Metoprolol Tartrate (Lopressor -) [address] [facility] Last Admin: 11/15/18 08:56 Dose: 25 mg Metoprolol Tartrate (Lopressor Injection -) 5 mg IVPUSH Q4H PRN PRN Reason: TACHYCARDIA Mupirocin (Bactroban Ointment (For Decolonization) -) [address] [facility] Stop: 11/19/18 09:59 Last Admin: 11/14/18 09:45 Dose: Not Given Pantoprazole Sodium (Protonix -) [address] [facility] Last Admin: 11/15/18 10:09 Dose: 40 mg - Objective Vital Signs: Vital Signs Temperature 97.6 F 11/15/18 14:28 Pulse Rate 84 11/15/18 14:28 Respiratory Rate 18 11/15/18 14:28 Blood Pressure 146/81 11/15/18 14:28 O2 Sat by Pulse Oximetry (%) 99 11/14/18 20:01 Constitutional: Yes: No Distress, Calm Eyes: Yes: Conjunctiva Clear, EOM Intact, PERRL HENT: Yes: Atraumatic, Normocephalic Neck: Yes: Supple, Trachea Midline Cardiovascular: Yes: Regular Rate and Rhythm, S1, S2. No: Bradycardia, Tachycardia, Pulse Irregular, Bruit, JVD, Gallop, Murmur, Rub, S3, S4, Varicosities Respiratory: Yes: Regular, Diminished. No: Rales, Rhonchi, SOB, Wheezes Gastrointestinal: Yes: Normal Bowel Sounds, Soft. No: Distention, Tenderness Musculoskeletal: Yes: WNL Extremities: Yes: WNL Edema: No Peripheral Pulses WNL: Yes Peripheral Pulses: Left Doralis Pedis: 2+, Right Dorsalis Pedis: 2+ Neurological: Yes: Alert, Oriented Psychiatric: Yes: Alert, Oriented Labs: CBC, BMP 11/15/18 09:31 11/15/18 09:31 INR, PTT INR 0.95 (0.83-1.09) 11/13/18 16:33 - ....Imaging Chest X-ray: Report Reviewed, Image Reviewed EKG: Report Reviewed, Image Reviewed Other: Report Reviewed, Image Reviewed (tele-NSR with frequent apcs, pvcs) Assessment/Plan 68 M with recent palpitations and admitted after syncope. History suggests weakness and chest pain/palpitations followed by LOC after he his his head. He has AVMs and after falling hit his head sustained small SAH New onset of rapid Afib diagnosed on admission. Syncope-uncertain etiology but may be related to newly diagnosed AFib -has been NSR with apcs, pvcs since 24hours -Echo 11/15/18 showed normal LVEF, normal RV, normal valves -cont Metoprolol 25mg po bid with IV metoprolol prn if further Afib with RVR -check TFTs -not on AC due to SAH/AVM -CTA chest was TDS but showed no definitive evidence of pulmonary embolism -cont tele for now, if no further arrhythmias in next 24 hours can likely be discontinued
[2018-11-16] MEDS: methylPREDNISolone NA SUCC 40 MG/1 ML VIAL IVPUSH SCH ×3 (01:53→17:22)
[2018-11-16] MEDS: ACETAMINOPHEN 325 MG TABLET (FP) PO PRN ×3 (01:54→19:08)
[2018-11-16] MEDS ORDERED: diphenhydrAMINE HCL 25 MG CAPSULE (FP) PO ONE ×2 (06:44→20:45)
[2018-11-16] MEDS ORDERED: ACETAMINOPHEN 325 MG TABLET (FP) PO ONE (06:47)
[2018-11-16 07:48] LABS: BASO % 0.1 % (0-2.0); HEMOGLOBIN 11.2 GM/dL (11.7-16.9); LYMPH % 3.3 % (8-40); MCH 24.7 pg (25.7-33.7); MEAN CELL VOLUME 74.8 fl (80-96); MEAN PLT VOLUME 8.3 fl (7.5-11.1); MONO % 4.1 % (3.8-10.2); NEUT % 92.5 % (42.8-82.8); PLATELET COUNT 319 K/MM3 (134-434); RBC 4.55 M/mm3 (4.00-5.60); RDW 16.3 % (11.9-15.9); WHITE BLOOD COUNT 15.6 K/mm3 (4.0-10.0)
[2018-11-16] MEDS: IPRATROPIUM BR 0.02% 0.5 MG/2.5 ML VIAL.NEB. NEB SCH ×4 (08:30→20:35)
--- NOTE | 2018-11-16 08:58 | PN ---
Progress Note (short form) - Note Progress Note: S/P syncopal episode, most likely cardiogenic in nature with AVM noted on CT scan and small amount of subarachnoid blood, possibly from fall. Dr. Ellington wants to intervene on AVM, but currently patient is complaining of dysnea and chest pain and needs to have his cardiopulmonary status stabilized before this can occur. Neurologically, he is currently stable.
[2018-11-16] MEDS: METOPROLOL TARTRATE 25 MG TABLET (FP) PO SCH ×2 (10:19→21:47)
[2018-11-16] MEDS: PANTOPRAZOLE 40 MG TABLET (FP) PO SCH (10:20)
[2018-11-16] MEDS: BUDESONIDE/FORMETEROL FUMARATE 80/4.5 mcg INHALER IH SCH ×2 (10:20→21:46)
[2018-11-16] MEDS: levETIRAcetam 500 MG/5 ML INJECTION VIAL IVPB SCH ×2 (10:20→21:46)
[2018-11-16] MEDS: amLODIPine BESYLATE 5 MG TABLET (FP) PO SCH (10:20)
--- NOTE | 2018-11-16 10:42 | PN ---
Progress Note, Physician History of Present Illness: seen and examined today. continues to have constant L sided chest discomfort which he states has not resolved since admission. also c/o sob. no palpitations. - Current Medication List Current Medications: Active Medications Acetaminophen (Tylenol -) 650 mg PO Q6H PRN PRN Reason: PAIN LEVEL 1 - 3 Last Admin: 11/16/18 10:21 Dose: 650 mg Albuterol Sulfate (Ventolin 0.083% Nebulizer Soln -) 1 amp NEB Q6H PRN PRN Reason: SHORT OF BREATH/WHEEZING Amlodipine Besylate (Norvasc -) 5 mg PO DAILY [facility] Last Admin: 11/16/18 10:20 Dose: 5 mg Budesonide/Formoterol Fumarate (Symbicort 80/4.5mcg -) 2 puff IH BID [facility] Last Admin: 11/16/18 10:20 Dose: 2 puff Ipratropium [place] (Atrovent 0.02% Nebulizer -) 1 amp NEB RQID [facility] Last Admin: 11/16/18 08:30 Dose: 1 amp Levetiracetam (Keppra Injection -) 500 mg IVPB BID [facility] Last Admin: 11/16/18 10:20 Dose: 500 mg Methylprednisolone Sodium Succinate (Solu-Medrol -) 20 mg IVPUSH Q8H-IV [facility] Last Admin: 11/16/18 10:20 Dose: 20 mg Metoprolol Tartrate (Lopressor -) 25 mg PO BID [facility] Last Admin: 11/16/18 10:19 Dose: 25 mg Metoprolol Tartrate (Lopressor Injection -) 5 mg IVPUSH Q4H PRN PRN Reason: TACHYCARDIA Pantoprazole Sodium (Protonix -) 40 mg PO DAILY [facility] Last Admin: 11/16/18 10:20 Dose: 40 mg - Objective Vital Signs: Vital Signs Temperature 98 F 11/16/18 05:58 Pulse Rate 96 H 11/16/18 05:58 Respiratory Rate 20 11/16/18 05:58 Blood Pressure 143/71 11/16/18 05:58 O2 Sat by Pulse Oximetry (%) 99 11/14/18 20:01 Constitutional: Yes: No Distress, Calm Eyes: Yes: Conjunctiva Clear, EOM Intact HENT: Yes: Atraumatic, Normocephalic Neck: Yes: Supple, Trachea Midline Cardiovascular: Yes: Regular Rate and Rhythm, S1, S2. No: Bradycardia, Tachycardia, Pulse Irregular, Bruit, JVD, Gallop, Murmur, Rub, S3, S4, Varicosities Respiratory: Yes: Regular. No: Rales, Rhonchi, Wheezes Gastrointestinal: Yes: Normal Bowel Sounds, Soft. No: Distention, Tenderness Musculoskeletal: Yes: WNL Extremities: Yes: WNL Edema: No Peripheral Pulses WNL: Yes Peripheral Pulses: Left Doralis Pedis: 2+, Right Dorsalis Pedis: 2+ Neurological: Yes: Alert, Oriented Psychiatric: Yes: Alert, Oriented Labs: CBC, BMP 11/16/18 06:15 INR, PTT INR 0.95 (0.83-1.09) 11/13/18 16:33 - ....Imaging Chest X-ray: Report Reviewed, Image Reviewed EKG: Report Reviewed, Image Reviewed Other: Report Reviewed, Image Reviewed (tele-nsr, sinus tach, frequent apcs, pafib) Assessment/Plan 68 M with recent palpitations and admitted after syncope. History suggests weakness and chest pain/palpitations followed by LOC after he his his head. He has AVMs and after falling hit his head sustained small SAH New onset of rapid Afib diagnosed on admission. Syncope-uncertain etiology but may be related to newly diagnosed AFib -tele mostly NSR with apcs, pvcs -Echo 11/15/18 showed normal LVEF, normal RV, normal valves -cont Metoprolol 25mg po bid with IV metoprolol prn if further Afib with RVR -check TFTs -not on AC due to SAH/AVM -CTA chest was TDS but showed no definitive evidence of pulmonary embolism -cont tele for now Chest pain/SOB -constant pain -unlikely ACS, atypical pain, cardiac enzymes wnl -unrelated to Afib as pain/sob continuous and not currently in afib -echo as above showed normal LVEF -pulmonary following -WBC trending up, possibly steroid induced -may benefit from an ischemic evaluation at some point however in the setting of AVMs and SAH would hold off for now. -cont metoprolol
[2018-11-16] MEDS ORDERED: IPRATROPIUM BR 0.02% 0.5 MG/2.5 ML VIAL.NEB. NEB ONE (11:14)
[2018-11-16 11:35] LABS: ANISOCYTOSIS 0; MACROCYTOSIS 0; PLATELET ESTIMATE NORMAL
[2018-11-16 12:44] LABS: BLOOD UREA NITROGEN 27 mg/dL (7-18); CREATININE 0.9 mg/dL (0.55-1.3); GLUCOSE,RANDOM 127 mg/dL (74-106)
[2018-11-16 12:45] LABS: ALBUMIN 3.5 g/dl (3.4-5.0); ANION GAP 8 MMOL/L (8-16); BILIRUBIN,TOTAL 0.3 mg/dL (0.2-1); CALCIUM 8.4 mg/dL (8.5-10.1); CHLORIDE 100 mmol/L (98-107); CO2 27 mmol/L (21-32); MAGNESIUM 1.9 mg/dL (1.8-2.4); POTASSIUM 3.8 mmol/L (3.5-5.1); SGOT/AST 9 U/L (15-37); SODIUM 135 mmol/L (136-145); TOT PROT 6.9 g/dl (6.4-8.2)
[2018-11-16 12:46] LABS: ALK PHOS 56 U/L (45-117); SGPT/ALT 18 U/L (13-61)
--- NOTE | 2018-11-16 13:19 | PN ---
Physical Exam: SUBJECTIVE: Patient seen and examined. Complains of persistent left sided chest tightness and sob. OBJECTIVE: Vital Signs Period Temp Pulse Resp BP Sys/Spicer Pulse Ox Last 24 Hr 97.4 F-98.2 F 47-96 18-20 125-149/71-88 PE Neuro: alert, awake, cn 2-12intact Pulm: b/l rhonchi + NC no wheezing CV: s1 s2 rrr Abd: s nt nd + bs Ext: no le edema, tenderness d/t rods Laboratory Results - last 24 hr 11/16/18 11/16/18 06:15 06:15 WBC 15.6 H RBC 4.55 Hgb 11.2 L Hct 34.0 L MCV 74.8 L MCH 24.7 L MCHC 33.0 RDW 16.3 H Plt Count 319 MPV 8.3 Absolute Neuts (auto) 14.4 H Neutrophils % 92.5 H Neutrophils % (Manual) 94.0 H Band Neutrophils % 0.0 Lymphocytes % 3.3 L Lymphocytes % (Manual) 3.0 L D Monocytes % 4.1 Monocytes % (Manual) 2 L Eosinophils % 0.0 Eosinophils % (Manual) 1.0 D Basophils % 0.1 Basophils % (Manual) 0.0 Myelocytes % (Man) 0 Promyelocytes % (Man) 0 Blast Cells % (Manual) 0 Nucleated RBC % 0 Metamyelocytes 0 Hypochromia 0 Platelet Estimate Normal Platelet Comment Present Polychromasia 0 Poikilocytosis 0 Anisocytosis 0 Microcytosis 0 Macrocytosis 0 Sodium 135 L Potassium 3.8 Chloride 100 Carbon Dioxide 27 Anion Gap 8 BUN 27 H Creatinine 0.9 Creat Clearance w eGFR > 60 Random Glucose 127 H Calcium 8.4 L Magnesium 1.9 Total Bilirubin 0.3 AST 9 L ALT 18 Alkaline Phosphatase 56 Total Protein 6.9 Albumin 3.5 Active Medications Generic Name Dose Route Start Last Admin Trade Name Freq PRN Reason Stop Dose Admin Acetaminophen 650 mg 11/13/18 23:20 11/16/18 10:21 Tylenol - PO 650 mg Q6H PRN Administration PAIN LEVEL 1 - 3 Albuterol Sulfate 1 amp 11/13/18 19:23 Ventolin 0.083% Nebulizer Soln - NEB Q6H PRN SHORT OF BREATH/WHEEZING Amlodipine Besylate 5 mg 11/14/18 10:00 11/16/18 10:20 Norvasc - PO 5 mg DAILY EMILY Administration Budesonide/Formoterol Fumarate 2 puff 11/14/18 22:00 11/16/18 10:20 Symbicort 80/4.5mcg - IH 2 puff BID EMILY Administration Ipratropium [place] 1 amp 11/14/18 16:00 11/16/18 11:38 Atrovent 0.02% Nebulizer - NEB 1 amp RQID EMILY Administration Levetiracetam 500 mg 11/14/18 22:00 11/16/18 10:20 Keppra Injection - IVPB 500 mg BID EMILY Administration Methylprednisolone Sodium Succinate 20 mg 11/14/18 16:00 11/16/18 10:20 Solu-Medrol - IVPUSH 20 mg Q8H-IV EMILY Administration Metoprolol Tartrate 25 mg 11/14/18 22:00 11/16/18 10:19 Lopressor - PO 25 mg BID EMILY Administration Metoprolol Tartrate 5 mg 11/14/18 17:27 Lopressor Injection - IVPUSH Q4H PRN TACHYCARDIA Pantoprazole Sodium 40 mg 11/15/18 10:00 11/16/18 10:20 Protonix - PO 40 mg DAILY EMILY Administration Imaging: - Head CTA: left lateral inf frontal [id number] mm AVM with feeders off L MCA Assessment: 68 year old male with pmhx of ETOH abuse/dependence, COPD and HTN presented with syncopal event, hitting head, while ambulating along shortness of breath and chest tightness with a productive cough and yellow phlegm. Plan: 1. Syncope with collapse - Possible d/t new A fib vs AVMs - No AC d/t SAH 2. Symptomatic AVM/Left lateral frontal AVM with SAH - Found on Head CT - Intervention warranted per Dr. Ellington, however pulmonary status to stabilize 3. Chest tightness, SOB - Persistent, less likely cardiac in nature - IV medrol 20mg q8hr - Transition per Pulm - Negative for PE - Cont nebs 4. Possible Seizure disorder - Keppra IV 500mg BID 5. A fib - In sinus - Metoprolol 25mg BID - ECHO nml LVEF, RV normal 6. Leukocytosis - Likely steroid induced Visit type - Emergency Visit Emergency Visit: Yes ED Registration Date: 11/14/18 Care time: The patient presented to the Emergency Department on the above date and was hospitalized for further evaluation of their emergent condition. - New Patient This patient is new to me today: Yes Date on this admission: 11/16/18 - Critical Care Critical Care patient: No
--- NOTE | 2018-11-16 14:14 | PN ---
Progress Note (short form) - Note Progress Note: PULMONARY Still with shortness of breath, chest tightness. Improves temporarily with nebulizer treatments. Vital Signs Period Temp Pulse Resp BP Sys/Spicer Pulse Ox Last 24 Hr 97.4 F-98.2 F 47-96 18-20 125-149/71-88 Gen: mildly tachypneic at rest Heart: RRR Lung: scattered rhonchi, wheezes Abd: soft, nontender Ext: no edema CBC, BMP 11/16/18 06:15 11/16/18 06:15 Active Medications Acetaminophen (Tylenol -) 650 mg PO Q6H PRN PRN Reason: PAIN LEVEL 1 - 3 Last Admin: 11/16/18 10:21 Dose: 650 mg Albuterol Sulfate (Ventolin 0.083% Nebulizer Soln -) 1 amp NEB Q6H PRN PRN Reason: SHORT OF BREATH/WHEEZING Amlodipine Besylate (Norvasc -) 5 mg PO DAILY [facility] Last Admin: 11/16/18 10:20 Dose: 5 mg Budesonide/Formoterol Fumarate (Symbicort 80/4.5mcg -) 2 puff IH BID [facility] Last Admin: 11/16/18 10:20 Dose: 2 puff Ipratropium [place] (Atrovent 0.02% Nebulizer -) 1 amp NEB RQID [facility] Last Admin: 11/16/18 11:38 Dose: 1 amp Levetiracetam (Keppra Injection -) 500 mg IVPB BID [facility] Last Admin: 11/16/18 10:20 Dose: 500 mg Methylprednisolone Sodium Succinate (Solu-Medrol -) 20 mg IVPUSH Q8H-IV [facility] Last Admin: 11/16/18 10:20 Dose: 20 mg Metoprolol Tartrate (Lopressor -) 25 mg PO BID [facility] Last Admin: 11/16/18 10:19 Dose: 25 mg Metoprolol Tartrate (Lopressor Injection -) 5 mg IVPUSH Q4H PRN PRN Reason: TACHYCARDIA Pantoprazole Sodium (Protonix -) 40 mg PO DAILY [facility] Last Admin: 11/16/18 10:20 Dose: 40 mg A/P Acute COPD Exacerbation Syncope Atrial Fibrillation Acute Subarachnoid Hemmorhage Alcohol Abuse - will increase medrol to 40mg q8h - inhaled bronchodilators standing and PRN - O2 to keep SpO2 >90% - rate control - holding anticoagulation
[2018-11-16] MEDS: HYDROCORTISONE 0.5% TOPICAL CREAM 30 GM TUBE TP SCH (21:46)
[2018-11-17] MEDS: ACETAMINOPHEN 325 MG TABLET (FP) PO PRN ×4 (00:50→21:43)
[2018-11-17] MEDS: methylPREDNISolone NA SUCC 40 MG/1 ML VIAL IVPUSH SCH ×3 (01:19→19:01)
[2018-11-17 06:38] LABS: BASO % 0.3 % (0-2.0); HEMOGLOBIN 11.4 GM/dL (11.7-16.9); LYMPH % 3.6 % (8-40); MCH 24.4 pg (25.7-33.7); MCHC 32.5 g/dl (32.0-35.9); MEAN CELL VOLUME 75.2 fl (80-96); MEAN PLT VOLUME 8.1 fl (7.5-11.1); NEUT % 91.1 % (42.8-82.8); PLATELET COUNT 338 K/MM3 (134-434); RBC 4.66 M/mm3 (4.00-5.60); RDW 16.2 % (11.9-15.9); WHITE BLOOD COUNT 15.6 K/mm3 (4.0-10.0)
[2018-11-17 07:43] LABS: ANION GAP 8 MMOL/L (8-16); BLOOD UREA NITROGEN 27 mg/dL (7-18); CALCIUM 8.4 mg/dL (8.5-10.1); CHLORIDE 101 mmol/L (98-107); CO2 28 mmol/L (21-32); GLUCOSE,RANDOM 126 mg/dL (74-106); POTASSIUM 3.9 mmol/L (3.5-5.1); SODIUM 136 mmol/L (136-145)
[2018-11-17] MEDS: IPRATROPIUM BR 0.02% 0.5 MG/2.5 ML VIAL.NEB. NEB SCH ×4 (08:30→20:49)
--- NOTE | 2018-11-17 09:03 | PN ---
Progress Note (short form) - Note Progress Note: Subjective: The patient was seen and examined at the bedside, he has multiple complaints: he reports headache and is requesting Tylenol. He reports rash x2 days with itching. He is also reporting his breathing has not improved. Current Medications Generic Name Dose Route Start Last Admin Trade Name Freq PRN Reason Stop Dose Admin Acetaminophen 650 mg 11/13/18 23:20 11/17/18 00:50 Tylenol - PO 650 mg Q6H PRN Administration PAIN LEVEL 1 - 3 Albuterol Sulfate 1 amp 11/13/18 19:23 Ventolin 0.083% Nebulizer Soln - NEB Q6H PRN SHORT OF BREATH/WHEEZING Amlodipine Besylate 5 mg 11/14/18 10:00 11/16/18 10:20 Norvasc - PO 5 mg DAILY EMILY Administration Budesonide/Formoterol Fumarate 2 puff 11/14/18 22:00 11/16/18 21:46 Symbicort 80/4.5mcg - IH 2 puff BID EMILY Administration Hydrocortisone 1 applic 11/16/18 22:00 11/16/18 21:46 Hytone 0.5% Cream - TP 1 applic BID EMILY Administration Ipratropium [place] 1 amp 11/14/18 16:00 11/17/18 08:30 Atrovent 0.02% Nebulizer - NEB 1 amp RQID EMILY Administration Levetiracetam 500 mg 11/14/18 22:00 11/16/18 21:46 Keppra Injection - IVPB 500 mg BID EMILY Administration Methylprednisolone Sodium Succinate 40 mg 11/16/18 14:15 11/17/18 01:19 Solu-Medrol - IVPUSH 40 mg Q8H-IV EMILY Administration Metoprolol Tartrate 25 mg 11/14/18 22:00 11/16/18 21:47 Lopressor - PO 25 mg BID EMILY Administration Metoprolol Tartrate 5 mg 11/14/18 17:27 Lopressor Injection - IVPUSH Q4H PRN TACHYCARDIA Pantoprazole Sodium 40 mg 11/15/18 10:00 11/16/18 10:20 Protonix - PO 40 mg DAILY EMILY Administration Objective: Vital Signs Period Temp Pulse Resp BP Sys/Spicer Pulse Ox Last 24 Hr 97.6 F-98.1 F 67-89 18-20 126-147/69-86 Physical Exam: General: NAD, A&Ox3 Lungs: Scattered rhonchi and mild end expiratory wheezing Heart: RRR, S1S2 Abd: Soft, non-tender, non-distended. Normoactive bowel sounds Ext: Warm, well-perfused. No edema Skin: Rash on trunk, upper extremities, erythema with hives CBCD WBC 15.6 K/mm3 (4.0-10.0) H 11/17/18 05:30 RBC 4.66 M/mm3 (4.00-5.60) 11/17/18 05:30 Hgb 11.4 GM/dL (11.7-16.9) L 11/17/18 05:30 Hct 35.0 % (35.4-49) L 11/17/18 05:30 MCV 75.2 fl (80-96) L 11/17/18 05:30 MCHC 32.5 g/dl (32.0-35.9) 11/17/18 05:30 RDW 16.2 % (11.9-15.9) H 11/17/18 05:30 Plt Count 338 K/MM3 (134-434) 11/17/18 05:30 MPV 8.1 fl (7.5-11.1) 11/17/18 05:30 CMP Sodium 136 mmol/L (136-145) 11/17/18 05:30 Potassium 3.9 mmol/L (3.5-5.1) 11/17/18 05:30 Chloride 101 mmol/L (98-107) 11/17/18 05:30 Carbon Dioxide 28 mmol/L (21-32) 11/17/18 05:30 Anion Gap 8 MMOL/L (8-16) 11/17/18 05:30 BUN 27 mg/dL (7-18) H 11/17/18 05:30 Creatinine 1.0 mg/dL (0.55-1.3) 11/17/18 05:30 Creat Clearance w eGFR > 60 (>60) 11/17/18 05:30 Random Glucose 126 mg/dL (74-106) H 11/17/18 05:30 Calcium 8.4 mg/dL (8.5-10.1) L 11/17/18 05:30 Total Bilirubin 0.3 mg/dL (0.2-1) 11/16/18 06:15 AST 9 U/L (15-37) L 11/16/18 06:15 ALT 18 U/L (13-61) 11/16/18 06:15 Alkaline Phosphatase 56 U/L (45-117) 11/16/18 06:15 Total Protein 6.9 g/dl (6.4-8.2) 11/16/18 06:15 Albumin 3.5 g/dl (3.4-5.0) 11/16/18 06:15 CARDIAC ENZYMES Creatine Kinase 168 U/L (26-308) 11/13/18 16:33 Troponin I < 0.02 ng/ml (0.00-0.05) 11/14/18 11:06 Imaging: - Head CTA: left lateral inf frontal [id number] mm AVM with feeders off L MCA Assessment: 68 year old male with pmhx of ETOH abuse/dependence, COPD and HTN presented with syncopal event, hitting head, while ambulating along shortness of breath and chest tightness with a productive cough and yellow phlegm. Plan: 1. Syncope with collapse - Possible d/t new A fib vs AVMs - No AC d/t SAH 2. 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 Ellington, however pulmonary status to stabilize. Awaiting further recommendations from neurosurgery 3. Chest tightness, SOB - Persistent, less likely cardiac in nature - Solumedrol increased to 40mg q8h - Chest CTA 11/15 negative for central PE - Cont nebs 4. Possible Seizure disorder - Keppra IV 500mg BID 5. A fib - In sinus - Metoprolol 25mg BID - ECHO nml LVEF, RV normal 6. Leukocytosis - Likely steroid induced 7. Hives - Patient with no known drug allergies - Continue steroids - Benadryl - F/u dermatology consult Visit type - Emergency Visit Emergency Visit: Yes ED Registration Date: 11/14/18 Care time: The patient presented to the Emergency Department on the above date and was hospitalized for further evaluation of their emergent condition. - New Patient This patient is new to me today: Yes Date on this admission: 11/17/18 - Critical Care Critical Care patient: No
[2018-11-17] MEDS ORDERED: diphenhydrAMINE HCL 25 MG CAPSULE (FP) PO ONE (09:06)
[2018-11-17 09:56] LABS: ANISOCYTOSIS 1+; MACROCYTOSIS 0; PLATELET ESTIMATE NORMAL; TARGET CELLS 2+
--- NOTE | 2018-11-17 10:11 | PN ---
Progress Note, Physician History of Present Illness: INITIAL HPI: 68 yo M with h/o Etoh dependence, COPD, HTN who p/w syncopal event. Patient reports he was walking in street, felt rapid heart rate, lightheaded, and lost consciousness for unknown amount of time. Denies h/o similar presentation. Reports 1 week of SOB, Roman. Patient now with left sided chest discomfort/tightness, aggravated with movement. + dry non productive cough , and wheezing. Does not recall hitting head. CT Head (c/w 07/2018 and 08/2018 scans)- R orbital-frontal hypodensity c/w chronic encephalomalacia; L inferior/lateral frontal anterior Sylvian calcifications; new L anterior Sylvian SAH CTA- L lateral-inf frontal [id number] mm AVM with feeders off L MCA mostly (prelim ) L inferior lateral frontal AVM with SAH and 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 FU : slight improvement in breathing No HERRERA , no HX of seizure new rash , ? keppra - Current Medication List Current Medications: Active Medications Acetaminophen (Tylenol -) 650 mg PO Q6H PRN PRN Reason: PAIN LEVEL 1 - 3 Last Admin: 11/17/18 00:50 Dose: 650 mg Albuterol Sulfate (Ventolin 0.083% Nebulizer Soln -) 1 amp NEB Q6H PRN PRN Reason: SHORT OF BREATH/WHEEZING Amlodipine Besylate (Norvasc -) 5 mg PO DAILY [facility] Last Admin: 11/16/18 10:20 Dose: 5 mg Budesonide/Formoterol Fumarate (Symbicort 80/4.5mcg -) 2 puff IH BID [facility] Last Admin: 11/16/18 21:46 Dose: 2 puff Hydrocortisone (Hytone 0.5% Cream -) 1 applic TP BID [facility] Last Admin: 11/16/18 21:46 Dose: 1 applic Ipratropium [place] (Atrovent 0.02% Nebulizer -) 1 amp NEB RQID [facility] Last Admin: 11/17/18 08:30 Dose: 1 amp Levetiracetam (Keppra Injection -) 500 mg IVPB BID [facility] Last Admin: 11/16/18 21:46 Dose: 500 mg Methylprednisolone Sodium Succinate (Solu-Medrol -) 40 mg IVPUSH Q8H-IV [facility] Last Admin: 11/17/18 01:19 Dose: 40 mg Metoprolol Tartrate (Lopressor -) 25 mg PO BID [facility] Last Admin: 11/16/18 21:47 Dose: 25 mg Metoprolol Tartrate (Lopressor Injection -) 5 mg IVPUSH Q4H PRN PRN Reason: TACHYCARDIA Pantoprazole Sodium (Protonix -) 40 mg PO DAILY [facility] Last Admin: 11/16/18 10:20 Dose: 40 mg - Objective Vital Signs: Vital Signs Temperature 98.1 F 11/17/18 05:00 Pulse Rate 83 11/17/18 09:00 Respiratory Rate 18 11/17/18 09:00 Blood Pressure 138/80 11/17/18 09:00 O2 Sat by Pulse Oximetry (%) 99 11/14/18 20:01 Labs: CBC, BMP 11/17/18 05:30 11/17/18 05:30 INR, PTT INR 0.95 (0.83-1.09) 11/13/18 16:33 Problem List - Problems (1) Arteriovenous aneurysm Code(s): I77.0 - ARTERIOVENOUS FISTULA, ACQUIRED (2) Atrial fibrillation with rapid ventricular response Code(s): I48.91 - UNSPECIFIED ATRIAL FIBRILLATION (3) Abnormal abdominal CT scan Code(s): R93.5 - ABN FINDINGS ON DX IMAGING OF ABD REGIONS, INC RETROPERITON (4) Alcohol abuse Code(s): F10.10 - ALCOHOL ABUSE, UNCOMPLICATED Assessment/Plan 68 yo M with h/o Etoh dependence, COPD, HTN who p/w syncopal event. Patient reports he was walking in street, felt rapid heart rate, lightheaded, and lost consciousness for unknown amount of time. Denies h/o similar presentation. Reports 1 week of SOB, Roman. Patient now with left sided chest discomfort/ tightness, aggravated with movement. + dry non productive cough, and wheezing. Does not recall hitting head. CT Head (c/w 07/2018 and 08/2018 scans)- R orbital-frontal hypodensity c/w chronic encephalomalacia; L inferior/lateral frontal anterior Sylvian calcifications; new L anterior Sylvian SAH CTA- L lateral-inf frontal [id number] mm AVM with feeders off L MCA mostly (prelim ) L inferior lateral frontal AVM with SAH and 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 PLNA: OTTONIEL mccann -? rash Spoke to NS today--plan for GAMMA KNIFE RAD to AVM when stable -elective , though given possible subacute SAH, agree that this should be addressed sooner rather than later, awaiting medical stabilization DR RAI
--- NOTE | 2018-11-17 10:55 | PN ---
Progress Note, Physician Chief Complaint: pulmonary alert,c/o sob,cough - Current Medication List Current Medications: Active Medications Acetaminophen (Tylenol -) 650 mg PO Q6H PRN PRN Reason: PAIN LEVEL 1 - 3 Last Admin: 11/17/18 00:50 Dose: 650 mg Albuterol Sulfate (Ventolin 0.083% Nebulizer Soln -) 1 amp NEB Q6H PRN PRN Reason: SHORT OF BREATH/WHEEZING Amlodipine Besylate (Norvasc -) 5 mg PO DAILY [facility] Last Admin: 11/16/18 10:20 Dose: 5 mg Budesonide/Formoterol Fumarate (Symbicort 80/4.5mcg -) 2 puff IH BID [facility] Last Admin: 11/16/18 21:46 Dose: 2 puff Hydrocortisone (Hytone 0.5% Cream -) 1 applic TP BID [facility] Last Admin: 11/16/18 21:46 Dose: 1 applic Ipratropium [place] (Atrovent 0.02% Nebulizer -) 1 amp NEB RQID [facility] Last Admin: 11/17/18 08:30 Dose: 1 amp Levetiracetam (Keppra Injection -) 500 mg IVPB BID [facility] Last Admin: 11/16/18 21:46 Dose: 500 mg Methylprednisolone Sodium Succinate (Solu-Medrol -) 40 mg IVPUSH Q8H-IV [facility] Last Admin: 11/17/18 01:19 Dose: 40 mg Metoprolol Tartrate (Lopressor -) 25 mg PO BID [facility] Last Admin: 11/16/18 21:47 Dose: 25 mg Metoprolol Tartrate (Lopressor Injection -) 5 mg IVPUSH Q4H PRN PRN Reason: TACHYCARDIA Pantoprazole Sodium (Protonix -) 40 mg PO DAILY [facility] Last Admin: 11/16/18 10:20 Dose: 40 mg - Objective Vital Signs: Vital Signs Temperature 98.1 F 11/17/18 05:00 Pulse Rate 83 11/17/18 09:00 Respiratory Rate 18 11/17/18 09:00 Blood Pressure 138/80 11/17/18 09:00 O2 Sat by Pulse Oximetry (%) 99 11/14/18 20:01 Constitutional: Yes: Well Nourished, Calm Eyes: Yes: WNL HENT: Yes: WNL Neck: Yes: WNL Cardiovascular: Yes: Regular Rate and Rhythm, S1, S2 Respiratory: Yes: Wheezes (ayo crackles) Gastrointestinal: Yes: Normal Bowel Sounds, Soft Extremities: Yes: WNL Edema: No Labs: CBC, BMP 11/17/18 05:30 11/17/18 05:30 INR, PTT INR 0.95 (0.83-1.09) 11/13/18 16:33 Assessment/Plan Problem List - Problems (1) Atrial fibrillation with rapid ventricular response Code(s): I48.91 - UNSPECIFIED ATRIAL FIBRILLATION (2) Alcohol abuse Code(s): F10.10 - ALCOHOL ABUSE, UNCOMPLICATED (3) Fall Code(s): W19.XXXA - UNSPECIFIED FALL, INITIAL ENCOUNTER Qualifiers: Encounter type: initial encounter Qualified Code(s): W19.XXXA - Unspecified fall, initial encounter (4) Head injury Code(s): S09.90XA - UNSPECIFIED INJURY OF HEAD, INITIAL ENCOUNTER Qualifiers: Encounter type: initial encounter Qualified Code(s): S09.90XA - Unspecified injury of head, initial encounter (5) Nicotine dependence Code(s): F17.200 - NICOTINE DEPENDENCE, UNSPECIFIED, UNCOMPLICATED (6) Tachycardia Code(s): R00.0 - TACHYCARDIA, UNSPECIFIED (7) COPD (chronic obstructive pulmonary disease) Code(s): J44.9 - CHRONIC OBSTRUCTIVE PULMONARY DISEASE, UNSPECIFIED Assessment/Plan DYSPNEA AF WITH RVR AVM WITH SUBARACHNOID HEMORRHAGE COPD EXACERBATION HTN CP SMOKER PLAN RATE CONTROL PER CARDIOLOGY O2 SUPPLEMENTATION AND EVENTUAL PRE/POST AMB O2 SAT PRIOR TO DISCHARGE ATROVENT VIA NEB ALONG WITH ICS/LABA OUTPATIENT PFT'S SMOKING CESSATION COUNSELED CONTINUE RIGO BLANCO
[2018-11-17] MEDS: HYDROCORTISONE 0.5% TOPICAL CREAM 30 GM TUBE TP SCH ×2 (11:14→21:45)
[2018-11-17] MEDS: METOPROLOL TARTRATE 25 MG TABLET (FP) PO SCH ×2 (11:14→21:42)
[2018-11-17] MEDS: PANTOPRAZOLE 40 MG TABLET (FP) PO SCH (11:15)
[2018-11-17] MEDS: BUDESONIDE/FORMETEROL FUMARATE 80/4.5 mcg INHALER IH SCH ×2 (11:15→21:46)
[2018-11-17] MEDS: amLODIPine BESYLATE 5 MG TABLET (FP) PO SCH (11:15)
[2018-11-17] MEDS: levETIRAcetam 500 MG/5 ML INJECTION VIAL IVPB SCH ×2 (12:15→21:46)
--- NOTE | 2018-11-17 15:00 | PN ---
Progress Note (short form) - Note Progress Note: NEUROSURGERY Seen yesterday afternoon No reported H/A, N/C, Sz + coughs and L chest discomfort PE: AF, VSS HEENT- NC/AT; Neck- supple; Cor- RR; Lungs- wheezing B; Abd- benign; Ext- no sign of DVT A/A/Ox3 CN- intact II-XII; Motor- 4+-5 B UE/LE without drift; Sensation- intact LT; DTR - 1+; toes downgoing Troponin- negative CT Head (c/w 07/2018 and 08/2018 scans)- R orbital-frontal hypodensity c/w chronic encephalomalacia; L inferior/lateral frontal anterior Sylvian calcifications; new L anterior Sylvian SAH CTA- L lateral-inf frontal [id number] mm AVM with feeders off L MCA M2 branches mostly L inferior lateral frontal AVM with SAH and 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 Keppra for sz AVM appears symptomatic and will likely need to be treated when cardiac/ pulmonary eval is completed and overall condition stabilized Options of open microsurgery vs endovascular tx vs gamma knife stereotactic radiosurgery, or a combination of the above discussed, though would favor stereotactic radiosurgery given size, location, and efficacy, as well as overall medical conditions BP monitoring and control, keep below 160/90
--- NOTE | 2018-11-17 15:53 | PN ---
Progress Note, Physician History of Present Illness: seen and examined today in nad. continues to have L sided chest pain when taking deep breaths. - Current Medication List Current Medications: Active Medications Acetaminophen (Tylenol -) 650 mg PO Q6H PRN PRN Reason: PAIN LEVEL 1 - 3 Last Admin: 11/17/18 14:46 Dose: 650 mg Albuterol Sulfate (Ventolin 0.083% Nebulizer Soln -) 1 amp NEB Q6H PRN PRN Reason: SHORT OF BREATH/WHEEZING Amlodipine Besylate (Norvasc -) 5 mg PO DAILY [facility] Last Admin: 11/17/18 11:15 Dose: 5 mg Budesonide/Formoterol Fumarate (Symbicort 80/4.5mcg -) 2 puff IH BID [facility] Last Admin: 11/17/18 11:15 Dose: 2 puff Hydrocortisone (Hytone 0.5% Cream -) 1 applic TP BID [facility] Last Admin: 11/17/18 11:14 Dose: 1 applic Ipratropium [place] (Atrovent 0.02% Nebulizer -) 1 amp NEB RQID [facility] Last Admin: 11/17/18 12:12 Dose: 1 amp Levetiracetam (Keppra Injection -) 500 mg IVPB BID [facility] Last Admin: 11/17/18 12:15 Dose: Not Given Methylprednisolone Sodium Succinate (Solu-Medrol -) 40 mg IVPUSH Q8H-IV [facility] Last Admin: 11/17/18 11:15 Dose: 40 mg Metoprolol Tartrate (Lopressor -) 25 mg PO BID [facility] Last Admin: 11/17/18 11:14 Dose: 25 mg Metoprolol Tartrate (Lopressor Injection -) 5 mg IVPUSH Q4H PRN PRN Reason: TACHYCARDIA Pantoprazole Sodium (Protonix -) 40 mg PO DAILY [facility] Last Admin: 11/17/18 11:15 Dose: 40 mg - Objective Vital Signs: Vital Signs Temperature 98.3 F 11/17/18 14:00 Pulse Rate 77 11/17/18 14:00 Respiratory Rate 20 11/17/18 14:00 Blood Pressure 139/82 11/17/18 14:00 O2 Sat by Pulse Oximetry (%) 99 11/14/18 20:01 Constitutional: Yes: No Distress, Calm Eyes: Yes: Conjunctiva Clear, EOM Intact, PERRL HENT: Yes: Atraumatic, Normocephalic Neck: Yes: Supple, Trachea Midline Cardiovascular: Yes: Regular Rate and Rhythm, S1, S2. No: Bradycardia, Tachycardia, Pulse Irregular, Bruit, JVD, Gallop, Murmur, Rub, S3, S4, Varicosities Respiratory: Yes: Regular, Diminished. No: Rales, Rhonchi, SOB, Wheezes Gastrointestinal: Yes: Normal Bowel Sounds, Soft. No: Distention, Tenderness Extremities: Yes: WNL Edema: No Peripheral Pulses WNL: Yes Peripheral Pulses: Left Doralis Pedis: 2+, Right Dorsalis Pedis: 2+ Neurological: Yes: Alert, Oriented Psychiatric: Yes: Alert, Oriented Labs: CBC, BMP 11/17/18 05:30 11/17/18 05:30 INR, PTT INR 0.95 (0.83-1.09) 11/13/18 16:33 - ....Imaging Chest X-ray: Report Reviewed, Image Reviewed EKG: Report Reviewed, Image Reviewed Other: Report Reviewed, Image Reviewed (tele-nsr, no further afib recorded) Assessment/Plan 68 M with recent palpitations and admitted after syncope. History suggests weakness and chest pain/palpitations followed by LOC after he his his head. He has AVMs and after falling hit his head sustained small SAH New onset of rapid Afib diagnosed on admission. Syncope-uncertain etiology but may be related to newly diagnosed AFib -tele mostly NSR with apcs, pvcs no further afib -ok to dc tele -Echo 11/15/18 showed normal LVEF, normal RV, normal valves -cont Metoprolol 25mg po bid -TSH 0.22, would check full TFT panel -not on AC due to SAH/AVM -CTA chest was TDS but showed no definitive evidence of pulmonary embolism -dc tele Chest pain/SOB -constant pain -unlikely cardiac in origin, unlikely ACS, atypical pain reproduced with inspiration, cardiac enzymes wnl -unrelated to Afib as pain/sob continuous and not currently in afib -echo as above showed normal LVEF -pulmonary following -may benefit from an ischemic evaluation at some point however in the setting of AVMs and SAH would hold off for now. -cont metoprolol -ok to dc tele No plan for additional inpatient cardiac work up at this time. Please call with any additional questions.
[2018-11-18] MEDS: methylPREDNISolone NA SUCC 40 MG/1 ML VIAL IVPUSH SCH ×4 (02:48→21:45)
[2018-11-18] MEDS: ACETAMINOPHEN 325 MG TABLET (FP) PO PRN ×5 (03:44→23:33)
[2018-11-18 06:22] LABS: BASO % 0.1 % (0-2.0); EOS % 0.1 % (0-4.5); HEMATOCRIT 35.9 % (35.4-49); HEMOGLOBIN 11.8 GM/dL (11.7-16.9); LYMPH % 5.2 % (8-40); MCH 24.8 pg (25.7-33.7); MCHC 32.9 g/dl (32.0-35.9); MEAN CELL VOLUME 75.4 fl (80-96); MEAN PLT VOLUME 8.3 fl (7.5-11.1); MONO % 6.3 % (3.8-10.2); NEUT % 88.3 % (42.8-82.8); PLATELET COUNT 382 K/MM3 (134-434); RBC 4.76 M/mm3 (4.00-5.60); RDW 16.1 % (11.9-15.9)
[2018-11-18] MEDS: IPRATROPIUM BR 0.02% 0.5 MG/2.5 ML VIAL.NEB. NEB SCH ×4 (07:20→20:55)
[2018-11-18] MEDS: PANTOPRAZOLE 40 MG TABLET (FP) PO SCH (09:57)
[2018-11-18] MEDS: amLODIPine BESYLATE 5 MG TABLET (FP) PO SCH (09:57)
[2018-11-18] MEDS: BUDESONIDE/FORMETEROL FUMARATE 80/4.5 mcg INHALER IH SCH ×2 (09:59→21:44)
[2018-11-18] MEDS: levETIRAcetam 500 MG/5 ML INJECTION VIAL IVPB SCH ×2 (09:59→21:27)
[2018-11-18] MEDS: HYDROCORTISONE 0.5% TOPICAL CREAM 30 GM TUBE TP SCH ×2 (10:02→21:27)
[2018-11-18 10:16] LABS: ANISOCYTOSIS 1+; MACROCYTOSIS 0; PLATELET ESTIMATE NORMAL; TARGET CELLS 2+
[2018-11-18] MEDS: METOPROLOL TARTRATE 25 MG TABLET (FP) PO SCH ×3 (11:01→21:45)
--- NOTE | 2018-11-18 11:40 | PN ---
Physical Exam: SUBJECTIVE: Patient seen and examined. Breathing remains the same, tightness and pain with inspiration. OBJECTIVE: Vital Signs Period Temp Pulse Resp BP Sys/Spicer Pulse Ox Last 24 Hr 98.0 F-98.3 F 68-77 18-20 137-152/80-89 PE Neuro: alert, awake, cn 2-12intact Pulm: b/l rhonchi + NC no wheezing CV: s1 s2 rrr Abd: s nt nd + bs Ext: no le edema Laboratory Results - last 24 hr 11/17/18 11/18/18 05:30 05:30 WBC 19.0 H RBC 4.76 Hgb 11.8 Hct 35.9 MCV 75.4 L MCH 24.8 L MCHC 32.9 RDW 16.1 H Plt Count 382 MPV 8.3 Absolute Neuts (auto) 16.8 H Neutrophils % 88.3 H Neutrophils % (Manual) 91.9 H 85.0 H Band Neutrophils % 0.0 0.0 Lymphocytes % 5.2 L D Lymphocytes % (Manual) 4.1 L D 4.0 L Monocytes % 6.3 Monocytes % (Manual) 3 L 8 D Eosinophils % 0.1 D Eosinophils % (Manual) 0.0 D 0.0 Basophils % 0.1 Basophils % (Manual) 0.0 0.0 Myelocytes % (Man) 0 1 D Promyelocytes % (Man) 0 0 Blast Cells % (Manual) 0 0 Nucleated RBC % 0 Metamyelocytes 1 D 0 D Hypochromia 0 0 Platelet Estimate Normal Normal Polychromasia 0 0 Poikilocytosis 1+ 0 Anisocytosis 1+ 1+ Microcytosis 1+ 1+ Macrocytosis 0 0 Target Cells 2+ 2+ Schistocytes 1+ 1+ Active Medications Generic Name Dose Route Start Last Admin Trade Name Freq PRN Reason Stop Dose Admin Acetaminophen 650 mg 11/13/18 23:20 11/18/18 09:58 Tylenol - PO 650 mg Q6H PRN Administration PAIN LEVEL 1 - 3 Albuterol Sulfate 1 amp 11/13/18 19:23 Ventolin 0.083% Nebulizer Soln - NEB Q6H PRN SHORT OF BREATH/WHEEZING Amlodipine Besylate 5 mg 11/14/18 10:00 11/18/18 09:57 Norvasc - PO 5 mg DAILY EMILY Administration Budesonide/Formoterol Fumarate 2 puff 01/27/19 22:00 11/18/18 09:59 Symbicort 80/4.5mcg - IH 2 puff BID [facility] Administration Hydrocortisone 1 applic 11/16/18 22:00 11/18/18 10:02 Hytone 0.5% Cream - TP 1 applic BID [facility] Administration Ipratropium [place] 1 amp 11/14/18 16:00 11/18/18 11:14 Atrovent 0.02% Nebulizer - NEB 1 amp RQID [facility]ILY Administration Levetiracetam 500 mg 11/14/18 22:00 11/18/18 09:59 Keppra Injection - IVPB Not Given BID [facility] Methylprednisolone Sodium Succinate 40 mg 11/16/18 14:15 11/18/18 09:58 Solu-Medrol - IVPUSH 40 mg Q8H-IV [facility] Administration Metoprolol Tartrate 25 mg 11/14/18 22:00 11/18/18 11:02 Lopressor - PO Not Given BID [facility] Metoprolol Tartrate 5 mg 11/14/18 17:27 Lopressor Injection - IVPUSH Q4H PRN TACHYCARDIA Pantoprazole Sodium 40 mg 11/15/18 10:00 11/18/18 09:57 Protonix - PO 40 mg DAILY [facility] Administration Imaging: - Head CTA: left lateral inf frontal [id number] mm AVM with feeders off L MCA Assessment: 68 year old male with pmhx of ETOH abuse/dependence, COPD and HTN presented with syncopal event, hitting head, while ambulating along shortness of breath and chest tightness with a productive cough and yellow phlegm. Plan: 1. Syncope with collapse - Possible d/t new A fib vs AVMs - No AC d/t SAH 2. 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 Ellington, open microsurgery vs endovascular tx vs gamma knife stereotactic radiosurgery, or a combination, however needs to be medical stable 3. Chest tightness, SOB - Persistent, less likely cardiac in nature - Solumedrol 40mg q8h - Chest CTA 11/15 negative for central PE - Cont nebs 4. Possible Seizure disorder - Keppra IV 500mg BID 5. A fib - In sinus - Metoprolol 25mg BID - ECHO nml LVEF, RV normal 6. Leukocytosis - Likely steroid induced 7. Hives - Patient with no known drug allergies - Continue steroids - Benadryl - F/u dermatology consult Visit type - Emergency Visit Emergency Visit: Yes ED Registration Date: 11/14/18 Care time: The patient presented to the Emergency Department on the above date and was hospitalized for further evaluation of their emergent condition. - New Patient This patient is new to me today: No - Critical Care Critical Care patient: No
--- NOTE | 2018-11-18 12:28 | PN ---
Progress Note (short form) - Note Progress Note: NEUROSURGERY No reported H/A, N/C, Sz + coughs and L chest discomfort PE: AF, VSS HEENT- NC/AT; Neck- supple; Cor- RR; Lungs- wheezing B; Abd- benign; Ext- no sign of DVT A/A/Ox3 CN- intact II-XII; Motor- 4+-5 B UE/LE without drift; Sensation- intact LT; DTR - 1+; toes downgoing L inferior lateral frontal AVM with SAH and 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 Keppra held for rash per Dr Schofield AVM appears symptomatic and will likely need to be treated when cardiac/ pulmonary conditions stabilized Options of open microsurgery vs endovascular tx vs gamma knife stereotactic radiosurgery, or a combination of the above discussed, though would favor stereotactic radiosurgery given size, location, and efficacy, as well as overall medical conditions Care d/w Dr. Schofield yesterday
--- NOTE | 2018-11-18 12:30 | PN ---
Progress Note (short form) - Note Progress Note: PULMONARY Still with shortness of breath, chest tightness. Vital Signs Period Temp Pulse Resp BP Sys/Spicer Pulse Ox Last 24 Hr 98.0 F-98.3 F 68-77 18-20 137-152/80-89 Gen: mildly tachypneic at rest Heart: RRR Lung: scattered rhonchi Abd: soft, nontender Ext: no edema CBC, BMP 11/18/18 05:30 11/17/18 05:30 Active Medications Acetaminophen (Tylenol -) 650 mg PO Q6H PRN PRN Reason: PAIN LEVEL 1 - 3 Last Admin: 11/18/18 09:58 Dose: 650 mg Albuterol Sulfate (Ventolin 0.083% Nebulizer Soln -) 1 amp NEB Q6H PRN PRN Reason: SHORT OF BREATH/WHEEZING Amlodipine Besylate (Norvasc -) 5 mg PO DAILY [facility] Last Admin: 11/18/18 09:57 Dose: 5 mg Budesonide/Formoterol Fumarate (Symbicort 80/4.5mcg -) 2 puff IH BID [facility] Last Admin: 11/18/18 09:59 Dose: 2 puff Hydrocortisone (Hytone 0.5% Cream -) 1 applic TP BID [facility] Last Admin: 11/18/18 10:02 Dose: 1 applic Ipratropium [place] (Atrovent 0.02% Nebulizer -) 1 amp NEB RQID [facility] Last Admin: 11/18/18 11:14 Dose: 1 amp Levetiracetam (Keppra Injection -) 500 mg IVPB BID [facility] Last Admin: 11/18/18 09:59 Dose: Not Given Methylprednisolone Sodium Succinate (Solu-Medrol -) 40 mg IVPUSH Q8H-IV [facility] Last Admin: 11/18/18 09:58 Dose: 40 mg Metoprolol Tartrate (Lopressor -) 25 mg PO BID [facility] Last Admin: 11/18/18 11:02 Dose: Not Given Metoprolol Tartrate (Lopressor Injection -) 5 mg IVPUSH Q4H PRN PRN Reason: TACHYCARDIA Pantoprazole Sodium (Protonix -) 40 mg PO DAILY [facility] Last Admin: 11/18/18 09:57 Dose: 40 mg A/P Acute COPD Exacerbation Syncope Atrial Fibrillation Acute Subarachnoid Hemmorhage Alcohol Abuse - will increase medrol to 60mg q6h - inhaled bronchodilators standing and PRN - O2 to keep SpO2 >90% - rate control - holding anticoagulation
[2018-11-18] MEDS ORDERED: ALBUTEROL SO4 0.083% IH SOL 2.5 MG/3 ML VIAL.NEB. NEB PRN (16:40)
[2018-11-18] MEDS: MUPIROCIN 2% TOPICAL OINTMENT FOR DECOLONIZATION NS SCH ×2 (17:04→17:32)
[2018-11-19] MEDS: methylPREDNISolone NA SUCC 40 MG/1 ML VIAL IVPUSH SCH ×4 (02:50→22:07)
[2018-11-19] MEDS: ACETAMINOPHEN 325 MG TABLET (FP) PO PRN ×3 (06:07→18:01)
--- NOTE | 2018-11-19 07:42 | PN ---
Progress Note, Physician Chief Complaint: Still c/o mild SOB and chest wall pain History of Present Illness: 68 year old male with pmhx of ETOH abuse/dependence, COPD and HTN presented with syncopal event, hitting head, while ambulating along shortness of breath and chest tightness with a productive cough and yellow phlegm. - Current Medication List Current Medications: Active Medications Acetaminophen (Tylenol -) 650 mg PO Q6H PRN PRN Reason: PAIN LEVEL 1 - 3 Last Admin: 11/19/18 06:07 Dose: 650 mg Albuterol Sulfate (Ventolin 0.083% Nebulizer Soln -) 1 amp NEB Q6H PRN PRN Reason: SHORT OF BREATH/WHEEZING Amlodipine Besylate (Norvasc -) 5 mg PO DAILY [facility] Budesonide/Formoterol Fumarate (Symbicort 80/4.5mcg -) 2 puff IH BID [facility] Last Admin: 11/18/18 21:44 Dose: 2 puff Hydrocortisone (Hytone 0.5% Cream -) 1 applic TP BID [facility] Last Admin: 11/18/18 21:27 Dose: Not Given Ipratropium [place] (Atrovent 0.02% Nebulizer -) 1 amp NEB RQID [facility] Last Admin: 11/18/18 20:55 Dose: 1 amp Levetiracetam (Keppra Injection -) 500 mg IVPB BID [facility] Last Admin: 11/18/18 21:27 Dose: Not Given Methylprednisolone Sodium Succinate (Solu-Medrol -) 60 mg IVPUSH Q6H-IV [facility] Last Admin: 11/19/18 02:50 Dose: 60 mg Metoprolol Tartrate (Lopressor -) 25 mg PO BID [facility] Last Admin: 11/18/18 21:45 Dose: 25 mg Metoprolol Tartrate (Lopressor Injection -) 5 mg IVPUSH Q4H PRN PRN Reason: TACHYCARDIA Pantoprazole Sodium (Protonix -) 40 mg PO DAILY [facility] Last Admin: 11/18/18 09:57 Dose: 40 mg - Objective Vital Signs: Vital Signs Temperature 97.5 F L 11/19/18 06:00 Pulse Rate 67 11/19/18 06:00 Respiratory Rate 20 11/19/18 06:00 Blood Pressure 157/90 11/19/18 06:00 O2 Sat by Pulse Oximetry (%) 99 11/14/18 20:01 Constitutional: Yes: Well Nourished, No Distress Eyes: Yes: WNL, Conjunctiva Clear, EOM Intact HENT: Yes: WNL. No: Atraumatic, Normocephalic Neck: Yes: Supple, Trachea Midline. No: Decreased ROM, Lymphadenopathy Cardiovascular: Yes: Regular Rate and Rhythm, JVD, S1, S2. No: Murmur, Rub Respiratory: Yes: Regular, Wheezes Gastrointestinal: Yes: Normal Bowel Sounds, Soft, Abdomen, Obese Extremities: No: Amputation, Calf Tenderness Edema: LLE: 1+, RLE: 1+ Peripheral Pulses: Left Doralis Pedis: 1+, Right Dorsalis Pedis: 1+ Neurological: Yes: Alert, Oriented ...Motor Strength: WNL, LUE, LLE, RUE, RLE Labs: CBC, BMP 11/19/18 06:00 11/17/18 05:30 Problem List - Problems (1) Syncope and collapse Assessment/Plan: In the setting of ETOH abuse, normal ECHO no arrhythmia claeraed by cardiology Code(s): R55 - SYNCOPE AND COLLAPSE (2) Arteriovenous aneurysm Assessment/Plan: AVM evaluated by Neurosurgery recommended possible surgery once pulmonary and cardiac issues are resolved. Code(s): I77.0 - ARTERIOVENOUS FISTULA, ACQUIRED (3) COPD (chronic obstructive pulmonary disease) Assessment/Plan: Improving on Nebs and IV Corticosteroids F/U Pulmonary recommendations, Code(s): J44.9 - CHRONIC OBSTRUCTIVE PULMONARY DISEASE, UNSPECIFIED (4) Atrial fibrillation with rapid ventricular response Assessment/Plan: Not on ac due to SAH and Brain aneurysm Code(s): I48.91 - UNSPECIFIED ATRIAL FIBRILLATION (5) Alcohol abuse Assessment/Plan: Needs rehab at present no clinical signs of withdrawal Code(s): F10.10 - ALCOHOL ABUSE, UNCOMPLICATED
[2018-11-19 07:50] LABS: BASO % 0.3 % (0-2.0); HEMATOCRIT 35.4 % (35.4-49); HEMOGLOBIN 11.5 GM/dL (11.7-16.9); LYMPH % 8.7 % (8-40); MCH 24.6 pg (25.7-33.7); MCHC 32.5 g/dl (32.0-35.9); MEAN CELL VOLUME 75.8 fl (80-96); MEAN PLT VOLUME 7.6 fl (7.5-11.1); MONO % 4.7 % (3.8-10.2); NEUT % 86.3 % (42.8-82.8); PLATELET COUNT 363 K/MM3 (134-434); RBC 4.67 M/mm3 (4.00-5.60); RDW 16.4 % (11.9-15.9); WHITE BLOOD COUNT 17.2 K/mm3 (4.0-10.0)
[2018-11-19] MEDS: IPRATROPIUM BR 0.02% 0.5 MG/2.5 ML VIAL.NEB. NEB SCH ×4 (08:29→21:00)
[2018-11-19 09:39] LABS: ANISOCYTOSIS 1+; MACROCYTOSIS 0; PLATELET ESTIMATE NORMAL
[2018-11-19] MEDS ORDERED: amLODIPine BESYLATE 5 MG TABLET (FP) PO SCH (10:00)
[2018-11-19] MEDS: HYDROCORTISONE 0.5% TOPICAL CREAM 30 GM TUBE TP SCH ×2 (10:09→22:08)
[2018-11-19] MEDS: BUDESONIDE/FORMETEROL FUMARATE 80/4.5 mcg INHALER IH SCH ×2 (10:10→22:08)
[2018-11-19] MEDS: levETIRAcetam 500 MG/5 ML INJECTION VIAL IVPB SCH ×2 (10:10→22:07)
[2018-11-19] MEDS: METOPROLOL TARTRATE 25 MG TABLET (FP) PO SCH ×2 (10:11→22:07)
[2018-11-19] MEDS: amLODIPine BESYLATE 10 MG TABLET (FP) PO SCH (10:11)
[2018-11-19] MEDS: PANTOPRAZOLE 40 MG TABLET (FP) PO SCH (10:11)
--- NOTE | 2018-11-19 14:19 | PN ---
Progress Note, Physician History of Present Illness: PULMONARY ALERT,NO DISTRESS,LESS DYSPNEIC - Current Medication List Current Medications: Active Medications Acetaminophen (Tylenol -) 650 mg PO Q6H PRN PRN Reason: PAIN LEVEL 1 - 3 Last Admin: 11/19/18 11:56 Dose: 650 mg Albuterol Sulfate (Ventolin 0.083% Nebulizer Soln -) 1 amp NEB Q6H PRN PRN Reason: SHORT OF BREATH/WHEEZING Amlodipine Besylate (Norvasc -) 10 mg PO DAILY [facility] Last Admin: 11/19/18 10:11 Dose: 10 mg Budesonide/Formoterol Fumarate (Symbicort 80/4.5mcg -) 2 puff IH BID [facility] Last Admin: 11/19/18 10:10 Dose: 2 puff Hydrocortisone (Hytone 0.5% Cream -) 1 applic TP BID [facility] Last Admin: 11/19/18 10:09 Dose: 1 applic Ipratropium [place] (Atrovent 0.02% Nebulizer -) 1 amp NEB RQID [facility] Last Admin: 11/19/18 11:35 Dose: 1 amp Levetiracetam (Keppra Injection -) 500 mg IVPB BID [facility] Last Admin: 11/19/18 10:10 Dose: 500 mg Methylprednisolone Sodium Succinate (Solu-Medrol -) 60 mg IVPUSH Q6H-IV [facility] Last Admin: 11/19/18 10:07 Dose: 60 mg Metoprolol Tartrate (Lopressor -) 25 mg PO BID [facility] Last Admin: 11/19/18 10:11 Dose: 25 mg Metoprolol Tartrate (Lopressor Injection -) 5 mg IVPUSH Q4H PRN PRN Reason: TACHYCARDIA Pantoprazole Sodium (Protonix -) 40 mg PO DAILY [facility] Last Admin: 11/19/18 10:11 Dose: 40 mg - Objective Vital Signs: Vital Signs Temperature 98.1 F 11/19/18 10:00 Pulse Rate 86 11/19/18 10:00 Respiratory Rate 22 H 11/19/18 10:00 Blood Pressure 142/89 11/19/18 10:00 O2 Sat by Pulse Oximetry (%) 99 11/14/18 20:01 Constitutional: Yes: Well Nourished, Calm Eyes: Yes: WNL HENT: Yes: WNL Neck: Yes: WNL Cardiovascular: Yes: Pulse Irregular, S1, S2 Respiratory: Yes: Wheezes (SCATTERED WHEEZES) Gastrointestinal: Yes: Normal Bowel Sounds, Soft Extremities: Yes: WNL Edema: Yes Labs: CBC, BMP 11/19/18 06:00 Assessment/Plan Problem List - Problems (1) Atrial fibrillation with rapid ventricular response Code(s): I48.91 - UNSPECIFIED ATRIAL FIBRILLATION (2) Alcohol abuse Code(s): F10.10 - ALCOHOL ABUSE, UNCOMPLICATED (3) Fall Code(s): W19.XXXA - UNSPECIFIED FALL, INITIAL ENCOUNTER Qualifiers: Encounter type: initial encounter Qualified Code(s): W19.XXXA - Unspecified fall, initial encounter (4) Head injury Code(s): S09.90XA - UNSPECIFIED INJURY OF HEAD, INITIAL ENCOUNTER Qualifiers: Encounter type: initial encounter Qualified Code(s): S09.90XA - Unspecified injury of head, initial encounter (5) Nicotine dependence Code(s): F17.200 - NICOTINE DEPENDENCE, UNSPECIFIED, UNCOMPLICATED (6) Tachycardia Code(s): R00.0 - TACHYCARDIA, UNSPECIFIED (7) COPD (chronic obstructive pulmonary disease) Code(s): J44.9 - CHRONIC OBSTRUCTIVE PULMONARY DISEASE, UNSPECIFIED Assessment/Plan DYSPNEA AF WITH RVR AVM WITH SUBARACHNOID HEMORRHAGE COPD EXACERBATION HTN CP SMOKER PLAN RATE CONTROL PER CARDIOLOGY O2 SUPPLEMENTATION AND EVENTUAL PRE/POST AMB O2 SAT PRIOR TO DISCHARGE ATROVENT VIA NEB ALONG WITH ICS/LABA OUTPATIENT PFT'S SMOKING CESSATION COUNSELED MEDROL NAHID BLANCO
[2018-11-20] MEDS: ACETAMINOPHEN 325 MG TABLET (FP) PO PRN ×4 (00:13→19:05)
[2018-11-20] MEDS: methylPREDNISolone NA SUCC 40 MG/1 ML VIAL IVPUSH SCH ×4 (02:38→21:46)
--- NOTE | 2018-11-20 07:55 | PN ---
Progress Note, Physician Chief Complaint: Still c/o mild SOB and chest wall pain History of Present Illness: 68 year old male with pmhx of ETOH abuse/dependence, COPD and HTN presented with syncopal event, hitting head, while ambulating along shortness of breath and chest tightness with a productive cough and yellow phlegm. - Current Medication List Current Medications: Active Medications Acetaminophen (Tylenol -) 650 mg PO Q6H PRN PRN Reason: PAIN LEVEL 1 - 3 Last Admin: 11/20/18 06:17 Dose: 650 mg Albuterol Sulfate (Ventolin 0.083% Nebulizer Soln -) 1 amp NEB Q6H PRN PRN Reason: SHORT OF BREATH/WHEEZING Amlodipine Besylate (Norvasc -) 10 mg PO DAILY [facility] Last Admin: 11/19/18 10:11 Dose: 10 mg Budesonide/Formoterol Fumarate (Symbicort 80/4.5mcg -) 2 puff IH BID [facility] Last Admin: 11/19/18 22:08 Dose: 2 puff Hydrocortisone (Hytone 0.5% Cream -) 1 applic TP BID [facility] Last Admin: 11/19/18 22:08 Dose: Not Given Ipratropium [place] (Atrovent 0.02% Nebulizer -) 1 amp NEB RQID [facility] Last Admin: 11/19/18 21:00 Dose: 1 amp Levetiracetam (Keppra Injection -) 500 mg IVPB BID [facility] Last Admin: 11/19/18 22:07 Dose: 500 mg Methylprednisolone Sodium Succinate (Solu-Medrol -) 60 mg IVPUSH Q6H-IV [facility] Last Admin: 11/20/18 02:38 Dose: 60 mg Metoprolol Tartrate (Lopressor -) 25 mg PO BID [facility] Last Admin: 11/19/18 22:07 Dose: 25 mg Metoprolol Tartrate (Lopressor Injection -) 5 mg IVPUSH Q4H PRN PRN Reason: TACHYCARDIA Pantoprazole Sodium (Protonix -) 40 mg PO DAILY [facility] Last Admin: 11/19/18 10:11 Dose: 40 mg - Objective Vital Signs: Vital Signs Temperature 98.3 F 11/20/18 06:00 Pulse Rate 70 11/20/18 06:00 Respiratory Rate 20 11/20/18 06:00 Blood Pressure 150/88 11/20/18 06:00 O2 Sat by Pulse Oximetry (%) 99 11/14/18 20:01 Constitutional: Yes: Well Nourished, No Distress Eyes: Yes: WNL, Conjunctiva Clear, EOM Intact HENT: Yes: WNL. No: Atraumatic, Normocephalic Neck: Yes: Supple, Trachea Midline. No: Decreased ROM, Lymphadenopathy Cardiovascular: Yes: Regular Rate and Rhythm, JVD, S1, S2. No: Murmur, Rub Respiratory: Yes: Regular, Wheezes Gastrointestinal: Yes: Normal Bowel Sounds, Soft, Abdomen, Obese Extremities: No: Amputation, Calf Tenderness Edema: LLE: 1+, RLE: 1+ Peripheral Pulses: Left Doralis Pedis: 1+, Right Dorsalis Pedis: 1+ Neurological: Yes: Alert, Oriented Motor Strength: WNL, LUE, LLE, RUE, RLE Labs: CBC, BMP 11/19/18 06:00 11/17/18 05:30 INR, PTT INR 0.95 (0.83-1.09) 11/13/18 16:33 Problem List - Problems (1) Syncope and collapse Assessment/Plan: In the setting of ETOH abuse, normal ECHO no arrhythmia claeraed by cardiology Code(s): R55 - SYNCOPE AND COLLAPSE (2) Arteriovenous aneurysm Assessment/Plan: AVM evaluated by Neurosurgery recommended possible surgery once pulmonary and cardiac issues are resolved. Code(s): I77.0 - ARTERIOVENOUS FISTULA, ACQUIRED (3) COPD (chronic obstructive pulmonary disease) Assessment/Plan: Improving on Nebs and IV Corticosteroids F/U Pulmonary recommendations, Code(s): J44.9 - CHRONIC OBSTRUCTIVE PULMONARY DISEASE, UNSPECIFIED (4) Atrial fibrillation with rapid ventricular response Assessment/Plan: Not on ac due to SAH and Brain aneurysm Code(s): I48.91 - UNSPECIFIED ATRIAL FIBRILLATION (5) Alcohol withdrawal Assessment/Plan: Resolved Code(s): F10.239 - ALCOHOL DEPENDENCE WITH WITHDRAWAL, UNSPECIFIED Qualifiers: Complication of substance-induced condition: with delirium Qualified Code(s ): F10.231 - Alcohol dependence with withdrawal delirium (6) Alcohol abuse Assessment/Plan: Needs rehab at present no clinical signs of withdrawal Code(s): F10.10 - ALCOHOL ABUSE, UNCOMPLICATED (7) NELLIE (acute kidney injury) Assessment/Plan: Resolved Code(s): N17.9 - ACUTE KIDNEY FAILURE, UNSPECIFIED (8) HTN (hypertension) Assessment/Plan: Well controlled cont observation. Code(s): I10 - ESSENTIAL (PRIMARY) HYPERTENSION
[2018-11-20] MEDS: IPRATROPIUM BR 0.02% 0.5 MG/2.5 ML VIAL.NEB. NEB SCH ×4 (08:40→20:45)
[2018-11-20 09:01] LABS: BASO % 0.2 % (0-2.0); EOS % 0.1 % (0-4.5); HEMATOCRIT 35.1 % (35.4-49); HEMOGLOBIN 11.5 GM/dL (11.7-16.9); LYMPH % 9.1 % (8-40); MCH 24.5 pg (25.7-33.7); MCHC 32.7 g/dl (32.0-35.9); MEAN CELL VOLUME 75.1 fl (80-96); MEAN PLT VOLUME 8.3 fl (7.5-11.1); NEUT % 85.6 % (42.8-82.8); PLATELET COUNT 390 K/MM3 (134-434); RBC 4.68 M/mm3 (4.00-5.60); RDW 16.5 % (11.9-15.9); WHITE BLOOD COUNT 21.3 K/mm3 (4.0-10.0)
[2018-11-20] MEDS ORDERED: PT OWN MED DRAWER 7, Y5N ONE ×2 (09:18→09:20)
[2018-11-20] MEDS: levETIRAcetam 500 MG/5 ML INJECTION VIAL IVPB SCH ×2 (09:26→21:47)
[2018-11-20] MEDS: amLODIPine BESYLATE 10 MG TABLET (FP) PO SCH (09:27)
[2018-11-20] MEDS: PANTOPRAZOLE 40 MG TABLET (FP) PO SCH (09:27)
[2018-11-20] MEDS: METOPROLOL TARTRATE 25 MG TABLET (FP) PO SCH ×2 (09:27→21:46)
[2018-11-20] MEDS: HYDROCORTISONE 0.5% TOPICAL CREAM 30 GM TUBE TP SCH ×2 (09:29→21:36)
[2018-11-20] MEDS: BUDESONIDE/FORMETEROL FUMARATE 80/4.5 mcg INHALER IH SCH ×2 (09:29→21:45)
[2018-11-20 10:14] LABS: ANION GAP 12 MMOL/L (8-16); BLOOD UREA NITROGEN 43 mg/dL (7-18); CALCIUM 8.6 mg/dL (8.5-10.1); CHLORIDE 98 mmol/L (98-107); CO2 23 mmol/L (21-32); CREATININE 1.1 mg/dL (0.55-1.3); GLUCOSE,RANDOM 116 mg/dL (74-106); POTASSIUM 4.4 mmol/L (3.5-5.1); SODIUM 133 mmol/L (136-145)
--- NOTE | 2018-11-20 11:31 | PN ---
Progress Note (short form) - Note Progress Note: Still with HEATH and congested cough. No acute events overnight. Intake & Output 11/17/18 11/18/18 11/19/18 11/20/18 23:59 23:59 23:59 23:59 Intake Total 300 1175 1300 Output Total 1700 650 Balance 300 -525 650 Last Vital Signs Temp Pulse Resp BP Pulse Ox 98.3 F 70 20 150/88 99 11/20/18 06:00 11/20/18 06:00 11/20/18 06:00 11/20/18 06:00 11/14/18 20:01 Active Medications Acetaminophen (Tylenol -) 650 mg PO Q6H PRN PRN Reason: PAIN LEVEL 1 - 3 Last Admin: 11/20/18 06:17 Dose: 650 mg Albuterol Sulfate (Ventolin 0.083% Nebulizer Soln -) 1 amp NEB Q6H PRN PRN Reason: SHORT OF BREATH/WHEEZING Amlodipine Besylate (Norvasc -) 10 mg PO DAILY [facility] Last Admin: 11/20/18 09:27 Dose: 10 mg Budesonide/Formoterol Fumarate (Symbicort 80/4.5mcg -) 2 puff IH BID [facility] Last Admin: 11/20/18 09:29 Dose: 2 puff Hydrocortisone (Hytone 0.5% Cream -) 1 applic TP BID [facility] Last Admin: 11/20/18 09:29 Dose: 1 applic Ipratropium [place] (Atrovent 0.02% Nebulizer -) 1 amp NEB RQID [facility] Last Admin: 11/20/18 11:23 Dose: 1 amp Levetiracetam (Keppra Injection -) 500 mg IVPB BID [facility] Last Admin: 11/20/18 09:26 Dose: 500 mg Methylprednisolone Sodium Succinate (Solu-Medrol -) 60 mg IVPUSH Q6H-IV [facility] Last Admin: 11/20/18 09:27 Dose: 60 mg Metoprolol Tartrate (Lopressor -) 25 mg PO BID [facility] Last Admin: 11/20/18 09:27 Dose: 25 mg Metoprolol Tartrate (Lopressor Injection -) 5 mg IVPUSH Q4H PRN PRN Reason: TACHYCARDIA Pantoprazole Sodium (Protonix -) 40 mg PO DAILY [facility] Last Admin: 11/20/18 09:27 Dose: 40 mg - Objective Vital Signs: Constitutional: Yes: NAD, thin Eyes: Yes: WNL HENT: Yes: WNL Neck: Yes: WNL Cardiovascular: Yes: Pulse Irregular, S1, S2 Respiratory: Yes: Scattered expiratory wheezes and rhonchi Gastrointestinal: Yes: Normal Bowel Sounds, Soft Extremities: Yes: WNL Edema: Yes Labs: Laboratory Results - last 24 hr 11/19/18 11/20/18 11/20/18 06:00 07:15 07:15 WBC 21.3 H RBC 4.68 Hgb 11.5 L Hct 35.1 L MCV 75.1 L MCH 24.5 L MCHC 32.7 RDW 16.5 H Plt Count 390 MPV 8.3 Absolute Neuts (auto) 18.2 H Neutrophils % 85.6 H Lymphocytes % 9.1 Monocytes % 5.0 Eosinophils % 0.1 D Basophils % 0.2 Nucleated RBC % 0 Sodium 133 L Potassium 4.4 Chloride 98 Carbon Dioxide 23 Anion Gap 12 BUN 43 H Creatinine 1.1 Creat Clearance w eGFR > 60 Random Glucose 116 H Calcium 8.6 Free T3 1.5 L Assessment/Plan Problem List - Problems (1) Atrial fibrillation with rapid ventricular response Code(s): I48.91 - UNSPECIFIED ATRIAL FIBRILLATION (2) Alcohol abuse Code(s): F10.10 - ALCOHOL ABUSE, UNCOMPLICATED (3) Fall Code(s): W19.XXXA - UNSPECIFIED FALL, INITIAL ENCOUNTER Qualifiers: Encounter type: initial encounter Qualified Code(s): W19.XXXA - Unspecified fall, initial encounter (4) Head injury Code(s): S09.90XA - UNSPECIFIED INJURY OF HEAD, INITIAL ENCOUNTER Qualifiers: Encounter type: initial encounter Qualified Code(s): S09.90XA - Unspecified injury of head, initial encounter (5) Nicotine dependence Code(s): F17.200 - NICOTINE DEPENDENCE, UNSPECIFIED, UNCOMPLICATED (6) Tachycardia Code(s): R00.0 - TACHYCARDIA, UNSPECIFIED (7) COPD (chronic obstructive pulmonary disease) Code(s): J44.9 - CHRONIC OBSTRUCTIVE PULMONARY DISEASE, UNSPECIFIED Assessment/Plan DYSPNEA AF WITH RVR AVM WITH SUBARACHNOID HEMORRHAGE COPD EXACERBATION HTN CP SMOKER PLAN RATE CONTROL PER CARDIOLOGY O2 SUPPLEMENTATION AND EVENTUAL PRE/POST AMB O2 SAT PRIOR TO DISCHARGE ATROVENT VIA NEB ALONG WITH ICS/LABA OUTPATIENT PFT'S SMOKING CESSATION COUNSELED CAN LIKELY TAPER MEDROL TOMORROW DR LONG
[2018-11-20 15:44] LABS: TARGET CELLS 1+
[2018-11-20 15:45] LABS: TEAR DROP CELLS 1+
[2018-11-21] MEDS: ACETAMINOPHEN 325 MG TABLET (FP) PO PRN ×4 (00:48→21:53)
[2018-11-21] MEDS: methylPREDNISolone NA SUCC 40 MG/1 ML VIAL IVPUSH SCH ×2 (03:12→08:41)
[2018-11-21] MEDS: amLODIPine BESYLATE 10 MG TABLET (FP) PO SCH (09:20)
[2018-11-21] MEDS: PANTOPRAZOLE 40 MG TABLET (FP) PO SCH (09:20)
[2018-11-21] MEDS: levETIRAcetam 500 MG/5 ML INJECTION VIAL IVPB SCH ×2 (09:20→21:53)
[2018-11-21] MEDS: METOPROLOL TARTRATE 25 MG TABLET (FP) PO SCH ×2 (09:20→21:53)
[2018-11-21] MEDS: HYDROCORTISONE 0.5% TOPICAL CREAM 30 GM TUBE TP SCH ×2 (09:21→21:54)
[2018-11-21] MEDS: BUDESONIDE/FORMETEROL FUMARATE 80/4.5 mcg INHALER IH SCH ×2 (09:21→21:54)
[2018-11-21] MEDS: IPRATROPIUM BR 0.02% 0.5 MG/2.5 ML VIAL.NEB. NEB SCH ×4 (09:25→20:49)
--- NOTE | 2018-11-21 09:55 | PN ---
Progress Note, Physician Chief Complaint: Still c/o mild SOB and chest wall pain History of Present Illness: 68 year old male with pmhx of ETOH abuse/dependence, COPD and HTN presented with syncopal event, hitting head, while ambulating along shortness of breath and chest tightness with a productive cough and yellow phlegm. - Current Medication List Current Medications: Active Medications Acetaminophen (Tylenol -) 650 mg PO Q6H PRN PRN Reason: PAIN LEVEL 1 - 3 Last Admin: 11/21/18 06:50 Dose: 650 mg Albuterol Sulfate (Ventolin 0.083% Nebulizer Soln -) 1 amp NEB Q6H PRN PRN Reason: SHORT OF BREATH/WHEEZING Amlodipine Besylate (Norvasc -) 10 mg PO DAILY [facility] Last Admin: 11/21/18 09:20 Dose: 10 mg Budesonide/Formoterol Fumarate (Symbicort 80/4.5mcg -) 2 puff IH BID [facility] Last Admin: 11/21/18 09:21 Dose: 2 puff Hydrocortisone (Hytone 0.5% Cream -) 1 applic TP BID [facility] Last Admin: 11/21/18 09:21 Dose: 1 applic Ipratropium [place] (Atrovent 0.02% Nebulizer -) 1 amp NEB RQID [facility] Last Admin: 11/21/18 09:25 Dose: 1 amp Levetiracetam (Keppra Injection -) 500 mg IVPB BID [facility] Last Admin: 11/21/18 09:20 Dose: 500 mg Methylprednisolone Sodium Succinate (Solu-Medrol -) 60 mg IVPUSH Q6H-IV [facility] Last Admin: 11/21/18 08:41 Dose: 60 mg Metoprolol Tartrate (Lopressor -) 25 mg PO BID [facility] Last Admin: 11/21/18 09:20 Dose: 25 mg Metoprolol Tartrate (Lopressor Injection -) 5 mg IVPUSH Q4H PRN PRN Reason: TACHYCARDIA Pantoprazole Sodium (Protonix -) 40 mg PO DAILY [facility] Last Admin: 11/21/18 09:20 Dose: 40 mg - Objective Vital Signs: Vital Signs Temperature 98.4 F 11/21/18 06:00 Pulse Rate 76 11/21/18 06:00 Respiratory Rate 20 11/21/18 06:00 Blood Pressure 163/98 11/21/18 06:00 O2 Sat by Pulse Oximetry (%) 99 11/14/18 20:01 Constitutional: Well Nourished, No Distress HEENT: Conjunctiva Clear, EOM Intact Neck: Supple, Trachea Midline. No: Decreased ROM, Lymphadenopathy Cardiovascular: Regular Rate and Rhythm, JVD, S1, S2. No: Murmur, Rub Respiratory: Regular, Wheezes Gastrointestinal: Normal Bowel Sounds, Soft, Abdomen, Obese Extremities: Calf Tenderness, no Edema , Peripheral Pulses: Left Doralis Pedis: 1+, Right Dorsalis Pedis: 1+ Neurological: Yes: Alert, Oriented, Motor Strength WNL, LUE, LLE, RUE, RLE Labs: CBC, BMP 11/20/18 07:15 11/20/18 07:15 INR, PTT INR 0.95 (0.83-1.09) 11/13/18 16:33 Problem List - Problems (1) Syncope and collapse Assessment/Plan: In the setting of ETOH abuse, normal ECHO no arrhythmia cleared by cardiology Code(s): R55 - SYNCOPE AND COLLAPSE (2) Arteriovenous aneurysm Assessment/Plan: AVM evaluated by Neurosurgery recommended possible surgery once pulmonary and cardiac issues are resolved. Code(s): I77.0 - ARTERIOVENOUS FISTULA, ACQUIRED (3) COPD (chronic obstructive pulmonary disease) Assessment/Plan: Minimal chest sign but c/o SOB PE -ve ECHO normal, swotch to PO prednisone F/U Code(s): J44.9 - CHRONIC OBSTRUCTIVE PULMONARY DISEASE, UNSPECIFIED (4) Atrial fibrillation with rapid ventricular response Assessment/Plan: Not on ac due to SAH and Brain aneurysm and H/O drinking Code(s): I48.91 - UNSPECIFIED ATRIAL FIBRILLATION (5) Alcohol withdrawal Assessment/Plan: Resolved Code(s): F10.239 - ALCOHOL DEPENDENCE WITH WITHDRAWAL, UNSPECIFIED Qualifiers: Complication of substance-induced condition: with delirium Qualified Code(s ): F10.231 - Alcohol dependence with withdrawal delirium (6) Alcohol abuse Assessment/Plan: Needs rehab at present no clinical signs of withdrawal Code(s): F10.10 - ALCOHOL ABUSE, UNCOMPLICATED (7) NELLIE (acute kidney injury) Assessment/Plan: Resolved Code(s): N17.9 - ACUTE KIDNEY FAILURE, UNSPECIFIED (8) HTN (hypertension) Assessment/Plan: Well controlled cont observation. Code(s): I10 - ESSENTIAL (PRIMARY) HYPERTENSION
--- NOTE | 2018-11-21 11:15 | PN ---
Progress Note (short form) - Note Progress Note: Feels better today. Less HEATH and congested cough. No acute events overnight. Intake & Output 11/18/18 11/19/18 11/20/18 11/21/18 23:59 23:59 23:59 23:59 Intake Total 1175 1300 940 Output Total 1700 650 500 Balance -525 650 940 -500 Last Vital Signs Temp Pulse Resp BP Pulse Ox 98.2 F 96 H 20 157/84 99 11/21/18 10:00 11/21/18 10:00 11/21/18 10:00 11/21/18 10:00 11/21/18 09:00 Active Medications Acetaminophen (Tylenol -) 650 mg PO Q6H PRN PRN Reason: PAIN LEVEL 1 - 3 Last Admin: 11/21/18 06:50 Dose: 650 mg Albuterol Sulfate (Ventolin 0.083% Nebulizer Soln -) 1 amp NEB Q6H PRN PRN Reason: SHORT OF BREATH/WHEEZING Amlodipine Besylate (Norvasc -) 10 mg PO DAILY [facility] Last Admin: 11/21/18 09:20 Dose: 10 mg Budesonide/Formoterol Fumarate (Symbicort 80/4.5mcg -) 2 puff IH BID [facility] Last Admin: 11/21/18 09:21 Dose: 2 puff Hydrocortisone (Hytone 0.5% Cream -) 1 applic TP BID [facility] Last Admin: 11/21/18 09:21 Dose: 1 applic Ipratropium [place] (Atrovent 0.02% Nebulizer -) 1 amp NEB RQID [facility] Last Admin: 11/21/18 09:25 Dose: 1 amp Levetiracetam (Keppra Injection -) 500 mg IVPB BID [facility] Last Admin: 11/21/18 09:20 Dose: 500 mg Methylprednisolone Sodium Succinate (Solu-Medrol -) 60 mg IVPUSH Q6H-IV [facility] Last Admin: 11/21/18 08:41 Dose: 60 mg Metoprolol Tartrate (Lopressor -) 25 mg PO BID [facility] Last Admin: 11/21/18 09:20 Dose: 25 mg Metoprolol Tartrate (Lopressor Injection -) 5 mg IVPUSH Q4H PRN PRN Reason: TACHYCARDIA Pantoprazole Sodium (Protonix -) 40 mg PO DAILY [facility] Last Admin: 11/21/18 09:20 Dose: 40 mg Constitutional: Yes: NAD, thin Eyes: Yes: WNL HENT: Yes: WNL Neck: Yes: WNL Cardiovascular: Yes: Pulse Irregular, S1, S2 Respiratory: Yes: Scattered rhonchi Gastrointestinal: Yes: Normal Bowel Sounds, Soft Extremities: Yes: WNL Edema: Yes Labs: Laboratory Results - last 24 hr 11/20/18 07:15 Total Counted 100 Neutrophils % (Manual) 85.0 H Band Neutrophils % 2.0 Lymphocytes % (Manual) 6.0 L Monocytes % (Manual) 5 Myelocytes % (Man) 1 Metamyelocytes 1 Hypochromia 1+ Platelet Comment Rare giant plts Polychromasia 1+ Target Cells 1+ Tear Drop Cells 1+ Marlin Cells 1+ Assessment/Plan Problem List - Problems (1) Atrial fibrillation with rapid ventricular response Code(s): I48.91 - UNSPECIFIED ATRIAL FIBRILLATION (2) Alcohol abuse Code(s): F10.10 - ALCOHOL ABUSE, UNCOMPLICATED (3) Fall Code(s): W19.XXXA - UNSPECIFIED FALL, INITIAL ENCOUNTER Qualifiers: Encounter type: initial encounter Qualified Code(s): W19.XXXA - Unspecified fall, initial encounter (4) Head injury Code(s): S09.90XA - UNSPECIFIED INJURY OF HEAD, INITIAL ENCOUNTER Qualifiers: Encounter type: initial encounter Qualified Code(s): S09.90XA - Unspecified injury of head, initial encounter (5) Nicotine dependence Code(s): F17.200 - NICOTINE DEPENDENCE, UNSPECIFIED, UNCOMPLICATED (6) Tachycardia Code(s): R00.0 - TACHYCARDIA, UNSPECIFIED (7) COPD (chronic obstructive pulmonary disease) Code(s): J44.9 - CHRONIC OBSTRUCTIVE PULMONARY DISEASE, UNSPECIFIED Assessment/Plan DYSPNEA AF WITH RVR AVM WITH SUBARACHNOID HEMORRHAGE COPD EXACERBATION HTN CP SMOKER PLAN RATE CONTROL PER CARDIOLOGY CHECK PRE/POST AMB O2 SAT PRIOR TO DISCHARGE ATROVENT VIA NEB ALONG WITH ICS/LABA OUTPATIENT PFT'S SMOKING CESSATION COUNSELED CAN CHANGE TO PREDNISONE AND D/C PLANNING DR LONG
[2018-11-21] MEDS: predniSONE 20 MG TABLET (UD) PO SCH (14:06)
--- NOTE | 2018-11-22 02:33 | HOSP ---
Subjective - Review of Symptoms Events since last encounter: Hospitalist Encounter Notified by RN, that the patient reports having chest pain. Subjective: Arrived to bedside, patient is asleep but arousable reports pleurtic CP increased when coughing. Patient reports having a productive cough with yellow phlegm x several days. Assessment: 68 year old male with pmhx of ETOH abuse/dependence, COPD and HTN presented with syncopal event, hitting head, while ambulating along shortness of breath and chest tightness with a productive cough and yellow phlegm. Plan: Stat EKG Stat Troponin I Robitussin prn Cardiovascular: Yes: Chest Pain Physical Examination Vital Signs: Vital Signs Temperature 97.3 F L 11/21/18 22:00 Pulse Rate 86 11/22/18 02:00 Respiratory Rate 20 11/22/18 02:00 Blood Pressure 144/96 11/22/18 02:00 O2 Sat by Pulse Oximetry (%) 99 11/21/18 09:00 Constitutional: Yes: Anxious, Mild Distress Eyes: Yes: WNL, Conjunctiva Clear, EOM Intact, PERRL HENT: Yes: WNL, Atraumatic, Normocephalic Neck: Yes: WNL, Supple, Trachea Midline Cardiovascular: Yes: Regular Rate and Rhythm, S1, S2, Other (chest pain reproducible on palpation) Respiratory: Yes: On Nasal O2, Rhonchi, SOB, Wheezes Gastrointestinal: Yes: Normal Bowel Sounds, Soft Neurological: Yes: WNL, Alert, Oriented, Cran Nerves II-XII Intact ...Motor Strength: WNL Psychiatric: Yes: WNL, Alert, Oriented Labs: CBC, BMP 11/20/18 07:15 11/20/18 07:15 Hospitalist Encounter Outcome: EKG- NSR anteroseptal infarct age undetermined- improved from prior study Troponin I- neg
[2018-11-22] MEDS: ACETAMINOPHEN 325 MG TABLET (FP) PO PRN ×4 (04:16→23:40)
[2018-11-22] MEDS: guaiFENesin 200 MG/10 ML 10 ML UNIT-DOSE CUPS PO PRN ×3 (04:16→22:14)
[2018-11-22] MEDS: IPRATROPIUM BR 0.02% 0.5 MG/2.5 ML VIAL.NEB. NEB SCH ×4 (07:20→20:45)
--- NOTE | 2018-11-22 09:50 | EKG ---
Test Reason : Blood Pressure : / mmHG Vent. Rate : 088 BPM Atrial Rate : 088 BPM P-R Int : 148 ms QRS Dur : 078 ms QT Int : 360 ms P-R-T Axes : -12 -27 051 degrees QTc Int : 435 ms NORMAL SINUS RHYTHM ANTEROSEPTAL INFARCT , AGE UNDETERMINED ABNORMAL ECG WHEN COMPARED WITH ECG OF 15-NOV-2018 09:07, PREMATURE VENTRICULAR COMPLEXES ARE NO LONGER PRESENT PREMATURE ATRIAL COMPLEXES ARE NO LONGER PRESENT Confirmed by ADONIS JONES MD ([id number]) on 11/22/2018 9:50:06 AM Referred By: Confirmed By:ADONIS JONES MD
[2018-11-22] MEDS: amLODIPine BESYLATE 10 MG TABLET (FP) PO SCH (10:56)
[2018-11-22] MEDS: PANTOPRAZOLE 40 MG TABLET (FP) PO SCH (10:56)
--- NOTE | 2018-11-22 10:56 | PN ---
Progress Note (short form) - Note Progress Note: Overall improved. Still with some cough with pleuritic type chest discomfort. Afebrile. Intake & Output 11/19/18 11/20/18 11/21/18 11/22/18 23:59 23:59 23:59 23:59 Intake Total 1690 246 6272 100 Output Total 650 500 Balance 650 940 600 100 Last Vital Signs Temp Pulse Resp BP Pulse Ox 98.2 F 89 20 157/94 99 11/22/18 06:00 11/22/18 06:00 11/22/18 06:00 11/22/18 06:00 11/21/18 21:00 Active Medications Acetaminophen (Tylenol -) 650 mg PO Q6H PRN PRN Reason: PAIN LEVEL 1 - 3 Last Admin: 11/22/18 04:16 Dose: 650 mg Albuterol Sulfate (Ventolin 0.083% Nebulizer Soln -) 1 amp NEB Q6H PRN PRN Reason: SHORT OF BREATH/WHEEZING Last Admin: 11/22/18 02:24 Dose: 1 amp Amlodipine Besylate (Norvasc -) 10 mg PO DAILY [facility] Last Admin: 11/21/18 09:20 Dose: 10 mg Budesonide/Formoterol Fumarate (Symbicort 80/4.5mcg -) 2 puff IH BID [facility] Last Admin: 11/21/18 21:54 Dose: 2 puff Guaifenesin (Robitussin -) 10 ml PO Q6H PRN PRN Reason: COUGH Last Admin: 11/22/18 04:16 Dose: 10 ml Hydrocortisone (Hytone 0.5% Cream -) 1 applic TP BID [facility] Last Admin: 11/21/18 21:54 Dose: 1 applic Ipratropium [place] (Atrovent 0.02% Nebulizer -) 1 amp NEB RQID [facility] Last Admin: 11/22/18 07:20 Dose: 1 amp Levetiracetam (Keppra Injection -) 500 mg IVPB BID [facility] Last Admin: 11/21/18 21:53 Dose: 500 mg Metoprolol Tartrate (Lopressor -) 25 mg PO BID [facility] Last Admin: 11/21/18 21:53 Dose: 25 mg Metoprolol Tartrate (Lopressor Injection -) 5 mg IVPUSH Q4H PRN PRN Reason: TACHYCARDIA Pantoprazole Sodium (Protonix -) 40 mg PO DAILY [facility] Last Admin: 11/21/18 09:20 Dose: 40 mg Prednisone (Deltasone -) 40 mg PO DAILY [facility] Last Admin: 11/21/18 14:06 Dose: Not Given Constitutional: Yes: NAD, thin Eyes: Yes: WNL HENT: Yes: WNL Neck: Yes: WNL Cardiovascular: Yes: Pulse Irregular, S1, S2 Respiratory: Yes: Scattered rhonchi Gastrointestinal: Yes: Normal Bowel Sounds, Soft Extremities: Yes: WNL Edema: Yes Labs: Laboratory Results - last 24 hr 11/22/18 02:54 Troponin I < 0.02 Assessment/Plan Problem List - Problems (1) Atrial fibrillation with rapid ventricular response Code(s): I48.91 - UNSPECIFIED ATRIAL FIBRILLATION (2) Alcohol abuse Code(s): F10.10 - ALCOHOL ABUSE, UNCOMPLICATED (3) Fall Code(s): W19.XXXA - UNSPECIFIED FALL, INITIAL ENCOUNTER Qualifiers: Encounter type: initial encounter Qualified Code(s): W19.XXXA - Unspecified fall, initial encounter (4) Head injury Code(s): S09.90XA - UNSPECIFIED INJURY OF HEAD, INITIAL ENCOUNTER Qualifiers: Encounter type: initial encounter Qualified Code(s): S09.90XA - Unspecified injury of head, initial encounter (5) Nicotine dependence Code(s): F17.200 - NICOTINE DEPENDENCE, UNSPECIFIED, UNCOMPLICATED (6) Tachycardia Code(s): R00.0 - TACHYCARDIA, UNSPECIFIED (7) COPD (chronic obstructive pulmonary disease) Code(s): J44.9 - CHRONIC OBSTRUCTIVE PULMONARY DISEASE, UNSPECIFIED Assessment/Plan DYSPNEA AF WITH RVR AVM WITH SUBARACHNOID HEMORRHAGE COPD EXACERBATION HTN CP SMOKER PLAN RATE CONTROL PER CARDIOLOGY CHECK PRE/POST AMB O2 SAT PRIOR TO DISCHARGE ATROVENT VIA NEB ALONG WITH ICS/LABA OUTPATIENT PFT'S SMOKING CESSATION COUNSELED PREDNISONE NO PULMONARY CONTRAINDICATION FOR D/C DR LONG
[2018-11-22] MEDS: METOPROLOL TARTRATE 25 MG TABLET (FP) PO SCH ×2 (10:58→22:15)
[2018-11-22] MEDS: levETIRAcetam 500 MG/5 ML INJECTION VIAL IVPB SCH (10:58)
[2018-11-22] MEDS: predniSONE 20 MG TABLET (UD) PO SCH (10:59)
[2018-11-22] MEDS: BUDESONIDE/FORMETEROL FUMARATE 80/4.5 mcg INHALER IH SCH ×2 (11:03→22:14)
--- NOTE | 2018-11-22 12:40 | PN ---
Physical Exam: SUBJECTIVE: Patient seen and examined. He is complaining of chest pain and SOB. OBJECTIVE: Vital Signs Period Temp Pulse Resp BP Sys/Spicer Pulse Ox Last 24 Hr 97.3 F-98.2 F 77-98 20-20 139-157/90-96 99 GENERAL: The patient is awake, alert, and fully oriented, in no acute distress. LUNGS: Breath sounds equal, clear to auscultation bilaterally, no wheezes, no crackles, no accessory muscle use. HEART: Regular rate and rhythm, S1, S2 without murmur, rub or gallop. ABDOMEN: Soft, nontender, nondistended, normoactive bowel sounds, no guarding, no rebound, no hepatosplenomegaly, no masses. EXTREMITIES: 2+ pulses, warm, well-perfused, no edema. Laboratory Results - last 24 hr 11/22/18 02:54 Troponin I < 0.02 Active Medications Generic Name Dose Route Start Last Admin Trade Name Freq PRN Reason Stop Dose Admin Acetaminophen 650 mg 11/18/18 16:40 11/22/18 10:56 Tylenol - PO 650 mg Q6H PRN Administration PAIN LEVEL 1 - 3 Albuterol Sulfate 1 amp 11/18/18 16:40 11/22/18 02:24 Ventolin 0.083% Nebulizer Soln - NEB 1 amp Q6H PRN Administration SHORT OF BREATH/WHEEZING Amlodipine Besylate 10 mg 11/19/18 10:00 11/22/18 10:56 Norvasc - PO 10 mg DAILY [facility] Administration Budesonide/Formoterol Fumarate 2 puff 11/14/18 22:00 11/22/18 11:03 Symbicort 80/4.5mcg - IH 2 puff BID [facility] Administration Guaifenesin 10 ml 11/22/18 03:48 11/22/18 11:42 Robitussin - PO 10 ml Q6H PRN Administration COUGH Hydrocortisone 1 applic 11/16/18 22:00 11/21/18 21:54 Hytone 0.5% Cream - TP 1 applic BID [facility] Administration Ipratropium [place] 1 amp 11/14/18 16:00 11/22/18 11:06 Atrovent 0.02% Nebulizer - NEB 1 amp RQID [facility] Administration Levetiracetam 500 mg 11/14/18 22:00 11/22/18 10:58 Keppra Injection - IVPB 500 mg BID [facility] Administration Metoprolol Tartrate 25 mg 11/14/18 22:00 11/22/18 10:58 Lopressor - PO 25 mg BID [facility] Administration Metoprolol Tartrate 5 mg 11/14/18 17:27 Lopressor Injection - IVPUSH Q4H PRN TACHYCARDIA Pantoprazole Sodium 40 mg 11/15/18 10:00 11/22/18 10:56 Protonix - PO 40 mg DAILY [facility] Administration Prednisone 40 mg 11/21/18 12:45 11/22/18 10:59 Deltasone - PO 40 mg DAILY [facility] Administration ASSESSMENT/PLAN: This is a 67 year old man with a history of HTN, hyperlipidemia, alcohol abuse who presented to the ED after falling and losing consciousness. 1. Syncope 2. Left frontal AVM with subarachnoid hemorrhage - Neurosurgery follow up - recommends stereotactic radiosurgery once stable - Continue Keppra 3. Acute exacerbation of COPD - SoluMedrol changed to Prednisone yesterday - Continue Symbicort, Atrovent nebs, albuterol nebs as needed 4. Paroxysmal atrial fibrillation with RVR - Remains in sinus rhythm - Continue Lopressor 5. Alcohol withdrawal - Resolved 6. Continuous alcohol dependence 7. HTN - Continue Lopressor, Norvasc 8. Hyperlipidemia Visit type - Emergency Visit Emergency Visit: Yes ED Registration Date: 11/14/18 Care time: The patient presented to the Emergency Department on the above date and was hospitalized for further evaluation of their emergent condition. - New Patient This patient is new to me today: Yes Date on this admission: 11/22/18 - Critical Care Critical Care patient: No - Discharge Referral Referred to [facility] No
[2018-11-22] MEDS: HYDROCORTISONE 0.5% TOPICAL CREAM 30 GM TUBE TP SCH ×2 (16:45→22:15)
[2018-11-22] MEDS: levETIRAcetam 500 MG TABLET (FP) PO SCH (22:15)
[2018-11-23] MEDS: ACETAMINOPHEN 325 MG TABLET (FP) PO PRN ×2 (05:32→11:19)
[2018-11-23 08:54] LABS: ANION GAP 6 MMOL/L (8-16); BLOOD UREA NITROGEN 33 mg/dL (7-18); CALCIUM 8.6 mg/dL (8.5-10.1); CHLORIDE 100 mmol/L (98-107); CO2 29 mmol/L (21-32); CREATININE 0.9 mg/dL (0.55-1.3); GLUCOSE,RANDOM 71 mg/dL (74-106); MAGNESIUM 2.2 mg/dL (1.8-2.4); POTASSIUM 4.4 mmol/L (3.5-5.1); SODIUM 135 mmol/L (136-145)
[2018-11-23] MEDS: IPRATROPIUM BR 0.02% 0.5 MG/2.5 ML VIAL.NEB. NEB SCH ×2 (09:09→11:49)
[2018-11-23] MEDS: HYDROCORTISONE 0.5% TOPICAL CREAM 30 GM TUBE TP SCH (09:43)
[2018-11-23] MEDS: levETIRAcetam 500 MG TABLET (FP) PO SCH (09:44)
[2018-11-23] MEDS: BUDESONIDE/FORMETEROL FUMARATE 80/4.5 mcg INHALER IH SCH (09:44)
[2018-11-23] MEDS: predniSONE 20 MG TABLET (UD) PO SCH (09:44)
[2018-11-23] MEDS: amLODIPine BESYLATE 10 MG TABLET (FP) PO SCH (09:44)
[2018-11-23] MEDS: METOPROLOL TARTRATE 25 MG TABLET (FP) PO SCH (09:44)
[2018-11-23] MEDS: PANTOPRAZOLE 40 MG TABLET (FP) PO SCH (09:44)
[2018-11-23 10:24] LABS: HEMATOCRIT 34.6 % (35.4-49); HEMOGLOBIN 11.5 GM/dL (11.7-16.9); MCH 25.1 pg (25.7-33.7); MCHC 33.1 g/dl (32.0-35.9); MEAN CELL VOLUME 75.8 fl (80-96); PLATELET COUNT 375 K/MM3 (134-434); RBC 4.57 M/mm3 (4.00-5.60); RDW 17.3 % (11.9-15.9); WHITE BLOOD COUNT 20.3 K/mm3 (4.0-10.0)
--- NOTE | 2018-11-23 12:24 | PN ---
Progress Note (short form) - Note Progress Note: Overall improved. No desaturation on post ambulation testing. Still with some cough with pleuritic type chest discomfort. Afebrile. Intake & Output 11/20/18 11/21/18 11/22/18 11/23/18 23:59 23:59 23:59 23:59 Intake Total 940 1100 1030 880 Output Total 500 300 600 Balance 940 600 730 280 Weight 140 lb Last Vital Signs Temp Pulse Resp BP Pulse Ox 97.9 F 93 H 20 156/89 96 11/23/18 06:00 11/23/18 11:47 11/23/18 06:00 11/23/18 06:00 11/23/18 11:47 Active Medications Acetaminophen (Tylenol -) 650 mg PO Q6H PRN PRN Reason: PAIN LEVEL 1 - 3 Last Admin: 11/23/18 11:19 Dose: 650 mg Albuterol Sulfate (Ventolin 0.083% Nebulizer Soln -) 1 amp NEB Q6H PRN PRN Reason: SHORT OF BREATH/WHEEZING Last Admin: 11/22/18 02:24 Dose: 1 amp Amlodipine Besylate (Norvasc -) 10 mg PO DAILY [facility] Last Admin: 11/23/18 09:44 Dose: 10 mg Budesonide/Formoterol Fumarate (Symbicort 80/4.5mcg -) 2 puff IH BID [facility] Last Admin: 11/23/18 09:44 Dose: 2 puff Guaifenesin (Robitussin -) 10 ml PO Q6H PRN PRN Reason: COUGH Last Admin: 11/22/18 22:14 Dose: 10 ml Hydrocortisone (Hytone 0.5% Cream -) 1 applic TP BID [facility] Last Admin: 11/23/18 09:43 Dose: 1 applic Ipratropium [place] (Atrovent 0.02% Nebulizer -) 1 amp NEB RQID [facility] Last Admin: 11/23/18 11:49 Dose: 1 amp Levetiracetam (Keppra -) 500 mg PO BID [facility] Last Admin: 11/23/18 09:44 Dose: 500 mg Metoprolol Tartrate (Lopressor -) 25 mg PO BID [facility] Last Admin: 11/23/18 09:44 Dose: 25 mg Metoprolol Tartrate (Lopressor Injection -) 5 mg IVPUSH Q4H PRN PRN Reason: TACHYCARDIA Pantoprazole Sodium (Protonix -) 40 mg PO DAILY [facility] Last Admin: 11/23/18 09:44 Dose: 40 mg Prednisone (Deltasone -) 40 mg PO DAILY [facility] Last Admin: 11/23/18 09:44 Dose: 40 mg Constitutional: Yes: NAD, thin Eyes: Yes: WNL HENT: Yes: WNL Neck: Yes: WNL Cardiovascular: Yes: Pulse Irregular, S1, S2 Respiratory: Yes: Scattered rhonchi Gastrointestinal: Yes: Normal Bowel Sounds, Soft Extremities: Yes: WNL Edema: Yes Labs: Laboratory Results - last 24 hr 11/23/18 11/23/18 11/23/18 07:00 07:00 09:40 WBC Cancelled 20.3 H Corrected WBC (auto) Cancelled RBC Cancelled 4.57 Hgb Cancelled 11.5 L Hct Cancelled 34.6 L MCV Cancelled 75.8 L MCH Cancelled 25.1 L MCHC Cancelled 33.1 RDW Cancelled 17.3 H Plt Count Cancelled 375 MPV Cancelled 8.0 Absolute Neuts (auto) Cancelled Neutrophils % Cancelled Lymphocytes % Cancelled Monocytes % Cancelled Eosinophils % Cancelled Basophils % Cancelled Nucleated RBC % Cancelled Platelet Estimate Cancelled Platelet Comment Cancelled Sodium 135 L Potassium 4.4 Chloride 100 Carbon Dioxide 29 Anion Gap 6 L BUN 33 H Creatinine 0.9 Creat Clearance w eGFR > 60 Random Glucose 71 L Calcium 8.6 Phosphorus 3.0 Magnesium 2.2 Assessment/Plan Problem List - Problems (1) Atrial fibrillation with rapid ventricular response Code(s): I48.91 - UNSPECIFIED ATRIAL FIBRILLATION (2) Alcohol abuse Code(s): F10.10 - ALCOHOL ABUSE, UNCOMPLICATED (3) Fall Code(s): W19.XXXA - UNSPECIFIED FALL, INITIAL ENCOUNTER Qualifiers: Encounter type: initial encounter Qualified Code(s): W19.XXXA - Unspecified fall, initial encounter (4) Head injury Code(s): S09.90XA - UNSPECIFIED INJURY OF HEAD, INITIAL ENCOUNTER Qualifiers: Encounter type: initial encounter Qualified Code(s): S09.90XA - Unspecified injury of head, initial encounter (5) Nicotine dependence Code(s): F17.200 - NICOTINE DEPENDENCE, UNSPECIFIED, UNCOMPLICATED (6) Tachycardia Code(s): R00.0 - TACHYCARDIA, UNSPECIFIED (7) COPD (chronic obstructive pulmonary disease) Code(s): J44.9 - CHRONIC OBSTRUCTIVE PULMONARY DISEASE, UNSPECIFIED Assessment/Plan DYSPNEA AF WITH RVR AVM WITH SUBARACHNOID HEMORRHAGE COPD EXACERBATION HTN CP SMOKER PLAN RATE CONTROL PER CARDIOLOGY OUTPATIENT PFT'S SMOKING CESSATION COUNSELED PREDNISONE CAN D/C ON LAMA/LABA NO PULMONARY CONTRAINDICATION FOR D/C DR LONG
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
[2018-11-23 15:47] VITALS: BP 128/78; PULSE 88; TEMP 98
== END 2018-11-23 14:32 | disposition home or self-care (01) | DRG 82 ==
LOC: JER 15:08 → JERBED 18:01 → OBSVTOIN 11-14 08:01 → J4W 11-14 20:48 → J5S 11-18 16:28
PROVIDERS: ADMIT Internal Medicine; ATTEND Nurse Practitioner Family
DX: S06.6X9A Traumatic subarachnoid hemorrhage with loss of consciousness of unspecified duration, initial encounter (principal); Q28.2 Arteriovenous malformation of cerebral vessels; J44.1 Chronic obstructive pulmonary disease with (acute) exacerbation; F10.239 Alcohol dependence with withdrawal, unspecified; I10 Essential (primary) hypertension; I48.0 Paroxysmal atrial fibrillation; R55 Syncope and collapse; R07.9 Chest pain, unspecified; R06.02 Shortness of breath; E78.5 Hyperlipidemia, unspecified; D72.829 Elevated white blood cell count, unspecified; W19.XXXA Unspecified fall, initial encounter; Y93.9 Activity, unspecified; Y92.89 Other specified places as the place of occurrence of the external cause; Y99.9 Unspecified external cause status; F17.210 Nicotine dependence, cigarettes, uncomplicated
CPT/HCPCS: 36415; 70450-TC; 70496-TC; 70553-TC; 71045-TC-FY; 71275-TC; 80048; 80053; 80061; 80177; 80307; 81003; 81015; 82550; 82553; 82962; 83690; 83721; 83735; 83880; 84100; 84439; 84443; 84481; 84484; 85025; 85027; 85610; 93005; 93010; 93306-TC; 93970-TC; 94640; 94761; 97116-GP; 97161-GP; 99285-25; G0378; J7030

== ENCOUNTER 2018-11-23 20:51 | Emergency (ER) | payer OTHER ==
[2018-11-23 21:13] VITALS: BMI 23.1
--- NOTE | 2018-11-24 02:10 | PDOC ---
History of Present Illness - General Chief Complaint: Syncope/Near Syncope Stated Complaint: SYNCOPE Time Seen by Provider: 11/24/18 02:10 History Source: Patient - History of Present Illness Initial Comments: 11/24/18 02:11 68 year old male HTN, COPD, alcohol dependence c/o dizziness, patient was discharged from this hospital yesterday for syncope. patient was incidentally noted to have a FRONTAL lobe AVM, leukocystosis. patient disgruntled c/o dizziness denies fever/ chills. 11/24/18 06:37 Past History - Past Medical History Allergies/Adverse Reactions: Allergies Allergy/AdvReac Type Severity Reaction Status Date / Time No Known Allergies Allergy Verified 11/23/18 21:13 Home Medications: Ambulatory Orders Albuterol 0.083% Nebulizer [place] [Ventolin 0.083% Nebulizer Soln -] 1 amp NEB Q6H PRN #2 amp 11/23/18 Amlodipine Besylate [Norvasc -] 10 mg PO DAILY #30 tablet 11/23/18 Budesonide/Formeterol Fumarate [SYMBICORT 80/4.5mcg -] 2 puff IH BID #1 inhaler 11/23/18 Metoprolol Tartrate [Lopressor -] 25 mg PO BID #60 tablet 11/23/18 Pantoprazole Sodium [Protonix -] 40 mg PO DAILY #30 tablet.ec 11/23/18 levETIRAcetam [Keppra -] 500 mg PO BID #60 tablet 11/23/18 predniSONE [Deltasone -] 40 mg PO DAILY #15 tablet 11/23/18 Asthma: No CVA: No COPD: Yes DVT: No Dementia: No Diabetes: Yes GI Disorders: No Disorders: No HTN: Yes Hypercholesterolemia: Yes Liver Disease: No Seizures: No Thyroid Disease: No - Surgical History Abdominal Surgery: No Appendectomy: No Cardiac Surgery: No Cholecystectomy: No Lung Surgery: No Neurologic Surgery: No Orthopedic Surgery: Yes (HIP SURGERY) - Reproductive History Testicular Surgery: No - Immunization History Immunization Up to Date: Yes - Suicide/Smoking/Psychosocial Hx Smoking History: Current some day smoker Have you smoked in the past 12 months: Yes Number of Cigarettes Smoked Daily: 5 Information on smoking cessation initiated: No 'Breaking Loose' booklet given: 11/14/18 Hx Alcohol Use: Yes Drug/Substance Use Hx: No Substance Use Type: None Hx Substance Use Treatment: No Cardiac Specific PMH - Complaint Specific PMHX Pacemaker: No *Physical Exam - Vital Signs Last Vital Signs Temp Pulse Resp BP Pulse Ox 97.8 F 89 20 115/72 98 11/23/18 20:51 11/23/18 20:51 11/23/18 20:51 11/23/18 20:51 11/23/18 20:51 Moderate Sedation - Procedure Monitoring Vital Signs: Procedure Monitoring Vital Signs Temperature 97.8 F 11/23/18 20:51 Pulse Rate 89 11/23/18 20:51 Respiratory Rate 20 11/23/18 20:51 Blood Pressure 115/72 11/23/18 20:51 O2 Sat by Pulse Oximetry (%) 98 11/23/18 20:51 ED Treatment Course - LABORATORY CBC & Chemistry Diagram: 11/24/18 03:58 11/24/18 03:58 - ADDITIONAL ORDERS Additional order review: Laboratory Results 11/24/18 03:58 Sodium 137 Potassium 4.3 Chloride 102 Carbon Dioxide 28 Anion Gap 8 BUN 42 H Creatinine 1.0 Creat Clearance w eGFR > 60 Random Glucose 112 H Calcium 8.1 L Total Bilirubin 0.4 AST 9 L ALT 36 Alkaline Phosphatase 53 Creatine Kinase 38 Troponin I < 0.02 B-Natriuretic Peptide 657.0 H Total Protein 6.2 L Albumin 3.1 L 11/24/18 03:58 RBC 4.47 MCV 74.9 L MCHC 34.3 RDW 16.7 H MPV 7.8 Neutrophils % 79.3 Lymphocytes % 3.9 L D Monocytes % 16.5 H D Eosinophils % 0.1 Basophils % 0.2 - RADIOLOGY Radiology Studies Ordered: Category Date Time Status HEAD CT WITHOUT CONTRAST [CT] Stat CT Scan 11/24/18 04:58 Ordered Medical Decision Making - Medical Decision Making 11/24/18 02:58 patient reports dizziness. will check labs. 11/24/18 06:36 lisset *DC/Admit/Observation/Transfer Diagnosis at time of Disposition: Dizziness, Alcohol abuse - Discharge Dispostion Condition at time of disposition: Fair - Referrals - Patient Instructions - Post Discharge Activity
--- NOTE | 2018-11-24 02:20 | PDOC ---
*Physical Exam - Vital Signs Last Vital Signs Temp Pulse Resp BP Pulse Ox 97.8 F 89 20 115/72 98 11/23/18 20:51 11/23/18 20:51 11/23/18 20:51 11/23/18 20:51 11/23/18 20:51 ED Treatment Course - LABORATORY CBC & Chemistry Diagram: 11/24/18 03:58 11/24/18 03:58 Medical Decision Making - Medical Decision Making 11/24/18 02:19 Patient seen by the advanced practice provider under my direct supervision. Ancillary testing reviewed as necessary. I agree with plan as outlined by the advanced practice provider. 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 Ellington as previously scheduled Return to the ED for any new or worsening symptoms - Post Discharge Activity
[2018-11-24 04:18] LABS: EOS % 0.1 % (0-4.5); HEMOGLOBIN 11.5 GM/dL (11.7-16.9); WHITE BLOOD COUNT 19.6 K/mm3 (4.0-10.0)
[2018-11-24 04:23] LABS: BASO % 0.2 % (0-2.0); HEMATOCRIT 33.5 % (35.4-49); LYMPH % 3.9 % (8-40); MCH 25.7 pg (25.7-33.7); MCHC 34.3 g/dl (32.0-35.9); MEAN CELL VOLUME 74.9 fl (80-96); MEAN PLT VOLUME 7.8 fl (7.5-11.1); MONO % 16.5 % (3.8-10.2); NEUT % 79.3 % (42.8-82.8); PLATELET COUNT 439 K/MM3 (134-434); RBC 4.47 M/mm3 (4.00-5.60); RDW 16.7 % (11.9-15.9)
[2018-11-24 04:45] LABS: ALBUMIN 3.1 g/dl (3.4-5.0); ALK PHOS 53 U/L (45-117); ANION GAP 8 MMOL/L (8-16); BILIRUBIN,TOTAL 0.4 mg/dL (0.2-1); BLOOD UREA NITROGEN 42 mg/dL (7-18); CALCIUM 8.1 mg/dL (8.5-10.1); CHLORIDE 102 mmol/L (98-107); CO2 28 mmol/L (21-32); GLUCOSE,RANDOM 112 mg/dL (74-106); POTASSIUM 4.3 mmol/L (3.5-5.1); SGOT/AST 9 U/L (15-37); SGPT/ALT 36 U/L (13-61); SODIUM 137 mmol/L (136-145); TOT PROT 6.2 g/dl (6.4-8.2)
[2018-11-24 04:50] LABS: PLATELET ESTIMATE INCREASED
[2018-11-24 04:51] LABS: ANISOCYTOSIS 1+; OVALOCYTE FEW; TARGET CELLS FEW
[2018-11-24] MEDS ORDERED: ALBUTEROL SO4 2.5/IPRATROPIUM 0.5 INH SOL 3 ML VIAL.NEB. NEB ONE ×2 (06:34→06:46)
--- NOTE | 2018-11-24 07:13 | PDOC ---
*Physical Exam - Vital Signs Last Vital Signs Temp Pulse Resp BP Pulse Ox 97.8 F 89 20 115/72 98 11/23/18 20:51 11/23/18 20:51 11/23/18 20:51 11/23/18 20:51 11/23/18 20:51 ED Treatment Course - LABORATORY CBC & Chemistry Diagram: 11/24/18 03:58 11/24/18 03:58 - ADDITIONAL ORDERS Additional order review: Laboratory Results 11/24/18 03:58 Sodium 137 Potassium 4.3 Chloride 102 Carbon Dioxide 28 Anion Gap 8 BUN 42 H Creatinine 1.0 Creat Clearance w eGFR > 60 Random Glucose 112 H Calcium 8.1 L Total Bilirubin 0.4 AST 9 L ALT 36 Alkaline Phosphatase 53 Creatine Kinase 38 Troponin I < 0.02 B-Natriuretic Peptide 657.0 H Total Protein 6.2 L Albumin 3.1 L 11/24/18 03:58 RBC 4.47 MCV 74.9 L MCHC 34.3 RDW 16.7 H MPV 7.8 Neutrophils % 79.3 Lymphocytes % 3.9 L D Monocytes % 16.5 H D Eosinophils % 0.1 Basophils % 0.2 - Medications Given in the ED: ED Medications Discontinued Medications Generic Name Dose Route Start Last Admin Trade Name Freq PRN Reason Stop Dose Admin Albuterol/Ipratropium 1 amp 11/24/18 06:34 11/24/18 06:52 Duoneb - NEB 11/24/18 06:35 1 amp ONCE ONE Administration Medical Decision Making - Medical Decision Making 11/24/18 07:12 Sign out recieved from Loretta Cruz NP. Pt pending CT scan and CXR. Complaining of dizziness. 11/24/18 10:48 CT shows no changes or acute pathology CXR with no acute pathology BP elevated. Will give home dose. Pt walking around the ED comfortably; reqquesting discharge Will give home meds and dc home. *DC/Admit/Observation/Transfer Diagnosis at time of Disposition: Dizziness, Alcohol abuse - Discharge Dispostion Disposition: HOME Condition at time of disposition: Fair Decision to Admit order: No - Referrals - Patient Instructions Printed Discharge Instructions: DI for Dizziness-Nonvertigo Additional Instructions: Please supervisor picking crew your medications and start taking them Avoid alcohol Keep your follow up with Dr. Ellington as previously scheduled Return to the ED for any new or worsening symptoms - Post Discharge Activity
[2018-11-24 10:26] VITALS: BP 192/100; PULSE 100; TEMP 98.5
[2018-11-24] MEDS ORDERED: ACETAMINOPHEN 325 MG TABLET (FP) PO ONE (10:34)
[2018-11-24] MEDS ORDERED: amLODIPine BESYLATE 10 MG TABLET (FP) PO ONE (10:34)
[2018-11-24] MEDS ORDERED: predniSONE 20 MG TABLET (UD) PO ONE (10:35)
[2018-11-24] MEDS ORDERED: METOPROLOL TARTRATE 25 MG TABLET (FP) PO ONE (10:35)
[2018-11-24] MEDS ORDERED: METOPROLOL TARTRATE 25 MG TABLET (FP) ONE (10:55)
[2018-11-24] MEDS ORDERED: amLODIPine BESYLATE 5 MG TABLET (FP) ONE (10:55)
[2018-11-24] MEDS ORDERED: predniSONE 20 MG TABLET (UD) ONE (10:55)
[2018-11-24] MEDS ORDERED: ACETAMINOPHEN 325 MG TABLET (FP) ONE (10:55)
--- NOTE | 2018-11-24 11:37 | EKG ---
Test Reason : Blood Pressure : / mmHG Vent. Rate : 093 BPM Atrial Rate : 093 BPM P-R Int : 138 ms QRS Dur : 086 ms QT Int : 358 ms P-R-T Axes : 042 -42 073 degrees QTc Int : 445 ms SINUS RHYTHM WITH PREMATURE ATRIAL COMPLEXES LEFT AXIS DEVIATION ABNORMAL ECG WHEN COMPARED WITH ECG OF 22-NOV-2018 02:48, PREMATURE ATRIAL COMPLEXES ARE NOW PRESENT Confirmed by JOHNIE PARSON, ARNOL ([id number]) on 11/24/2018 11:37:21 AM Referred By: Confirmed By:ARNOL JETT MD
== END 2018-11-24 11:07 | disposition home or self-care (01) ==
LOC: JER 20:51
DX: F10.10 Alcohol abuse, uncomplicated (principal); R42 Dizziness and giddiness; I10 Essential (primary) hypertension; E78.00 Pure hypercholesterolemia, unspecified; E11.9 Type 2 diabetes mellitus without complications; J44.9 Chronic obstructive pulmonary disease, unspecified; Q28.2 Arteriovenous malformation of cerebral vessels
CPT/HCPCS: 36415; 70450-TC; 71046-TC-FY; 80053; 82550; 83880; 84484; 85025; 93005; 93010; 99284-25

== ENCOUNTER 2018-12-03 02:41 | Inpatient (IN) | payer OTHER ==
[2018-12-03 02:54] VITALS: BMI 28.3
[2018-12-03] MEDS ORDERED: methylPREDNISolone NA SUCC 125 MG/2 ML VIAL IVPB ONE (03:10)
--- NOTE | 2018-12-03 03:26 | PDOC ---
Attending Attestation - Resident Resident Name: Anthony Trinidad - ED Attending Attestation I have performed the following: I have examined & evaluated the patient, The case was reviewed & discussed with the resident, I agree w/resident's findings & plan, Exceptions are as noted - HPI HPI: 12/03/18 04:39 Mr Herrera is a 68 yo M h/o etoh abuse/dependence, COPD, HTN, h/o recurrent syncope, h/o AVM who presents to the ER with a complaint of shortness of breath. (+) Tobacco use. No known fevers Pt denies chest pain to me When asked if he syncopized, pt states he does not know, "I was sleepin12/03/18 04:46 12/03/18 06:30 - Physicial Exam PE: 12/03/18 04:28 GENERAL: The patient is in no acute distress, sleeping comfortably, (+)AOB HEAD: Normal EYES: PERRLA, EOMI, sclera anicteric, conjunctiva clear. ENT: Ears normal, nares patent, oropharynx clear without exudates. Moist mucous membranes. NECK: Normal range of motion, supple LUNGS: Breath sounds equal, clear to auscultation bilaterally. No wheezes, and no crackles. HEART:Regular rate and rhythm, normal S1 and S2 without murmur, rub or gallop. ABDOMEN: Soft, nontender, normoactive bowel sounds. No guarding, no rebound. EXTREMITIES: Normal range of motion, no edema. NEUROLOGICAL: Cranial nerves II through XII grossly intact. Normal speech. No focal neurological deficits. 12/03/18 06:31 - Medical Decision Making 12/03/18 04:29 Laboratory Tests 11/23/18 11/23/18 11/24/18 07:00 09:40 03:58 WBC 20.3 H 19.6 H Hgb 11.5 L 11.5 L Hct 34.6 L 33.5 L Plt Count 375 439 H BUN 33 H Creatinine 0.9 Creatine Kinase Troponin I B-Natriuretic Peptide 11/24/18 03:58 WBC Hgb Hct Plt Count BUN 42 H Creatinine 1.0 Creatine Kinase 38 Troponin I < 0.02 B-Natriuretic Peptide 657.0 H CXR: ? left lower lobe infiltrate vs. under penetrated film/poor inspiration Will admit
--- NOTE | 2018-12-03 04:01 | PDOC ---
History of Present Illness - General Chief Complaint: Cold Symptoms Stated Complaint: CHEST PAIN Time Seen by Provider: 12/03/18 03:03 History Source: Patient Exam Limitations: No Limitations - History of Present Illness Initial Comments: 12/03/18 03:57 Patient is a 68M with history of AVM, HTN, etoh abuse, COPD here today complaining of syncope and chest pain. He states that he was smoking a cigarette when he started coughing and syncopized. Denies fevers, chills, nausea , vomiting. Denies headache, abdominal pain. The pain in his chest is located on the left aspect of his chest and is worsened with breathing. Denies dysuria, leg pain, leg swelling. Past History - Past Medical History Allergies/Adverse Reactions: Allergies Allergy/AdvReac Type Severity Reaction Status Date / Time No Known Allergies Allergy Verified 12/03/18 02:52 Home Medications: Ambulatory Orders Albuterol 0.083% Nebulizer Talya [Ventolin 0.083% Nebulizer Soln -] 1 amp NEB Q6H PRN #2 amp 11/23/18 Amlodipine Besylate [Norvasc -] 10 mg PO DAILY #30 tablet 11/23/18 Budesonide/Formeterol Fumarate [SYMBICORT 80/4.5mcg -] 2 puff IH BID #1 inhaler 11/23/18 Metoprolol Tartrate [Lopressor -] 25 mg PO BID #60 tablet 11/23/18 Pantoprazole Sodium [Protonix -] 40 mg PO DAILY #30 tablet.ec 11/23/18 levETIRAcetam [Keppra -] 500 mg PO BID #60 tablet 11/23/18 predniSONE [Deltasone -] 40 mg PO DAILY #15 tablet 11/23/18 Asthma: No CVA: No COPD: Yes DVT: No Dementia: No Diabetes: Yes GI Disorders: No Disorders: No HTN: Yes Hypercholesterolemia: Yes Liver Disease: No Seizures: No Thyroid Disease: No - Surgical History Abdominal Surgery: No Appendectomy: No Cardiac Surgery: No Cholecystectomy: No Lung Surgery: No Neurologic Surgery: No Orthopedic Surgery: Yes (HIP SURGERY) - Reproductive History Testicular Surgery: No - Immunization History Immunization Up to Date: Yes - Suicide/Smoking/Psychosocial Hx Smoking History: Unknown if ever smoked Have you smoked in the past 12 months: No Number of Cigarettes Smoked Daily: 5 Information on smoking cessation initiated: No 'Breaking Loose' booklet given: 11/14/18 Hx Alcohol Use: No Drug/Substance Use Hx: No Substance Use Type: None Hx Substance Use Treatment: No Review of Systems - Review of Systems Comments:: 12/03/18 03:59 GENERAL/CONSTITUTIONAL: No fever or chills. No weakness. HEAD, EYES, EARS, NOSE AND THROAT: No change in vision. No sore throat. CARDIOVASCULAR: +chest pain +shortness of breath RESPIRATORY: +cough, +wheezing, no hemoptysis. GASTROINTESTINAL: No nausea, vomiting, diarrhea or constipation. GENITOURINARY: No dysuria, frequency, or change in urination. MUSCULOSKELETAL: No joint or muscle swelling or pain. No neck or back pain. SKIN: No rash NEUROLOGIC: No headache, vertigo, loss of consciousness, or change in strength/ sensation. ALLERGIC/IMMUNOLOGIC: No hives or skin allergy. *Physical Exam - Vital Signs Last Vital Signs Temp Pulse Resp BP Pulse Ox 98.9 F 92 H 18 109/65 96 12/03/18 02:52 12/03/18 02:52 12/03/18 02:52 12/03/18 02:52 12/03/18 02:52 - Physical Exam Comments: 12/03/18 03:59 GENERAL: Awake, alert, and fully oriented, in no acute distress HEAD: No signs of trauma, normocephalic, atraumatic EYES: PERRLA, EOMI, sclera anicteric, conjunctiva clear ENT: Auricles normal inspection, hearing grossly normal, nares patent, oropharynx clear without exudates. Moist mucosa NECK: Normal ROM, supple, no lymphadenopathy, JVD, or masses LUNGS: No distress, coarse breath sounds in LLL HEART: Regular rate and rhythm, normal S1 and S2, no murmurs, rubs or gallops, peripheral pulses normal and equal bilaterally. ABDOMEN: Soft, nontender, normoactive bowel sounds. No guarding, no rebound. No masses EXTREMITIES: Normal inspection, Normal range of motion, no edema. No clubbing or cyanosis. NEUROLOGICAL: Cranial nerves II through XII grossly intact. Normal speech, no focal sensorimotor deficits SKIN: Warm, Dry, normal turgor, no rashes or lesions noted. Moderate Sedation - Procedure Monitoring Vital Signs: Procedure Monitoring Vital Signs Temperature 98.9 F 12/03/18 02:52 Pulse Rate 92 H 12/03/18 02:52 Respiratory Rate 18 12/03/18 02:52 Blood Pressure 109/65 12/03/18 02:52 O2 Sat by Pulse Oximetry (%) 96 12/03/18 02:52 ED Treatment Course - LABORATORY CBC & Chemistry Diagram: 12/03/18 04:22 12/03/18 04:22 - RADIOLOGY Radiology Studies Ordered: Category Date Time Status HEAD CT WITHOUT CONTRAST [CT] Stat CT Scan 12/03/18 03:54 Ordered CHEST PA & LAT [RAD] Stat Radiology 12/03/18 03:09 Taken Medical Decision Making - Medical Decision Making 12/03/18 04:00 Patient is 68M with history of AVM, HTN, COPD, etoh abuse here today with cough , chest pain and syncope. Vitals normal and stable. DDx includes, but is not limited to: ACS, arrhythmia, pneumonia, copd exacerbation. 12/03/18 06:[address] scan[address] CXR shows increased lung markings, poor delineation of left lateral border. CBC shows mild leukocytosis, improved from before. Suspect patient has not taken steroids. CMP shows mild elevation in BUN, trop negative. EKG shows NSR with left axis deviation. No st elevation/depressions. Normal intervals. No significant t wave changes. Medicine paged, awaiting call back. *DC/Admit/Observation/Transfer Diagnosis at time of Disposition: COPD exacerbation, Chest pain at rest - Discharge Dispostion Condition at time of disposition: Stable Decision to Admit order: Yes - Referrals - Patient Instructions - Post Discharge Activity
[2018-12-03] MEDS ORDERED: AZITHROMYCIN IVPB 500 MG in DEXTROSE 5%-WATER - 250 ML IVPB ONE (04:02)
[2018-12-03 04:42] LABS: BASO % 0.7 % (0-2.0); HEMATOCRIT 33.7 % (35.4-49); HEMOGLOBIN 11.2 GM/dL (11.7-16.9); LYMPH % 19.8 % (8-40); MCH 25.4 pg (25.7-33.7); MCHC 33.1 g/dl (32.0-35.9); MEAN CELL VOLUME 76.6 fl (80-96); MEAN PLT VOLUME 7.6 fl (7.5-11.1); MONO % 4.9 % (3.8-10.2); NEUT % 72.6 % (42.8-82.8); PLATELET COUNT 220 K/MM3 (134-434); RDW 18.8 % (11.9-15.9); WHITE BLOOD COUNT 13.6 K/mm3 (4.0-10.0)
[2018-12-03 04:48] LABS: INR 0.88 (0.83-1.09); PROTHROMBIN TIME (PATIENT) 10.4 SEC (9.7-13.0)
[2018-12-03] MEDS: ALBUTEROL SO4 2.5/IPRATROPIUM 0.5 INH SOL 3 ML VIAL.NEB. NEB SCH ×4 (04:56→06:36)
[2018-12-03 05:53] LABS: ALBUMIN 2.9 g/dl (3.4-5.0); ALK PHOS 75 U/L (45-117); ANION GAP 6 MMOL/L (8-16); BILIRUBIN,TOTAL 0.2 mg/dL (0.2-1); BLOOD UREA NITROGEN 40 mg/dL (7-18); CALCIUM 7.8 mg/dL (8.5-10.1); CHLORIDE 105 mmol/L (98-107); CO2 29 mmol/L (21-32); CREATININE 1.3 mg/dL (0.55-1.3); GLUCOSE,RANDOM 108 mg/dL (74-106); MAGNESIUM 2.3 mg/dL (1.8-2.4); POTASSIUM 4.6 mmol/L (3.5-5.1); SGOT/AST 20 U/L (15-37); SGPT/ALT 42 U/L (13-61); SODIUM 140 mmol/L (136-145); TOT PROT 5.9 g/dl (6.4-8.2)
--- NOTE | 2018-12-03 07:04 | PDOC ---
*Physical Exam - Vital Signs Last Vital Signs Temp Pulse Resp BP Pulse Ox 98.9 F 92 H 18 109/65 96 12/03/18 02:52 12/03/18 02:52 12/03/18 02:52 12/03/18 02:52 12/03/18 02:52 ED Treatment Course - LABORATORY CBC & Chemistry Diagram: 12/03/18 04:22 12/03/18 04:22 - ADDITIONAL ORDERS Additional order review: Laboratory Results 12/03/18 12/03/18 04:22 04:22 PT with INR 10.40 INR 0.88 Sodium 140 Potassium 4.6 Chloride 105 Carbon Dioxide 29 Anion Gap 6 L BUN 40 H Creatinine 1.3 Creat Clearance w eGFR 55.23 Random Glucose 108 H Calcium 7.8 L Magnesium 2.3 Total Bilirubin 0.2 AST 20 ALT 42 Alkaline Phosphatase 75 Creatine Kinase 66 Troponin I < 0.02 Total Protein 5.9 L Albumin 2.9 L 12/03/18 04:22 RBC 4.40 MCV 76.6 L MCHC 33.1 RDW 18.8 H MPV 7.6 Neutrophils % 72.6 Lymphocytes % 19.8 D Monocytes % 4.9 Eosinophils % 2.0 D Basophils % 0.7 D - Medications Given in the ED: ED Medications Discontinued Medications Generic Name Dose Route Start Last Admin Trade Name Freq PRN Reason Stop Dose Admin Albuterol/Ipratropium 1 amp 12/03/18 03:15 12/03/18 06:36 Duoneb - NEB 12/03/18 04:01 1 amp Q15M EMILY Administration Azithromycin 500 mg/ Dextrose 250 mls @ 250 mls/hr 12/03/18 04:02 12/03/18 05 :16 IVPB 12/03/18 05:01 250 mls/hr ONCE ONE Administration Methylprednisolone Sodium Succinate 125 mg 12/03/18 03:10 12/03/18 04:56 Solu-Medrol - IVPB 12/03/18 03:11 125 mg ONCE ONE Administration Medical Decision Making - Medical Decision Making 12/03/18 06:55 Received sign out from resident Dr. Trinidad. In short, pt is a 68 y/ o male pending admission for chest pain and COPD exacerbation. No hypoxia. He presented complaining of cough, chest pain, SOB, and syncope. Recently D/C'ed from this facility for similar symptoms. Received Avani steroids, and Azithromycin. Refused Head CT, which was ordered because of his h/o AV malformation. 12/03/18 07:17 Telephone consult with resident Dr. Rojo. Will admit pt to telemetry for attending Dr. Heard. *DC/Admit/Observation/Transfer Diagnosis at time of Disposition: COPD exacerbation, Chest pain at rest - Discharge Dispostion Condition at time of disposition: Stable Decision to Admit order: Yes - Referrals - Patient Instructions - Post Discharge Activity
[2018-12-03] MEDS ORDERED: ACETAMINOPHEN 325 MG TABLET (FP) PO ONE (08:17)
[2018-12-03 08:29] LABS: PLATELET ESTIMATE NORMAL
[2018-12-03 08:30] LABS: TARGET CELLS 1+
[2018-12-03] MEDS ORDERED: ALBUTEROL SO4 0.083% IH SOL 2.5 MG/3 ML VIAL.NEB. NEB PRN (08:42)
[2018-12-03] MEDS ORDERED: ACETAMINOPHEN 325 MG TABLET (FP) PO PRN (08:54)
--- NOTE | 2018-12-03 09:11 | HP ---
CHIEF COMPLAINT: SOB/ syncope PCP: HISTORY OF PRESENT ILLNESS: The patient is a 68 yo m w/ PMH brain AVM, HTN, ETOH abuse, COPD who comes into the ED after a near syncopal episode. The patient states that he was walking on the street with his cane when he experienced an episode of LE weakness and lightheadedness. He fell to his knees and braced himself on a hydrant, but denies LOC or head trauma. He has had several other similar episodes over the last 1.5 months associated w/ SOB and chest pain. The patient describes his chest pain as a pressure, localized to the left side of his chest without radiation. The pain is exacerbated by heavy breathing and has no alleviating factors. Patient also endorses a dry cough for the past 1.5 months as well. Of note, the patient was recently admitted for a similar episode and d/c with several new medications, including inhalers and cardiac meds (see home med list). The patient states that he was not able to "make it to the pharmacy" to pick out hand his medications and has not taken them. Prior to this admission, he was not on any medications at home. The patient was also dx w/ paroxysmal Afib on this admission. ER course was notable for: (1) WBC 13.6, BUN 40, Cr. 1.3 (2) s/p 125 medrol, azithromycin in ED (3) Recent Travel: none PAST MEDICAL HISTORY: see HPI PAST SURGICAL HISTORY: Right shoulder sx Hip sx b/l LE orthopedic surgery Social History: Smoking: Smokes 3 cigs per day for the past 1.5 months, smoked 1ppd for the past 50 years Alcohol: drinks approx. 1.5 pints every 3 days. Last drink 1.5 month Drugs: denies Family History: non-contributory Allergies No Known Allergies Allergy (Verified 12/03/18 02:52) HOME MEDICATIONS: Home Medications Medication Instructions Recorded Albuterol 0.083% Nebulizer Talya 1 amp NEB Q6H PRN #2 amp 11/23/18 [Ventolin 0.083% Nebulizer Soln -] Amlodipine Besylate [Norvasc -] 10 mg PO DAILY #30 tablet 11/23/18 Budesonide/Formeterol Fumarate 2 puff IH BID #1 inhaler 11/23/18 [SYMBICORT 80/4.5mcg -] Metoprolol Tartrate [Lopressor -] 25 mg PO BID #60 tablet 11/23/18 Pantoprazole Sodium [Protonix -] 40 mg PO DAILY #30 tablet.ec 11/23/18 levETIRAcetam [Keppra -] 500 mg PO BID #60 tablet 11/23/18 predniSONE [Deltasone -] 40 mg PO DAILY #15 tablet 11/23/18 REVIEW OF SYSTEMS CONSTITUTIONAL: Absent: fever, chills, diaphoresis, generalized weakness, malaise, loss of appetite, weight change HEENT: Absent: rhinorrhea, nasal congestion, throat pain, throat swelling, difficulty swallowing, mouth swelling, ear pain, eye pain, visual changes CARDIOVASCULAR: Absent: irregular heart rate, lightheadedness, peripheral edema RESPIRATORY: Absent: dyspnea with exertion, orthopnea, wheezing, stridor, hemoptysis GASTROINTESTINAL: Absent: abdominal pain, abdominal distension, nausea, vomiting, diarrhea, constipation, melena, hematochezia GENITOURINARY: Absent: dysuria, frequency, urgency, hesitancy, hematuria, flank pain, genital pain MUSCULOSKELETAL: Absent: myalgia, arthralgia, joint swelling, back pain, neck pain SKIN: Absent: rash, itching, pallor HEMATOLOGIC/IMMUNOLOGIC: Absent: easy bleeding, easy bruising, lymphadenopathy, frequent infections ENDOCRINE: Absent: unexplained weight gain, unexplained weight loss, heat intolerance, cold intolerance NEUROLOGIC: Absent: headache, focal weakness or paresthesias, dizziness, unsteady gait, seizure, mental status changes, bladder or bowel incontinence PSYCHIATRIC: Absent: anxiety, depression, suicidal or homicidal ideation, hallucinations. PHYSICAL EXAMINATION Vital Signs - 24 hr 12/03/18 12/03/18 12/03/18 02:52 08:07 08:10 Temperature 98.9 F 98.9 F Pulse Rate 92 H 104 H Pulse Rate [ 102 H Left Apical] Respiratory 18 16 Rate Blood Pressure 109/65 Blood Pressure 123/67 [Left Arm] O2 Sat by Pulse 96 97 98 Oximetry (%) GENERAL: Awake, alert, and fully oriented, in no acute distress. Patient appears SOB. HEAD: Normal with no signs of trauma. EYES: Pupils equal, round and reactive to light, extraocular movements intact, sclera anicteric, conjunctiva clear. No lid lag. LUNGS: Breath sounds equal. There are crackles and wheezes in all lung flannery b/ l. Patient coughs forcefully on deep inspiration. Mild use of accessory muscles. HEART: Regular rate and rhythm, normal S1 and S2 without murmur, rub or gallop. Chest pressure exacerbated on palpation of the chest wall. ABDOMEN: Soft, nontender, not distended, normoactive bowel sounds, no guarding, no rebound, no masses. No hepatomegaly or splenomegaly. LOWER EXTREMITIES: 2+ pulses, warm, well-perfused. No calf tenderness. No peripheral edema. NEUROLOGICAL: Cranial nerves II-X intact. Normal speech. Strength 5/5 in all 4 limbs. SKIN: Warm, dry, normal turgor, no rashes or lesions noted, normal capillary refill. Laboratory Results - last 24 hr 12/03/18 12/03/18 12/03/18 04:22 04:22 04:22 WBC 13.6 H RBC 4.40 Hgb 11.2 L Hct 33.7 L MCV 76.6 L MCH 25.4 L MCHC 33.1 RDW 18.8 H Plt Count 220 D MPV 7.6 Absolute Neuts (auto) 9.9 H Total Counted 100 Neutrophils % 72.6 Neutrophils % (Manual) 82.0 Band Neutrophils % 0.0 Lymphocytes % 19.8 D Lymphocytes % (Manual) 15.0 D Monocytes % 4.9 Monocytes % (Manual) 1 L Eosinophils % 2.0 D Eosinophils % (Manual) 2.0 Basophils % 0.7 D Nucleated RBC % 0 Hypochromia 1+ Platelet Estimate Normal Polychromasia 1+ Poikilocytosis 1+ Target Cells 1+ PT with INR 10.40 INR 0.88 Sodium 140 Potassium 4.6 Chloride 105 Carbon Dioxide 29 Anion Gap 6 L BUN 40 H Creatinine 1.3 Creat Clearance w eGFR 55.23 Random Glucose 108 H Calcium 7.8 L Magnesium 2.3 Total Bilirubin 0.2 AST 20 ALT 42 Alkaline Phosphatase 75 Creatine Kinase 66 Troponin I < 0.02 Total Protein 5.9 L Albumin 2.9 L ASSESSMENT/PLAN: The patient is a 68 yo m w/ PMH brain AVM, HTN, ETOH abuse, COPD who comes into the ED after a syncopal episode c/o SOB and chest pain. #Syncopal episode, eitology unclear. could be vasovagal, cardiac or hypoxic in nature -trop negative x1 -EKG in ED shows sinus rhythm w/ premature complexes -will trend EKG and trop q6h -pressure similar in both arms and CXR shows no widened mediastinum; dissection less likely -patient saturating well on 2L NC at this time -will obtain orthostatic VS to eval dehydration -monitor on tele for further arrhythmias -fall precautions -holding new BP/ psychoactive medications #SOB, cough, chest pain likely 2/2 COPD exacerbation -trend trop, EKG as above -will resume symbicort and albuterol PRN #leukcytosis -improving compared to WBC on discharge -patient afebrile -no indication for ABX at this time. #FEN -no fluids indicated -lytes WNL -sodium controlled diet #prophy -lovenox 40mg SQ daily #Dispo -observe on tele Visit type - Emergency Visit Emergency Visit: Yes ED Registration Date: 12/03/18 Care time: The patient presented to the Emergency Department on the above date and was hospitalized for further evaluation of their emergent condition. - New Patient This patient is new to me today: Yes Date on this admission: 12/03/18 - Critical Care Critical Care patient: No
[2018-12-03] MEDS ORDERED: PANTOPRAZOLE 40 MG TABLET (FP) PO SCH (10:00)
[2018-12-03] MEDS: ENOXAPARIN NA (PORCINE) 40 MG/0.4 ML DISP.SYRIN SQ SCH (10:20)
[2018-12-03] MEDS: BUDESONIDE/FORMETEROL FUMARATE 80/4.5 mcg INHALER IH SCH ×2 (10:21→20:59)
--- NOTE | 2018-12-03 12:51 | EKG ---
Test Reason : Blood Pressure : / mmHG Vent. Rate : 099 BPM Atrial Rate : 099 BPM P-R Int : 146 ms QRS Dur : 088 ms QT Int : 338 ms P-R-T Axes : 000 -42 059 degrees QTc Int : 433 ms SINUS RHYTHM WITH PREMATURE SUPRAVENTRICULAR COMPLEXES LEFT AXIS DEVIATION ABNORMAL ECG WHEN COMPARED WITH ECG OF 24-NOV-2018 04:03, NO SIGNIFICANT CHANGE WAS FOUND Confirmed by JOHNIE PARSON, ARNOL ([id number]) on 12/03/2018 12:51:27 PM Referred By: Confirmed By:ARNOL JETT MD
--- NOTE | 2018-12-03 13:38 | PN ---
Teaching Attending Note Name of Resident: Manuel Rojo ATTENDING PHYSICIAN STATEMENT I saw and evaluated the patient. I reviewed the resident's note and discussed the case with the resident. I agree with the resident's findings and plan as documented. SUBJECTIVE:68 yo m w/ PMH brain AVM, HTN, ETOH abuse, COPD who comes into the ED after a near syncopal episode. had recurrent episodes after walking down the street assoc with positional L CP. similar in presentation from the previous 2 episodes. was never able to mixing picker tender his medications from his last admission with the same complaints on 11/23/18. has not seen any doctor since his last admission. states he has not drank in 3 months. denies fever, chills, N/V/C/D, blurred vision OBJECTIVE: Last Vital Signs Temp Pulse Resp BP Pulse Ox 98.9 F 102 H 16 97/62 98 12/03/18 08:07 12/03/18 09:30 12/03/18 08:07 12/03/18 09:30 12/03/18 08:10 General NAD CV S1 S2 tachy +chest wall tenderness Lungs CTA B/L no wheezing/rales/rhonchi Abdomen soft NT/ND ASSESSMENT AND PLAN: 68 yo m w/ PMH brain AVM, HTN, ETOH abuse, COPD, afib who comes into the ED after near syncope episode and CP 1. Near syncope- was in sinus tach on presentation. possible was in afib during the event vs ETOH use (claims he has not drank in 3 months however +ETOH on 11/13) vs dehydration. had extensive workup last hospital stay. check orthostatics. place on Cardiac monitoring to monitor for afib. echo from last hospital stay noted. would benefit from stress test however needs to show compliance with follow up and medication use. counselled on importance of medication compliance and follow up. will hold medications at this time and re- start as needed. 2. CP-likely muscular. trend cardiac enzymes Q8H. ekg 3. Leukocytosis-steroid induced from last hospital stay. trending down from last hospital stay. no signs of infection. CXR no infiltrate. hold abx at this time 4. Brain AVM- evaluated by neuro and neurosurg last hospital stay and treatment options discussed and informed to f/u with as outpatient which patient did not do. keppra for seizure prophylaxis 5. HTN- low BP off medications. would hold at this time. doubt he would need high doses 6. Continuous ETOH abuse- claims hes not drinking. CIWA 0. monitor for signs of withdrawal. give banana bag, thiamine/folate/MVI. not interested in rehab at this time because he claims he has no problems 7. COPD- no signs of acute exacerbation 8. Paroxysmal Afib- currently in NSR. not on anticoag due to AVM. tele monitoring 9. DVT ppx- Lovenox 10. anticipate discharge in 24H
[2018-12-03] MEDS ORDERED: FOLIC ACID INJECTION - 1 MG, THIAMINE HCL 100 MG, MULTIVIT INJECTION ADULT 10 ML in SOD... IVPB ONE (14:00)
[2018-12-03] MEDS: ACETAMINOPHEN 325 MG TABLET (FP) PO PRN ×2 (16:48→23:00)
[2018-12-03] MEDS: levETIRAcetam 500 MG TABLET (FP) PO SCH (20:59)
[2018-12-04 07:20] LABS: HEMATOCRIT 30.6 % (35.4-49); HEMOGLOBIN 10.2 GM/dL (11.7-16.9); MCH 25.3 pg (25.7-33.7); MCHC 33.3 g/dl (32.0-35.9); MEAN CELL VOLUME 76.1 fl (80-96); MEAN PLT VOLUME 8.1 fl (7.5-11.1); PLATELET COUNT 161 K/MM3 (134-434); RBC 4.02 M/mm3 (4.00-5.60); RDW 18.7 % (11.9-15.9); WHITE BLOOD COUNT 11.7 K/mm3 (4.0-10.0)
[2018-12-04 07:58] LABS: ACTIVATED PTT 25.7 SECONDS (25.2-36.5); INR 0.86 (0.83-1.09); PROTHROMBIN TIME (PATIENT) 10.1 SEC (9.7-13.0)
[2018-12-04] MEDS ORDERED: PT OWN MED DRAWER 7, Y5N ONE (08:35)
[2018-12-04 08:43] LABS: ANION GAP 6 MMOL/L (8-16); BLOOD UREA NITROGEN 27 mg/dL (7-18); CALCIUM 7.7 mg/dL (8.5-10.1); CHLORIDE 109 mmol/L (98-107); CO2 26 mmol/L (21-32); CREATININE 0.9 mg/dL (0.55-1.3); GLUCOSE,RANDOM 81 mg/dL (74-106); MAGNESIUM 2.3 mg/dL (1.8-2.4); PHOSPHOROUS 3.4 mg/dL (2.5-4.9); POTASSIUM 4.2 mmol/L (3.5-5.1); SODIUM 142 mmol/L (136-145)
[2018-12-04] MEDS: BUDESONIDE/FORMETEROL FUMARATE 80/4.5 mcg INHALER IH SCH ×2 (08:52→21:33)
[2018-12-04] MEDS: ALBUTEROL SO4 0.083% IH SOL 2.5 MG/3 ML VIAL.NEB. NEB SCH ×4 (09:15→20:38)
--- NOTE | 2018-12-04 09:20 | PN ---
Physical Exam: SUBJECTIVE: Patient seen and examined pt is alert and awake and oriented He is c/o pain in his left chest and it is inc by pressure no h/o trauma during the fall, He is c/o shortness of breath and wheezing and he is current smoker no other symptoms OBJECTIVE: Vital Signs Period Temp Pulse Resp BP Sys/Spicer Pulse Ox Last 24 Hr 97.2 F-99.0 F 67-103 16-18 97-161/62-90 97-99 GENERAL: The patient is awake, alert, and fully oriented, in no acute distress. HEAD: Normal with no signs of trauma. EYES: PERRL, extraocular movements intact, sclera anicteric, conjunctiva clear. No ptosis. ENT: Ears normal, nares patent, oropharynx clear without exudates, moist mucous membranes. NECK: Trachea midline, full range of motion, supple. LUNGS: bilateral wheezing he is tender on his left lower chest on costochondral joint HEART: Regular rate and rhythm, S1, S2 without murmur, rub or gallop. ABDOMEN: Soft, nontender, nondistended, normoactive bowel sounds, no guarding, no rebound, no hepatosplenomegaly, no masses. EXTREMITIES: 2+ pulses, warm, well-perfused, no edema. NEUROLOGICAL: Cranial nerves II through XII grossly intact. Normal speech, gait not observed. PSYCH: Normal mood, normal affect. SKIN: Warm, dry, normal turgor, no rashes or lesions noted Laboratory Results - last 24 hr 12/03/18 12/03/18 12/04/18 10:31 17:00 07:00 WBC 11.7 H RBC 4.02 Hgb 10.2 L Hct 30.6 L MCV 76.1 L MCH 25.3 L MCHC 33.3 RDW 18.7 H Plt Count 161 D MPV 8.1 PT with INR INR PTT (Actin FS) Sodium Potassium Chloride Carbon Dioxide Anion Gap BUN Creatinine Creat Clearance w eGFR Random Glucose Calcium Phosphorus Magnesium Creatine Kinase 36 38 Troponin I < 0.02 < 0.02 12/04/18 12/04/18 07:00 07:00 WBC RBC Hgb Hct MCV MCH MCHC RDW Plt Count MPV PT with INR 10.10 INR 0.86 PTT (Actin FS) 25.7 Sodium 142 Potassium 4.2 Chloride 109 H Carbon Dioxide 26 Anion Gap 6 L BUN 27 H Creatinine 0.9 Creat Clearance w eGFR > 60 Random Glucose 81 Calcium 7.7 L Phosphorus 3.4 Magnesium 2.3 Creatine Kinase Troponin I < 0.02 Active Medications Generic Name Dose Route Start Last Admin Trade Name Elizabeth PRN Reason Stop Dose Admin Acetaminophen 650 mg 12/03/18 14:00 12/03/18 23:00 Tylenol - PO 650 mg Q6H PRN Administration PAIN Albuterol Sulfate 1 amp 12/04/18 09:15 Ventolin 0.083% Nebulizer Soln - NEB Q6H EMILY Budesonide/Formoterol Fumarate 2 puff 12/03/18 10:00 12/04/18 08:52 Symbicort 80/4.5mcg - IH 2 puff BID@0800,2000 EMILY Administration Enoxaparin Sodium 40 mg 12/03/18 10:00 12/03/18 10:20 Lovenox - SQ 40 mg DAILY EMILY Administration Levetiracetam 500 mg 12/03/18 22:00 12/03/18 20:59 Keppra - PO 500 mg BID EMILY Administration Methylprednisolone Sodium Succinate 40 mg 12/04/18 09:15 Solu-Medrol - IVPUSH Q6H-IV EMILY ASSESSMENT/PLAN: 68 yo m w/ PMH brain AVM, HTN, ETOH abuse, COPD, afib who comes into the ED after near syncope episode and CP 1. Near syncope- was in sinus tach on presentation. possible was in afib during the event vs ETOH use (claims he has not drank in 3 months however +ETOH on 11/13) vs dehydration. had extensive workup last hospital stay. check orthostatics. place on Cardiac monitoring to monitor for afib. echo from last hospital stay noted. would benefit from stress test however needs to show compliance with follow up and medication use. counselled on importance of medication compliance and follow up. will hold medications at this time and re- start as needed. 2. CP-likely muscular.His cardiac enzymes are negative and ekg shows he has tacchycardia 3. Leukocytosis-steroid induced from last hospital stay. trending down from last hospital stay. no signs of infection. CXR no infiltrate. hold abx at this time 4. Brain AVM- evaluated by neuro and neurosurg last hospital stay and treatment options discussed and informed to f/u with as outpatient which patient did not do. ramy for seizure prophylaxis 5. HTN- stable off meds and will just observe 6. Continuous ETOH abuse- claims hes not drinking. continue if dextrose and thiamine 7. COPD- signs of acute exacerbation continue zithromax and added solumderol 40 mg every eight hour 8. H/O Paroxysmal Afib- currently in NSR. not on anticoag due to AVM. tele monitoring 9. DVT ppx- Lovenox 10. anticipate discharge since he has some element of exacerbation of copd will possible d/c am Visit type - Emergency Visit Emergency Visit: Yes ED Registration Date: 12/03/18 Care time: The patient presented to the Emergency Department on the above date and was hospitalized for further evaluation of their emergent condition. - New Patient This patient is new to me today: No - Critical Care Critical Care patient: No - Discharge Referral Referred to [facility] No
[2018-12-04] MEDS: levETIRAcetam 500 MG TABLET (FP) PO SCH ×2 (09:25→21:33)
[2018-12-04] MEDS: ENOXAPARIN NA (PORCINE) 40 MG/0.4 ML DISP.SYRIN SQ SCH (09:25)
[2018-12-04] MEDS: methylPREDNISolone NA SUCC 40 MG/1 ML VIAL IVPUSH SCH ×3 (09:26→20:36)
[2018-12-04] MEDS: ACETAMINOPHEN 325 MG TABLET (FP) PO PRN ×3 (09:31→20:30)
[2018-12-05] MEDS: ACETAMINOPHEN 325 MG TABLET (FP) PO PRN ×4 (02:02→20:30)
[2018-12-05] MEDS: methylPREDNISolone NA SUCC 40 MG/1 ML VIAL IVPUSH SCH ×4 (02:02→22:09)
[2018-12-05] MEDS: ALBUTEROL SO4 0.083% IH SOL 2.5 MG/3 ML VIAL.NEB. NEB SCH ×4 (07:45→20:47)
[2018-12-05] MEDS: BUDESONIDE/FORMETEROL FUMARATE 80/4.5 mcg INHALER IH SCH ×2 (08:29→22:36)
[2018-12-05] MEDS: ENOXAPARIN NA (PORCINE) 40 MG/0.4 ML DISP.SYRIN SQ SCH (09:41)
[2018-12-05] MEDS: levETIRAcetam 500 MG TABLET (FP) PO SCH ×2 (09:41→22:09)
--- NOTE | 2018-12-05 10:55 | PN ---
Progress Note, Physician Chief Complaint: Patient was recently admitted with extensive work up- chart reviewed. 68M with newly diagnosed PAF not on AC due to brain AVM (see prior CV consults). He now is admitted exertional dyspnea and chest pressure and syncope. He did not have a stress test on his last admission. He did have an echo and a CTA of chest within last month here: normal LV fx, no sig valve disease and no evidence of PE on the CTA. History of Present Illness: Patient is a 68M with history of AVM, HTN, etoh abuse, COPD here today complaining of syncope and chest pain. He states that he was smoking a cigarette when he started coughing and syncopized. Denies fevers, chills, nausea , vomiting. Denies headache, abdominal pain. The pain in his chest is located on the left aspect of his chest and is worsened with breathing. Denies dysuria, leg pain, leg swelling. He also reports about 2 weeks of BRBPR, rectal bleeding. - Current Medication List Current Medications: Active Medications Acetaminophen (Tylenol -) 650 mg PO Q6H PRN PRN Reason: PAIN Last Admin: 12/05/18 08:26 Dose: 650 mg Albuterol Sulfate (Ventolin 0.083% Nebulizer Soln -) 1 amp NEB RQID [facility] Last Admin: 12/05/18 07:45 Dose: 1 amp Budesonide/Formoterol Fumarate (Symbicort 80/4.5mcg -) 2 puff IH BID@0800,2000 [facility] Last Admin: 12/05/18 08:29 Dose: 2 puff Enoxaparin Sodium (Lovenox -) 40 mg SQ DAILY [facility] Last Admin: 12/05/18 09:41 Dose: 40 mg Levetiracetam (Keppra -) 500 mg PO BID [facility] Last Admin: 12/05/18 09:41 Dose: 500 mg Methylprednisolone Sodium Succinate (Solu-Medrol -) 40 mg IVPUSH Q6H-IV [facility] Last Admin: 12/05/18 08:27 Dose: 40 mg - Objective Vital Signs: Vital Signs Temperature 98.1 F 12/05/18 09:23 Pulse Rate 100 H 12/05/18 09:23 Respiratory Rate 20 12/05/18 09:23 Blood Pressure 144/90 12/05/18 09:23 O2 Sat by Pulse Oximetry (%) 100 02/16/19 21:00 Constitutional: Yes: No Distress Cardiovascular: Yes: Regular Rate and Rhythm Respiratory: Yes: Other (bibasilar rales 1/3 up) Gastrointestinal: Yes: Soft Edema: No Peripheral Pulses WNL: Yes Neurological: Yes: Alert, Oriented ...Motor Strength: WNL Labs: CBC, BMP 12/04/18 07:00 12/04/18 07:00 INR, PTT INR 0.86 (0.83-1.09) 12/04/18 07:00 - ....Imaging X-ray: Image Reviewed (Increased PVC) EKG: Image Reviewed (NSR, LAFB, no acute ST changes) Problem List - Problems (1) Dyspnea on exertion Code(s): R06.09 - OTHER FORMS OF DYSPNEA (2) Syncope and collapse Code(s): R55 - SYNCOPE AND COLLAPSE (3) Chronic diastolic (congestive) heart failure Code(s): I50.32 - CHRONIC DIASTOLIC (CONGESTIVE) HEART FAILURE (4) Atrial fibrillation with rapid ventricular response Code(s): I48.91 - UNSPECIFIED ATRIAL FIBRILLATION (5) COPD exacerbation Code(s): J44.1 - CHRONIC OBSTRUCTIVE PULMONARY DISEASE W (ACUTE) EXACERBATION (6) Alcohol abuse Code(s): F10.10 - ALCOHOL ABUSE, UNCOMPLICATED (7) Alcohol dependence with uncomplicated withdrawal Code(s): F10.230 - ALCOHOL DEPENDENCE WITH WITHDRAWAL, UNCOMPLICATED (8) Arteriovenous aneurysm Code(s): I77.0 - ARTERIOVENOUS FISTULA, ACQUIRED (9) Rectal bleeding Code(s): K62.5 - HEMORRHAGE OF ANUS AND RECTUM Assessment/Plan IMP: ETOH abuse Acute on chronic exacerbation COPD PAF Chronic diastolic CHF suspected Exertional dyspnea Syncope Rectal bleeding Brain AVM Recent admission, now admitted with similar issues. REC: 1. Treatment of COPD as per PMD 2. Patient is not a candidate for AC due to ongoing rectal bleeding and previous documented history of brain AVM with ? SAH. Can consider using ASA 81mg if ok with Neurosurgery. 3. Check BNP 4. Start PO Lasix. 5. Recommend stress MPI prior to discharge Service Coverage for Shannon
[2018-12-05] MEDS ORDERED: FUROSEMIDE 40 MG TABLET (FP) PO SCH (11:15)
--- NOTE | 2018-12-05 14:58 | PN ---
Physical Exam: SUBJECTIVE: Patient seen and examined his wheezing is better but still c/o chest discomfort on left side no fever or chills OBJECTIVE: Vital Signs Period Temp Pulse Resp BP Sys/Spicer Pulse Ox Last 24 Hr 98.1 F-98.3 F 73-108 18-20 143-162/80-90 95-100 GENERAL: The patient is awake, alert, and fully oriented, in no acute distress. HEAD: Normal with no signs of trauma. EYES: PERRL, extraocular movements intact, sclera anicteric, conjunctiva clear. No ptosis. ENT: Ears normal, nares patent, oropharynx clear without exudates, moist mucous membranes. NECK: Trachea midline, full range of motion, supple. LUNGS:bilateral wheezing HEART: Regular rate and rhythm, S1, S2 without murmur, rub or gallop. ABDOMEN: Soft, nontender, nondistended, normoactive bowel sounds, no guarding, no rebound, no hepatosplenomegaly, no masses. EXTREMITIES: 2+ pulses, warm, well-perfused, no edema. NEUROLOGICAL: Cranial nerves II through XII grossly intact. Normal speech, gait not observed. PSYCH: Normal mood, normal affect. SKIN: Warm, dry, normal turgor, no rashes or lesions noted Active Medications Generic Name Dose Route Start Last Admin Trade Name Freq PRN Reason Stop Dose Admin Acetaminophen 650 mg 12/03/18 14:00 12/05/18 14:40 Tylenol - PO 650 mg Q6H PRN Administration PAIN Albuterol Sulfate 1 amp 12/04/18 09:15 12/05/18 12:21 Ventolin 0.083% Nebulizer Soln - NEB 1 amp RQID EMILY Administration Budesonide/Formoterol Fumarate 2 puff 12/03/18 10:00 12/05/18 08:29 Symbicort 80/4.5mcg - IH 2 puff BID@0800,2000 EMILY Administration Enoxaparin Sodium 40 mg 12/03/18 10:00 12/05/18 09:41 Lovenox - SQ 40 mg DAILY [facility]ILY Administration Furosemide 40 mg 12/05/18 11:15 12/05/18 12:20 Lasix - PO 40 mg DAILY EMILY Administration Levetiracetam 500 mg 12/03/18 22:00 12/05/18 09:41 Keppra - PO 500 mg BID EMILY Administration Methylprednisolone Sodium Succinate 40 mg 12/04/18 09:15 12/05/18 14:00 Solu-Medrol - IVPUSH 40 mg Q6H-IV [facility]ILY Administration ASSESSMENT/PLAN: 68 yo m w/ PMH brain AVM, HTN, ETOH abuse, COPD, afib who comes into the ED after near syncope episode and CP 1. Near syncope- was in sinus tach on presentation. possible was in afib during the event vs ETOH use (claims he has not drank in 3 months however +ETOH on 11/13) vs dehydration. had extensive workup last hospital stay. check orthostatics. place on Cardiac monitoring to monitor for afib. echo from last hospital stay noted. would benefit from stress test however needs to show compliance with follow up and medication use. counselled on importance of medication compliance and follow up. will hold medications at this time and re- start as needed. 2. CP-likely muscular.His cardiac enzymes are negative and ekg shows he has tacchycardia called cardio consult and seen by dr olivares 3. Leukocytosis-steroid induced from last hospital stay. trending down from last hospital stay. 4. Brain AVM- evaluated by neuro and neurosurg last hospital stay and treatment options discussed and informed to f/u with as outpatient which patient did not do. keppra for seizure prophylaxis 5. HTN- stable off meds and will just observe 6. Continuous ETOH abuse- claims hes not drinking. continue if dextrose and thiamine 7. COPD- signs of acute exacerbation continue zithromax and added solumderol 40 mg every eight hour continue nebulizer 8. H/O Paroxysmal Afib- currently in NSR. not on anticoag due to AVM. tele monitoring 9. DVT ppx- Lovenox Visit type - Emergency Visit Emergency Visit: Yes ED Registration Date: 12/03/18 Care time: The patient presented to the Emergency Department on the above date and was hospitalized for further evaluation of their emergent condition. - New Patient This patient is new to me today: No - Critical Care Critical Care patient: No - Discharge Referral Referred to [facility] Med P.C.: No
[2018-12-06] MEDS: ACETAMINOPHEN 325 MG TABLET (FP) PO PRN ×5 (02:21→22:36)
[2018-12-06] MEDS: methylPREDNISolone NA SUCC 40 MG/1 ML VIAL IVPUSH SCH ×2 (02:35→10:23)
[2018-12-06] MEDS: ALBUTEROL SO4 0.083% IH SOL 2.5 MG/3 ML VIAL.NEB. NEB SCH ×4 (07:57→20:04)
--- NOTE | 2018-12-06 08:57 | PN ---
Progress Note, Physician Chief Complaint: BNP elevated. Tele: NSR History of Present Illness: still coughing, + PND - Current Medication List Current Medications: Active Medications Acetaminophen (Tylenol -) 650 mg PO Q6H PRN PRN Reason: PAIN Last Admin: 12/06/18 07:44 Dose: 650 mg Albuterol Sulfate (Ventolin 0.083% Nebulizer Soln -) 1 amp NEB RQID [facility] Last Admin: 12/06/18 07:57 Dose: 1 amp Budesonide/Formoterol Fumarate (Symbicort 80/4.5mcg -) 2 puff IH BID@0800,2000 [facility] Last Admin: 12/05/18 22:36 Dose: 2 puff Enoxaparin Sodium (Lovenox -) 40 mg SQ DAILY [facility] Last Admin: 12/05/18 09:41 Dose: 40 mg Furosemide (Lasix -) 40 mg PO DAILY [facility] Last Admin: 12/05/18 12:20 Dose: 40 mg Levetiracetam (Keppra -) 500 mg PO BID [facility] Last Admin: 12/05/18 22:09 Dose: 500 mg Methylprednisolone Sodium Succinate (Solu-Medrol -) 40 mg IVPUSH Q6H-IV [facility] Last Admin: 12/06/18 02:35 Dose: 40 mg - Objective Vital Signs: Vital Signs Temperature 98 F 12/06/18 06:00 Pulse Rate 69 12/06/18 06:00 Respiratory Rate 20 12/06/18 06:00 Blood Pressure 157/74 12/06/18 06:00 O2 Sat by Pulse Oximetry (%) 95 12/06/18 05:00 Constitutional: Yes: No Distress Eyes: Yes: Conjunctiva Clear Cardiovascular: Yes: Regular Rate and Rhythm Respiratory: Yes: Other (rales at bases bilaterally) Gastrointestinal: Yes: Soft Edema: Yes Edema: LLE: 1+, RLE: 1+ Neurological: Yes: Alert, Oriented ...Motor Strength: WNL Labs: CBC, BMP 12/04/18 07:00 12/04/18 07:00 INR, PTT INR 0.86 (0.83-1.09) 12/04/18 07:00 Microbiology 12/03/18 04:22 Blood - Peripheral Venous Blood Culture - Preliminary NO GROWTH OBTAINED AFTER 72 HOURS, INCUBATION TO CONTINUE FOR 2 DAYS. 12/03/18 04:22 Blood - Peripheral Venous Blood Culture - Preliminary NO GROWTH OBTAINED AFTER 72 HOURS, INCUBATION TO CONTINUE FOR 2 DAYS. Laboratory Tests 12/03/18 12/03/18 12/03/18 04:22 10:31 17:00 WBC Hgb Hct Plt Count Sodium Potassium BUN Creatinine Random Glucose Calcium Phosphorus Magnesium Creatine Kinase 66 36 38 Troponin I < 0.02 < 0.02 < 0.02 B-Natriuretic Peptide 12/04/18 12/04/18 12/06/18 07:00 07:00 05:25 WBC 11.7 H Hgb 10.2 L Hct 30.6 L Plt Count 161 D Sodium 142 Potassium 4.2 BUN 27 H Creatinine 0.9 Random Glucose 81 Calcium 7.7 L Phosphorus 3.4 Magnesium 2.3 Creatine Kinase Troponin I < 0.02 B-Natriuretic Peptide 1110.8 H - ....Imaging Chest X-ray: Image Reviewed EKG: Image Reviewed Problem List - Problems (1) Dyspnea on exertion Code(s): R06.09 - OTHER FORMS OF DYSPNEA (2) Syncope and collapse Code(s): R55 - SYNCOPE AND COLLAPSE (3) Chronic diastolic (congestive) heart failure Code(s): I50.32 - CHRONIC DIASTOLIC (CONGESTIVE) HEART FAILURE (4) Atrial fibrillation with rapid ventricular response Code(s): I48.91 - UNSPECIFIED ATRIAL FIBRILLATION (5) COPD exacerbation Code(s): J44.1 - CHRONIC OBSTRUCTIVE PULMONARY DISEASE W (ACUTE) EXACERBATION (6) Alcohol abuse Code(s): F10.10 - ALCOHOL ABUSE, UNCOMPLICATED (7) Alcohol dependence with uncomplicated withdrawal Code(s): F10.230 - ALCOHOL DEPENDENCE WITH WITHDRAWAL, UNCOMPLICATED (8) Arteriovenous aneurysm Code(s): I77.0 - ARTERIOVENOUS FISTULA, ACQUIRED (9) Rectal bleeding Code(s): K62.5 - HEMORRHAGE OF ANUS AND RECTUM Assessment/Plan IMP: ETOH abuse Acute on chronic exacerbation COPD PAF Chronic diastolic CHF suspected Exertional dyspnea Syncope Rectal bleeding Brain AVM Recent admission, now admitted with similar issues. REC: 1. Treatment of COPD as per PMD 2. Patient is not a candidate for AC due to ongoing rectal bleeding and previous documented history of brain AVM with ? SAH. Can consider using ASA 81mg if ok with Neurosurgery. 3. BNP markedly elevated, will switch to IV Lasix and follow daily weight, renal fxn 4. Will need ischemic evaluation prior to discharge. 5. N-surgery consult re: ability to use ASA vs full AC for his AF
[2018-12-06] MEDS: BUDESONIDE/FORMETEROL FUMARATE 80/4.5 mcg INHALER IH SCH (10:22)
[2018-12-06] MEDS: ENOXAPARIN NA (PORCINE) 40 MG/0.4 ML DISP.SYRIN SQ SCH (10:23)
[2018-12-06] MEDS: levETIRAcetam 500 MG TABLET (FP) PO SCH ×2 (10:23→22:35)
[2018-12-06] MEDS: FUROSEMIDE 40 MG/4 ML INJECTABLE VIAL IVPUSH SCH (10:23)
[2018-12-06] MEDS ORDERED: ATORVASTATIN CA 80 MG TABLET (FP) PO ONE (12:53)
--- NOTE | 2018-12-06 12:57 | PN ---
Physical Exam: SUBJECTIVE: Patient seen and examined, Walking around in no distress. OBJECTIVE: Vital Signs Period Temp Pulse Resp BP Sys/Spicer Pulse Ox Last 24 Hr 97.3 F-98.8 F 69-108 20-24 126-168/74-104 95-95 GENERAL: The patient is awake, alert, and fully oriented, in no acute distress. HEAD: Normal with no signs of trauma. EYES: PERRL, extraocular movements intact, sclera anicteric, conjunctiva clear. No ptosis. ENT: Ears normal, nares patent, oropharynx clear without exudates, moist mucous membranes. NECK: Trachea midline, full range of motion, supple. LUNGS: Breath sounds equal, clear to auscultation bilaterally, no wheezes, no crackles, no accessory muscle use. talks in full sentences, no respiratory distress HEART: Regular rate and rhythm, S1, S2 without murmur, rub or gallop. ABDOMEN: Soft, nontender, nondistended, normoactive bowel sounds, no guarding, no rebound, no hepatosplenomegaly, no masses. EXTREMITIES: 2+ pulses, warm, well-perfused, no edema. NEUROLOGICAL: Cranial nerves II through XII grossly intact. Normal speech, gait not observed. PSYCH: Normal mood, normal affect. SKIN: Warm, dry, normal turgor, no rashes or lesions noted Laboratory Results - last 24 hr 12/05/18 12/06/18 20:57 05:25 POC Glucometer 169 B-Natriuretic Peptide 1110.8 H Active Medications Generic Name Dose Route Start Last Admin Trade Name Freq PRN Reason Stop Dose Admin Acetaminophen 650 mg 12/03/18 14:00 12/06/18 12:35 Tylenol - PO 650 mg Q6H PRN Administration PAIN Albuterol Sulfate 1 amp 12/04/18 09:15 12/06/18 11:43 Ventolin 0.083% Nebulizer Soln - NEB 1 amp RQID EMILY Administration Aspirin 81 mg 12/07/18 10:00 Ecotrin - PO DAILY [facility]ILY Budesonide/Formoterol Fumarate 2 puff 12/03/18 10:00 12/06/18 10:22 Symbicort 80/4.5mcg - IH 2 puff BID@0800,2000 [facility] Administration Enoxaparin Sodium 40 mg 12/03/18 10:00 12/06/18 10:23 Lovenox - SQ 40 mg DAILY [facility] Administration Furosemide 40 mg 12/06/18 10:00 12/06/18 10:23 Lasix Injection - IVPUSH 40 mg DAILY [facility] Administration Levetiracetam 500 mg 12/03/18 22:00 12/06/18 10:23 Keppra - PO 500 mg BID [facility]ILY Administration ASSESSMENT/PLAN: He is a 68 y/o M W HX of heavy smoking, Etoh abuse, recently DXed with parxysmal Afib not on AC with concern for ICH in the setting of AVM, with TTE WNL. last admission did not have CT cardiac done. The episodes of chest byers, decreased ET and worsening HEATH in a patient with long HX of smoking and new Afib: at this time will need further evaluation of ischemic etiology of the disease. Will start on aspirin Will start on statin per cardiology there was concern for volume overload and patient received. Lasix , has no CATHY edema at this time, unclear if he needs to be on any more doses of lasix at this time. will re evaluate tomorrow. Initial plan was for CT cardiac which apparently can not be done here, will discuss with cardiology for SPECT S referal to [facility] for CT cardiac Syncope: Will need to be further evaluated by cardiology AVM HX of ICH: was evaluated by neurosurgery, and per their note he will need further surgical intervention. so will still hold off AC. C/W keppra COPD: He is not in exacerbation at this time. Will DC the prednisone . will C/W albuterol PRN, C/W symbicort Diet: cardiac DVT: SCD Dispo: pending further cardiac evaluation Visit type - Emergency Visit Emergency Visit: Yes ED Registration Date: 12/03/18 Care time: The patient presented to the Emergency Department on the above date and was hospitalized for further evaluation of their emergent condition. - New Patient This patient is new to me today: No - Critical Care Critical Care patient: No - Discharge Referral Referred to [facility] Med P.C.: No
--- NOTE | 2018-12-06 14:48 | PN ---
Progress Note (short form) - Note Progress Note: NEUROSURGERY Pt is a poor historian. Here for L GI bleed s/p syncopal episode 3+ weeks ago, minimal H/A, no N/V, no visual changes, no speech issues, + dizziness and lightheadedness LH male with h/o Etoh dependence, COPD, HTN, B LE fx s/p ORIF and cerebral contusion. + chronic dry non productive cough, and wheezing. No F/C. Had Had CT last July and August also. PE: Tmax 98.2, VSS HEENT- NC/AT; Neck- supple; Cor- RR; Lungs- wheezing B; Abd- benign; Ext- no sign of DVT A/A/Ox3 CN- intact II-XII; Motor- 4+-5 B UE/LE without drift; Sensation- intact LT; DTR - 1+; toes downgoing WBC 11.7, Hgb 10.2 CT Head 10/2018 (c/w 07/2018 and 08/2018 scans)- R orbital-frontal hypodensity c/ w chronic encephalomalacia; L inferior/lateral frontal anterior Sylvian calcifications; new L anterior Sylvian SAH CTA 10/2018- L lateral-inf frontal [id number] mm AVM with feeders off L MCA mostly CT head 12/06/2018- R frontal encephalomalacia, L inf frontal lobe mix density lesion, no new SAH L inferior lateral frontal AVM with SAH and 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 (re-hemorrhage risk 8% a year for 2 years then back to 4% a year) Cont Keppra for sz prophylaxis, as AVM has high probability of causing Sz Though the AVM appears symptomatic and will likely need to be treated when medical conditions treatment is completed and overall condition stabilized Options of open microsurgery vs endovascular tx vs gamma knife stereotactic radiosurgery d/w patient previously and he had been interested in gamma knife stereotactic radiosurgery (which takes about 18-24 months to obtain maximum benefits) Will d/w pt later when cardiac/pulmonary conditions are stabilized Unfortunately given recent AVM related SAH (10/2018), risk of rehemorrhage is 8% per year x2 years before reverting back to 4% baseline annual hemorrhage rate If full dose AC is needed could be considered for endovascular tx of AVM before starting full dose AC D/w Dr Walker
--- NOTE | 2018-12-06 20:30 | EKG ---
Test Reason : Blood Pressure : / mmHG Vent. Rate : 105 BPM Atrial Rate : 105 BPM P-R Int : 152 ms QRS Dur : 070 ms QT Int : 336 ms P-R-T Axes : 027 -52 063 degrees QTc Int : 444 ms SINUS TACHYCARDIA LEFT ANTERIOR FASCICULAR BLOCK SEPTAL INFARCT , AGE UNDETERMINED ABNORMAL ECG WHEN COMPARED WITH ECG OF 03-DEC-2018 06:02, PREMATURE SUPRAVENTRICULAR COMPLEXES ARE NO LONGER PRESENT SEPTAL INFARCT IS NOW PRESENT Confirmed by ARNOL JETT MD ([id number]) on 12/03/2018 12:52:13 PM Referred By: Confirmed By:ARNOL JETT MD
[2018-12-07] MEDS: ACETAMINOPHEN 325 MG TABLET (FP) PO PRN ×2 (03:36→14:46)
[2018-12-07 07:01] LABS: ANION GAP 7 MMOL/L (8-16); BLOOD UREA NITROGEN 36 mg/dL (7-18); CALCIUM 8.3 mg/dL (8.5-10.1); CHLORIDE 105 mmol/L (98-107); CO2 28 mmol/L (21-32); CREATININE 1.1 mg/dL (0.55-1.3); GLUCOSE,RANDOM 72 mg/dL (74-106); MAGNESIUM 1.8 mg/dL (1.8-2.4); POTASSIUM 3.6 mmol/L (3.5-5.1); SODIUM 140 mmol/L (136-145)
[2018-12-07] MEDS: ALBUTEROL SO4 0.083% IH SOL 2.5 MG/3 ML VIAL.NEB. NEB SCH (08:00)
--- NOTE | 2018-12-07 09:26 | PN ---
Physical Exam: SUBJECTIVE: Patient seen and examined at the bedside. having trouble breathing. still having left sided chest pain. OBJECTIVE: patient found in respiratory distress, breathing labored with accessory muscle use oxygen saturation on room air 90% heart rate afib 130s left lung diminished, w/ rub order stat chest xray, place on 2 liters nasal cannula will order chest ct when more stable Vital Signs Period Temp Pulse Resp BP Sys/Spicer Pulse Ox Last 24 Hr 85 F-98 F 76-100 18-20 144-168/54-98 95-98 GENERAL: The patient is awake, alert, and fully oriented, in moderate respiratory distress. HEAD: Normal with no signs of trauma. EYES: PERRL, extraocular movements intact, sclera anicteric, conjunctiva clear. No ptosis. ENT: Ears normal, nares patent, oropharynx clear without exudates, moist mucous membranes. NECK: Trachea midline, full range of motion, supple. LUNGS: right lung clear, left lung with diminished lung sounds, breathing rate 28, accessory muscle use. stat xray ordered HEART: Regular rate and rhythm, S1, S2 without murmur, rub or gallop. ABDOMEN: Soft, nontender, nondistended, normoactive bowel sounds, no guarding, no rebound, no hepatosplenomegaly, no masses. EXTREMITIES: no edema. NEUROLOGICAL: Normal speech, gait not observed. PSYCH: Normal mood, normal affect. SKIN: Warm, dry, normal turgor, no rashes or lesions noted Laboratory Results - last 24 hr 12/07/18 05:30 Sodium 140 Potassium 3.6 Chloride 105 Carbon Dioxide 28 Anion Gap 7 L BUN 36 H Creatinine 1.1 Creat Clearance w eGFR > 60 Random Glucose 72 L Calcium 8.3 L Magnesium 1.8 Active Medications Generic Name Dose Route Start Last Admin Trade Name Freq PRN Reason Stop Dose Admin Acetaminophen 650 mg 12/03/18 14:00 12/07/18 03:36 Tylenol - PO 650 mg Q6H PRN Administration PAIN Albuterol Sulfate 1 amp 12/04/18 09:15 12/06/18 20:04 Ventolin 0.083% Nebulizer Soln - NEB 1 amp RQID EMILY Administration Aspirin 81 mg 12/07/18 10:00 Ecotrin - PO DAILY EMILY Budesonide/Formoterol Fumarate 2 puff 12/03/18 10:00 12/06/18 10:22 Symbicort 80/4.5mcg - IH 2 puff BID@0800,1999 EMILY Administration Enoxaparin Sodium 40 mg 12/03/18 10:00 12/06/18 10:23 Lovenox - SQ 40 mg DAILY EMILY Administration Furosemide 40 mg 12/06/18 10:00 12/06/18 10:23 Lasix Injection - IVPUSH 40 mg DAILY [facility]ILY Administration Levetiracetam 500 mg 12/03/18 22:00 12/06/18 22:35 Keppra - PO 500 mg BID EMILY Administration ASSESSMENT/PLAN: He is a 68 year old male with a past medical history of heavy smoking, ETOH abuse, recently diagnosed with parxysmal Afib not on AC with concern for ICH in the setting of AVM. He was sent to [facility] for chest pain at rest. Cardiology. Chest pain Shortness of breath Having shortness of breath today, chest xray negative for acute process. chest cta negative for PE. On Asa therapy Patient on lasix for volume overload. Placed on 2 liters of nasal cannula. COPD: Does not appear to be in acute excerbation at this time. on allbuterol, symbicort. pulmonary following. 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 Neurosurgery follow up as an outpatient once acute cardiac/pulm symptoms resolve. Neurosurgery recommends stereotactic radiosurgery once acute respiratory resolved. Continue Keppra 500mg BID. Card: Paroxysmal atrial fibrillation with RVR Recently discharged home on metoprolol 25mg bid, will restart as his heart rate elevated. . Unable to anticoagulate at this time secondary to SAH and symptomatic AVM Cardiology follow up outpatient. Hypertension, controlled On Norvasc Psyche ETOH abuse/dependency No acute signs of ETOH withdrawal on exam full code fen tolerating po monitor electrolytes low salt diet prophy no a/c 2/2 to head bleed. Visit type - Emergency Visit Emergency Visit: Yes ED Registration Date: 12/07/18 Care time: The patient presented to the Emergency Department on the above date and was hospitalized for further evaluation of their emergent condition. - New Patient This patient is new to me today: No - Critical Care Critical Care patient: No - Discharge Referral Referred to [facility] Med P.C.: No
[2018-12-07] MEDS: levETIRAcetam 500 MG TABLET (FP) PO SCH ×2 (09:41→21:43)
[2018-12-07] MEDS: ASPIRIN COATED 81 MG TABLET.EC PO SCH (09:41)
[2018-12-07] MEDS: FUROSEMIDE 40 MG/4 ML INJECTABLE VIAL IVPUSH SCH (09:41)
[2018-12-07] MEDS: BUDESONIDE/FORMETEROL FUMARATE 80/4.5 mcg INHALER IH SCH ×3 (09:41→20:42)
[2018-12-07] MEDS: ENOXAPARIN NA (PORCINE) 40 MG/0.4 ML DISP.SYRIN SQ SCH (09:41)
--- NOTE | 2018-12-07 10:38 | PN ---
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 [employer]ER AVM CHF CP NEAR SYNCOPE H/O ETOH ABUSE TOBACCO ABUSE PLAN RATE CONTROL PER CARDIOLOGY MEDROL INHALED BRONCHODILATORS CHEST CTA PFTS LASIX SMOKING CESSATION COUNSELED DR BLANCO Problem List - Problems (1) COPD exacerbation Code(s): J44.1 - CHRONIC OBSTRUCTIVE PULMONARY DISEASE W (ACUTE) EXACERBATION (2) Chest pain at rest Code(s): R07.9 - CHEST PAIN, UNSPECIFIED (3) Dyspnea on exertion Code(s): R06.09 - OTHER FORMS OF DYSPNEA (4) Rectal bleeding Code(s): K62.5 - HEMORRHAGE OF ANUS AND RECTUM (5) Alcohol abuse Code(s): F10.10 - ALCOHOL ABUSE, UNCOMPLICATED (6) Arteriovenous aneurysm Code(s): I77.0 - ARTERIOVENOUS FISTULA, ACQUIRED (7) Atrial fibrillation with rapid ventricular response Code(s): I48.91 - UNSPECIFIED ATRIAL FIBRILLATION (8) Dizziness Code(s): R42 - DIZZINESS AND GIDDINESS (9) Headache Code(s): R51 - HEADACHE (10) Nicotine dependence Code(s): F17.200 - NICOTINE DEPENDENCE, UNSPECIFIED, UNCOMPLICATED (11) Syncope and collapse Code(s): R55 - SYNCOPE AND COLLAPSE
--- NOTE | 2018-12-07 11:55 | CONS ---
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 Patient states he was walking in the street and suddenly felt lightheaded and collapsed. He also complained of chest pain. He denies any nausea, vomiting, or diaphoresis. He denied any head trauma. Apparently he has had several episodes over the past couple of months associated with shortness of breath and chest pain. He has been hospitalized and had a CT of the chest which was inconclusive of PE, but no obvious PE was noted in the large pulmonary arteries. He has also been complaining of headaches. He has a history of smoking approximately 1-1/2 packs per day since age 17, currently states he smokes only a few cigarettes a day. He denies any recent travel. There is no history of DVT or PE in the past. He states that he walks and he gets remarkably dyspneic. Of note, he was also found on previous admissions to have atrial fibrillation. 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 PAST MEDICAL HISTORY: Again includes AVM, atrial fibrillation, hypertension, ETOH, likely COPD. REVIEW OF SYSTEMS: Positive for shortness of breath. Positive for dyspnea on exertion. Positive for chest pain. No fever. No chills. No hemoptysis. No abdominal pain. Positive for lower extremity edema. SOCIAL HISTORY: History of tobacco use 1-1/2 packs per day since age 17. 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 He has history of occupational exposures. CURRENT MEDICATIONS: Include Symbicort 80/4.5, Tylenol, Mylanta, Lovenox, Keppra, Imodium, Robitussin AD/DM, NicoDerm, Nicorette, albuterol, Citroma, magnesium, Lasix, Ecotrin, Motrin, melatonin, Actifed, and vitamin D1. PHYSICAL EXAMINATION: General: The patient is a well-developed, well-nourished male, awake, alert, dyspneic, in no acute respiratory distress. Vital signs: He is afebrile, blood pressure is 157/87, respiratory rate 18, O2 saturation is 95% on room air. HEENT: Head is normocephalic atraumatic. Neck: Supple. Heart: Tachycardic, S1, S2. Chest: A few crackles at the left base. Abdomen: Soft. Bowel sounds positive. Extremities: Trace bilateral extremity edema. LABORATORIES: BUN 36, creatinine 1.1. BNP is 1110. WBC is 11.7, hemoglobin 10.2, hematocrit 30.6, platelet count of 161,000. INR is 0.86. Blood gas performed. Previous echo from November 15, 2018, reveals left ventricle normal sized, left atrial size normal, right ventricular systolic function normal, no significant valvular regurgitation, left ventricular ejection fraction approximately 60%. IMPRESSION: Dyspnea. Secondary multiple factors: 1. Likely chronic obstructive pulmonary disease exacerbation. 2. Rapid atrial fibrillation. 3. Mild congestive heart failure. 4. History of central nervous system arteriovenous malformation. 5. Chest pain. Also atherosclerotic heart disease. 6. Syncope. 7. History of ethanol abuse. 8. Tobacco abuse. 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 ROSE MARIE BLANCO M.D. [id number] MTDD
[2018-12-07] MEDS ORDERED: ALBUTEROL SO4 2.5/IPRATROPIUM 0.5 INH SOL 3 ML VIAL.NEB. NEB PRN (16:19)
[2018-12-07] MEDS: guaiFENesin 200 MG/10 ML 10 ML UNIT-DOSE CUPS PO PRN (16:47)
--- NOTE | 2018-12-07 17:09 | PN ---
Progress Note (short form) - Note Progress Note: NEUROSURGERY No new complaint Still has coughs and chest discomfort PE: AF, VSS HEENT- NC/AT; Neck- supple; Cor- RR; Lungs- wheezing B; Abd- benign; Ext- no sign of DVT A/A/Ox3 CN- intact II-XII; Motor- 4+-5 B UE/LE without drift; Sensation- intact LT; DTR - 1+; toes downgoing CTA 10/2018- L lateral-inf frontal [id number] mm AVM with feeders off L MCA mostly CT head 12/06/2018- R frontal encephalomalacia, L inf frontal lobe mix density lesion, no new SAH L inferior lateral frontal AVM with SAH and 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 (re-hemorrhage risk 8% a year for 2 years then back to 4% a year) Cont Keppra for sz prophylaxis, as AVM has high probability of causing Sz Though the AVM appears symptomatic and will likely need to be treated when medical conditions/treatment is completed and overall condition stabilized Options of open microsurgery vs endovascular tx vs gamma knife stereotactic radiosurgery d/w patient and he had been interested in gamma knife stereotactic radiosurgery (which takes about 18-24 months to obtain maximum benefits) Will d/w gamma again with pt after discharge when cardiac/pulmonary conditions are stabilized Unfortunately given recent AVM related SAH (10/2018), risk of rehemorrhage is 8% per year x2 years before reverting back to 4% baseline annual hemorrhage rate If full dose AC is needed could be considered for endovascular tx of AVM before starting full dose AC D/w Dr Walker yesterday
[2018-12-07] MEDS: LEVALBUTEROL HCL 0.31 MG/3 ML VIAL.NEB IH PRN (21:28)
[2018-12-07] MEDS: METOPROLOL TARTRATE 25 MG TABLET (FP) PO SCH (21:43)
[2018-12-08] MEDS: ACETAMINOPHEN 325 MG TABLET (FP) PO PRN ×3 (01:00→18:05)
[2018-12-08] MEDS: guaiFENesin 200 MG/10 ML 10 ML UNIT-DOSE CUPS PO PRN ×3 (04:54→21:16)
[2018-12-08] MEDS: LEVALBUTEROL HCL 0.31 MG/3 ML VIAL.NEB IH PRN ×3 (07:30→20:59)
[2018-12-08] MEDS: METOPROLOL TARTRATE 25 MG TABLET (FP) PO SCH ×2 (09:35→21:14)
[2018-12-08] MEDS: FUROSEMIDE 40 MG/4 ML INJECTABLE VIAL IVPUSH SCH (09:35)
[2018-12-08] MEDS: ENOXAPARIN NA (PORCINE) 40 MG/0.4 ML DISP.SYRIN SQ SCH (09:35)
[2018-12-08] MEDS: ASPIRIN COATED 81 MG TABLET.EC PO SCH (09:35)
[2018-12-08] MEDS: levETIRAcetam 500 MG TABLET (FP) PO SCH ×2 (09:35→21:14)
[2018-12-08] MEDS: BUDESONIDE/FORMETEROL FUMARATE 80/4.5 mcg INHALER IH SCH ×2 (09:37→20:14)
[2018-12-08 10:23] LABS: BASO % 0.3 % (0-2.0); EOS % 2.6 % (0-4.5); HEMATOCRIT 34.3 % (35.4-49); HEMOGLOBIN 11.1 GM/dL (11.7-16.9); LYMPH % 23.2 % (8-40); MCH 24.6 pg (25.7-33.7); MCHC 32.5 g/dl (32.0-35.9); MEAN CELL VOLUME 75.6 fl (80-96); MEAN PLT VOLUME 7.5 fl (7.5-11.1); MONO % 3.1 % (3.8-10.2); NEUT % 70.8 % (42.8-82.8); PLATELET COUNT 199 K/MM3 (134-434); RBC 4.53 M/mm3 (4.00-5.60); RDW 19.4 % (11.9-15.9); WHITE BLOOD COUNT 12.9 K/mm3 (4.0-10.0)
[2018-12-08] MEDS: NICOTINE 14 MG/24 HOURS TOPICAL PATCH TD SCH (10:41)
--- NOTE | 2018-12-08 10:45 | PN ---
Progress Note, Physician History of Present Illness: pulmonary alert,less dyspneic,min cough.Chest cta -PE - Current Medication List Current Medications: Active Medications Acetaminophen (Tylenol -) 650 mg PO Q6H PRN PRN Reason: PAIN Last Admin: 12/08/18 01:00 Dose: 650 mg Albuterol/Ipratropium (Duoneb -) 1 amp NEB Q6H PRN PRN Reason: SHORTNESS OF BREATH Aspirin (Ecotrin -) 81 mg PO DAILY [facility] Last Admin: 12/08/18 09:35 Dose: 81 mg Budesonide/Formoterol Fumarate (Symbicort 80/4.5mcg -) 2 puff IH BID@0800,1999 [facility] Last Admin: 12/08/18 09:37 Dose: 2 puff Enoxaparin Sodium (Lovenox -) 40 mg SQ DAILY [facility] Last Admin: 12/08/18 09:35 Dose: 40 mg Furosemide (Lasix Injection -) 40 mg IVPUSH DAILY [facility] Last Admin: 12/08/18 09:35 Dose: 40 mg Guaifenesin (Robitussin -) 10 ml PO Q6H PRN PRN Reason: COUGH Last Admin: 12/08/18 04:54 Dose: 10 ml Levalbuterol HCl (Xopenex) 0.31 mg IH Q8H PRN PRN Reason: ASTHMA Last Admin: 12/08/18 07:30 Dose: 0.31 mg Levetiracetam (Keppra -) 500 mg PO BID [facility] Last Admin: 12/08/18 09:35 Dose: 500 mg Metoprolol Tartrate (Lopressor -) 25 mg PO BID [facility] Last Admin: 12/08/18 09:35 Dose: 25 mg Nicotine (Nicoderm Patch -) 14 mg TD DAILY [facility] Last Admin: 12/08/18 10:41 Dose: 14 mg - Objective Vital Signs: Vital Signs Temperature 98 F 12/08/18 09:00 Pulse Rate 108 H 12/08/18 09:00 Respiratory Rate 18 12/08/18 09:00 Blood Pressure 148/84 12/08/18 09:00 O2 Sat by Pulse Oximetry (%) 98 12/07/18 21:00 Constitutional: Yes: Well Nourished, Calm Eyes: Yes: WNL HENT: Yes: WNL Neck: Yes: WNL Cardiovascular: Yes: Pulse Irregular, S1, S2 Respiratory: Yes: Diminished Gastrointestinal: Yes: Normal Bowel Sounds, Soft Extremities: Yes: WNL Edema: No Labs: CBC, BMP 12/08/18 10:10 INR, PTT INR 0.86 (0.83-1.09) 12/04/18 07:00 Problem List - Problems (1) COPD exacerbation Code(s): J44.1 - CHRONIC OBSTRUCTIVE PULMONARY DISEASE W (ACUTE) EXACERBATION (2) Chest pain at rest Code(s): R07.9 - CHEST PAIN, UNSPECIFIED (3) Dyspnea on exertion Code(s): R06.09 - OTHER FORMS OF DYSPNEA (4) Rectal bleeding Code(s): K62.5 - HEMORRHAGE OF ANUS AND RECTUM (5) Alcohol abuse Code(s): F10.10 - ALCOHOL ABUSE, UNCOMPLICATED (6) Arteriovenous aneurysm Code(s): I77.0 - ARTERIOVENOUS FISTULA, ACQUIRED (7) Atrial fibrillation with rapid ventricular response Code(s): I48.91 - UNSPECIFIED ATRIAL FIBRILLATION (8) Dizziness Code(s): R42 - DIZZINESS AND GIDDINESS (9) Headache Code(s): R51 - HEADACHE (10) Nicotine dependence Code(s): F17.200 - NICOTINE DEPENDENCE, UNSPECIFIED, UNCOMPLICATED (11) Syncope and collapse Code(s): R55 - SYNCOPE AND COLLAPSE Assessment/Plan IMP DYSPNEA COPD EXACERBATION 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 H/O ETOH ABUSE TOBACCO ABUSE PLAN RATE CONTROL PER CARDIOLOGY MEDROL INHALED BRONCHODILATORS PFTS LASIX SMOKING CESSATION COUNSELED DR BLANCO Problem List - Problems (1) COPD exacerbation Code(s): J44.1 - CHRONIC OBSTRUCTIVE PULMONARY DISEASE W (ACUTE) EXACERBATION (2) Chest pain at rest Code(s): R07.9 - CHEST PAIN, UNSPECIFIED (3) Dyspnea on exertion Code(s): R06.09 - OTHER FORMS OF DYSPNEA (4) Rectal bleeding Code(s): K62.5 - HEMORRHAGE OF ANUS AND RECTUM (5) Alcohol abuse Code(s): F10.10 - ALCOHOL ABUSE, UNCOMPLICATED (6) Arteriovenous aneurysm Code(s): I77.0 - ARTERIOVENOUS FISTULA, ACQUIRED (7) Atrial fibrillation with rapid ventricular response Code(s): I48.91 - UNSPECIFIED ATRIAL FIBRILLATION (8) Dizziness Code(s): R42 - DIZZINESS AND GIDDINESS (9) Headache Code(s): R51 - HEADACHE (10) Nicotine dependence Code(s): F17.200 - NICOTINE DEPENDENCE, UNSPECIFIED, UNCOMPLICATED (11) Syncope and collapse Code(s): R55 - SYNCOPE AND COLLAPSE
[2018-12-08 10:53] LABS: ALBUMIN 3.1 g/dl (3.4-5.0); ALK PHOS 64 U/L (45-117); ANION GAP 2 MMOL/L (8-16); BILIRUBIN,TOTAL 0.5 mg/dL (0.2-1); BLOOD UREA NITROGEN 30 mg/dL (7-18); CALCIUM 8.2 mg/dL (8.5-10.1); CHLORIDE 104 mmol/L (98-107); CO2 32 mmol/L (21-32); GLUCOSE,RANDOM 118 mg/dL (74-106); MAGNESIUM 1.9 mg/dL (1.8-2.4); POTASSIUM 3.6 mmol/L (3.5-5.1); SGOT/AST 8 U/L (15-37); SGPT/ALT 30 U/L (13-61); SODIUM 139 mmol/L (136-145)
[2018-12-08] MEDS: methylPREDNISolone NA SUCC 40 MG/1 ML VIAL IVPUSH SCH ×2 (12:34→17:12)
[2018-12-08 14:17] LABS: ANISOCYTOSIS 1+; MACROCYTOSIS 0; PLATELET ESTIMATE NORMAL; TARGET CELLS 2+
--- NOTE | 2018-12-08 15:08 | PN ---
Physical Exam: SUBJECTIVE: Patient seen and examined. breathing improved but still having some wheezing. tolerating room air. tells me that he will follow up with Dr. Ellington as an outpatient. he would need to be cleared by cardiology. discussed complying with medications and abstaining from smoking. OBJECTIVE: Vital Signs Period Temp Pulse Resp BP Sys/Spicer Pulse Ox Last 24 Hr 97.9 F-98.8 F 90-112 18-18 124-148/64-87 98-98 GENERAL: The patient is awake, alert, and fully oriented, in no respiratory distress. HEAD: Normal with no signs of trauma. EYES: PERRL, extraocular movements intact, sclera anicteric, conjunctiva clear. No ptosis. ENT: Ears normal, nares patent, oropharynx clear without exudates, moist mucous membranes. NECK: Trachea midline, full range of motion, supple. LUNGS: right lung clear, left lung with diminished lung sounds, chest xray without acute findings. cta negative for PE HEART: afib. controo ABDOMEN: Soft, nontender, nondistended, normoactive bowel sounds, no guarding, no rebound, no hepatosplenomegaly, no masses. EXTREMITIES: no edema. NEUROLOGICAL: Normal speech, gait not observed. PSYCH: Normal mood, normal affect. SKIN: Warm, dry, normal turgor, no rashes or lesions noted Laboratory Results - last 24 hr 12/08/18 12/08/18 10:10 10:10 WBC 12.9 H RBC 4.53 Hgb 11.1 L Hct 34.3 L MCV 75.6 L MCH 24.6 L MCHC 32.5 RDW 19.4 H Plt Count 199 D MPV 7.5 Absolute Neuts (auto) 9.1 H Neutrophils % 70.8 Neutrophils % (Manual) 86.7 H Band Neutrophils % 0.0 Lymphocytes % 23.2 Lymphocytes % (Manual) 5.1 L D Monocytes % 3.1 L Monocytes % (Manual) 5 Eosinophils % 2.6 Eosinophils % (Manual) 3.1 Basophils % 0.3 Basophils % (Manual) 0.0 Myelocytes % (Man) 0 D Promyelocytes % (Man) 0 Blast Cells % (Manual) 0 Nucleated RBC % 0 Metamyelocytes 0 D Hypochromia 0 Platelet Estimate Normal Polychromasia 0 Poikilocytosis 2+ Anisocytosis 1+ Microcytosis 1+ Macrocytosis 0 Target Cells 2+ Schistocytes 1+ Sodium 139 Potassium 3.6 Chloride 104 Carbon Dioxide 32 Anion Gap 2 L BUN 30 H Creatinine 1.0 Creat Clearance w eGFR > 60 Random Glucose 118 H Calcium 8.2 L Magnesium 1.9 Total Bilirubin 0.5 AST 8 L ALT 30 Alkaline Phosphatase 64 Total Protein 6.0 L Albumin 3.1 L Active Medications Generic Name Dose Route Start Last Admin Trade Name Freq PRN Reason Stop Dose Admin Acetaminophen 650 mg 12/03/18 14:00 12/08/18 12:34 Tylenol - PO 650 mg Q6H PRN Administration PAIN Albuterol/Ipratropium 1 amp 12/07/18 16:19 Duoneb - NEB Q6H PRN SHORTNESS OF BREATH Aspirin 81 mg 12/07/18 10:00 12/08/18 09:35 Ecotrin - PO 81 mg DAILY [facility] Administration Budesonide/Formoterol Fumarate 2 puff 12/03/18 10:00 12/08/18 09:37 Symbicort 80/4.5mcg - IH 2 puff BID@0800,2000 [facility] Administration Furosemide 40 mg 12/06/18 10:00 12/08/18 09:35 Lasix Injection - IVPUSH 40 mg DAILY [facility] Administration Guaifenesin 10 ml 12/07/18 16:11 12/08/18 12:34 Robitussin - PO 10 ml Q6H PRN Administration COUGH Levalbuterol HCl 0.31 mg 12/07/18 10:49 12/08/18 07:30 Xopenex IH 0.31 mg Q8H PRN Administration ASTHMA Levetiracetam 500 mg 12/03/18 22:00 12/08/18 09:35 Keppra - PO 500 mg BID [facility] Administration Methylprednisolone Sodium Succinate 40 mg 12/08/18 12:15 12/08/18 12:34 Solu-Medrol - IVPUSH 40 mg Q8H-IV [facility]ILY Administration Metoprolol Tartrate 25 mg 12/07/18 22:00 12/08/18 09:35 Lopressor - PO 25 mg BID [facility] Administration Nicotine 14 mg 12/08/18 10:00 12/08/18 10:41 Nicoderm Patch - TD 14 mg DAILY [facility] Administration ASSESSMENT/PLAN: Patient is is a 68 year old male with a past medical history of heavy smoking, ETOH abuse, recently diagnosed with parxysmal Afib not on AC with concern for ICH in the setting of AVM. He was sent to [facility] for chest pain at rest. Cardiology. Chest pain Shortness of breath Having shortness of breath today, chest xray negative for acute process. chest cta negative for PE. On Asa therapy Patient on lasix for volume overload. Placed on 2 liters of nasal cannula. will convert to PO lasix in anticipation of discharge. COPD: having some wheezing, discussed with pulmonary. will give medrol x 24 hours and convert to PO on d/c. 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 Neurosurgery follow up as an outpatient once acute cardiac/pulm symptoms resolve. Neurosurgery recommends stereotactic radiosurgery once acute respiratory resolved. Continue Keppra 500mg BID. Card: Paroxysmal atrial fibrillation with RVR Recently discharged home on metoprolol 25mg bid, restarted as his heart rate elevated. . Unable to anticoagulate at this time secondary to SAH and symptomatic AVM. Cardiology follow up outpatient. Hypertension, controlled On Norvasc Psyche ETOH abuse/dependency No acute signs of ETOH withdrawal on exam. full code fen tolerating po monitor electrolytes low salt diet prophy no a/c 2/2 to head bleed. Visit type - Emergency Visit Emergency Visit: Yes ED Registration Date: 12/07/18 Care time: The patient presented to the Emergency Department on the above date and was hospitalized for further evaluation of their emergent condition. - New Patient This patient is new to me today: No - Critical Care Critical Care patient: No - Discharge Referral Referred to [facility] Med P.C.: No
[2018-12-09] MEDS: ACETAMINOPHEN 325 MG TABLET (FP) PO PRN ×3 (00:32→12:42)
[2018-12-09] MEDS: methylPREDNISolone NA SUCC 40 MG/1 ML VIAL IVPUSH SCH ×2 (02:25→12:41)
[2018-12-09] MEDS: guaiFENesin 200 MG/10 ML 10 ML UNIT-DOSE CUPS PO PRN ×2 (03:30→12:42)
[2018-12-09] MEDS: LEVALBUTEROL HCL 0.31 MG/3 ML VIAL.NEB IH PRN (03:43)
[2018-12-09] MEDS: BUDESONIDE/FORMETEROL FUMARATE 80/4.5 mcg INHALER IH SCH (08:55)
[2018-12-09] MEDS ORDERED: PT OWN MED DRAWER 7, Y5N ONE (09:38)
[2018-12-09 10:31] VITALS: BP 158/83; PULSE 105; TEMP 97.8
[2018-12-09] MEDS: METOPROLOL TARTRATE 25 MG TABLET (FP) PO SCH (12:41)
[2018-12-09] MEDS: FUROSEMIDE 40 MG/4 ML INJECTABLE VIAL IVPUSH SCH (12:41)
[2018-12-09] MEDS: NICOTINE 14 MG/24 HOURS TOPICAL PATCH TD SCH (12:42)
[2018-12-09] MEDS: levETIRAcetam 500 MG TABLET (FP) PO SCH (12:42)
[2018-12-09] MEDS: ASPIRIN COATED 81 MG TABLET.EC PO SCH (12:42)
[2018-12-09 13:05] LABS: HEMATOCRIT 34.8 % (35.4-49); HEMOGLOBIN 11.5 GM/dL (11.7-16.9); MCH 25.3 pg (25.7-33.7); MCHC 33.1 g/dl (32.0-35.9); MEAN CELL VOLUME 76.5 fl (80-96); MEAN PLT VOLUME 7.4 fl (7.5-11.1); PLATELET COUNT 238 K/MM3 (134-434); RBC 4.55 M/mm3 (4.00-5.60); RDW 19.2 % (11.9-15.9); WHITE BLOOD COUNT 15.1 K/mm3 (4.0-10.0)
[2018-12-09 13:35] LABS: ALBUMIN 3.7 g/dl (3.4-5.0); ALK PHOS 67 U/L (45-117); ANION GAP 10 MMOL/L (8-16); BILIRUBIN,TOTAL 0.2 mg/dL (0.2-1); BLOOD UREA NITROGEN 32 mg/dL (7-18); CALCIUM 8.7 mg/dL (8.5-10.1); CHLORIDE 100 mmol/L (98-107); CO2 26 mmol/L (21-32); GLUCOSE,RANDOM 93 mg/dL (74-106); POTASSIUM 3.9 mmol/L (3.5-5.1); SGOT/AST 9 U/L (15-37); SGPT/ALT 33 U/L (13-61); SODIUM 136 mmol/L (136-145)
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
[2018-12-09 15:56] LABS: ADD RBC MORPHOLOGY YES
[2018-12-09 15:58] LABS: TARGET CELLS 1+
[2018-12-09 15:59] LABS: OVALOCYTE 1+; TEAR DROP CELLS 1+
== END 2018-12-09 14:53 | disposition home or self-care (01) | DRG 190 ==
LOC: JER 02:41 → JERBED 07:22 → J4W 15:43 → OBSVTOIN 12-07 08:33
PROVIDERS: ADMIT Internal Medicine; ATTEND Nurse Practitioner Family
DX: J44.1 Chronic obstructive pulmonary disease with (acute) exacerbation (principal); Q28.2 Arteriovenous malformation of cerebral vessels; I60.9 Nontraumatic subarachnoid hemorrhage, unspecified; I50.32 Chronic diastolic (congestive) heart failure; K62.5 Hemorrhage of anus and rectum; I11.0 Hypertensive heart disease with heart failure; R07.89 Other chest pain; F17.210 Nicotine dependence, cigarettes, uncomplicated; E11.9 Type 2 diabetes mellitus without complications; E78.5 Hyperlipidemia, unspecified; E66.9 Obesity, unspecified; Z68.24 Body mass index [BMI] 24.0-24.9, adult; F10.20 Alcohol dependence, uncomplicated
CPT/HCPCS: 36415; 70450-TC; 71045-TC-FY; 71046-TC-FY; 71275-TC; 80048; 80053; 82550; 82962; 83735; 83880; 84100; 84484; 85025; 85027; 85610; 85730; 87040; 93005; 93010; 94640; 94761; 99285-25; G0378; J7030

== ENCOUNTER 2018-12-09 20:32 | Inpatient (IN) | payer OTHER ==
--- NOTE | 2018-12-09 21:07 | PDOC ---
History of Present Illness - General Chief Complaint: Chest Pain Stated Complaint: SHORTNESS OF BREATH CHEST PAIN Time Seen by Provider: 12/09/18 21:05 History Source: Patient Exam Limitations: No Limitations - History of Present Illness Initial Comments: 68 yo m w/ PMH brain AVM, HTN, ETOH abuse, COPD presents to the ER with chest pain and SOB after signing out AMA this afternoon. He presents with chest pain, SOB, and lightheadedness which have all been present for around 4 weeks. He states the chest pain is pressure like and worsened with exertion with mild radiation to his jaw and sometimes down his left arm. The pain is also reproducible upon palpation. He has also experienced fainting spells, most recent of which today and hit his head when he went down today. He sttes he has had a headache since falling down earlier today and requests tylenol at presentation. Denies taking any blood thinners. He also endorses a cough with yellow phlegm which has been present for four weeks. Denies recent fevers, chills, infections, N/V/D/C, dysuria, frequency, urgency, blurry vision, vertigo, numbness, weakness, or ankle/leg swelling. PCP: None PSH: Right shoulder sx, Hip sx, b/l LE orthopedic surgery Social Hx: Smokes 3 cigs per day for the past 1.5 months, smoked 1ppd for the past 50 years, drinks approx. 1.5 pints every 3 days, denies other drug usage. Allergies: NKA, NKDA Past History - Past Medical History Allergies/Adverse Reactions: Allergies Allergy/AdvReac Type Severity Reaction Status Date / Time No Known Allergies Allergy Verified 12/09/18 20:45 Home Medications: Ambulatory Orders Budesonide/Formeterol Fumarate [SYMBICORT 80/4.5mcg -] 2 puff IH BID #1 inhaler 11/23/18 Metoprolol Tartrate [Lopressor -] 25 mg PO BID #60 tablet 11/23/18 Albuterol 0.083% Nebulizer Talya [Ventolin 0.083% Nebulizer Soln -] 1 amp NEB Q6H PRN #2 amp 12/09/18 Amlodipine Besylate [Norvasc -] 10 mg PO DAILY #30 tablet 12/09/18 Aspirin Coated [Ecotrin -] 81 mg PO DAILY #30 tablet.ec 12/09/18 Levalbuterol HCl [Xopenex] 0.31 mg IH Q8H PRN #1 vial.neb 12/09/18 Metoprolol Tartrate [Lopressor -] 25 mg PO BID #60 tablet 12/09/18 Pantoprazole Sodium [Protonix -] 40 mg PO DAILY #30 tablet.ec 12/09/18 levETIRAcetam [Keppra -] 500 mg PO BID #0 tablet 12/09/18 levETIRAcetam [Keppra -] 500 mg PO BID #60 tablet 12/09/18 predniSONE [Deltasone -] 40 mg PO DAILY #15 tablet 12/09/18 Asthma: No CVA: No COPD: Yes DVT: No Dementia: No Diabetes: Yes GI Disorders: No Disorders: No HTN: Yes Hypercholesterolemia: Yes Liver Disease: No Seizures: No Thyroid Disease: No - Surgical History Abdominal Surgery: No Appendectomy: No Cardiac Surgery: No Cholecystectomy: No Lung Surgery: No Neurologic Surgery: No Orthopedic Surgery: Yes (HIP SURGERY) - Reproductive History Testicular Surgery: No - Immunization History Immunization Up to Date: Yes - Suicide/Smoking/Psychosocial Hx Smoking History: Never smoked Have you smoked in the past 12 months: No Number of Cigarettes Smoked Daily: 5 Information on smoking cessation initiated: No 'Breaking Loose' booklet given: 11/14/18 Hx Alcohol Use: No Drug/Substance Use Hx: No Substance Use Type: None Hx Substance Use Treatment: No Review of Systems - Review of Systems Able to Perform ROS?: Yes Comments:: CONSTITUTIONAL: Present: Fatigue Absent: fever, no chills EYES: Absent: visual changes ENT: Absent: ear pain, no sore throat CARDIOVASCULAR: Present: Chest pain Absent: no palpitations RESPIRATORY: Present: cough, SOB, wheezing GI: Present: Abdominal pain, nausea, diarrhea Absent: no constipation GENITOURINARY: Absent: dysuria, no frequency, no hematuria MUSKULOSKELETAL: Absent: back pain, no arthralgia, no myalgia SKIN: Absent: rash NEURO: Present: headache *Physical Exam - Vital Signs Last Vital Signs Temp Pulse Resp BP Pulse Ox 98.0 F 83 16 159/94 94 L 12/09/18 20:34 12/09/18 20:34 12/09/18 20:34 12/09/18 20:34 12/09/18 20:34 - Physical Exam Comments: GENERAL: Tired. Well-appearing, well-nourished. No apparent distress. HEENT: Normocephalic, atraumatic. PERRL, EOM intact. CARDIOVASCULAR: Normal S1, S2. Regular rate and rhythm. PULMONARY: Clear evidence of respiratory distress. Diffuse expiratory wheezing and crackles. ABDOMEN: Soft, non-distended. EXTREMITIES: Normal ROM in all four extremities. No gross deformities. SKIN: Warm, dry. No rash NEUROLOGICAL: No focal neurological deficits. Respiratory/Chest: positive: Crackles (left lower base), Wheezing (diffuse expiratory) Cardiovascular: positive: Edema Gastrointestinal/Abdominal: positive: Tender (epigastric and diffusely) Moderate Sedation - Procedure Monitoring Vital Signs: Procedure Monitoring Vital Signs Temperature 98.0 F 12/09/18 20:34 Pulse Rate 83 12/09/18 20:34 Respiratory Rate 16 12/09/18 20:34 Blood Pressure 159/94 12/09/18 20:34 O2 Sat by Pulse Oximetry (%) 94 L 12/09/18 20:34 ED Treatment Course - LABORATORY CBC & Chemistry Diagram: 12/09/18 21:27 12/09/18 21:35 Medical Decision Making - Medical Decision Making 68 yo m w/ PMH brain AVM, HTN, ETOH abuse, COPD presents to the ER with chest pain and SOB after signing out AMA this afternoon. He presents with chest pain, SOB, and lightheadedness which have all been present for around 4 weeks. He states the chest pain is pressure like and worsened with exertion with mild radiation to his jaw and sometimes down his left arm. The pain is also reproducible upon palpation. He has also experienced fainting spells, most recent of which today and hit his head when he went down today. He sttes he has had a headache since falling down earlier today and requests tylenol at presentation. Denies taking any blood thinners. He also endorses a cough with yellow phlegm which has been present for four weeks. VS: Hypoxic DDx IBNLT: ACS/CT, PNA, pleural effusion, COPD exacerbation, brain bleed Plan: Labs, ekg, cxr, head ct, duonebs, Abx, Admit Patient is likely experiencing a COPD exacerbation with an additional pneumonia. - Will start treating in ED with duonebs, steroids, and Abx then admit. - Patient needs a cardiac workup as an inpatient. *DC/Admit/Observation/Transfer Diagnosis at time of Disposition: COPD (chronic obstructive pulmonary disease), Chest pain - Discharge Dispostion Condition at time of disposition: Stable Decision to Admit order: Yes - Referrals - Patient Instructions - Post Discharge Activity
[2018-12-09] MEDS ORDERED: ACETAMINOPHEN 325 MG TABLET (FP) PO ONE (21:28)
--- NOTE | 2018-12-09 21:38 | PDOC ---
Attending Attestation - HPI HPI: 12/09/18 22:28 The patient is a 68 year old male, with a significant PMH of brain AVM, HTN, COPD, and alcohol abuse, and recently AMA from the hospital this afternoon, and presents to the emergency department today with left sided chest pain and SOB. The patient states he has been experiencing 4 weeks pressure like chest pain - worse on exertion with some radiation to left arm and jaw, SOB, and lightheadedness. Patient notes palpation endorses the chest pain and produces a productive cough with yellow phlegm. He reports several syncope episodes, with one this afternoon with hitting his head. He states he has had a headache since the incident. Denies taking blood thinners. Denies fever, chills, nausea, vomit, diarrhea and constipation. Denies dysuria, frequency, urgency and hematuria. Allergies: NKA Social history: None reported - Physicial Exam PE: 12/09/18 22:56 GENERAL: Awake, alert, and fully oriented, in no acute distress HEAD: No signs of trauma EYES: PERRLA, EOMI, sclera anicteric, conjunctiva clear ENT: Auricles normal inspection, hearing grossly normal, nares patent, oropharynx clear without exudates. Moist mucosa NECK: Normal ROM, supple, no lymphadenopathy, JVD, or masses LUNGS: (+) Diffuse expiratory wheezing bilaterally. HEART: Regular rate and rhythm, normal S1 and S2, no murmurs, rubs or gallops ABDOMEN: Soft, nontender, normoactive bowel sounds. No guarding, no rebound. No masses EXTREMITIES: No lower extremity edema. Normal range of motion. No clubbing or cyanosis. No cords, erythema, or tenderness NEUROLOGICAL: Cranial nerves II through XII grossly intact. Normal speech. SKIN: Warm, Dry, normal turgor, no rashes or lesions noted. <Cherry Acuña - Last Filed: 12/09/18 22:56> - Resident Resident Name: Emre Mccarthy - ED Attending Attestation I have performed the following: I have examined & evaluated the patient, The case was reviewed & discussed with the resident, I agree w/resident's findings & plan, Exceptions are as noted - Medical Decision Making 12/09/18 23:00 A portion of this note was documented by scribe services under my direction. I have reviewed the details of the note, within reason, and agree with the documentation with the following case summary and management plan written by me. Patient treated in the ED. Nursing notes are reviewed and incorporated into the medical decision-making. Vital signs reviewed. Peripheral IV access obtained by the nurse, laboratory studies are drawn and sent, reviewed and interpreted by myself. 68-year-old male with past medical history of hypertension, COPD, alcohol abuse , AVM presents with persistent chest pain or shortness of breath. The patient had a complicated medical history of this past month including AVM of the brain as well as persistent chest pain. The patient was evaluated by neurosurgery and by internal medicine during his admission. During that time, the patient had a CAT scan the chest as well as other workup. He was complaining about chest pain rating to left arm during that time. He continues to feel chest pressure in the left arm and dyspnea on exertion. When the patient left the hospital today, the patient was discharged with prednisone but the patient has not taken any additional dosings. He does not complain of worsening headache but does complain of persistent chest pressure. Last echocardiogram was performed in October which demonstrated no acute findings. The patient is certainly with bilateral expiratory wheezing with yellowish productive cough. Likely failed outpatient management with COPD. Will need chest xray to r/o pneumonia. Pt last echo over month ago, but no recent stress test. Could still be ACS. No worsening headache and at this time. Ultimately, pt will need to be readmitted to the hospital. 12/09/18 23:[address] negative. Chest xray reviewed by me, pending official radiology read. No acute findings. CBC, BMP 12/09/18 21:27 12/09/18 21:35 CMP Sodium 138 mmol/L (136-145) 12/09/18 21:35 Potassium 4.1 mmol/L (3.5-5.1) 12/09/18 21:35 Chloride 103 mmol/L (98-107) 12/09/18 21:35 Carbon Dioxide 26 mmol/L (21-32) 12/09/18 21:35 Anion Gap 9 MMOL/L (8-16) 12/09/18 21:35 BUN 38 mg/dL (7-18) H 12/09/18 21:35 Creatinine 1.2 mg/dL (0.55-1.3) 12/09/18 21:35 Creat Clearance w eGFR > 60 (>60) 12/09/18 21:35 Random Glucose 129 mg/dL (74-106) H 12/09/18 21:35 Calcium 8.4 mg/dL (8.5-10.1) L 12/09/18 21:35 Magnesium 2.4 mg/dL (1.8-2.4) 12/09/18 21:35 Total Bilirubin 0.2 mg/dL (0.2-1) 12/09/18 21:35 AST 13 U/L (15-37) L 12/09/18 21:35 ALT 32 U/L (13-61) 12/09/18 21:35 Alkaline Phosphatase 63 U/L (45-117) 12/09/18 21:35 Creatine Kinase 67 U/L (26-308) 12/09/18 21:35 Troponin I < 0.02 ng/ml (0.00-0.05) 12/09/18 21:35 Total Protein 6.8 g/dl (6.4-8.2) 12/09/18 21:35 Albumin 3.4 g/dl (3.4-5.0) 12/09/18 21:35 Serum Folate 23 ng/mL (3.1-17.5) H 12/09/18 21:35 Admit 12/09/18 23:[address] De Paz. Pt accepted to telemetry admission to [facility]. Case discussed in detail with admitting physician including history, physical exam and ancillary studies. Admitting physician has assumed care for the patient, will follow all pending diagnostics and will complete the evaluation and treatment. <Bebo Chavez - Last Filed: 12/09/18 23:57> *DC/Admit/Observation/Transfer - Discharge Dispostion Decision to Admit order: Yes <Bebo Chavez - Last Filed: 12/09/18 23:57> Diagnosis at time of Disposition: COPD (chronic obstructive pulmonary disease) Qualifiers: COPD type: unspecified COPD Qualified Code(s): J44.9 - Chronic obstructive pulmonary disease, unspecified Chest pain Qualifiers: Chest pain type: unspecified Qualified Code(s): R07.9 - Chest pain, unspecified - Discharge Dispostion Condition at time of disposition: Stable Heart Score/ECG Review #1 ECG reviewed & interpreted by me at: 20:50 12/09/18 21:37 NSR 77, left axis deviation, no std/regina, normal intervals, QTC 439 msec <Bebo Chavez - Last Filed: 12/09/18 23:57> Attestations - Attestations 12/09/18 22:28 Documentation prepared by Cherry Acuña, acting as medical device sales for Bebo Chavez MD. <Cherry Acuña - Last Filed: 12/09/18 22:56>
[2018-12-09] MEDS ORDERED: ALBUTEROL SO4 2.5/IPRATROPIUM 0.5 INH SOL 3 ML VIAL.NEB. NEB ONE (21:42)
[2018-12-09] MEDS ORDERED: methylPREDNISolone NA SUCC 125 MG/2 ML VIAL IVPB ONE (21:43)
[2018-12-09] MEDS ORDERED: AZITHROMYCIN 500 MG TABLET PO ONE (22:00)
[2018-12-09 22:07] LABS: BASO % 0.4 % (0-2.0); HEMATOCRIT 33.3 % (35.4-49); HEMOGLOBIN 11.1 GM/dL (11.7-16.9); LYMPH % 1.3 % (8-40); MCH 25.3 pg (25.7-33.7); MCHC 33.3 g/dl (32.0-35.9); MEAN CELL VOLUME 75.9 fl (80-96); MEAN PLT VOLUME 7.8 fl (7.5-11.1); MONO % 3.3 % (3.8-10.2); PLATELET COUNT 233 K/MM3 (134-434); RBC 4.39 M/mm3 (4.00-5.60); RDW 19.5 % (11.9-15.9); WHITE BLOOD COUNT 14.5 K/mm3 (4.0-10.0)
[2018-12-09 22:08] LABS: INR 0.9 (0.83-1.09); PROTHROMBIN TIME (PATIENT) 10.6 SEC (9.7-13.0)
[2018-12-09 22:33] LABS: ALBUMIN 3.4 g/dl (3.4-5.0); ALK PHOS 63 U/L (45-117); ANION GAP 9 MMOL/L (8-16); BILIRUBIN,TOTAL 0.2 mg/dL (0.2-1); BLOOD UREA NITROGEN 38 mg/dL (7-18); CALCIUM 8.4 mg/dL (8.5-10.1); CHLORIDE 103 mmol/L (98-107); CO2 26 mmol/L (21-32); CREATININE 1.2 mg/dL (0.55-1.3); GLUCOSE,RANDOM 129 mg/dL (74-106); MAGNESIUM 2.4 mg/dL (1.8-2.4); POTASSIUM 4.1 mmol/L (3.5-5.1); SGOT/AST 13 U/L (15-37); SGPT/ALT 32 U/L (13-61); SODIUM 138 mmol/L (136-145); TOT PROT 6.8 g/dl (6.4-8.2)
[2018-12-09 22:33] LABS: ANISOCYTOSIS 1+; MACROCYTOSIS 1+; OVALOCYTE 1+; PLATELET ESTIMATE ADEQUATE; TARGET CELLS 1+; TEAR DROP CELLS 1+
[2018-12-10] MEDS ORDERED: ALBUTEROL SO4 2.5/IPRATROPIUM 0.5 INH SOL 3 ML VIAL.NEB. NEB PRN (00:24)
--- NOTE | 2018-12-10 00:56 | HP ---
CHIEF COMPLAINT: Chest Pain, SOB PCP: HISTORY OF PRESENT ILLNESS: This is a 68 y/o man with a PMHx of new frontal AVM, SAH, Afib (Metoprolol, no AC- AVM), HTN, COPD, ETOH Abuse, recent admission for syncope (12/07-12/09). Who presents to the ED with left sided chest pain radiating to his jaw, with SOB. Patient reports the CP is worse on exertion. He reports having a productive cough with yellow phlegm. ER course was notable for: (1) Troponin I 0.02 (2) EKG- (3) WBC 14.5 Recent Travel: None PAST MEDICAL HISTORY: See HPI PAST SURGICAL HISTORY: Social History: Smoking: < 5 cigarettes per day for the past 1.5 months, smoked 1PPD for the past 50 yrs Alcohol: 1.5 pints every 3 days. Last drink 1.5 month Drugs: Denies Family History: non-contributory Allergies No Known Allergies Allergy (Verified 12/09/18 20:45) HOME MEDICATIONS: Home Medications Medication Instructions Recorded Budesonide/Formeterol Fumarate 2 puff IH BID #1 inhaler 11/23/18 [SYMBICORT 80/4.5mcg -] Metoprolol Tartrate [Lopressor -] 25 mg PO BID #60 tablet 11/23/18 Albuterol 0.083% Nebulizer Talya 1 amp NEB Q6H PRN #2 amp 12/09/18 [Ventolin 0.083% Nebulizer Soln -] Amlodipine Besylate [Norvasc -] 10 mg PO DAILY #30 tablet 12/09/18 Aspirin Coated [Ecotrin -] 81 mg PO DAILY #30 tablet.ec 12/09/18 Levalbuterol HCl [Xopenex] 0.31 mg IH Q8H PRN #1 vial.neb 12/09/18 Metoprolol Tartrate [Lopressor -] 25 mg PO BID #60 tablet 12/09/18 Pantoprazole Sodium [Protonix -] 40 mg PO DAILY #30 tablet.ec 12/09/18 levETIRAcetam [Keppra -] 500 mg PO BID #0 tablet 12/09/18 levETIRAcetam [Keppra -] 500 mg PO BID #60 tablet 12/09/18 predniSONE [Deltasone -] 40 mg PO DAILY #15 tablet 12/09/18 REVIEW OF SYSTEMS CONSTITUTIONAL: Absent: fever, chills, diaphoresis, generalized weakness, malaise, loss of appetite, weight change HEENT: Absent: rhinorrhea, nasal congestion, throat pain, throat swelling, difficulty swallowing, mouth swelling, ear pain, eye pain, visual changes CARDIOVASCULAR: chest pain Absent: syncope, palpitations, irregular heart rate, lightheadedness, peripheral edema RESPIRATORY: shortness of breath, Absent: cough, shortness of breath, dyspnea with exertion, orthopnea, wheezing, stridor, hemoptysis GASTROINTESTINAL: Absent: abdominal pain, abdominal distension, nausea, vomiting, diarrhea, constipation, melena, hematochezia GENITOURINARY: Absent: dysuria, frequency, urgency, hesitancy, hematuria, flank pain, genital pain MUSCULOSKELETAL: Absent: myalgia, arthralgia, joint swelling, back pain, neck pain SKIN: Absent: rash, itching, pallor HEMATOLOGIC/IMMUNOLOGIC: Absent: easy bleeding, easy bruising, lymphadenopathy, frequent infections ENDOCRINE: Absent: unexplained weight gain, unexplained weight loss, heat intolerance, cold intolerance NEUROLOGIC: Absent: headache, focal weakness or paresthesias, dizziness, unsteady gait, seizure, mental status changes, bladder or bowel incontinence PSYCHIATRIC: Absent: anxiety, depression, suicidal or homicidal ideation, hallucinations. PHYSICAL EXAMINATION Vital Signs - 24 hr 12/09/18 20:34 Temperature 98.0 F Pulse Rate 83 Respiratory 16 Rate Blood Pressure 159/94 O2 Sat by Pulse 94 L Oximetry (%) GENERAL: Awake, alert, and fully oriented, in no acute distress. HEAD: Normal with no signs of trauma. EYES: Pupils equal, round and reactive to light, extraocular movements intact, sclera anicteric, conjunctiva clear. No lid lag. EARS, NOSE, THROAT: Ears normal, nares patent, oropharynx clear without exudates. Moist mucous membranes. NECK: Normal range of motion, supple without lymphadenopathy, JVD, or masses. LUNGS: Breath sounds coarse rhonchi with diffuse wheeze throughout. No accessory muscle use. HEART: Regular rate and rhythm, normal S1 and S2 without murmur, rub or gallop. CP reproducible on palpation ABDOMEN: Soft, nontender, not distended, normoactive bowel sounds, no guarding, no rebound, no masses. No hepatomegaly or splenomegaly. MUSCULOSKELETAL: Normal range of motion at all joints. No bony deformities or tenderness. No CVA tenderness. UPPER EXTREMITIES: 2+ pulses, warm, well-perfused. No cyanosis. No clubbing. No peripheral edema. LOWER EXTREMITIES: 2+ pulses, warm, well-perfused. No calf tenderness. No peripheral edema. NEUROLOGICAL: Cranial nerves II-XII intact. Normal speech. Gait not observed. PSYCHIATRIC: Cooperative. Good eye contact. Appropriate mood and affect. SKIN: Warm, dry, normal turgor, no rashes or lesions noted, normal capillary refill. Laboratory Results - last 24 hr 12/09/18 12/09/18 12/09/18 21:27 21:35 21:35 WBC 14.5 H RBC 4.39 Hgb 11.1 L Hct 33.3 L MCV 75.9 L MCH 25.3 L MCHC 33.3 RDW 19.5 H Plt Count 233 MPV 7.8 Absolute Neuts (auto) 13.7 H Neutrophils % 95.0 H D Neutrophils % (Manual) 94.0 H Band Neutrophils % 1.0 Lymphocytes % 1.3 L D Lymphocytes % (Manual) 2.0 L D Monocytes % 3.3 L Monocytes % (Manual) 3 L Eosinophils % 0.0 D Basophils % 0.4 Nucleated RBC % 0 Hypochromia 1+ Platelet Estimate Adequate Platelet Comment No clumping noted Anisocytosis 1+ Microcytosis 1+ Macrocytosis 1+ Target Cells 1+ Tear Drop Cells 1+ Ovalocytes 1+ PT with INR 10.60 INR 0.90 PTT (Actin FS) Sodium 138 Potassium 4.1 Chloride 103 Carbon Dioxide 26 Anion Gap 9 BUN 38 H Creatinine 1.2 Creat Clearance w eGFR > 60 Random Glucose 129 H Calcium 8.4 L Magnesium 2.4 Total Bilirubin 0.2 AST 13 L ALT 32 Alkaline Phosphatase 63 Creatine Kinase 67 Troponin I < 0.02 Total Protein 6.8 Albumin 3.4 Serum Folate 12/09/18 12/09/18 21:35 21:35 WBC RBC Hgb Hct MCV MCH MCHC RDW Plt Count MPV Absolute Neuts (auto) Neutrophils % Neutrophils % (Manual) Band Neutrophils % Lymphocytes % Lymphocytes % (Manual) Monocytes % Monocytes % (Manual) Eosinophils % Basophils % Nucleated RBC % Hypochromia Platelet Estimate Platelet Comment Anisocytosis Microcytosis Macrocytosis Target Cells Tear Drop Cells Ovalocytes PT with INR INR PTT (Actin FS) 21.3 L Sodium Potassium Chloride Carbon Dioxide Anion Gap BUN Creatinine Creat Clearance w eGFR Random Glucose Calcium Magnesium Total Bilirubin AST ALT Alkaline Phosphatase Creatine Kinase Troponin I Total Protein Albumin Serum Folate 23 H ASSESSMENT/PLAN: This is a 68 y/o man with a PMHx of: AVM, SAH, HTN, Afib (on Metoprolol, no AC- AVM/SAH), ETOH Abuse, COPD. Placed on Tele Observation for Chest Pain, Acute COPD Exacerbation for further evaluation of their emergent condition Plan: See Problem List FEN PO fluids as tolerated Replete lytes prn Low Na Diet DVT ppx OOB SCDs No AC secondary to AVM/SAH Dispo: Observation Problem List - Problem (1) Chest pain Assessment/Plan: r/o ACS HEART Score 5 Continue cardiac monitoring Serial Enzymes Appreciate Cardiology consult Code(s): R07.9 - CHEST PAIN, UNSPECIFIED (2) COPD exacerbation Assessment/Plan: Chest Xray- no acute chest process Continue solumederol w/taper Appreciate Pulm consult O2 Duonebs Code(s): J44.1 - CHRONIC OBSTRUCTIVE PULMONARY DISEASE W (ACUTE) EXACERBATION (3) Chronic diastolic (congestive) heart failure Assessment/Plan: Chest xray reviewed Continue home meds Strict INOs Daily weights Code(s): I50.32 - CHRONIC DIASTOLIC (CONGESTIVE) HEART FAILURE (4) Alcohol abuse Assessment/Plan: Patient reports last drink 1 month ago UDT-pending CIWAr-0 Code(s): F10.10 - ALCOHOL ABUSE, UNCOMPLICATED (5) Arteriovenous aneurysm Assessment/Plan: Head CT- no acute intracranial pathology. chronic right frontal cortical infarct. left inferior frontal AVM Neuro checks Hold AC Fall Precautions f/u with neurosurgery Code(s): I77.0 - ARTERIOVENOUS FISTULA, ACQUIRED (6) HTN (hypertension) Assessment/Plan: subotimal Monitor HTN Continue home meds Monitor renal function Low Na Diet Code(s): I10 - ESSENTIAL (PRIMARY) HYPERTENSION (7) Nicotine dependence Assessment/Plan: Counseled on smoking cessation Code(s): F17.200 - NICOTINE DEPENDENCE, UNSPECIFIED, UNCOMPLICATED Visit type - Emergency Visit Emergency Visit: Yes ED Registration Date: 12/10/18 Care time: The patient presented to the Emergency Department on the above date and was hospitalized for further evaluation of their emergent condition. - New Patient This patient is new to me today: Yes Date on this admission: 12/10/18 - Critical Care Critical Care patient: No
[2018-12-10 03:36] LABS: COCAINE, UR NEGATIVE ng/ml (CUTOFF=300); METHADONE, UR NEGATIVE ng/ml (CUTOFF=300); OPIATES, URI NEGATIVE ng/ml (CUTOFF=300); PHENCYCLIDINE,URINE NEGATIVE ng/ml (CUTOFF=25); URINE AMPHETAMINES NEGATIVE ng/ml (CUTOFF=500); URINE BARBITURATES NEGATIVE ng/ml (CUTOFF=200); URINE BENZODIAZEPINES NEGATIVE ng/ml (CUTOFF=200)
[2018-12-10 04:50] VITALS: BMI 24.2
[2018-12-10 06:46] LABS: BASO % 0.2 % (0-2.0); EOS % 0.1 % (0-4.5); HEMATOCRIT 30.6 % (35.4-49); HEMOGLOBIN 10.1 GM/dL (11.7-16.9); LYMPH % 1.7 % (8-40); MCH 24.9 pg (25.7-33.7); MCHC 33.1 g/dl (32.0-35.9); MEAN CELL VOLUME 75.3 fl (80-96); MEAN PLT VOLUME 7.6 fl (7.5-11.1); MONO % 4.1 % (3.8-10.2); NEUT % 93.9 % (42.8-82.8); PLATELET COUNT 261 K/MM3 (134-434); RBC 4.06 M/mm3 (4.00-5.60); RDW 19.6 % (11.9-15.9); WHITE BLOOD COUNT 11.1 K/mm3 (4.0-10.0)
[2018-12-10 07:12] LABS: N-TERMINAL BNP 968.6 pg/ml (5-125)
[2018-12-10 07:33] LABS: ANION GAP 7 MMOL/L (8-16); BLOOD UREA NITROGEN 35 mg/dL (7-18); CHLORIDE 104 mmol/L (98-107); CO2 27 mmol/L (21-32); CREATININE 0.9 mg/dL (0.55-1.3); GLUCOSE,RANDOM 118 mg/dL (74-106); LIPASE 101 U/L (73-393); MAGNESIUM 2.2 mg/dL (1.8-2.4); PHOSPHOROUS 3.9 mg/dL (2.5-4.9); POTASSIUM 4.2 mmol/L (3.5-5.1); SODIUM 139 mmol/L (136-145)
[2018-12-10] MEDS ORDERED: ACETAMINOPHEN 325 MG TABLET (FP) ONE ×2 (07:48→14:53)
--- NOTE | 2018-12-10 09:43 | PN ---
Progress Note, Physician Chief Complaint: Discharged yesterday Readmitted with exertional dyspnea and near syncope. Now third admission in 2 months for similar symptoms. PMH: ETOH abuse COPD PAF Chronic diastolic CHF Exertional dyspnea Syncope Rectal bleeding Brain AVMs PAF Last admission, exertional dyspnea, PAF, COPD. Had a repeat chest CTA negative for PE. Plan was for stress test prior to discharge, but that was deferred as outpatient. He continues to have exertional CP, HEATH and exertional dizziness. Denies edema. Denies fever, chills. + Cough History of Present Illness: CXR clear - Current Medication List Current Medications: Active Medications Albuterol/Ipratropium (Duoneb -) 1 amp NEB Q6H PRN PRN Reason: SHORTNESS OF BREATH Amlodipine Besylate (Norvasc -) 10 mg PO DAILY EMILY Aspirin (Ecotrin -) 81 mg PO DAILY EMILY Levalbuterol HCl (Xopenex) 0.31 mg IH Q8H PRN PRN Reason: ASTHMA Levetiracetam (Keppra -) 500 mg PO BID EMILY Methylprednisolone Sodium Succinate (Solu-Medrol -) 40 mg IVPUSH Q8H-IV EMILY Metoprolol Tartrate (Lopressor -) 25 mg PO BID EMILY Pantoprazole Sodium (Protonix -) 40 mg PO DAILY EMILY - Objective Vital Signs: Vital Signs Temperature 97.8 F 12/10/18 04:29 Pulse Rate 83 12/10/18 04:29 Respiratory Rate 20 12/10/18 04:29 Blood Pressure 152/92 12/10/18 04:29 O2 Sat by Pulse Oximetry (%) 93 L 12/10/18 04:29 Constitutional: Yes: Calm Eyes: Yes: Conjunctiva Clear Neck: Yes: Trachea Midline Cardiovascular: Yes: Regular Rate and Rhythm Respiratory: Yes: Rhonchi Gastrointestinal: Yes: Soft, Abdomen, Obese Edema: No Neurological: Yes: Alert, Oriented Labs: CBC, BMP 12/10/18 05:30 12/10/18 05:30 INR, PTT INR 0.90 (0.83-1.09) 12/09/18 21:35 Laboratory Tests 12/09/18 12/10/18 12/10/18 21:35 05:30 05:30 Potassium 4.2 BUN 35 H Creatinine 0.9 Troponin I < 0.02 < 0.02 B-Natriuretic Peptide 968.6 H - ....Imaging EKG: Image Reviewed (NSR, APCS, left axis) Problem List - Problems (1) COPD exacerbation Code(s): J44.1 - CHRONIC OBSTRUCTIVE PULMONARY DISEASE W (ACUTE) EXACERBATION (2) COPD (chronic obstructive pulmonary disease) Code(s): J44.9 - CHRONIC OBSTRUCTIVE PULMONARY DISEASE, UNSPECIFIED Qualifiers: COPD type: unspecified COPD Qualified Code(s): J44.9 - Chronic obstructive pulmonary disease, unspecified (3) Alcohol dependence with uncomplicated withdrawal Code(s): F10.230 - ALCOHOL DEPENDENCE WITH WITHDRAWAL, UNCOMPLICATED (4) Arteriovenous aneurysm Code(s): I77.0 - ARTERIOVENOUS FISTULA, ACQUIRED (5) Atrial fibrillation with rapid ventricular response Code(s): I48.91 - UNSPECIFIED ATRIAL FIBRILLATION (6) Chronic diastolic (congestive) heart failure Code(s): I50.32 - CHRONIC DIASTOLIC (CONGESTIVE) HEART FAILURE (7) Dyspnea on exertion Code(s): R06.09 - OTHER FORMS OF DYSPNEA (8) Syncope and collapse Code(s): R55 - SYNCOPE AND COLLAPSE Assessment/Plan IMP: Chronic COPD w/ mild acute exacerbation PAF w/ RVR Chronic diastolic CHF Brain AVMs, hx SAH Rectal bleeding. ETOH dependance REC: 1. Supplimental O2, steroid taper as per Pulmonary 2. PO Lasix 3. Patient cannot be anticoagulated at this time due to AVM, SAH (high risk bleed) and c/o rectal bleeding. 4. Recommend stress MPI prior to discharge for further CV risk stratification 5. PPI as GI prophylaxis
[2018-12-10] MEDS: PANTOPRAZOLE 40 MG TABLET (FP) PO SCH (09:50)
[2018-12-10] MEDS: ASPIRIN COATED 81 MG TABLET.EC PO SCH (09:50)
[2018-12-10] MEDS: METOPROLOL TARTRATE 25 MG TABLET (FP) PO SCH ×2 (09:50→21:23)
[2018-12-10] MEDS: methylPREDNISolone NA SUCC 40 MG/1 ML VIAL IVPUSH SCH ×2 (09:50→18:22)
[2018-12-10] MEDS: levETIRAcetam 500 MG TABLET (FP) PO SCH ×2 (09:50→21:23)
[2018-12-10] MEDS: amLODIPine BESYLATE 10 MG TABLET (FP) PO SCH (09:50)
[2018-12-10 09:59] LABS: ANISOCYTOSIS 1+; HELMET CELLS 1+; MACROCYTOSIS 0; OVALOCYTE 1+; PLATELET ESTIMATE NORMAL; TEAR DROP CELLS 1+
--- NOTE | 2018-12-10 11:34 | EKG ---
Test Reason : Blood Pressure : / mmHG Vent. Rate : 077 BPM Atrial Rate : 077 BPM P-R Int : 140 ms QRS Dur : 074 ms QT Int : 388 ms P-R-T Axes : 027 -37 074 degrees QTc Int : 439 ms POOR DATA QUALITY, INTERPRETATION MAY BE ADVERSELY AFFECTED NORMAL SINUS RHYTHM LEFT AXIS DEVIATION ABNORMAL ECG Confirmed by JUDI MEI MD ([id number]) on 12/10/2018 11:34:02 AM Referred By: Confirmed By:JUDI MEI MD
[2018-12-10] MEDS: ALBUTEROL SO4 2.5/IPRATROPIUM 0.5 INH SOL 3 ML VIAL.NEB. NEB SCH ×3 (11:35→20:15)
[2018-12-10] MEDS: FUROSEMIDE 40 MG TABLET (FP) PO SCH (11:55)
--- NOTE | 2018-12-10 18:15 | PN ---
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 AVM TOBACCO ABUSE PLAN IV STEROIDS INHALED BRONCHODILATORS CE LASIX CARDIAC W/U PFTS OUTPATIENT SMOKING CESSATION COUNSELED DR BLANCO Problem List - Problems (1) COPD (chronic obstructive pulmonary disease) Code(s): J44.9 - CHRONIC OBSTRUCTIVE PULMONARY DISEASE, UNSPECIFIED Qualifiers: COPD type: unspecified COPD Qualified Code(s): J44.9 - Chronic obstructive pulmonary disease, unspecified (2) Chest pain Code(s): R07.9 - CHEST PAIN, UNSPECIFIED (3) Alcohol abuse Code(s): F10.10 - ALCOHOL ABUSE, UNCOMPLICATED (4) Arteriovenous aneurysm Code(s): I77.0 - ARTERIOVENOUS FISTULA, ACQUIRED (5) Atrial fibrillation with rapid ventricular response Code(s): I48.91 - UNSPECIFIED ATRIAL FIBRILLATION (6) Chronic diastolic (congestive) heart failure Code(s): I50.32 - CHRONIC DIASTOLIC (CONGESTIVE) HEART FAILURE (7) Dyspnea on exertion Code(s): R06.09 - OTHER FORMS OF DYSPNEA (8) Shortness of breath Code(s): R06.02 - SHORTNESS OF BREATH (9) Syncope and collapse Code(s): R55 - SYNCOPE AND COLLAPSE (10) HTN (hypertension) Code(s): I10 - ESSENTIAL (PRIMARY) HYPERTENSION
--- NOTE | 2018-12-10 20:47 | CONS ---
DATE OF CONSULTATION: 12/10/2018 REFERRING PHYSICIAN: Jonathan Benavidez N.P. 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 Patient's previous hospitalization, underwent CTA of the chest x2 which was negative for PE. He was treated for possible COPD exacerbation with bronchodilators. Later he was discharged on October 08, apparently got on the bus and had a near syncopal episode. Also complains of some chest pain prior to this episode. Denied any nausea, vomiting, diaphoresis. Denied any hemoptysis. At this time he presented to the ER. In the ER, he was felt to have a possible by Dr. Walker for cardiology consultation, felt that patient most likely had a mild COPD exacerbation. He was started on steroids and bronchodilators. The patient, as stated before, has a history of atrial fibrillation, he cannot be anticoagulated secondary to AVN as well as subarachnoid hemorrhage in the past. He denies any history of occupational exposure to chemicals or fumes. There is no history of DVT or PE in the past. 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 REVIEW OF SYSTEMS: Positive chest pain. Positive shortness of breath. Positive cough. No nausea, no vomiting, no diaphoresis, no hemoptysis, no fever, no chills. No lower extremity edema. CURRENT MEDICATIONS: Include Solu-Medrol, Tylenol, Keppra, DuoNeb, Xopenex, Lopressor, Norvasc, Lasix, Ecotrin, Protonix. PHYSICAL EXAMINATION: GENERAL: The patient is a well-developed, well-nourished male awake, alert, in no acute distress. He is afebrile. VITAL SIGNS: Blood pressure 167/95, respiratory rate is 20, O2 saturation is 93% on room air. HEENT: Normocephalic, atraumatic. NECK: Supple without any adenopathy. HEART: Regular S1, S2. CHEST: A few scattered bilateral rhonchi. ABDOMEN: Soft, bowel sounds are positive. EXTREMITIES: No cyanosis, edema. Chest x-ray, no infiltrates, no effusions. Recent CTA of the chest on December 07, negative for PE, mild central lobe emphysema in the upper lobes, no focal infiltrates appreciated. Previous head CT, no significant change, no acute intracranial pathology, focal encephalomalacia right frontal lobe, anterior and inferior, the large AVN in the left frontal lobe on the margin of the left sylvian fissure. IMPRESSION: 1. Near syncope, recurrent. 2. Dyspnea, mild chronic obstructive pulmonary disease. 3. Chest pain. 4. Atrial fibrillation. 5. Diastolic heart failure. 6. Central nervous system avascular necrosis. 7. Tobacco abuse. 8. History of ethyl alcohol abuse. PLAN: IV steroids. Inhaled bronchodilators. Cardiac enzymes. Lasix. Cardiac workup. PFT as outpatient. Smoking cessation counseled. ROSE MARIE BLANCO M.D. [id number]
[2018-12-10] MEDS: ACETAMINOPHEN 325 MG TABLET (FP) PO PRN (21:23)
[2018-12-11] MEDS ORDERED: guaiFENesin 200 MG/10 ML 10 ML UNIT-DOSE CUPS PO PRN ×2 (01:05→01:18)
[2018-12-11] MEDS ORDERED: ALBUTEROL SO4 0.083% IH SOL 2.5 MG/3 ML VIAL.NEB. NEB ONE (01:08)
[2018-12-11] MEDS: ALBUTEROL SO4 0.083% IH SOL 2.5 MG/3 ML VIAL.NEB. NEB PRN (01:11)
[2018-12-11] MEDS: methylPREDNISolone NA SUCC 40 MG/1 ML VIAL IVPUSH SCH ×3 (01:14→19:06)
[2018-12-11] MEDS: ACETAMINOPHEN 325 MG TABLET (FP) PO PRN ×3 (03:30→19:48)
[2018-12-11 07:14] LABS: ALBUMIN 2.9 g/dl (3.4-5.0); ALK PHOS 51 U/L (45-117); ANION GAP 6 MMOL/L (8-16); BILIRUBIN,TOTAL 0.3 mg/dL (0.2-1); BLOOD UREA NITROGEN 34 mg/dL (7-18); CHLORIDE 104 mmol/L (98-107); CO2 28 mmol/L (21-32); CREATININE 1.1 mg/dL (0.55-1.3); GLUCOSE,RANDOM 85 mg/dL (74-106); MAGNESIUM 2.2 mg/dL (1.8-2.4); SGOT/AST 13 U/L (15-37); SGPT/ALT 25 U/L (13-61); SODIUM 139 mmol/L (136-145); TOT PROT 5.5 g/dl (6.4-8.2)
[2018-12-11] MEDS: ALBUTEROL SO4 2.5/IPRATROPIUM 0.5 INH SOL 3 ML VIAL.NEB. NEB SCH ×3 (07:50→15:21)
[2018-12-11 07:56] LABS: BASO % 0.1 % (0-2.0); EOS % 0.3 % (0-4.5); HEMOGLOBIN 10.7 GM/dL (11.7-16.9); LYMPH % 3.1 % (8-40); MCH 25.7 pg (25.7-33.7); MCHC 33.6 g/dl (32.0-35.9); MEAN CELL VOLUME 76.7 fl (80-96); MEAN PLT VOLUME 7.7 fl (7.5-11.1); MONO % 14.9 % (3.8-10.2); NEUT % 81.6 % (42.8-82.8); PLATELET COUNT 283 K/MM3 (134-434); RBC 4.17 M/mm3 (4.00-5.60); RDW 19.6 % (11.9-15.9); WHITE BLOOD COUNT 9.4 K/mm3 (4.0-10.0)
--- NOTE | 2018-12-11 09:57 | PN ---
Physical Exam: SUBJECTIVE: Patient seen and examined at the bedside. having some coughing spells which exacerbates his rib pain. OBJECTIVE: lidoderm patches robitussin scheduled duonebs Vital Signs Period Temp Pulse Resp BP Sys/Spicer Pulse Ox Last 24 Hr 97.7 F-98.0 F 68-102 20-20 140-167/80-95 93-96 GENERAL: The patient is awake, alert, and fully oriented, in no respiratory distress. HEAD: Normal with no signs of trauma. EYES: PERRL, extraocular movements intact, sclera anicteric, conjunctiva clear. No ptosis. ENT: Ears normal, nares patent, oropharynx clear without exudates, moist mucous membranes. NECK: Trachea midline, full range of motion, supple. LUNGS: right lung clear, left lung with diminished lung sounds, chest xray without acute findings. cta negative for PE HEART: afib. ABDOMEN: Soft, nontender, nondistended, normoactive bowel sounds, no guarding, no rebound, no hepatosplenomegaly, no masses. EXTREMITIES: no edema. NEUROLOGICAL: Normal speech, gait not observed. PSYCH: Normal mood, normal affect. SKIN: Warm, dry, normal turgor, no rashes or lesions noted Laboratory Results - last 24 hr 12/10/18 12/10/18 12/11/18 05:30 10:15 05:30 WBC 9.4 RBC 4.17 Hgb 10.7 L Hct 32.0 L MCV 76.7 L MCH 25.7 MCHC 33.6 RDW 19.6 H Plt Count 283 MPV 7.7 Absolute Neuts (auto) 7.7 Neutrophils % 81.6 Neutrophils % (Manual) 94.9 H Band Neutrophils % 0.0 Lymphocytes % 3.1 L D Lymphocytes % (Manual) 2.0 L Monocytes % 14.9 H D Monocytes % (Manual) 3 L Eosinophils % 0.3 D Eosinophils % (Manual) 0.0 D Basophils % 0.1 Basophils % (Manual) 0.0 Myelocytes % (Man) 0 Promyelocytes % (Man) 0 Blast Cells % (Manual) 0 Nucleated RBC % 0 Metamyelocytes 0 Hypochromia 1+ Platelet Estimate Normal Polychromasia 1+ Poikilocytosis 2+ Anisocytosis 1+ Microcytosis 1+ Macrocytosis 0 Tear Drop Cells 1+ Ovalocytes 1+ Helmet Cells 1+ Acanthocytes (Spur) 1+ Sodium Potassium Chloride Carbon Dioxide Anion Gap BUN Creatinine Creat Clearance w eGFR Random Glucose Calcium Magnesium Total Bilirubin AST ALT Alkaline Phosphatase Troponin I < 0.02 Total Protein Albumin 12/11/18 05:30 WBC RBC Hgb Hct MCV MCH MCHC RDW Plt Count MPV Absolute Neuts (auto) Neutrophils % Neutrophils % (Manual) Band Neutrophils % Lymphocytes % Lymphocytes % (Manual) Monocytes % Monocytes % (Manual) Eosinophils % Eosinophils % (Manual) Basophils % Basophils % (Manual) Myelocytes % (Man) Promyelocytes % (Man) Blast Cells % (Manual) Nucleated RBC % Metamyelocytes Hypochromia Platelet Estimate Polychromasia Poikilocytosis Anisocytosis Microcytosis Macrocytosis Tear Drop Cells Ovalocytes Helmet Cells Acanthocytes (Spur) Sodium 139 Potassium 4.0 Chloride 104 Carbon Dioxide 28 Anion Gap 6 L BUN 34 H Creatinine 1.1 Creat Clearance w eGFR > 60 Random Glucose 85 Calcium 8.0 L Magnesium 2.2 Total Bilirubin 0.3 AST 13 L ALT 25 Alkaline Phosphatase 51 Troponin I Total Protein 5.5 L Albumin 2.9 L Active Medications Generic Name Dose Route Start Last Admin Trade Name Freq PRN Reason Stop Dose Admin Acetaminophen 650 mg 12/10/18 14:52 12/11/18 03:30 Tylenol - PO 650 mg Q6H PRN Administration PAIN LEVEL 6-10 Albuterol Sulfate 1 amp 12/11/18 01:06 12/11/18 01:11 Ventolin 0.083% Nebulizer Soln - NEB 1 amp Q4H PRN Administration SHORT OF BREATH/WHEEZING Albuterol/Ipratropium 1 amp 12/10/18 12:00 12/11/18 07:50 Duoneb - NEB 1 amp RQID EMILY Administration Amlodipine Besylate 10 mg 12/10/18 10:00 12/10/18 09:50 Norvasc - PO 10 mg DAILY EMILY Administration Aspirin 81 mg 12/10/18 10:00 12/10/18 09:50 Ecotrin - PO 81 mg DAILY EMILY Administration Furosemide 40 mg 12/10/18 10:00 12/10/18 11:55 Lasix - PO 40 mg DAILY EMILY Administration Guaifenesin 10 ml 12/11/18 01:18 12/11/18 03:30 Robitussin - PO 10 ml Q4H PRN Administration COUGH Levalbuterol HCl 0.31 mg 12/10/18 07:17 Xopenex IH Q8H PRN ASTHMA Levetiracetam 500 mg 12/10/18 10:00 12/10/18 21:23 Keppra - PO 500 mg BID EMILY Administration Methylprednisolone Sodium Succinate 40 mg 12/10/18 10:00 12/11/18 01:14 Solu-Medrol - IVPUSH 40 mg Q8H-IV EMILY Administration Metoprolol Tartrate 25 mg 12/10/18 10:00 12/10/18 21:23 Lopressor - PO 25 mg BID EMILY Administration Pantoprazole Sodium 40 mg 12/10/18 10:00 12/10/18 09:50 Protonix - PO 40 mg DAILY EMILY Administration ASSESSMENT/PLAN: Patient is is a 68 year old male with a past medical history of heavy smoking, ETOH abuse, recently diagnosed with parxysmal Afib not on AC with concern for ICH in the setting of AVM. He was sent to [facility] for chest pain at rest. Has had 3 admissions in the last two months. imaging: chest xray 12/09/2018 : old right rib trauma. clear lungs head ct 12/09/2018: left frontal avm, no intracrainal findings. Cardiology. Chest pain Shortness of breath chest xray negative for acute process. chest cta negative for PE. On Asa therapy Patient on lasix for volume overload. Placed on 2 liters of nasal cannula. COPD: COPD exacerbation: on solumedrol q8 Neuro: Symptomatic AVM/Left lateral frontal AVM with SAH/Possible Seizure disorder. Neurosurgery follow up as an outpatient once acute cardiac/pulm symptoms resolve. Neurosurgery recommends stereotactic radiosurgery once acute respiratory resolved. Continue Keppra 500mg BID. Card: Paroxysmal atrial fibrillation with RVR On metoprolol 25mg bid. Unable to anticoagulate at this time secondary to SAH and symptomatic AVM. Cardiology follow up outpatient. Hypertension, controlled On Norvasc Psyche ETOH abuse/dependency No acute signs of ETOH withdrawal on exam. full code Visit type - Emergency Visit Emergency Visit: Yes ED Registration Date: 12/10/18 Care time: The patient presented to the Emergency Department on the above date and was hospitalized for further evaluation of their emergent condition. - New Patient This patient is new to me today: No - Critical Care Critical Care patient: No - Discharge Referral Referred to [facility] No
[2018-12-11] MEDS: ASPIRIN COATED 81 MG TABLET.EC PO SCH (10:37)
[2018-12-11] MEDS: amLODIPine BESYLATE 10 MG TABLET (FP) PO SCH (10:37)
[2018-12-11] MEDS: PANTOPRAZOLE 40 MG TABLET (FP) PO SCH (10:37)
[2018-12-11] MEDS: METOPROLOL TARTRATE 25 MG TABLET (FP) PO SCH (10:37)
[2018-12-11] MEDS: levETIRAcetam 500 MG TABLET (FP) PO SCH ×2 (10:37→22:28)
[2018-12-11] MEDS: FUROSEMIDE 40 MG TABLET (FP) PO SCH (10:37)
[2018-12-11] MEDS: guaiFENesin 200 MG/10 ML 10 ML UNIT-DOSE CUPS PO SCH ×4 (10:38→22:29)
--- NOTE | 2018-12-11 11:05 | PN ---
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
[2018-12-11 12:18] LABS: ANISOCYTOSIS 1+; MACROCYTOSIS 0; PLATELET ESTIMATE NORMAL; TARGET CELLS 2+
--- NOTE | 2018-12-11 12:38 | PN ---
Progress Note, Physician Chief Complaint: Pt A&Ox3; sitting up in bed, c/o abdominal pain when he coughs. History of Present Illness: 68 yo white man w/ PMH brain AVM (thus precluding use of anticoagulant for pt' s AF at this time), HTN, ETOH abuse, COPD, anxiety, diastolic CHF, PAF, recent SAH, cigarette smoker, who presents to the ER with chest pain and SOB after signing out AMA this afternoon. He presents with chest pain, SOB, and lightheadedness which have all been present for around 4 weeks. He states the chest pain is pressure like and worsened with exertion with mild radiation to his jaw and sometimes down his left arm. The pain is also reproducible upon palpation. He has also experienced fainting spells, most recent of which today and hit his head when he went down today. He sttes he has had a headache since falling down earlier today and requests tylenol at presentation. Denies taking any blood thinners. He also endorses a cough with yellow phlegm which has been present for four weeks. Denies recent fevers, chills, infections, N/V/D/C, dysuria, frequency, urgency, blurry vision, vertigo, numbness, weakness, or ankle/leg swelling. PCP: None PSH: Right shoulder sx, Hip sx, b/l LE orthopedic surgery Social Hx: Smokes 3 cigs per day for the past 1.5 months, smoked 1ppd for the past 50 years, drinks approx. 1.5 pints every 3 days, denies other drug usage. Allergies: NKA, NKDA - Current Medication List Current Medications: Active Medications Acetaminophen (Tylenol -) 650 mg PO Q6H PRN PRN Reason: PAIN LEVEL 6-10 Last Admin: 12/11/18 10:37 Dose: 650 mg Albuterol Sulfate (Ventolin 0.083% Nebulizer Soln -) 1 amp NEB Q4H PRN PRN Reason: SHORT OF BREATH/WHEEZING Last Admin: 12/11/18 01:11 Dose: 1 amp Albuterol/Ipratropium (Duoneb -) 1 amp NEB RQID [facility] Last Admin: 12/11/18 11:06 Dose: 1 amp Amlodipine Besylate (Norvasc -) 10 mg PO DAILY [facility] Last Admin: 12/11/18 10:37 Dose: 10 mg Aspirin (Ecotrin -) 81 mg PO DAILY [facility] Last Admin: 12/11/18 10:37 Dose: 81 mg Furosemide (Lasix -) 40 mg PO DAILY [facility] Last Admin: 12/11/18 10:37 Dose: 40 mg Guaifenesin (Robitussin -) 10 ml PO Q4HPO [facility] Last Admin: 12/11/18 10:38 Dose: 10 ml Levalbuterol HCl (Xopenex) 0.31 mg IH Q8H PRN PRN Reason: ASTHMA Levetiracetam (Keppra -) 500 mg PO BID [facility] Last Admin: 12/11/18 10:37 Dose: 500 mg Methylprednisolone Sodium Succinate (Solu-Medrol -) 40 mg IVPUSH Q8H-IV [facility] Last Admin: 12/11/18 10:38 Dose: 40 mg Metoprolol Tartrate (Lopressor -) 25 mg PO BID [facility] Last Admin: 12/11/18 10:37 Dose: 25 mg Pantoprazole Sodium (Protonix -) 40 mg PO DAILY [facility] Last Admin: 12/11/18 10:37 Dose: 40 mg - Objective Vital Signs: Vital Signs Temperature 98.8 F 12/11/18 09:00 Pulse Rate 95 H 12/11/18 09:00 Respiratory Rate 20 12/11/18 09:00 Blood Pressure 145/89 12/11/18 09:00 O2 Sat by Pulse Oximetry (%) 94 L 12/11/18 09:00 Constitutional: Yes: Ashen Eyes: Yes: WNL HENT: Yes: WNL Neck: Yes: WNL Cardiovascular: Yes: Regular Rate and Rhythm, S1, S2, S4 Respiratory: Yes: Diminished, SOB on Exertion, Wheezes (bilateral, diffuse, expiratory) Gastrointestinal: Yes: Soft ...Rectal Exam: Yes: Deferred Genitourinary: No: Anuria Breast(s): Yes: WNL Musculoskeletal: Yes: WNL Extremities: Yes: WNL Edema: No Peripheral Pulses WNL: Yes Integumentary: Yes: WNL Neurological: Yes: WNL Psychiatric: Yes: Alert, Oriented, Other (anger issues) Labs: CBC, BMP 12/11/18 05:30 12/11/18 05:30 INR, PTT INR 0.90 (0.83-1.09) 12/09/18 21:35 - ....Imaging EKG: Image Reviewed Problem List - Problems (1) Atypical chest pain Code(s): R07.89 - OTHER CHEST PAIN (2) COPD (chronic obstructive pulmonary disease) Assessment/Plan: f/u closely with employment supervisor. Code(s): J44.9 - CHRONIC OBSTRUCTIVE PULMONARY DISEASE, UNSPECIFIED Qualifiers: COPD type: unspecified COPD Qualified Code(s): J44.9 - Chronic obstructive pulmonary disease, unspecified (3) Alcohol abuse Code(s): F10.10 - ALCOHOL ABUSE, UNCOMPLICATED (4) Atrial fibrillation with rapid ventricular response Assessment/Plan: Periods of rapid ventricular response. Increase metoprolol to 50 mg bid; f/u HR and BP (the latter has been elevated). Pain management. Consider anxiolytic. Code(s): I48.91 - UNSPECIFIED ATRIAL FIBRILLATION (5) COPD exacerbation Code(s): J44.1 - CHRONIC OBSTRUCTIVE PULMONARY DISEASE W (ACUTE) EXACERBATION (6) Dyspnea on exertion Code(s): R06.09 - OTHER FORMS OF DYSPNEA (7) Nausea and vomiting Code(s): R11.2 - NAUSEA WITH VOMITING, UNSPECIFIED Qualifiers: Vomiting type: unspecified Vomiting Intractability: non-intractable Qualified Code(s): R11.2 - Nausea with vomiting, unspecified (8) Nicotine dependence Code(s): F17.200 - NICOTINE DEPENDENCE, UNSPECIFIED, UNCOMPLICATED (9) [facility] cardiac risk >20% in next 10 years Assessment/Plan: stress MIBI when stable. Code(s): Z91.89 - OTH PERSONAL RISK FACTORS, NOT ELSEWHERE CLASSIFIED
[2018-12-11] MEDS ORDERED: METOPROLOL TARTRATE 25 MG TABLET (FP) PO ONE (12:40)
[2018-12-11] MEDS: LIDOCAINE 5% TOPICAL PATCH TP SCH (15:28)
[2018-12-11] MEDS: LEVALBUTEROL HCL 0.31 MG/3 ML VIAL.NEB IH PRN ×2 (19:19→23:57)
[2018-12-11] MEDS: LIDOCAINE PATCH REMOVAL MC SCH (22:28)
[2018-12-11] MEDS: METOPROLOL TARTRATE 50 MG TABLET (FP) PO SCH (22:28)
[2018-12-12] MEDS: ACETAMINOPHEN 325 MG TABLET (FP) PO PRN ×3 (01:00→18:00)
[2018-12-12] MEDS: guaiFENesin 200 MG/10 ML 10 ML UNIT-DOSE CUPS PO SCH ×6 (04:07→22:15)
[2018-12-12] MEDS: methylPREDNISolone NA SUCC 40 MG/1 ML VIAL IVPUSH SCH ×3 (04:15→18:00)
[2018-12-12] MEDS ORDERED: PT OWN MED DRAWER 7, Y5N ONE (09:22)
[2018-12-12] MEDS: amLODIPine BESYLATE 10 MG TABLET (FP) PO SCH (09:42)
[2018-12-12] MEDS: PANTOPRAZOLE 40 MG TABLET (FP) PO SCH (09:42)
[2018-12-12] MEDS: LIDOCAINE 5% TOPICAL PATCH TP SCH (09:43)
[2018-12-12] MEDS: FUROSEMIDE 40 MG TABLET (FP) PO SCH (09:43)
[2018-12-12] MEDS: levETIRAcetam 500 MG TABLET (FP) PO SCH ×2 (09:43→22:15)
[2018-12-12] MEDS: METOPROLOL TARTRATE 50 MG TABLET (FP) PO SCH ×2 (09:43→22:15)
[2018-12-12] MEDS: ASPIRIN COATED 81 MG TABLET.EC PO SCH (09:43)
[2018-12-12 10:36] LABS: HEMATOCRIT 36.9 % (35.4-49); HEMOGLOBIN 12.4 GM/dL (11.7-16.9); MCH 25.6 pg (25.7-33.7); MCHC 33.6 g/dl (32.0-35.9); MEAN CELL VOLUME 76.1 fl (80-96); MEAN PLT VOLUME 7.7 fl (7.5-11.1); PLATELET COUNT 302 K/MM3 (134-434); RBC 4.85 M/mm3 (4.00-5.60); RDW 19.5 % (11.9-15.9); WHITE BLOOD COUNT 6.5 K/mm3 (4.0-10.0)
[2018-12-12 11:09] LABS: ALK PHOS 61 U/L (45-117); ANION GAP 8 MMOL/L (8-16); BILIRUBIN,TOTAL 0.4 mg/dL (0.2-1); BLOOD UREA NITROGEN 27 mg/dL (7-18); CALCIUM 8.9 mg/dL (8.5-10.1); CHLORIDE 98 mmol/L (98-107); CO2 27 mmol/L (21-32); CREATININE 1.1 mg/dL (0.55-1.3); GLUCOSE,RANDOM 160 mg/dL (74-106); POTASSIUM 4.7 mmol/L (3.5-5.1); SGOT/AST 20 U/L (15-37); SGPT/ALT 34 U/L (13-61); SODIUM 133 mmol/L (136-145); TOT PROT 6.2 g/dl (6.4-8.2)
[2018-12-12 13:01] LABS: ANISOCYTOSIS 1+; MACROCYTOSIS 0; OVALOCYTE 1+; PLATELET ESTIMATE NORMAL; TARGET CELLS 1+
[2018-12-12] MEDS: LEVALBUTEROL HCL 0.31 MG/3 ML VIAL.NEB IH PRN (16:48)
--- NOTE | 2018-12-12 18:59 | PN ---
Physical Exam: SUBJECTIVE: Patient seen and examined at the bedside. OBJECTIVE: Vital Signs Period Temp Pulse Resp BP Sys/Spicer Pulse Ox Last 24 Hr 97.5 F-98.1 F 86-125 20-20 123-137/62-85 94-95 GENERAL: The patient is awake, alert, and fully oriented, in no respiratory distress. HEAD: Normal with no signs of trauma. EYES: PERRL, extraocular movements intact, sclera anicteric, conjunctiva clear. No ptosis. ENT: Ears normal, nares patent, oropharynx clear without exudates, moist mucous membranes. NECK: Trachea midline, full range of motion, supple. LUNGS: mild congestion noted anteriorly, dyspnea on exertion. HEART: afib. ABDOMEN: Soft, nontender, nondistended, normoactive bowel sounds, no guarding, no rebound, no hepatosplenomegaly, no masses. EXTREMITIES: no edema. NEUROLOGICAL: Normal speech, gait not observed. PSYCH: Normal mood, normal affect. SKIN: Warm, dry, normal turgor, no rashes or lesions noted Laboratory Results - last 24 hr 12/12/18 12/12/18 10:00 10:00 WBC 6.5 RBC 4.85 Hgb 12.4 Hct 36.9 D MCV 76.1 L MCH 25.6 L MCHC 33.6 RDW 19.5 H Plt Count 302 MPV 7.7 Neutrophils % No Result Required. Neutrophils % (Manual) 87.8 H Band Neutrophils % 3.1 Lymphocytes % No Result Required. Lymphocytes % (Manual) 5.1 L Monocytes % (Manual) 1 L D Eosinophils % (Manual) 0.0 D Basophils % (Manual) 0.0 Myelocytes % (Man) 1 D Promyelocytes % (Man) 0 Blast Cells % (Manual) 0 Nucleated RBC % 0 Metamyelocytes 0 Hypochromia 1+ Platelet Estimate Normal Platelet Comment Present Polychromasia 1+ Poikilocytosis 1+ Anisocytosis 1+ Microcytosis 1+ Macrocytosis 0 Target Cells 1+ Ovalocytes 1+ Sodium 133 L Potassium 4.7 Chloride 98 Carbon Dioxide 27 Anion Gap 8 BUN 27 H Creatinine 1.1 Creat Clearance w eGFR > 60 Random Glucose 160 H Calcium 8.9 Total Bilirubin 0.4 AST 20 ALT 34 Alkaline Phosphatase 61 Total Protein 6.2 L Albumin 3.0 L Active Medications Generic Name Dose Route Start Last Admin Trade Name Freq PRN Reason Stop Dose Admin Acetaminophen 650 mg 12/10/18 14:52 12/12/18 18:00 Tylenol - PO 650 mg Q6H PRN Administration PAIN LEVEL 6-10 Albuterol Sulfate 1 amp 12/11/18 01:06 12/11/18 01:11 Ventolin 0.083% Nebulizer Soln - NEB 1 amp Q4H PRN Administration SHORT OF BREATH/WHEEZING Amlodipine Besylate 10 mg 12/10/18 10:00 12/12/18 09:42 Norvasc - PO 10 mg DAILY EMILY Administration Aspirin 81 mg 12/10/18 10:00 12/12/18 09:43 Ecotrin - PO 81 mg DAILY EMILY Administration Furosemide 40 mg 12/10/18 10:00 12/12/18 09:43 Lasix - PO 40 mg DAILY EMILY Administration Guaifenesin 10 ml 12/11/18 10:30 12/12/18 18:00 Robitussin - PO 10 ml Q4HPO EMILY Administration Levalbuterol HCl 0.31 mg 12/11/18 17:39 12/12/18 16:48 Xopenex IH 0.31 mg Q8H PRN Administration ASTHMA Levetiracetam 500 mg 12/10/18 10:00 12/12/18 09:43 Keppra - PO 500 mg BID EMILY Administration Lidocaine 2 patch 12/11/18 15:15 12/12/18 09:43 Lidoderm Patch - TP 2 patch DAILY EMILY Administration Methylprednisolone Sodium Succinate 40 mg 12/10/18 10:00 12/12/18 18:00 Solu-Medrol - IVPUSH 40 mg Q8H-IV EMILY Administration Metoprolol Tartrate 50 mg 12/11/18 22:00 12/12/18 09:43 Lopressor - PO 50 mg BID EMILY Administration Miscellaneous 1 each 12/11/18 22:00 12/11/18 22:28 Lidoderm Patch Removal MC 1 each DAILY@2200 EMILY Administration Pantoprazole Sodium 40 mg 12/10/18 10:00 12/12/18 09:42 Protonix - PO 40 mg DAILY EMILY Administration ASSESSMENT/PLAN: Patient is is a 68 year old male with a past medical history of heavy smoking, ETOH abuse, recently diagnosed with parxysmal Afib not on AC with concern for ICH in the setting of AVM. He was sent to [facility] for chest pain at rest. Has had 3 admissions in the last two months. imaging: chest xray 12/09/2018 : old right rib trauma. clear lungs head ct 12/09/2018: left frontal avm, no intracrainal findings. Cardiology. Chest pain left sided, persistent Shortness of breath, improving chest xray negative for acute process. chest cta negative for PE. On Asa therapy Patient on lasix for volume overload. Placed on 2 liters of nasal cannula to maintain oxygen sats at 90% COPD: COPD exacerbation: on solumedrol q8. 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 Neurosurgery follow up as an outpatient once acute cardiac/pulm symptoms resolve. Neurosurgery recommends stereotactic radiosurgery once acute respiratory resolved. Continue Keppra 500mg BID. Card: Paroxysmal atrial fibrillation with RVR On metoprolol 25mg bid. Unable to anticoagulate at this time secondary to SAH and symptomatic AVM. Cardiology follow up outpatient. Hypertension, controlled On Norvasc Psyche ETOH abuse/dependency No acute signs of ETOH withdrawal on exam. full code Visit type - Emergency Visit Emergency Visit: Yes ED Registration Date: 12/10/18 Care time: The patient presented to the Emergency Department on the above date and was hospitalized for further evaluation of their emergent condition. - New Patient This patient is new to me today: No - Critical Care Critical Care patient: No - Discharge Referral Referred to [facility] No
[2018-12-12] MEDS ORDERED: FUROSEMIDE 40 MG/4 ML INJECTABLE VIAL IVPUSH ONE (19:43)
[2018-12-12] MEDS: LIDOCAINE PATCH REMOVAL MC SCH (22:23)
[2018-12-13] MEDS: LEVALBUTEROL HCL 0.31 MG/3 ML VIAL.NEB IH PRN (01:05)
[2018-12-13] MEDS: guaiFENesin 200 MG/10 ML 10 ML UNIT-DOSE CUPS PO SCH ×5 (03:57→21:32)
[2018-12-13] MEDS: methylPREDNISolone NA SUCC 40 MG/1 ML VIAL IVPUSH SCH ×3 (03:57→17:43)
--- NOTE | 2018-12-13 07:09 | PN ---
Progress Note, Physician Chief Complaint: Pt A&Ox3; ambulating in hallway; feels "much better", though still with cough, wheezing. No chest pain. History of Present Illness: 68 yo white man w/ PMH brain AVM (thus precluding use of anticoagulant for pt' s AF at this time), HTN, ETOH abuse, COPD, anxiety, diastolic CHF, PAF, recent SAH, cigarette smoker, who presents to the ER with chest pain and SOB after signing out AMA this afternoon. He presents with chest pain, SOB, and lightheadedness which have all been present for around 4 weeks. He states the chest pain is pressure like and worsened with exertion with mild radiation to his jaw and sometimes down his left arm. The pain is also reproducible upon palpation. He has also experienced fainting spells, most recent of which today and hit his head when he went down today. He sttes he has had a headache since falling down earlier today and requests tylenol at presentation. Denies taking any blood thinners. He also endorses a cough with yellow phlegm which has been present for four weeks. Denies recent fevers, chills, infections, N/V/D/C, dysuria, frequency, urgency, blurry vision, vertigo, numbness, weakness, or ankle/leg swelling. PCP: None PSH: Right shoulder sx, Hip sx, b/l LE orthopedic surgery Social Hx: Smokes 3 cigs per day for the past 1.5 months, smoked 1ppd for the past 50 years, drinks approx. 1.5 pints every 3 days, denies other drug usage. Allergies: NKA, NKDA - Current Medication List Current Medications: Active Medications Acetaminophen (Tylenol -) 650 mg PO Q6H PRN PRN Reason: PAIN LEVEL 6-10 Last Admin: 12/12/18 18:00 Dose: 650 mg Albuterol Sulfate (Ventolin 0.083% Nebulizer Soln -) 1 amp NEB Q4H PRN PRN Reason: SHORT OF BREATH/WHEEZING Last Admin: 12/11/18 01:11 Dose: 1 amp Amlodipine Besylate (Norvasc -) 10 mg PO DAILY [facility] Last Admin: 12/12/18 09:42 Dose: 10 mg Aspirin (Ecotrin -) 81 mg PO DAILY [facility] Last Admin: 12/12/18 09:43 Dose: 81 mg Furosemide (Lasix -) 40 mg PO DAILY [facility] Last Admin: 12/12/18 09:43 Dose: 40 mg Guaifenesin (Robitussin -) 10 ml PO Q4HPO [facility] Last Admin: 12/13/18 03:57 Dose: 10 ml Levalbuterol HCl (Xopenex) 0.31 mg IH Q8H PRN PRN Reason: ASTHMA Last Admin: 12/13/18 01:05 Dose: 0.31 mg Levetiracetam (Keppra -) 500 mg PO BID [facility] Last Admin: 12/12/18 22:15 Dose: 500 mg Lidocaine (Lidoderm Patch -) 2 patch TP DAILY [facility] Last Admin: 12/12/18 09:43 Dose: 2 patch Methylprednisolone Sodium Succinate (Solu-Medrol -) 40 mg IVPUSH Q8H-IV [facility] Last Admin: 12/13/18 03:57 Dose: 40 mg Metoprolol Tartrate (Lopressor -) 50 mg PO BID [facility] Last Admin: 12/12/18 22:15 Dose: 50 mg Miscellaneous (Lidoderm Patch Removal) 1 each MC DAILY@2200 [facility] Last Admin: 12/12/18 22:23 Dose: 1 each Pantoprazole Sodium (Protonix -) 40 mg PO DAILY [facility] Last Admin: 12/12/18 09:42 Dose: 40 mg - Objective Vital Signs: Vital Signs Temperature 97.1 F L 12/13/18 05:17 Pulse Rate 88 12/13/18 05:17 Respiratory Rate 20 12/13/18 05:17 Blood Pressure 138/90 12/13/18 05:17 O2 Sat by Pulse Oximetry (%) 95 12/12/18 20:35 Constitutional: Yes: No Distress Eyes: Yes: WNL HENT: Yes: WNL Neck: Yes: WNL Cardiovascular: Yes: S1, S2, S4 Labs: CBC, BMP 12/12/18 10:00 12/12/18 10:00 INR, PTT INR 0.90 (0.83-1.09) 12/09/18 21:35 Problem List - Problems (1) Atypical chest pain Assessment/Plan: TNI < 0.02 x 3. Multiple CAD risks. For stress MIBI when stable. Code(s): R07.89 - OTHER CHEST PAIN (2) COPD (chronic obstructive pulmonary disease) Assessment/Plan: f/u closely with disability advocate. Code(s): J44.9 - CHRONIC OBSTRUCTIVE PULMONARY DISEASE, UNSPECIFIED Qualifiers: COPD type: unspecified COPD Qualified Code(s): J44.9 - Chronic obstructive pulmonary disease, unspecified (3) Alcohol abuse Code(s): F10.10 - ALCOHOL ABUSE, UNCOMPLICATED (4) Atrial fibrillation with rapid ventricular response Assessment/Plan: Periods of rapid ventricular response. Increase metoprolol to 50 mg bid; f/u HR and BP (the latter has been elevated). Pain management. Consider anxiolytic. Unable to use AC due to brain AVMs. Code(s): I48.91 - UNSPECIFIED ATRIAL FIBRILLATION (5) COPD exacerbation Code(s): J44.1 - CHRONIC OBSTRUCTIVE PULMONARY DISEASE W (ACUTE) EXACERBATION (6) Dyspnea on exertion Code(s): R06.09 - OTHER FORMS OF DYSPNEA (7) Nausea and vomiting Code(s): R11.2 - NAUSEA WITH VOMITING, UNSPECIFIED Qualifiers: Vomiting type: unspecified Vomiting Intractability: non-intractable Qualified Code(s): R11.2 - Nausea with vomiting, unspecified (8) Nicotine dependence Code(s): F17.200 - NICOTINE DEPENDENCE, UNSPECIFIED, UNCOMPLICATED (9) [place] cardiac risk >20% in next 10 years Assessment/Plan: stress MIBI when stable. Code(s): Z91.89 - OTH PERSONAL RISK FACTORS, NOT ELSEWHERE CLASSIFIED (10) Arteriovenous malformation, brain Assessment/Plan: Unable to give anticoagulation for AF presently due to brain AVMs. Code(s): Q28.2 - ARTERIOVENOUS MALFORMATION OF CEREBRAL VESSELS (11) Diastolic CHF Assessment/Plan: Give additional dose of furosemide (20 mg IVP); f/u Is and Os, weight, BUN/Cr, electrolytes, clinically. Code(s): I50.30 - UNSPECIFIED DIASTOLIC (CONGESTIVE) HEART FAILURE (12) HTN (hypertension) Assessment/Plan: BP better-controlled today (metoprolol increased); f/u BP and HR serially. Code(s): I10 - ESSENTIAL (PRIMARY) HYPERTENSION
--- NOTE | 2018-12-13 09:11 | PN ---
Progress Note, Physician Chief Complaint: Ambulating, denies CP - Current Medication List Current Medications: Active Medications Acetaminophen (Tylenol -) 650 mg PO Q6H PRN PRN Reason: PAIN LEVEL 6-10 Last Admin: 12/12/18 18:00 Dose: 650 mg Albuterol Sulfate (Ventolin 0.083% Nebulizer Soln -) 1 amp NEB Q4H PRN PRN Reason: SHORT OF BREATH/WHEEZING Last Admin: 12/11/18 01:11 Dose: 1 amp Amlodipine Besylate (Norvasc -) 10 mg PO DAILY [facility] Last Admin: 12/12/18 09:42 Dose: 10 mg Aspirin (Ecotrin -) 81 mg PO DAILY [facility] Last Admin: 12/12/18 09:43 Dose: 81 mg Furosemide (Lasix -) 40 mg PO DAILY [facility] Last Admin: 12/12/18 09:43 Dose: 40 mg Guaifenesin (Robitussin -) 10 ml PO Q4HPO [facility] Last Admin: 12/13/18 07:24 Dose: Not Given Levalbuterol HCl (Xopenex) 0.31 mg IH Q8H PRN PRN Reason: ASTHMA Last Admin: 12/13/18 01:05 Dose: 0.31 mg Levetiracetam (Keppra -) 500 mg PO BID [facility] Last Admin: 12/12/18 22:15 Dose: 500 mg Lidocaine (Lidoderm Patch -) 2 patch TP DAILY [facility] Last Admin: 12/12/18 09:43 Dose: 2 patch Methylprednisolone Sodium Succinate (Solu-Medrol -) 40 mg IVPUSH Q8H-IV [facility] Last Admin: 12/13/18 03:57 Dose: 40 mg Metoprolol Tartrate (Lopressor -) 50 mg PO BID [facility] Last Admin: 12/12/18 22:15 Dose: 50 mg Miscellaneous (Lidoderm Patch Removal) 1 each MC DAILY@2200 [facility] Last Admin: 12/12/18 22:23 Dose: 1 each Pantoprazole Sodium (Protonix -) 40 mg PO DAILY [facility] Last Admin: 12/12/18 09:42 Dose: 40 mg - Objective Vital Signs: Vital Signs Temperature 97.1 F L 12/13/18 05:17 Pulse Rate 88 12/13/18 05:17 Respiratory Rate 20 12/13/18 05:17 Blood Pressure 138/90 12/13/18 05:17 O2 Sat by Pulse Oximetry (%) 95 12/12/18 20:35 Constitutional: Yes: No Distress, Calm Cardiovascular: Yes: Regular Rate and Rhythm Respiratory: Yes: Other (expiratory wheezing. No rales.) Gastrointestinal: Yes: Soft (NT) Edema: No Neurological: Yes: Alert, Oriented Labs: CBC, BMP 12/12/18 10:00 12/12/18 10:00 INR, PTT INR 0.90 (0.83-1.09) 12/09/18 21:35 - ....Imaging EKG: Image Reviewed Problem List - Problems (1) COPD exacerbation Code(s): J44.1 - CHRONIC OBSTRUCTIVE PULMONARY DISEASE W (ACUTE) EXACERBATION (2) COPD (chronic obstructive pulmonary disease) Code(s): J44.9 - CHRONIC OBSTRUCTIVE PULMONARY DISEASE, UNSPECIFIED Qualifiers: COPD type: unspecified COPD Qualified Code(s): J44.9 - Chronic obstructive pulmonary disease, unspecified (3) Alcohol dependence with uncomplicated withdrawal Code(s): F10.230 - ALCOHOL DEPENDENCE WITH WITHDRAWAL, UNCOMPLICATED (4) Arteriovenous aneurysm Code(s): I77.0 - ARTERIOVENOUS FISTULA, ACQUIRED (5) Atrial fibrillation with rapid ventricular response Code(s): I48.91 - UNSPECIFIED ATRIAL FIBRILLATION (6) Chronic diastolic (congestive) heart failure Code(s): I50.32 - CHRONIC DIASTOLIC (CONGESTIVE) HEART FAILURE (7) Dyspnea on exertion Code(s): R06.09 - OTHER FORMS OF DYSPNEA (8) Syncope and collapse Code(s): R55 - SYNCOPE AND COLLAPSE Assessment/Plan IMP: Chronic COPD w/ mild acute exacerbation PAF w/ RVR Chronic diastolic CHF Brain AVMs, hx SAH Rectal bleeding. ETOH dependance REC: 1. Supplimental O2, steroid taper as per Pulmonary 2. PO Lasix 3. Patient cannot be anticoagulated at this time due to AVM, SAH (high risk bleed) and c/o rectal bleeding. 4. Recommend stress MPI prior to discharge for further CV risk stratification, still wheezing today 5. Will add Cardizem 30mg q6 for improved rate control 6. GI prophylaxis.
[2018-12-13] MEDS: PANTOPRAZOLE 40 MG TABLET (FP) PO SCH (09:12)
[2018-12-13] MEDS: FUROSEMIDE 40 MG TABLET (FP) PO SCH (09:12)
[2018-12-13] MEDS: ASPIRIN COATED 81 MG TABLET.EC PO SCH (09:12)
[2018-12-13] MEDS: levETIRAcetam 500 MG TABLET (FP) PO SCH ×2 (09:12→21:30)
[2018-12-13] MEDS: LIDOCAINE 5% TOPICAL PATCH TP SCH (09:12)
[2018-12-13] MEDS: amLODIPine BESYLATE 10 MG TABLET (FP) PO SCH (09:12)
[2018-12-13] MEDS: METOPROLOL TARTRATE 50 MG TABLET (FP) PO SCH ×2 (09:12→21:30)
[2018-12-13] MEDS: ACETAMINOPHEN 325 MG TABLET (FP) PO PRN ×3 (09:18→21:30)
--- NOTE | 2018-12-13 09:30 | PN ---
Physical Exam: SUBJECTIVE: Patient seen and examined at the bedside. sitting up eating breakfast. still having left sided chest pain OBJECTIVE: incentive spirometer stress test tomorrow, npo at midnight still having bursts of afib, started on cardizem per cardiology awaiting todays labs Vital Signs Period Temp Pulse Resp BP Sys/Spicer Pulse Ox Last 24 Hr 97.1 F-98.0 F 88-114 20-22 117-138/62-90 95 GENERAL: The patient is awake, alert, and fully oriented, in no respiratory distress. HEAD: Normal with no signs of trauma. EYES: PERRL, extraocular movements intact, sclera anicteric, conjunctiva clear. No ptosis. ENT: Ears normal, nares patent, oropharynx clear without exudates, moist mucous membranes. NECK: Trachea midline, full range of motion, supple. LUNGS: scaattered wheezing throughoug lung flannery. HEART: afib. with pvs ABDOMEN: Soft, nontender, nondistended, normoactive bowel sounds, no guarding, no rebound, no hepatosplenomegaly, no masses. EXTREMITIES: no edema. NEUROLOGICAL: Normal speech, gait not observed. PSYCH: Normal mood, normal affect. SKIN: Warm, dry, normal turgor, no rashes or lesions noted Laboratory Results - last 24 hr 12/12/18 12/12/18 10:00 10:00 WBC 6.5 RBC 4.85 Hgb 12.4 Hct 36.9 D MCV 76.1 L MCH 25.6 L MCHC 33.6 RDW 19.5 H Plt Count 302 MPV 7.7 Neutrophils % No Result Required. Neutrophils % (Manual) 87.8 H Band Neutrophils % 3.1 Lymphocytes % No Result Required. Lymphocytes % (Manual) 5.1 L Monocytes % (Manual) 1 L D Eosinophils % (Manual) 0.0 D Basophils % (Manual) 0.0 Myelocytes % (Man) 1 D Promyelocytes % (Man) 0 Blast Cells % (Manual) 0 Nucleated RBC % 0 Metamyelocytes 0 Hypochromia 1+ Platelet Estimate Normal Platelet Comment Present Polychromasia 1+ Poikilocytosis 1+ Anisocytosis 1+ Microcytosis 1+ Macrocytosis 0 Target Cells 1+ Ovalocytes 1+ Sodium 133 L Potassium 4.7 Chloride 98 Carbon Dioxide 27 Anion Gap 8 BUN 27 H Creatinine 1.1 Creat Clearance w eGFR > 60 Random Glucose 160 H Calcium 8.9 Total Bilirubin 0.4 AST 20 ALT 34 Alkaline Phosphatase 61 Total Protein 6.2 L Albumin 3.0 L Active Medications Generic Name Dose Route Start Last Admin Trade Name Freq PRN Reason Stop Dose Admin Acetaminophen 650 mg 12/10/18 14:52 12/13/18 09:18 Tylenol - PO 650 mg Q6H PRN Administration PAIN LEVEL 6-10 Albuterol Sulfate 1 amp 12/11/18 01:06 12/11/18 01:11 Ventolin 0.083% Nebulizer Soln - NEB 1 amp Q4H PRN Administration SHORT OF BREATH/WHEEZING Amlodipine Besylate 10 mg 12/10/18 10:00 12/13/18 09:12 Norvasc - PO 10 mg DAILY [facility] Administration Aspirin 81 mg 12/10/18 10:00 12/13/18 09:12 Ecotrin - PO 81 mg DAILY [facility] Administration Diltiazem HCl 30 mg 12/13/18 12:00 Cardizem - PO Q6HPO [facility] Furosemide 40 mg 12/10/18 10:00 12/13/18 09:12 Lasix - PO 40 mg DAILY [facility] Administration Guaifenesin 10 ml 12/11/18 10:30 12/13/18 07:24 Robitussin - PO Not Given Q4HPO [facility] Levalbuterol HCl 0.31 mg 12/11/18 17:39 12/13/18 01:05 Xopenex IH 0.31 mg Q8H PRN Administration ASTHMA Levetiracetam 500 mg 12/10/18 10:00 12/13/18 09:12 Keppra - PO 500 mg BID [facility] Administration Lidocaine 2 patch 12/11/18 15:15 12/13/18 09:12 Lidoderm Patch - TP 2 patch DAILY [facility] Administration Methylprednisolone Sodium Succinate 40 mg 12/10/18 10:00 12/13/18 09:12 Solu-Medrol - IVPUSH 40 mg Q8H-IV [facility] Administration Metoprolol Tartrate 50 mg 12/11/18 22:00 12/13/18 09:12 Lopressor - PO 50 mg BID [facility] Administration Miscellaneous 1 each 12/11/18 22:00 12/12/18 22:23 Lidoderm Patch Removal MC 1 each DAILY@2200 [facility] Administration Pantoprazole Sodium 40 mg 12/10/18 10:00 12/13/18 09:12 Protonix - PO 40 mg DAILY [facility] Administration ASSESSMENT/PLAN: Patient is is a 68 year old male with a past medical history of heavy smoking, ETOH abuse, recently diagnosed with parxysmal Afib not on AC with concern for ICH in the setting of AVM. He was sent to [facility] for chest pain at rest. Has had 3 admissions in the last two months. imaging: chest xray 12/09/2018 : old right rib trauma. clear lungs head ct 12/09/2018: left frontal avm, no intracrainal findings. Cardiology. Chest pain left sided, persistent Shortness of breath, improving - now tolerating room air chest xray negative for acute process. chest cta negative for PE. On Asa therapy Patient on lasix for volume overload. Placed on 2 liters of nasal cannula PRN to maintain oxygen sats at 90% for stress test tomorrow, npo at midnight COPD: COPD exacerbation: on solumedrol q8. pulmonary following. 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 Neurosurgery follow up as an outpatient once acute cardiac/pulm symptoms resolve. Neurosurgery recommends stereotactic radiosurgery once acute respiratory resolved. Continue Keppra 500mg BID. Card: Paroxysmal atrial fibrillation with RVR On metoprolol 25mg bid. started on cardizem per cardiology Unable to anticoagulate at this time secondary to SAH and symptomatic AVM. Hypertension, controlled On Norvasc. Psyche ETOH abuse/dependency No acute signs of ETOH withdrawal on exam. full code Visit type - Emergency Visit Emergency Visit: Yes ED Registration Date: 12/10/18 Care time: The patient presented to the Emergency Department on the above date and was hospitalized for further evaluation of their emergent condition. - New Patient This patient is new to me today: No - Critical Care Critical Care patient: No - Discharge Referral Referred to [facility] Med P.C.: No
[2018-12-13 09:43] LABS: HEMATOCRIT 35.3 % (35.4-49); HEMOGLOBIN 11.6 GM/dL (11.7-16.9); MCH 24.8 pg (25.7-33.7); MCHC 32.9 g/dl (32.0-35.9); MEAN CELL VOLUME 75.3 fl (80-96); MEAN PLT VOLUME 7.7 fl (7.5-11.1); PLATELET COUNT 379 K/MM3 (134-434); RBC 4.68 M/mm3 (4.00-5.60); RDW 19.8 % (11.9-15.9); WHITE BLOOD COUNT 8.5 K/mm3 (4.0-10.0)
[2018-12-13 10:22] LABS: ALBUMIN 3.5 g/dl (3.4-5.0); ALK PHOS 63 U/L (45-117); ANION GAP 12 MMOL/L (8-16); BILIRUBIN,TOTAL 0.3 mg/dL (0.2-1); BLOOD UREA NITROGEN 43 mg/dL (7-18); CALCIUM 8.5 mg/dL (8.5-10.1); CHLORIDE 96 mmol/L (98-107); CO2 26 mmol/L (21-32); CREATININE 1.5 mg/dL (0.55-1.3); GLUCOSE,RANDOM 119 mg/dL (74-106); MAGNESIUM 1.9 mg/dL (1.8-2.4); POTASSIUM 4.6 mmol/L (3.5-5.1); SGOT/AST 15 U/L (15-37); SGPT/ALT 35 U/L (13-61); SODIUM 135 mmol/L (136-145)
--- NOTE | 2018-12-13 11:18 | PN ---
Progress Note, Physician History of Present Illness: PULMONARY ALERT,STILL CONGESTED,+ COUGH YELLOW SPUTUM - Current Medication List Current Medications: Active Medications Acetaminophen (Tylenol -) 650 mg PO Q6H PRN PRN Reason: PAIN LEVEL 6-10 Last Admin: 12/13/18 09:18 Dose: 650 mg Albuterol Sulfate (Ventolin 0.083% Nebulizer Soln -) 1 amp NEB Q4H PRN PRN Reason: SHORT OF BREATH/WHEEZING Last Admin: 12/11/18 01:11 Dose: 1 amp Amlodipine Besylate (Norvasc -) 10 mg PO DAILY [facility] Last Admin: 12/13/18 09:12 Dose: 10 mg Aspirin (Ecotrin -) 81 mg PO DAILY [facility] Last Admin: 12/13/18 09:12 Dose: 81 mg Diltiazem HCl (Cardizem -) 30 mg PO Q6HPO [facility] Furosemide (Lasix -) 40 mg PO DAILY [facility] Last Admin: 12/13/18 09:12 Dose: 40 mg Guaifenesin (Robitussin -) 10 ml PO Q4HPO [facility] Last Admin: 12/13/18 07:24 Dose: Not Given Levalbuterol HCl (Xopenex) 0.31 mg IH Q8H PRN PRN Reason: ASTHMA Last Admin: 12/13/18 01:05 Dose: 0.31 mg Levetiracetam (Keppra -) 500 mg PO BID [facility] Last Admin: 12/13/18 09:12 Dose: 500 mg Lidocaine (Lidoderm Patch -) 2 patch TP DAILY [facility] Last Admin: 12/13/18 09:12 Dose: 2 patch Methylprednisolone Sodium Succinate (Solu-Medrol -) 40 mg IVPUSH Q8H-IV [facility] Last Admin: 12/13/18 09:12 Dose: 40 mg Metoprolol Tartrate (Lopressor -) 50 mg PO BID [facility] Last Admin: 12/13/18 09:12 Dose: 50 mg Miscellaneous (Lidoderm Patch Removal) 1 each MC DAILY@2200 [facility] Last Admin: 12/12/18 22:23 Dose: 1 each Pantoprazole Sodium (Protonix -) 40 mg PO DAILY [facility] Last Admin: 12/13/18 09:12 Dose: 40 mg - Objective Vital Signs: Vital Signs Temperature 97.1 F L 12/13/18 05:17 Pulse Rate 88 12/13/18 05:17 Respiratory Rate 20 12/13/18 05:17 Blood Pressure 138/90 12/13/18 05:17 O2 Sat by Pulse Oximetry (%) 95 12/12/18 20:35 Constitutional: Yes: Well Nourished, Calm Eyes: Yes: WNL HENT: Yes: WNL Neck: Yes: WNL Cardiovascular: Yes: Regular Rate and Rhythm, Pulse Irregular, S1, S2 Respiratory: Yes: Rales, Rhonchi (SCATTERED RHONCHI R>L) Gastrointestinal: Yes: Normal Bowel Sounds, Soft Edema: No Labs: CBC, BMP 12/13/18 09:15 12/13/18 09:15 INR, PTT INR 0.90 (0.83-1.09) 12/09/18 21:35 Problem List - Problems (1) COPD (chronic obstructive pulmonary disease) Code(s): J44.9 - CHRONIC OBSTRUCTIVE PULMONARY DISEASE, UNSPECIFIED Qualifiers: COPD type: unspecified COPD Qualified Code(s): J44.9 - Chronic obstructive pulmonary disease, unspecified (2) Chest pain Code(s): R07.9 - CHEST PAIN, UNSPECIFIED (3) Alcohol abuse Code(s): F10.10 - ALCOHOL ABUSE, UNCOMPLICATED (4) Arteriovenous aneurysm Code(s): I77.0 - ARTERIOVENOUS FISTULA, ACQUIRED (5) Atrial fibrillation with rapid ventricular response Code(s): I48.91 - UNSPECIFIED ATRIAL FIBRILLATION (6) Chronic diastolic (congestive) heart failure Code(s): I50.32 - CHRONIC DIASTOLIC (CONGESTIVE) HEART FAILURE (7) Dyspnea on exertion Code(s): R06.09 - OTHER FORMS OF DYSPNEA (8) Shortness of breath Code(s): R06.02 - SHORTNESS OF BREATH (9) Syncope and collapse Code(s): R55 - SYNCOPE AND COLLAPSE (10) HTN (hypertension) Code(s): I10 - ESSENTIAL (PRIMARY) HYPERTENSION Assessment/Plan IMP COPD EXACERBATION NEAR SYNCOPE CP AFIB DIASTOLIC HF SHOE LINING FITTER AVM TOBACCO ABUSE PLAN IV STEROIDS INHALED BRONCHODILATORS CE LASIX CHEST X-RAY TODAY PFTS OUTPATIENT SMOKING CESSATION COUNSELED DR BLANCO Problem List - Problems (1) COPD (chronic obstructive pulmonary disease) Code(s): J44.9 - CHRONIC OBSTRUCTIVE PULMONARY DISEASE, UNSPECIFIED Qualifiers: COPD type: unspecified COPD Qualified Code(s): J44.9 - Chronic obstructive pulmonary disease, unspecified (2) Chest pain Code(s): R07.9 - CHEST PAIN, UNSPECIFIED (3) Alcohol abuse Code(s): F10.10 - ALCOHOL ABUSE, UNCOMPLICATED (4) Arteriovenous aneurysm Code(s): I77.0 - ARTERIOVENOUS FISTULA, ACQUIRED (5) Atrial fibrillation with rapid ventricular response Code(s): I48.91 - UNSPECIFIED ATRIAL FIBRILLATION (6) Chronic diastolic (congestive) heart failure Code(s): I50.32 - CHRONIC DIASTOLIC (CONGESTIVE) HEART FAILURE (7) Dyspnea on exertion Code(s): R06.09 - OTHER FORMS OF DYSPNEA (8) Shortness of breath Code(s): R06.02 - SHORTNESS OF BREATH (9) Syncope and collapse Code(s): R55 - SYNCOPE AND COLLAPSE (10) HTN (hypertension) Code(s): I10 - ESSENTIAL (PRIMARY) HYPERTENSION
[2018-12-13] MEDS: ALBUTEROL SO4 0.083% IH SOL 2.5 MG/3 ML VIAL.NEB. NEB PRN ×2 (11:29→20:23)
[2018-12-13] MEDS: dilTIAZem HCL 30 MG TABLET (FP) PO SCH ×2 (12:33→17:43)
[2018-12-13 13:18] LABS: ANISOCYTOSIS 1+; MACROCYTOSIS 0; OVALOCYTE 1+; PLATELET ESTIMATE NORMAL; TARGET CELLS 2+
[2018-12-13] MEDS: LIDOCAINE PATCH REMOVAL MC SCH (21:31)
[2018-12-14] MEDS: dilTIAZem HCL 30 MG TABLET (FP) PO SCH ×6 (00:52→23:37)
[2018-12-14] MEDS: guaiFENesin 200 MG/10 ML 10 ML UNIT-DOSE CUPS PO SCH ×7 (02:05→23:36)
[2018-12-14] MEDS: methylPREDNISolone NA SUCC 40 MG/1 ML VIAL IVPUSH SCH ×3 (02:23→17:10)
[2018-12-14] MEDS: ACETAMINOPHEN 325 MG TABLET (FP) PO PRN ×3 (07:56→23:36)
[2018-12-14] MEDS: levETIRAcetam 500 MG TABLET (FP) PO SCH ×2 (09:17→21:25)
[2018-12-14] MEDS: amLODIPine BESYLATE 10 MG TABLET (FP) PO SCH (09:17)
[2018-12-14 09:22] LABS: BASO % 0.3 % (0-2.0); HEMATOCRIT 35.8 % (35.4-49); LYMPH % 15.4 % (8-40); MCH 25.4 pg (25.7-33.7); MCHC 33.4 g/dl (32.0-35.9); MEAN PLT VOLUME 7.3 fl (7.5-11.1); NEUT % 80.3 % (42.8-82.8); PLATELET COUNT 417 K/MM3 (134-434); RBC 4.71 M/mm3 (4.00-5.60); RDW 19.9 % (11.9-15.9); WHITE BLOOD COUNT 15.2 K/mm3 (4.0-10.0)
[2018-12-14 10:15] LABS: ALBUMIN 3.5 g/dl (3.4-5.0); ALK PHOS 62 U/L (45-117); ANION GAP 11 MMOL/L (8-16); BILIRUBIN,TOTAL 0.4 mg/dL (0.2-1); BLOOD UREA NITROGEN 41 mg/dL (7-18); CALCIUM 8.8 mg/dL (8.5-10.1); CHLORIDE 98 mmol/L (98-107); CO2 26 mmol/L (21-32); CREATININE 1.4 mg/dL (0.55-1.3); GLUCOSE,RANDOM 122 mg/dL (74-106); MAGNESIUM 2.2 mg/dL (1.8-2.4); POTASSIUM 4.6 mmol/L (3.5-5.1); SGOT/AST 14 U/L (15-37); SGPT/ALT 36 U/L (13-61); SODIUM 135 mmol/L (136-145); TOT PROT 7.2 g/dl (6.4-8.2)
[2018-12-14 12:01] LABS: ANISOCYTOSIS 1+; MACROCYTOSIS 0; OVALOCYTE 1+; PLATELET ESTIMATE NORMAL; TARGET CELLS 2+
[2018-12-14] MEDS: ASPIRIN COATED 81 MG TABLET.EC PO SCH (12:12)
[2018-12-14] MEDS: METOPROLOL TARTRATE 50 MG TABLET (FP) PO SCH ×2 (12:12→21:25)
[2018-12-14] MEDS: PANTOPRAZOLE 40 MG TABLET (FP) PO SCH (12:12)
[2018-12-14] MEDS: FUROSEMIDE 40 MG TABLET (FP) PO SCH (12:12)
[2018-12-14] MEDS: LIDOCAINE 5% TOPICAL PATCH TP SCH (12:12)
--- NOTE | 2018-12-14 12:41 | PN ---
Progress Note, Physician History of Present Illness: pulmonary alert,feeling better,less congested,+cough,less cp - Current Medication List Current Medications: Active Medications Acetaminophen (Tylenol -) 650 mg PO Q6H PRN PRN Reason: PAIN LEVEL 6-10 Last Admin: 12/14/18 07:56 Dose: 650 mg Albuterol Sulfate (Ventolin 0.083% Nebulizer Soln -) 1 amp NEB Q4H PRN PRN Reason: SHORT OF BREATH/WHEEZING Last Admin: 12/13/18 20:23 Dose: 1 amp Amlodipine Besylate (Norvasc -) 10 mg PO DAILY [facility] Last Admin: 12/14/18 09:17 Dose: 10 mg Aspirin (Ecotrin -) 81 mg PO DAILY [facility] Last Admin: 12/14/18 12:12 Dose: 81 mg Diltiazem HCl (Cardizem -) 30 mg PO Q6HPO [facility] Last Admin: 12/14/18 12:14 Dose: 30 mg Furosemide (Lasix -) 40 mg PO DAILY [facility] Last Admin: 12/14/18 12:12 Dose: 40 mg Guaifenesin (Robitussin -) 10 ml PO Q4HPO [facility] Last Admin: 12/14/18 12:14 Dose: 10 ml Levalbuterol HCl (Xopenex) 0.31 mg IH Q8H PRN PRN Reason: ASTHMA Last Admin: 12/13/18 01:05 Dose: 0.31 mg Levetiracetam (Keppra -) 500 mg PO BID [facility] Last Admin: 12/14/18 09:17 Dose: 500 mg Lidocaine (Lidoderm Patch -) 2 patch TP DAILY [facility] Last Admin: 12/14/18 12:12 Dose: 2 patch Methylprednisolone Sodium Succinate (Solu-Medrol -) 40 mg IVPUSH Q8H-IV [facility] Last Admin: 12/14/18 12:12 Dose: 40 mg Metoprolol Tartrate (Lopressor -) 50 mg PO BID [facility] Last Admin: 12/14/18 12:12 Dose: 50 mg Miscellaneous (Lidoderm Patch Removal) 1 each MC DAILY@2200 [facility] Last Admin: 12/13/18 21:31 Dose: 1 each Pantoprazole Sodium (Protonix -) 40 mg PO DAILY [facility] Last Admin: 12/14/18 12:12 Dose: 40 mg - Objective Vital Signs: Vital Signs Temperature 98 F 12/14/18 09:20 Pulse Rate 88 12/14/18 09:20 Respiratory Rate 20 12/14/18 09:20 Blood Pressure 150/90 12/14/18 09:20 O2 Sat by Pulse Oximetry (%) 97 12/13/18 21:00 Constitutional: Yes: Well Nourished, Calm Eyes: Yes: WNL HENT: Yes: WNL Neck: Yes: WNL Cardiovascular: Yes: Pulse Irregular, S1, S2 Respiratory: Yes: Rhonchi (scattered ayo rhonchi) Gastrointestinal: Yes: Normal Bowel Sounds, Soft Extremities: Yes: WNL Edema: Yes Edema: LLE: Trace, RLE: Trace Labs: CBC, BMP 12/14/18 09:10 12/14/18 09:10 INR, PTT INR 0.90 (0.83-1.09) 12/09/18 21:35 Problem List - Problems (1) COPD (chronic obstructive pulmonary disease) Code(s): J44.9 - CHRONIC OBSTRUCTIVE PULMONARY DISEASE, UNSPECIFIED Qualifiers: COPD type: unspecified COPD Qualified Code(s): J44.9 - Chronic obstructive pulmonary disease, unspecified (2) Chest pain Code(s): R07.9 - CHEST PAIN, UNSPECIFIED (3) Alcohol abuse Code(s): F10.10 - ALCOHOL ABUSE, UNCOMPLICATED (4) Arteriovenous aneurysm Code(s): I77.0 - ARTERIOVENOUS FISTULA, ACQUIRED (5) Atrial fibrillation with rapid ventricular response Code(s): I48.91 - UNSPECIFIED ATRIAL FIBRILLATION (6) Chronic diastolic (congestive) heart failure Code(s): I50.32 - CHRONIC DIASTOLIC (CONGESTIVE) HEART FAILURE (7) Dyspnea on exertion Code(s): R06.09 - OTHER FORMS OF DYSPNEA (8) Shortness of breath Code(s): R06.02 - SHORTNESS OF BREATH (9) Syncope and collapse Code(s): R55 - SYNCOPE AND COLLAPSE (10) HTN (hypertension) Code(s): I10 - ESSENTIAL (PRIMARY) HYPERTENSION Assessment/Plan IMP COPD EXACERBATION IMPROVING NEAR SYNCOPE CP AFIB DIASTOLIC HF 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 AVM TOBACCO ABUSE PLAN TAPER STEROIDS INHALED BRONCHODILATORS LASIX CHEST X-RAY PFTS OUTPATIENT SMOKING CESSATION COUNSELED DR BLANCO Problem List - Problems (1) COPD (chronic obstructive pulmonary disease) Code(s): J44.9 - CHRONIC OBSTRUCTIVE PULMONARY DISEASE, UNSPECIFIED Qualifiers: COPD type: unspecified COPD Qualified Code(s): J44.9 - Chronic obstructive pulmonary disease, unspecified (2) Chest pain Code(s): R07.9 - CHEST PAIN, UNSPECIFIED (3) Alcohol abuse Code(s): F10.10 - ALCOHOL ABUSE, UNCOMPLICATED (4) Arteriovenous aneurysm Code(s): I77.0 - ARTERIOVENOUS FISTULA, ACQUIRED (5) Atrial fibrillation with rapid ventricular response Code(s): I48.91 - UNSPECIFIED ATRIAL FIBRILLATION (6) Chronic diastolic (congestive) heart failure Code(s): I50.32 - CHRONIC DIASTOLIC (CONGESTIVE) HEART FAILURE (7) Dyspnea on exertion Code(s): R06.09 - OTHER FORMS OF DYSPNEA (8) Shortness of breath Code(s): R06.02 - SHORTNESS OF BREATH (9) Syncope and collapse Code(s): R55 - SYNCOPE AND COLLAPSE (10) HTN (hypertension) Code(s): I10 - ESSENTIAL (PRIMARY) HYPERTENSION
--- NOTE | 2018-12-14 15:23 | PN ---
Progress Note, Physician Chief Complaint: Pt A&Ox3; unable to complete stress MIBI today (suboptimal HR achieved on treadmill), though he says he enjoyed walking on the treadmill.Still with diffuse bilateral expiratory wheezing; able to ambulate slowly down both hallways of 4th floor. History of Present Illness: 68 yo white man w/ PMH brain AVM (thus precluding use of anticoagulant for pt' s AF at this time), HTN, ETOH abuse, COPD, anxiety, diastolic CHF, PAF, recent SAH, cigarette smoker, who presents to the ER with chest pain and SOB after signing out AMA this afternoon. He presents with chest pain, SOB, and lightheadedness which have all been present for around 4 weeks. He states the chest pain is pressure like and worsened with exertion with mild radiation to his jaw and sometimes down his left arm. The pain is also reproducible upon palpation. He has also experienced fainting spells, most recent of which today and hit his head when he went down today. He sttes he has had a headache since falling down earlier today and requests tylenol at presentation. Denies taking any blood thinners. He also endorses a cough with yellow phlegm which has been present for four weeks. Denies recent fevers, chills, infections, N/V/D/C, dysuria, frequency, urgency, blurry vision, vertigo, numbness, weakness, or ankle/leg swelling. PCP: None PSH: Right shoulder sx, Hip sx, b/l LE orthopedic surgery Social Hx: Smokes 3 cigs per day for the past 1.5 months, smoked 1ppd for the past 50 years, drinks approx. 1.5 pints every 3 days, denies other drug usage. Allergies: NKA, NKDA - Current Medication List Current Medications: Active Medications Acetaminophen (Tylenol -) 650 mg PO Q6H PRN PRN Reason: PAIN LEVEL 6-10 Last Admin: 12/14/18 07:56 Dose: 650 mg Albuterol Sulfate (Ventolin 0.083% Nebulizer Soln -) 1 amp NEB Q4H PRN PRN Reason: SHORT OF BREATH/WHEEZING Last Admin: 12/13/18 20:23 Dose: 1 amp Amlodipine Besylate (Norvasc -) 10 mg PO DAILY [facility] Last Admin: 12/14/18 09:17 Dose: 10 mg Aspirin (Ecotrin -) 81 mg PO DAILY [facility] Last Admin: 12/14/18 12:12 Dose: 81 mg Diltiazem HCl (Cardizem -) 30 mg PO Q6HPO [facility] Last Admin: 12/14/18 12:14 Dose: 30 mg Furosemide (Lasix -) 40 mg PO DAILY [facility] Last Admin: 12/14/18 12:12 Dose: 40 mg Guaifenesin (Robitussin -) 10 ml PO Q4HPO [facility] Last Admin: 12/14/18 12:14 Dose: 10 ml Levalbuterol HCl (Xopenex) 0.31 mg IH Q8H PRN PRN Reason: ASTHMA Last Admin: 12/13/18 01:05 Dose: 0.31 mg Levetiracetam (Keppra -) 500 mg PO BID [facility] Last Admin: 12/14/18 09:17 Dose: 500 mg Lidocaine (Lidoderm Patch -) 2 patch TP DAILY [facility] Last Admin: 12/14/18 12:12 Dose: 2 patch Methylprednisolone Sodium Succinate (Solu-Medrol -) 40 mg IVPUSH Q8H-IV [facility] Last Admin: 12/14/18 12:12 Dose: 40 mg Metoprolol Tartrate (Lopressor -) 50 mg PO BID [facility] Last Admin: 12/14/18 12:12 Dose: 50 mg Miscellaneous (Lidoderm Patch Removal) 1 each MC DAILY@2200 [facility] Last Admin: 12/13/18 21:31 Dose: 1 each Pantoprazole Sodium (Protonix -) 40 mg PO DAILY [facility] Last Admin: 12/14/18 12:12 Dose: 40 mg - Objective Vital Signs: Vital Signs Temperature 97.8 F 12/14/18 14:25 Pulse Rate 70 12/14/18 14:25 Respiratory Rate 18 12/14/18 14:25 Blood Pressure 128/72 12/14/18 14:25 O2 Sat by Pulse Oximetry (%) 97 12/14/18 09:00 Constitutional: Yes: No Distress Eyes: Yes: WNL HENT: Yes: WNL Labs: CBC, BMP 12/14/18 09:10 12/14/18 09:10 INR, PTT INR 0.90 (0.83-1.09) 12/09/18 21:35 Problem List - Problems (1) Atypical chest pain Assessment/Plan: TNI < 0.02 x 3. Multiple CAD risks. Unable to complete stress treadmill MIBI today (await report; pt apparently could not reach target HR). Code(s): R07.89 - OTHER CHEST PAIN (2) COPD (chronic obstructive pulmonary disease) Assessment/Plan: f/u closely with rotary soil stabilizer operator. Code(s): J44.9 - CHRONIC OBSTRUCTIVE PULMONARY DISEASE, UNSPECIFIED Qualifiers: COPD type: unspecified COPD Qualified Code(s): J44.9 - Chronic obstructive pulmonary disease, unspecified (3) Alcohol abuse Code(s): F10.10 - ALCOHOL ABUSE, UNCOMPLICATED (4) Atrial fibrillation with rapid ventricular response Assessment/Plan: Increased metoprolol to 50 mg bid and diltiazem 30 mg q6h; better HR and BP control. Pain management. Consider anxiolytic. Unable to use AC due to brain AVMs. Code(s): I48.91 - UNSPECIFIED ATRIAL FIBRILLATION (5) COPD exacerbation Code(s): J44.1 - CHRONIC OBSTRUCTIVE PULMONARY DISEASE W (ACUTE) EXACERBATION (6) Dyspnea on exertion Code(s): R06.09 - OTHER FORMS OF DYSPNEA (7) Nausea and vomiting Code(s): R11.2 - NAUSEA WITH VOMITING, UNSPECIFIED Qualifiers: Vomiting type: unspecified Vomiting Intractability: non-intractable Qualified Code(s): R11.2 - Nausea with vomiting, unspecified (8) Nicotine dependence Code(s): F17.200 - NICOTINE DEPENDENCE, UNSPECIFIED, UNCOMPLICATED (9) [place] cardiac risk >20% in next 10 years Assessment/Plan: Unable to complete stress MIBI; futher testing to be decided upon and discussed with pt. Code(s): Z91.89 - OTH PERSONAL RISK FACTORS, NOT ELSEWHERE CLASSIFIED (10) Arteriovenous malformation, brain Assessment/Plan: Unable to give anticoagulation for AF presently due to brain AVMs. Code(s): Q28.2 - ARTERIOVENOUS MALFORMATION OF CEREBRAL VESSELS (11) Diastolic CHF Assessment/Plan: see under HTN. Code(s): I50.30 - UNSPECIFIED DIASTOLIC (CONGESTIVE) HEART FAILURE (12) HTN (hypertension) Assessment/Plan: BP better-controlled today (metoprolol increased; also on diltiazem, amlodipine , furosemide); f/u BP and HR serially. BUN/Cr, electrolytes, daily weight, Is and Os. Code(s): I10 - ESSENTIAL (PRIMARY) HYPERTENSION
[2018-12-14] MEDS ORDERED: PT OWN MED DRAWER 7, Y5N ONE (15:45)
--- NOTE | 2018-12-14 17:26 | PN ---
Progress Note, Physician Chief Complaint: 24 HR events -NPO for stress test today -pt would like to be d/miesha but is homeless and will await long-term placement tomorrow. - Current Medication List Current Medications: Active Medications Acetaminophen (Tylenol -) 650 mg PO Q6H PRN PRN Reason: PAIN LEVEL 6-10 Last Admin: 12/14/18 17:10 Dose: 650 mg Albuterol Sulfate (Ventolin 0.083% Nebulizer Soln -) 1 amp NEB Q4H PRN PRN Reason: SHORT OF BREATH/WHEEZING Last Admin: 12/13/18 20:23 Dose: 1 amp Amlodipine Besylate (Norvasc -) 10 mg PO DAILY [facility] Last Admin: 12/14/18 09:17 Dose: 10 mg Aspirin (Ecotrin -) 81 mg PO DAILY [facility] Last Admin: 12/14/18 12:12 Dose: 81 mg Diltiazem HCl (Cardizem -) 30 mg PO Q6HPO [facility] Last Admin: 12/14/18 17:10 Dose: 30 mg Furosemide (Lasix -) 40 mg PO DAILY [facility] Last Admin: 12/14/18 12:12 Dose: 40 mg Guaifenesin (Robitussin -) 10 ml PO Q4HPO [facility] Last Admin: 12/14/18 16:56 Dose: Not Given Levalbuterol HCl (Xopenex) 0.31 mg IH Q8H PRN PRN Reason: ASTHMA Last Admin: 12/13/18 01:05 Dose: 0.31 mg Levetiracetam (Keppra -) 500 mg PO BID [facility] Last Admin: 12/14/18 09:17 Dose: 500 mg Lidocaine (Lidoderm Patch -) 2 patch TP DAILY [facility] Last Admin: 12/14/18 12:12 Dose: 2 patch Methylprednisolone Sodium Succinate (Solu-Medrol -) 40 mg IVPUSH Q8H-IV [facility] Last Admin: 12/14/18 17:10 Dose: 40 mg Metoprolol Tartrate (Lopressor -) 50 mg PO BID [facility] Last Admin: 12/14/18 12:12 Dose: 50 mg Miscellaneous (Lidoderm Patch Removal) 1 each MC DAILY@2200 [facility] Last Admin: 12/13/18 21:31 Dose: 1 each Pantoprazole Sodium (Protonix -) 40 mg PO DAILY [facility] Last Admin: 12/14/18 12:12 Dose: 40 mg - Objective Vital Signs: Vital Signs Temperature 97.8 F 12/14/18 14:25 Pulse Rate 70 12/14/18 14:25 Respiratory Rate 18 12/14/18 14:25 Blood Pressure 128/72 12/14/18 14:25 O2 Sat by Pulse Oximetry (%) 97 12/14/18 09:00 Constitutional: Yes: No Distress, Calm Eyes: Yes: Conjunctiva Clear, PERRL HENT: Yes: Atraumatic, Normocephalic Neck: Yes: Supple Cardiovascular: Yes: Regular Rate and Rhythm Respiratory: Yes: Regular, Cough, Wheezes Gastrointestinal: Yes: Normal Bowel Sounds, Soft ...Rectal Exam: Yes: Deferred Musculoskeletal: Yes: WNL Extremities: Yes: WNL Edema: No Peripheral Pulses WNL: Yes Peripheral Pulses: Left Radial: 2+, Right Radial: 2+ Integumentary: Yes: WNL Neurological: Yes: Alert ...Motor Strength: WNL Psychiatric: Yes: Alert, Oriented Labs: CBC, BMP 12/14/18 09:10 12/14/18 09:10 INR, PTT INR 0.90 (0.83-1.09) 12/09/18 21:35 Problem List - Problems (1) Atypical chest pain Assessment/Plan: pt is undomiciled, pt can be discharged to long-term in the morning. pending results of stress test Code(s): R07.89 - OTHER CHEST PAIN (2) Atrial fibrillation Assessment/Plan: On metoprolol 25mg bid. cardizem 30mg q6hrs cardiology recs appreciated ASA 81mg daily no AC 11/20 AVM Code(s): I48.91 - UNSPECIFIED ATRIAL FIBRILLATION (3) COPD (chronic obstructive pulmonary disease) Assessment/Plan: on solumedrol q8. nebs pulmonary following. Consider pred taper tomorrow 12/14 Code(s): J44.9 - CHRONIC OBSTRUCTIVE PULMONARY DISEASE, UNSPECIFIED Qualifiers: COPD type: unspecified COPD Qualified Code(s): J44.9 - Chronic obstructive pulmonary disease, unspecified (4) HTN (hypertension) Assessment/Plan: norvac 10mg daily cardiac diet Code(s): I10 - ESSENTIAL (PRIMARY) HYPERTENSION (5) Arteriovenous malformation, brain Assessment/Plan: Neurosurgery recommends stereotactic radiosurgery once acute respiratory resolved. Continue Keppra 500mg BID. Code(s): Q28.2 - ARTERIOVENOUS MALFORMATION OF CEREBRAL VESSELS Impression/Plan Impression/Plan: PPX: PPI DISPO: Full code Visit type - Emergency Visit Emergency Visit: Yes ED Registration Date: 12/10/18 Care time: The patient presented to the Emergency Department on the above date and was hospitalized for further evaluation of their emergent condition. - New Patient This patient is new to me today: Yes Date on this admission: 12/14/18 - Critical Care Critical Care patient: No - Discharge Referral Referred to [facility] Med P.C.: No
[2018-12-14] MEDS: ALBUTEROL SO4 0.083% IH SOL 2.5 MG/3 ML VIAL.NEB. NEB PRN (21:23)
[2018-12-14] MEDS: LIDOCAINE PATCH REMOVAL MC SCH (21:26)
[2018-12-15] MEDS: methylPREDNISolone NA SUCC 40 MG/1 ML VIAL IVPUSH SCH ×2 (01:12→11:40)
[2018-12-15] MEDS: guaiFENesin 200 MG/10 ML 10 ML UNIT-DOSE CUPS PO SCH ×3 (02:00→11:40)
[2018-12-15] MEDS: ACETAMINOPHEN 325 MG TABLET (FP) PO PRN (05:34)
[2018-12-15] MEDS: dilTIAZem HCL 30 MG TABLET (FP) PO SCH (05:34)
[2018-12-15 08:24] LABS: HEMATOCRIT 36.9 % (35.4-49); HEMOGLOBIN 12.3 GM/dL (11.7-16.9); MCH 25.4 pg (25.7-33.7); MCHC 33.2 g/dl (32.0-35.9); MEAN CELL VOLUME 76.4 fl (80-96); MEAN PLT VOLUME 7.9 fl (7.5-11.1); PLATELET COUNT 516 K/MM3 (134-434); RBC 4.84 M/mm3 (4.00-5.60); RDW 19.5 % (11.9-15.9); WHITE BLOOD COUNT 14.9 K/mm3 (4.0-10.0)
[2018-12-15 08:55] LABS: ANION GAP 9 MMOL/L (8-16); BLOOD UREA NITROGEN 39 mg/dL (7-18); CALCIUM 9.3 mg/dL (8.5-10.1); CHLORIDE 99 mmol/L (98-107); CO2 29 mmol/L (21-32); CREATININE 1.2 mg/dL (0.55-1.3); GLUCOSE,RANDOM 120 mg/dL (74-106); POTASSIUM 4.6 mmol/L (3.5-5.1); SODIUM 137 mmol/L (136-145)
--- NOTE | 2018-12-15 09:04 | PN ---
Progress Note, Physician Chief Complaint: Could not complete stress test yesterday due to inability to achieve target heart rate - Current Medication List Current Medications: Active Medications Acetaminophen (Tylenol -) 650 mg PO Q6H PRN PRN Reason: PAIN LEVEL 6-10 Last Admin: 12/15/18 05:34 Dose: 650 mg Albuterol Sulfate (Ventolin 0.083% Nebulizer Soln -) 1 amp NEB Q4H PRN PRN Reason: SHORT OF BREATH/WHEEZING Last Admin: 12/14/18 21:23 Dose: 1 amp Amlodipine Besylate (Norvasc -) 10 mg PO DAILY [facility] Last Admin: 12/14/18 09:17 Dose: 10 mg Aspirin (Ecotrin -) 81 mg PO DAILY [facility] Last Admin: 12/14/18 12:12 Dose: 81 mg Diltiazem HCl (Cardizem -) 30 mg PO Q6HPO [facility] Last Admin: 12/15/18 05:34 Dose: 30 mg Furosemide (Lasix -) 40 mg PO DAILY [facility] Last Admin: 12/14/18 12:12 Dose: 40 mg Guaifenesin (Robitussin -) 10 ml PO Q4HPO [facility] Last Admin: 12/15/18 05:34 Dose: 10 ml Levalbuterol HCl (Xopenex) 0.31 mg IH Q8H PRN PRN Reason: ASTHMA Last Admin: 12/13/18 01:05 Dose: 0.31 mg Levetiracetam (Keppra -) 500 mg PO BID [facility] Last Admin: 12/14/18 21:25 Dose: 500 mg Lidocaine (Lidoderm Patch -) 2 patch TP DAILY [facility] Last Admin: 12/14/18 12:12 Dose: 2 patch Methylprednisolone Sodium Succinate (Solu-Medrol -) 40 mg IVPUSH Q8H-IV [facility] Last Admin: 12/15/18 01:12 Dose: 40 mg Metoprolol Tartrate (Lopressor -) 50 mg PO BID [facility] Last Admin: 12/14/18 21:25 Dose: 50 mg Miscellaneous (Lidoderm Patch Removal) 1 each MC DAILY@2200 [facility] Last Admin: 12/14/18 21:26 Dose: Not Given Pantoprazole Sodium (Protonix -) 40 mg PO DAILY [facility] Last Admin: 12/14/18 12:12 Dose: 40 mg - Objective Vital Signs: Vital Signs Temperature 97.9 F 12/15/18 05:10 Pulse Rate 82 12/15/18 05:10 Respiratory Rate 16 12/15/18 05:10 Blood Pressure 153/79 12/15/18 05:10 O2 Sat by Pulse Oximetry (%) 97 12/14/18 21:00 Constitutional: Yes: No Distress Cardiovascular: Yes: Regular Rate and Rhythm Respiratory: Yes: Other (expiratory wheezing) Gastrointestinal: Yes: Soft Edema: No Neurological: Yes: Alert, Oriented Labs: CBC, BMP 12/15/18 08:00 12/15/18 08:00 INR, PTT INR 0.90 (0.83-1.09) 12/09/18 21:35 Laboratory Tests 12/15/18 12/15/18 08:00 08:00 WBC 14.9 H Hgb 12.3 Hct 36.9 Plt Count 516 H D Sodium 137 Potassium 4.6 BUN 39 H Creatinine 1.2 Calcium 9.3 - ....Imaging EKG: Image Reviewed Problem List - Problems (1) COPD exacerbation Code(s): J44.1 - CHRONIC OBSTRUCTIVE PULMONARY DISEASE W (ACUTE) EXACERBATION (2) COPD (chronic obstructive pulmonary disease) Code(s): J44.9 - CHRONIC OBSTRUCTIVE PULMONARY DISEASE, UNSPECIFIED Qualifiers: COPD type: unspecified COPD Qualified Code(s): J44.9 - Chronic obstructive pulmonary disease, unspecified (3) Alcohol dependence with uncomplicated withdrawal Code(s): F10.230 - ALCOHOL DEPENDENCE WITH WITHDRAWAL, UNCOMPLICATED (4) Arteriovenous aneurysm Code(s): I77.0 - ARTERIOVENOUS FISTULA, ACQUIRED (5) Atrial fibrillation with rapid ventricular response Code(s): I48.91 - UNSPECIFIED ATRIAL FIBRILLATION (6) Chronic diastolic (congestive) heart failure Code(s): I50.32 - CHRONIC DIASTOLIC (CONGESTIVE) HEART FAILURE (7) Dyspnea on exertion Code(s): R06.09 - OTHER FORMS OF DYSPNEA (8) Syncope and collapse Code(s): R55 - SYNCOPE AND COLLAPSE Assessment/Plan IMP: Chronic COPD w/ mild acute exacerbation PAF w/ RVR Chronic diastolic CHF Brain AVMs, hx SAH Rectal bleeding. ETOH dependance REC: 1. Supplimental O2, steroid taper as per Pulmonary 2. PO Lasix 3. Patient cannot be anticoagulated at this time due to AVM, SAH (high risk bleed) and c/o rectal bleeding. 4. Unable to complete stress test due to failure to achieve target heart rate; cannot have vasodilator due to wheezing and hx seizures. Will d/c Metoprolol as it may be contributing to bronchospasm and use Cardizem CD for rate control. Stress test can be done as outpatient when COPD is optimized.
[2018-12-15] MEDS: FUROSEMIDE 40 MG TABLET (FP) PO SCH (11:38)
[2018-12-15] MEDS: amLODIPine BESYLATE 10 MG TABLET (FP) PO SCH (11:39)
[2018-12-15] MEDS: levETIRAcetam 500 MG TABLET (FP) PO SCH (11:39)
[2018-12-15] MEDS: PANTOPRAZOLE 40 MG TABLET (FP) PO SCH (11:39)
[2018-12-15] MEDS: ASPIRIN COATED 81 MG TABLET.EC PO SCH (11:39)
[2018-12-15] MEDS: LIDOCAINE 5% TOPICAL PATCH TP SCH (11:39)
--- NOTE | 2018-12-15 12:09 | PN ---
Progress Note, Physician History of Present Illness: PULMONARY ALERT,NO DISTRESS,SOB OMPROVED. - Current Medication List Current Medications: Active Medications Acetaminophen (Tylenol -) 650 mg PO Q6H PRN PRN Reason: PAIN LEVEL 6-10 Last Admin: 12/15/18 05:34 Dose: 650 mg Albuterol Sulfate (Ventolin 0.083% Nebulizer Soln -) 1 amp NEB Q4H PRN PRN Reason: SHORT OF BREATH/WHEEZING Last Admin: 12/14/18 21:23 Dose: 1 amp Amlodipine Besylate (Norvasc -) 10 mg PO DAILY [facility] Last Admin: 12/15/18 11:39 Dose: 10 mg Aspirin (Ecotrin -) 81 mg PO DAILY [facility] Last Admin: 12/15/18 11:39 Dose: 81 mg Diltiazem HCl (Cardizem Cd -) 240 mg PO DAILY [facility] Last Admin: 12/15/18 11:39 Dose: 240 mg Furosemide (Lasix -) 40 mg PO DAILY [facility] Last Admin: 12/15/18 11:38 Dose: 40 mg Guaifenesin (Robitussin -) 10 ml PO Q4HPO [facility] Last Admin: 12/15/18 11:40 Dose: Not Given Levalbuterol HCl (Xopenex) 0.31 mg IH Q8H PRN PRN Reason: ASTHMA Last Admin: 12/13/18 01:05 Dose: 0.31 mg Levetiracetam (Keppra -) 500 mg PO BID [facility] Last Admin: 12/15/18 11:39 Dose: 500 mg Lidocaine (Lidoderm Patch -) 2 patch TP DAILY [facility] Last Admin: 12/15/18 11:39 Dose: 2 patch Methylprednisolone Sodium Succinate (Solu-Medrol -) 40 mg IVPUSH Q8H-IV [facility] Last Admin: 12/15/18 11:40 Dose: 40 mg Miscellaneous (Lidoderm Patch Removal) 1 each MC DAILY@2200 [facility] Last Admin: 12/14/18 21:26 Dose: Not Given Pantoprazole Sodium (Protonix -) 40 mg PO DAILY [facility] Last Admin: 12/15/18 11:39 Dose: 40 mg - Objective Vital Signs: Vital Signs Temperature 97.9 F 12/15/18 05:10 Pulse Rate 82 12/15/18 05:10 Respiratory Rate 16 12/15/18 05:10 Blood Pressure 153/79 12/15/18 05:10 O2 Sat by Pulse Oximetry (%) 97 12/14/18 21:00 Constitutional: Yes: Well Nourished, Calm Eyes: Yes: WNL HENT: Yes: WNL Neck: Yes: WNL Cardiovascular: Yes: Regular Rate and Rhythm, S1, S2 Respiratory: Yes: Rhonchi (LESS RHONCHI BILATERALLY) Gastrointestinal: Yes: Normal Bowel Sounds, Soft Extremities: Yes: WNL Edema: No Labs: CBC, BMP 12/15/18 08:00 12/15/18 08:00 INR, PTT INR 0.90 (0.83-1.09) 12/09/18 21:35 Problem List - Problems (1) COPD (chronic obstructive pulmonary disease) Code(s): J44.9 - CHRONIC OBSTRUCTIVE PULMONARY DISEASE, UNSPECIFIED Qualifiers: COPD type: unspecified COPD Qualified Code(s): J44.9 - Chronic obstructive pulmonary disease, unspecified (2) Chest pain Code(s): R07.9 - CHEST PAIN, UNSPECIFIED (3) Alcohol abuse Code(s): F10.10 - ALCOHOL ABUSE, UNCOMPLICATED (4) Arteriovenous aneurysm Code(s): I77.0 - ARTERIOVENOUS FISTULA, ACQUIRED (5) Atrial fibrillation with rapid ventricular response Code(s): I48.91 - UNSPECIFIED ATRIAL FIBRILLATION (6) Chronic diastolic (congestive) heart failure Code(s): I50.32 - CHRONIC DIASTOLIC (CONGESTIVE) HEART FAILURE (7) Dyspnea on exertion Code(s): R06.09 - OTHER FORMS OF DYSPNEA (8) Shortness of breath Code(s): R06.02 - SHORTNESS OF BREATH (9) Syncope and collapse Code(s): R55 - SYNCOPE AND COLLAPSE (10) HTN (hypertension) Code(s): I10 - ESSENTIAL (PRIMARY) HYPERTENSION Assessment/Plan IMP COPD EXACERBATION IMPROVING NEAR SYNCOPE CP AFIB DIASTOLIC HF DISH CARRIER AVM TOBACCO ABUSE PLAN PREDNISONE 60 PO DAILY WITH TAPER INHALED BRONCHODILATORS LASIX CHEST X-RAY PFTS OUTPATIENT SMOKING CESSATION COUNSELED DR BLANCO Problem List - Problems (1) COPD (chronic obstructive pulmonary disease) Code(s): J44.9 - CHRONIC OBSTRUCTIVE PULMONARY DISEASE, UNSPECIFIED Qualifiers: COPD type: unspecified COPD Qualified Code(s): J44.9 - Chronic obstructive pulmonary disease, unspecified (2) Chest pain Code(s): R07.9 - CHEST PAIN, UNSPECIFIED (3) Alcohol abuse Code(s): F10.10 - ALCOHOL ABUSE, UNCOMPLICATED (4) Arteriovenous aneurysm Code(s): I77.0 - ARTERIOVENOUS FISTULA, ACQUIRED (5) Atrial fibrillation with rapid ventricular response Code(s): I48.91 - UNSPECIFIED ATRIAL FIBRILLATION (6) Chronic diastolic (congestive) heart failure Code(s): I50.32 - CHRONIC DIASTOLIC (CONGESTIVE) HEART FAILURE (7) Dyspnea on exertion Code(s): R06.09 - OTHER FORMS OF DYSPNEA (8) Shortness of breath Code(s): R06.02 - SHORTNESS OF BREATH (9) Syncope and collapse Code(s): R55 - SYNCOPE AND COLLAPSE (10) HTN (hypertension) Code(s): I10 - ESSENTIAL (PRIMARY) HYPERTENSION
--- NOTE | 2018-12-15 12:46 | DS ---
Physical Examination Vital Signs: Vital Signs Temperature 97.9 F 12/15/18 05:10 Pulse Rate 82 12/15/18 05:10 Respiratory Rate 16 12/15/18 05:10 Blood Pressure 153/79 12/15/18 05:10 O2 Sat by Pulse Oximetry (%) 97 12/14/18 21:00 Constitutional: Yes: Well Nourished, No Distress Eyes: Yes: Conjunctiva Clear, PERRL HENT: Yes: Atraumatic, Normocephalic Neck: Yes: Supple, Trachea Midline Cardiovascular: Yes: Pulse Irregular Respiratory: Yes: Regular, Cough, Rales, Rhonchi, Wheezes Gastrointestinal: Yes: Normal Bowel Sounds, Soft ...Rectal Exam: Yes: Deferred Musculoskeletal: Yes: WNL Extremities: Yes: WNL Edema: No Peripheral Pulses WNL: Yes Peripheral Pulses: Left Radial: 2+, Right Radial: 2+, Left Doralis Pedis: 2+, Right Dorsalis Pedis: 2+ Integumentary: Yes: WNL Neurological: Yes: Alert, Oriented ...Motor Strength: WNL Psychiatric: Yes: WNL, Alert, Oriented Labs: CBC, BMP 12/15/18 08:00 12/15/18 08:00 Discharge Summary Reason For Visit: CHEST PAIN AT REST COPD Current Active Problems Arteriovenous malformation, brain (Acute) Atrial fibrillation (Acute) Atypical chest pain (Acute) COPD (chronic obstructive pulmonary disease) (Acute) Chest pain (Acute) Chest pain (Acute) Diastolic CHF (Acute) [place] cardiac risk >20% in next 10 years (Acute) Procedures: Principal: Head CT 12/09/2018: no CT evidence of acute intracranial pathology. 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 CXR 12/09/2018: A single apical lordotic view of the chest reveals old distal clavicular trauma, previous right shoulder stabilization with hardware, large heart, unfolded aorta but clear lungs. there is old right rib trauma. An acute chest process is not seen. Read by Dr. Deondre Kincaid [facility] Course: 8 y/o man with a PMHx of new frontal AVM, SAH, Afib (Metoprolol, no AC- AVM), HTN, COPD, ETOH Abuse, recent admission for syncope (12/07-12/09). Who presents to the ED with left sided chest pain radiating to his jaw, with SOB. Patient reports the CP is worse on exertion. He reports having a productive cough with yellow phlegm. ER course was notable for: (1) Troponin I 0.02 (2) EKG- (3) WBC 14.5 chest xray 12/09/2018 : old right rib trauma. clear lungs head ct 12/09/2018: left frontal avm, no intracrainal findings. chest cta negative for PE. Pt was managed inpatient over the course of 5 days and treated with IV solumedrol TID for COPD exacerbation. He also had stress test done but was unable to achieve target heart rate. With regards to Atrial fibrillation, metoprolol was d/miesha as it may be contributing to bronchospasm and Cardizem CD initiated for rate control. Patient cannot be anticoagulated at this time due to AVM, SAH (high risk bleed) and c/o rectal bleeding. Patient was not anticoagulated at this time due to AVM , SAH (high risk bleed) and c/o rectal bleeding. [facility] being undomic[facility]. Smoking cessation counseling done. Patient will follow up with PCP and Director Emergency Department on an outpatient basis. Nebs, cardizem and nebulizer sent to pharmacy. Condition: Improved - Instructions Diet, Activity, Other Instructions: Dr. Raheel Verdin (broadcast meteorologist) Address: [address] [place] [address] FIONA DE GUZMAN MD Internal Medicine (Primary Specialty) [facility] [facility], [address] [place] [address] WHAT IS CHRONIC OBSTRUCTIVE PULMONARY DISEASE? Chronic obstructive pulmonary disease (COPD) is a serious lung disease that over time makes it hard to breathe. It is most commonly caused by smoking cigarettes for many years. In COPD, two things happen. First, the airways are partly blocked by mucus. Airways are the tubes that carry air in and out of your lungs. Second, lung tissue is destroyed. Lung tissue is where oxygen enters the blood and carbon dioxide is passed from the blood to the lungs. Both mucus and the loss of lung tissue make it hard to breathe. The 2 types of COPD are chronic bronchitis and emphysema. Many patients have a combination of both. HOW CAN I TAKE CARE OF MYSELF WHEN I GO HOME? COPD cannot be cured. Once you have COPD, it does not get better, but taking good care of yourself is the best way to keep it from getting worse. The goals of COPD treatment are to: Relieve symptoms to help you breathe better and feel better Help you be more physically active Treat infections when they happen Help prevent complications Help prevent the condition from getting worse Management Your provider will give you a list of your medicines when you leave the hospital. Know your medicines. Know what they look like, how much you should take each time, how often you should take them, and why you take each one. Take your medicines exactly as your provider tells you to. Carry a list of your medicines in your wallet or purse. Include any nonprescription medicines and supplements on the list. Your provider may prescribe medicine to: Relax and open the airways Reduce swelling in your lungs Loosen the mucus in your lungs and help you cough it up Treat or prevent an infection Make breathing easier Appointments Follow your provider's instructions for follow-up appointments. Keep appointments for all routine testing you may need. Talk with your provider about any questions or fears you have. Diet, Exercise, and Other Lifestyle Changes Follow the treatment plan your healthcare provider prescribes. Get plenty of rest while youre recovering. Try to get at least 7 to 9 hours of sleep each night. Eat a healthy diet. Drink enough fluids to keep your urine light yellow in color, unless you are told to limit fluids. Exercise as your provider recommends. Don't smoke. Smoking can worsen lung disease. Avoid secondhand smoke, air pollution, and extreme changes in temperature and humidity. Ask about getting flu and pneumonia vaccinations to help prevent lung infections. Avoid close contact with people who have colds or the flu. If you plan to travel, discuss your plans with your healthcare provider. You may need to continue a rehabilitation program after you leave the hospital to help you adjust to life with COPD. A pulmonary rehabilitation program can help you learn how to live and feel better with COPD. The program will give you information about exercise and a healthy diet. It can help you learn how your lungs work and how to care for your COPD. Find ways to make your life less stressful. Call emergency medical services or 911 if you have new or worsening: Trouble talking or walking because of shortness of breath Bluish or burgess color of your lips or fingernails Trouble breathing that does not get easier with medicine Fast breathing or trouble catching your breath Feeling like you are going to Chest discomfort (pressure, fullness, squeezing or pain) that lasts more than a few minutes or goes away and comes back or chest discomfort that goes to your arms, neck, jaw or back If you have any of these symptoms, do not drive yourself. Call your healthcare provider if you have new or worsening: Chest pain when you take a breath Fever higher than 101.5 F (38.6 C) Coughing up mucus that is thick or blood-stained Shortness of breath Signs of infection around your surgical wound if you had surgery. These include: The area around your wound is more red or painful Your wound area is very warm to touch You have blood, pus, or other fluid coming from the wound area You have chills or muscle aches Referrals: Fiona De Guzman MD [Staff Physician] - Raheel Verdin MD [Staff Physician] - - Home Medications Comprehensive Discharge Medication List: Ambulatory Orders Budesonide/Formeterol Fumarate [SYMBICORT 80/4.5mcg -] 2 puff IH BID #1 inhaler 11/23/18 Albuterol 0.083% Nebulizer Talya [Ventolin 0.083% Nebulizer Soln -] 1 amp NEB Q6H PRN #2 amp 12/09/18 Amlodipine Besylate [Norvasc -] 10 mg PO DAILY #30 tablet 12/09/18 Aspirin Coated [Ecotrin -] 81 mg PO DAILY #30 tablet.ec 12/09/18 Levalbuterol HCl [Xopenex] 0.31 mg IH Q8H PRN #1 vial.neb 12/09/18 Cardizem 240mg once daily Pantoprazole Sodium [Protonix -] 40 mg PO DAILY #30 tablet.ec 12/09/18 levETIRAcetam [Keppra -] 500 mg PO BID #0 tablet 12/09/18 levETIRAcetam [Keppra -] 500 mg PO BID #60 tablet 12/09/18 predniSONE [Deltasone -] 40 mg PO DAILY #15 tablet 12/09/18 This patient is new to me today: No Emergency Visit: Yes ED Registration Date: 12/10/18 Care time: The patient presented to the Emergency Department on the above date and was hospitalized for further evaluation of their emergent condition. Critical Care patient: No - Discharge Referral Referred to [facility] No
[2018-12-15 12:48] VITALS: BP 155/74; PULSE 80; TEMP 98
== END 2018-12-15 13:37 | disposition home or self-care (01) | DRG 190 ==
LOC: JER 20:32 → INTOOBSV 23:57 → JERBED 23:57 → UNDOADMOB 23:57 → JERBED 12-10 00:15 → J4W 12-10 02:37 → OBSVTOIN 12-10 14:20
PROVIDERS: ADMIT Internal Medicine; ATTEND Nurse Practitioner Family
DX: J44.1 Chronic obstructive pulmonary disease with (acute) exacerbation (principal); Q28.2 Arteriovenous malformation of cerebral vessels; I50.33 Acute on chronic diastolic (congestive) heart failure; I11.0 Hypertensive heart disease with heart failure; F17.210 Nicotine dependence, cigarettes, uncomplicated; I48.0 Paroxysmal atrial fibrillation; F10.20 Alcohol dependence, uncomplicated; R07.89 Other chest pain; F41.9 Anxiety disorder, unspecified; Z59.0 Homelessness; Z71.6 Tobacco abuse counseling
CPT/HCPCS: 36415; 70450-TC; 71046-TC-FY; 78452-TC; 80048; 80053; 80307; 82550; 82746; 83690; 83735; 83880; 84100; 84425; 84484; 85025; 85027; 85610; 85730; 93005; 93010; 93017; 94010; 94640; 99284-25; A9502; G0378

== ENCOUNTER 2020-12-17 04:24 | Day surgery (SDC) | payer OTHER ==
[2020-12-14 12:07] VITALS: BMI 24.3
[2020-12-17] MEDS ORDERED: BUPIVACAINE HCL/PF 0.25% (2.5MG/ML) 10 ML VIAL ONE (07:26)
[2020-12-17] MEDS ORDERED: methylPREDNISolone ACET (DEPO) 80 MG/1 ML VIAL ONE (07:26)
[2020-12-17] MEDS ORDERED: LIDOCAINE HCL 1%, 10 MG/ML (20ML VIAL) NR ONE (09:09)
[2020-12-17] MEDS ORDERED: BUPIVACAINE HCL/PF 0.25% (2.5MG/ML) 10 ML VIAL IJ ONE (09:09)
[2020-12-17] MEDS ORDERED: methylPREDNISolone ACET (DEPO) 80 MG/1 ML VIAL IJ ONE (09:09)
[2020-12-17 09:48] VITALS: TEMP 98.6
[2020-12-17 09:55] VITALS: BP 132/96; PULSE 80
== END 2020-12-17 10:11 | disposition home or self-care (01) ==
LOC: JASU-SURG 04:24
PROVIDERS: ATTEND Neurological Surgery
PROC: 3E0R33Z Introduction of Anti-inflammatory into Spinal Canal, Percutaneous Approach (ICD-10-PCS; 2020-12-17)
PROC: B01BZZZ Fluoroscopy of Spinal Cord (ICD-10-PCS; 2020-12-17)
PROC: 3E0R3BZ Introduction of Anesthetic Agent into Spinal Canal, Percutaneous Approach (ICD-10-PCS; principal; 2020-12-17 08:30)
DX: M51.16 Intervertebral disc disorders with radiculopathy, lumbar region (principal)

== ENCOUNTER 2021-01-16 04:04 | Day surgery (SDC) | payer OTHER ==
[2021-01-14 10:52] VITALS: BMI 24.2
[2021-01-16] MEDS ORDERED: TRIAMCINOLONE ACET 40MG/1ML VIAL ONE (07:21)
[2021-01-16] MEDS ORDERED: BUPIVACAINE HCL/PF 0.75% 10 ML VIAL ONE (07:21)
[2021-01-16] MEDS ORDERED: DEXAMETHASONE SOD PHOSPHATE/PF 10 MG/ML SDV ONE (07:21)
[2021-01-16] MEDS ORDERED: LIDOCAINE HCL/PF 2% SDV 5ML VIAL ONE (08:00)
[2021-01-16] MEDS ORDERED: PROPOFOL 20 ML ONE ×2 (08:00→08:02)
[2021-01-16] MEDS ORDERED: LIDOCAINE HCL 1% PRESERVATIVE FREE - 30ML VIAL INF ONE (08:05)
[2021-01-16] MEDS ORDERED: methylPREDNISolone ACET (DEPO) 80 MG/1 ML VIAL IJ ONE (08:05)
[2021-01-16] MEDS ORDERED: BUPIVACAINE HCL/PF 0.25% (2.5MG/ML) 10 ML VIAL IJ ONE (08:06)
[2021-01-16 08:37] VITALS: BP 161/81; PULSE 82; TEMP 98.2
[2021-01-16] MEDS ORDERED: ACETAMINOPHEN INJECTION 100 ML IVPB ONE (08:59)
== END 2021-01-16 09:15 | disposition home or self-care (01) ==
LOC: JASU-SURG 04:04
PROVIDERS: ATTEND Neurological Surgery
PROC: 3E0R33Z Introduction of Anti-inflammatory into Spinal Canal, Percutaneous Approach (ICD-10-PCS; 2021-01-16)
PROC: 3E0R3BZ Introduction of Anesthetic Agent into Spinal Canal, Percutaneous Approach (ICD-10-PCS; principal; 2021-01-16 07:30)
DX: M51.16 Intervertebral disc disorders with radiculopathy, lumbar region (principal)
CPT/HCPCS: 76000-TC-FY; J0131

== ENCOUNTER 2025-06-14 19:45 | Inpatient (IN) | payer OTHER ==
[2025-06-14 20:22] VITALS: BMI 21.6
[2025-06-14] MEDS ORDERED: ONDANSETRON 4 MG/2 ML VIAL ONE ×2 (20:56→22:00)
[2025-06-14] MEDS ORDERED: METOPROLOL TARTRATE 5 MG/5 ML VIAL ONE (20:56)
[2025-06-14] MEDS: METOPROLOL TARTRATE 5 MG/5 ML VIAL IVPUSH ONE (21:03)
[2025-06-14] MEDS: ONDANSETRON 4 MG/2 ML VIAL IVPUSH ONE ×2 (21:05→22:21)
[2025-06-14 21:11] LABS: ABSOLUTE IMMATURE GRANULOCYTES 0.12 x10^3/uL (0.0-0.031); BASOPHILS # 0.06 x10^3/uL (0.01-0.08); BG HCT 30.0 % (35.4-49); EOSINOPHIL % 0.1 % (0.8-7.0); EOSINOPHILS # 0.01 x10^3/uL (0.04-0.54); MCHC 32.6 g/dl (32.3-36.5); MEAN CELL VOLUME 81.2 fl (79.0-92.2); MEAN PLT VOLUME 10.5 fl (9.4-12.4); MONOCYTE # 0.75 x10^3/uL (0.30-0.82); MONOCYTE % 3.9 % (5.3-12.2); RDW 17.6 % (12.2-16.6); VENOUS BASE EXCESS -8.3 mmol/L (-2-2); VENOUS O2 SATURATION 29.4 % (70-80); VENOUS PCO2 38.7 mmHg (38-52); VENOUS PH 7.28 (7.310-7.410)
[2025-06-14 21:17] LABS: EPI CELLS 13 /uL (0-25.1); HYALINE CASTS 2 /uL (0-3.1); URINE APPEARANCE CLEAR; URINE BACTERIA 25 /uL (0-1359); URINE BILIRUBIN NEGATIVE (NEGATIVE); URINE COLOR YELLOW; URINE GLUCOSE (UA) NEGATIVE (NEGATIVE); URINE KETONE NEGATIVE (NEGATIVE); URINE LEUK ESTERASE NEGATIVE (NEGATIVE); URINE NITRITE NEGATIVE (NEGATIVE); URINE PROTEIN 2+ (NEGATIVE); URINE RBC 23 /uL (0-23.9); URINE UROBILINOGEN 0.2 mg/dL (0.2-1.0); URINE WBC 6 /uL (0-25.8)
[2025-06-14 21:36] LABS: GLUCOSE,RANDOM 114.0 mg/dL (74-106); TOT PROT 8.6 g/dl (6.4-8.2)
[2025-06-14 21:37] LABS: CO2 15.0 mmol/L (21-32)
[2025-06-14] MEDS: SODIUM CHLORIDE 0.9% 500 ML INFUS.BAG IV ONE (21:37)
[2025-06-14 21:39] LABS: ALK PHOS 75.0 U/L (40-150)
[2025-06-14 21:41] LABS: SGPT/ALT 24.0 U/L (0-55)
[2025-06-14 21:42] LABS: CREATININE 1.45 mg/dL (0.55-1.3); SGOT/AST 44.0 U/L (5-34)
[2025-06-14 21:49] LABS: N-TERMINAL BNP 1114.4 pg/mL (0-299.9)
[2025-06-14 22:00] LABS: INR 1.12 (0.83-1.09); PROTHROMBIN TIME (PATIENT) 12.2 SEC (9.7-13.0)
[2025-06-14 22:02] LABS: ACTIVATED PTT 31.2 SECONDS (25.2-36.5)
[2025-06-14 22:02] LABS: HCV DIAGNOSTIC IN-HOUSE W/RFLX NON-REACTIVE (NONREACTIVE)
[2025-06-14] MEDS ORDERED: ACETAMINOPHEN INJECTION 100 ML ONE (22:42)
[2025-06-14] MEDS ORDERED: METOCLOPRAMIDE HCL INJECTION 10 MG/2 ML VIAL ONE (22:42)
[2025-06-14] MEDS: METOCLOPRAMIDE HCL INJECTION 10 MG/2 ML VIAL IVPB ONE (22:55)
[2025-06-14] MEDS: ACETAMINOPHEN 1000 MG/100 ML BAG IVPB ONE (23:41)
[2025-06-15 01:58] LABS: HIV INTERPRETATION NEGATIVE (NEGATIVE)
[2025-06-15] MEDS: morphine CARPU-JECT 4 MG/1 ML DISP.SYRIN IVPUSH ONE (02:23)
[2025-06-15] MEDS ORDERED: ONDANSETRON 4 MG/2 ML VIAL ONE ×2 (08:24→14:53)
[2025-06-15] MEDS ORDERED: MAG HYDROX/AL HYDROX/SIMETH 30 ML UNIT-DOSE CUP ONE ×2 (08:24→17:05)
[2025-06-15] MEDS: ONDANSETRON 4 MG/2 ML VIAL IVPUSH PRN (08:30)
[2025-06-15 09:09] LABS: MCHC 33.6 g/dl (32.3-36.5); MEAN CELL VOLUME 80.1 fl (79.0-92.2); MEAN PLT VOLUME 9.5 fl (9.4-12.4); RDW 17.2 % (12.2-16.6)
[2025-06-15 09:23] LABS: INR 1.09 (0.83-1.09); PROTHROMBIN TIME (PATIENT) 12.0 SEC (9.7-13.0)
[2025-06-15 09:37] LABS: GLUCOSE,RANDOM 130.0 mg/dL (74-106)
[2025-06-15 09:38] LABS: TOT PROT 7.2 g/dl (6.4-8.2)
[2025-06-15] MEDS ORDERED: PATIENT'S OWN MEDICATION (NON-FORMULARY) (Tizanidine Hcl 4 MG Tablet) PO PRN (09:38)
[2025-06-15 09:39] LABS: CO2 17.0 mmol/L (21-32)
[2025-06-15 09:40] LABS: ALK PHOS 67.0 U/L (40-150)
[2025-06-15 09:43] LABS: CREATININE 1.41 mg/dL (0.55-1.3); SGOT/AST 28.0 U/L (5-34); SGPT/ALT 17.0 U/L (0-55)
[2025-06-15] MEDS ORDERED: ACETAMINOPHEN 325 MG TABLET (FP) PO SCH (09:45)
[2025-06-15] MEDS ORDERED: HEPARIN NA (PORCINE) 5,000 UNITS/ML 1ML VIAL SQ SCH (10:00)
[2025-06-15] MEDS ORDERED: APIXABAN 5 MG TABLET PO SCH (10:00)
[2025-06-15] MEDS ORDERED: amLODIPine BESYLATE 10 MG TABLET (FP) ONE (10:25)
[2025-06-15] MEDS ORDERED: KCL 10 MEQ IVPB 10 MEQ/100 ML INFUS.BAG IVPB ONE (10:26)
[2025-06-15] MEDS: amLODIPine BESYLATE 10 MG TABLET (FP) PO SCH (10:27)
[2025-06-15] MEDS ORDERED: FAMOTIDINE 20 MG/50 ML IVPB 20 MG/50 ML MG IVPB ONE (11:00)
[2025-06-15] MEDS: KCL 10 MEQ IVPB 10 MEQ/100 ML INFUS.BAG IVPB SCH (11:05)
[2025-06-15] MEDS: MAG HYDROX/AL HYDROX/SIMETH 30 ML UNIT-DOSE CUP PO SCH (11:05)
[2025-06-15] MEDS: FAMOTIDINE 20 MG/50 ML IVPB 20 MG/50 ML MG IVPB SCH (12:14)
[2025-06-15] MEDS ORDERED: GABAPENTIN 300 MG CAPSULE ONE (14:05)
[2025-06-15] MEDS: GABAPENTIN 300 MG CAPSULE PO SCH (14:08)
[2025-06-15] MEDS: D5-1/2NS+10 MEQ KCL - 10 MEQ/1,000 ML INFUS.BAG IV SCH (14:45)
[2025-06-15] MEDS ORDERED: THIAMINE HCL 200 MG/2 ML VIAL ONE (15:53)
[2025-06-15] MEDS: THIAMINE HCL 200 MG/2 ML VIAL IVPB SCH (15:54)
[2025-06-15] MEDS: METOPROLOL TARTRATE 25 MG TABLET (FP) PO SCH (22:00)
[2025-06-15] MEDS: ATORVASTATIN CA 10 MG TABLET (FP) PO SCH (22:00)
[2025-06-16] MEDS: AMPICILLIN NA/SULBACTAM NA 3 GM in SODIUM CHLORIDE 100 ML IVPB SCH (16:00)
[2025-06-16 16:27] LABS: ABSOLUTE IMMATURE GRANULOCYTES 0.15 x10^3/uL (0.0-0.031); BASOPHILS # 0.04 x10^3/uL (0.01-0.08); EOSINOPHIL % 0.4 % (0.8-7.0); EOSINOPHILS # 0.07 x10^3/uL (0.04-0.54); MCHC 33.0 g/dl (32.3-36.5); MEAN CELL VOLUME 82.7 fl (79.0-92.2); MEAN PLT VOLUME 8.8 fl (9.4-12.4); MONOCYTE # 1.39 x10^3/uL (0.30-0.82); MONOCYTE % 7.8 % (5.3-12.2); RDW 17.1 % (12.2-16.6)
[2025-06-16 17:04] LABS: GLUCOSE,RANDOM 88.0 mg/dL (74-106); TOT PROT 6.4 g/dl (6.4-8.2)
[2025-06-16 17:05] LABS: CO2 22.0 mmol/L (21-32)
[2025-06-16 17:07] LABS: ALK PHOS 62.0 U/L (40-150)
[2025-06-16 17:09] LABS: SGOT/AST 16.0 U/L (5-34); SGPT/ALT 12.0 U/L (0-55)
[2025-06-16 17:10] LABS: CREATININE 1.0 mg/dL (0.55-1.3)
[2025-06-17 09:48] LABS: GLUCOSE,RANDOM 90.0 mg/dL (74-106); TOT PROT 6.1 g/dl (6.4-8.2)
[2025-06-17 09:49] LABS: CO2 24.0 mmol/L (21-32)
[2025-06-17 09:51] LABS: ALK PHOS 56.0 U/L (40-150)
[2025-06-17 09:54] LABS: CREATININE 0.84 mg/dL (0.55-1.3); SGOT/AST 17.0 U/L (5-34); SGPT/ALT 9.0 U/L (0-55)
[2025-06-17 15:58] LABS: ABSOLUTE IMMATURE GRANULOCYTES 0.10 x10^3/uL (0.0-0.031); BASOPHILS # 0.03 x10^3/uL (0.01-0.08); EOSINOPHIL % 1.1 % (0.8-7.0); EOSINOPHILS # 0.18 x10^3/uL (0.04-0.54); MCHC 32.6 g/dl (32.3-36.5); MEAN CELL VOLUME 82.5 fl (79.0-92.2); MEAN PLT VOLUME 9.2 fl (9.4-12.4); MONOCYTE # 1.43 x10^3/uL (0.30-0.82); MONOCYTE % 8.6 % (5.3-12.2); RDW 16.9 % (12.2-16.6)
[2025-06-17] MEDS: FAMOTIDINE 20 MG/50 ML IVPB 20 MG/50 ML MG IVPB SCH (21:54)
[2025-06-18] MEDS: MULTIVITAMINS (DAILY MVI) TABLET (FP) PO SCH (09:45)
[2025-06-18] MEDS ORDERED: MULTIVITAMINS (DAILY MVI) TABLET (FP) PO SCH (10:00)
[2025-06-18 14:50] LABS: ABSOLUTE IMMATURE GRANULOCYTES 0.05 x10^3/uL (0.0-0.031); BASOPHILS # 0.04 x10^3/uL (0.01-0.08); EOSINOPHIL % 1.2 % (0.8-7.0); EOSINOPHILS # 0.15 x10^3/uL (0.04-0.54); MCHC 31.8 g/dl (32.3-36.5); MEAN CELL VOLUME 82.0 fl (79.0-92.2); MEAN PLT VOLUME 8.9 fl (9.4-12.4); MONOCYTE # 1.54 x10^3/uL (0.30-0.82); MONOCYTE % 12.2 % (5.3-12.2); RDW 16.2 % (12.2-16.6)
[2025-06-18] MEDS: ACETAMINOPHEN 1000 MG/100 ML BAG IVPB ONE (21:22)
[2025-06-19 07:16] LABS: MEAN CELL VOLUME 83.2 fl (79.0-92.2)
[2025-06-19 07:18] LABS: ABSOLUTE IMMATURE GRANULOCYTES 0.09 x10^3/uL (0.0-0.031); BASOPHILS # 0.08 x10^3/uL (0.01-0.08); EOSINOPHIL % 1.6 % (0.8-7.0); EOSINOPHILS # 0.22 x10^3/uL (0.04-0.54); IMMATURE PLATELET FRACTION # 31.30 x10^3/uL; MCHC 32.3 g/dl (32.3-36.5); MEAN PLT VOLUME 10.6 fl (9.4-12.4); MONOCYTE # 1.62 x10^3/uL (0.30-0.82); MONOCYTE % 12.1 % (5.3-12.2); RDW 15.4 % (12.2-16.6)
[2025-06-19 08:16] LABS: GLUCOSE,RANDOM 87.0 mg/dL (74-106); TOT PROT 6.6 g/dl (6.4-8.2)
[2025-06-19 08:17] LABS: CO2 28.0 mmol/L (21-32)
[2025-06-19 08:19] LABS: ALK PHOS 65.0 U/L (40-150)
[2025-06-19 08:21] LABS: SGOT/AST 23.0 U/L (5-34); SGPT/ALT 12.0 U/L (0-55)
[2025-06-19 08:22] LABS: CREATININE 0.88 mg/dL (0.55-1.3)
[2025-06-19] MEDS: ACETAMINOPHEN 325 MG TABLET (FP) PO SCH (11:17)
[2025-06-19] MEDS: NICOTINE 21 MG/24 HOURS TOPICAL PATCH TD SCH (13:00)
[2025-06-19] MEDS ORDERED: LORazepam 2 MG/ML SDV VIAL IVPUSH PRN (13:35)
[2025-06-19 15:42] LABS: ABSOLUTE IMMATURE GRANULOCYTES 0.12 x10^3/uL (0.0-0.031); BASOPHILS # 0.06 x10^3/uL (0.01-0.08); EOSINOPHIL % 1.5 % (0.8-7.0); EOSINOPHILS # 0.21 x10^3/uL (0.04-0.54); MCHC 32.7 g/dl (32.3-36.5); MEAN CELL VOLUME 82.8 fl (79.0-92.2); MEAN PLT VOLUME 8.8 fl (9.4-12.4); MONOCYTE # 1.77 x10^3/uL (0.30-0.82); MONOCYTE % 12.7 % (5.3-12.2); RDW 15.2 % (12.2-16.6)
[2025-06-19] MEDS: FAMOTIDINE 20 MG TABLET PO SCH (21:34)
[2025-06-20 12:56] LABS: ABSOLUTE IMMATURE GRANULOCYTES 0.42 x10^3/uL (0.0-0.031); BASOPHILS # 0.07 x10^3/uL (0.01-0.08); EOSINOPHIL % 3.3 % (0.8-7.0); EOSINOPHILS # 0.51 x10^3/uL (0.04-0.54); MCHC 31.6 g/dl (32.3-36.5); MEAN CELL VOLUME 84.8 fl (79.0-92.2); MEAN PLT VOLUME 9.1 fl (9.4-12.4); MONOCYTE # 1.83 x10^3/uL (0.30-0.82); MONOCYTE % 11.8 % (5.3-12.2); RDW 15.7 % (12.2-16.6)
[2025-06-20 13:43] LABS: GLUCOSE,RANDOM 101.0 mg/dL (74-106); TOT PROT 6.7 g/dl (6.4-8.2)
[2025-06-20 13:45] LABS: CO2 31.0 mmol/L (21-32)
[2025-06-20 13:46] LABS: ALK PHOS 62.0 U/L (40-150)
[2025-06-20 13:49] LABS: CREATININE 0.97 mg/dL (0.55-1.3); SGOT/AST 30.0 U/L (5-34); SGPT/ALT 20.0 U/L (0-55)
[2025-06-20 14:07] LABS: ABSOLUTE IMMATURE GRANULOCYTES 0.12 x10^3/uL (0.0-0.031); BASOPHILS # 0.07 x10^3/uL (0.01-0.08); EOSINOPHIL % 3.0 % (0.8-7.0); EOSINOPHILS # 0.47 x10^3/uL (0.04-0.54); MCHC 32.8 g/dl (32.3-36.5); MEAN CELL VOLUME 84.3 fl (79.0-92.2); MEAN PLT VOLUME 8.7 fl (9.4-12.4); MONOCYTE # 1.99 x10^3/uL (0.30-0.82); MONOCYTE % 12.7 % (5.3-12.2); RDW 15.6 % (12.2-16.6)
[2025-06-21 20:58] VITALS: RESP 18
[2025-06-22 00:24] VITALS: BP 136/74; PULSE 80; TEMP 98.8
== END 2025-06-22 00:15 | DRG 309 ==
LOC: JER 19:45 → JERBED 06-15 03:21 → J6W TELE 06-15 05:07
PROVIDERS: ADMIT Internal Medicine; ATTEND Internal Medicine
PROC: 30233N1 Transfusion of Nonautologous Red Blood Cells into Peripheral Vein, Percutaneous Approach (ICD-10-PCS; principal; 2025-06-18)
DX: I48.0 Paroxysmal atrial fibrillation (principal); E87.20 Acidosis, unspecified; M97.01XA Periprosthetic fracture around internal prosthetic right hip joint, initial encounter; I50.30 Unspecified diastolic (congestive) heart failure; R11.2 Nausea with vomiting, unspecified; R07.89 Other chest pain; E87.6 Hypokalemia; W19.XXXA Unspecified fall, initial encounter; Y93.9 Activity, unspecified; Y92.89 Other specified places as the place of occurrence of the external cause; Y99.9 Unspecified external cause status; D64.9 Anemia, unspecified; I11.0 Hypertensive heart disease with heart failure; E11.9 Type 2 diabetes mellitus without complications; J44.9 Chronic obstructive pulmonary disease, unspecified; F17.200 Nicotine dependence, unspecified, uncomplicated; E78.5 Hyperlipidemia, unspecified
CPT/HCPCS: 36415; 36430; 71045-TC-FY; 72170-TC-FY; 72192-TC; 73552-TC-RT-FY; 74177-TC; 76705-TC; 78226-TC; 80053; 81003; 82803; 82962; 83690; 83735; 83880; 84100; 84436; 84443; 84479; 84484; 85025; 85610; 85730; 86803; 86850; 86900; 86901; 86922; 87040; 87086; 87389; 93005; 93010; 93306-TC; 97116-GP; 97162-GP; 99285-25; A9537; P9038; P9058; Q9967